=== PATIENT | female | born 1955 | race Caucasian/White ===

== ENCOUNTER 2019-09-16 01:27 | Emergency (ER) | payer BC, SELFPAY ==
--- NOTE | ~2019-09-16 | CT_ITS ---
EXAMINATION: CT soft tissue neck wo con DATE: 09/16/2019 02:49 INDICATION: Dysphagia. Throat swelling. TECHNIQUE: Computed tomography (CT) of the neck was performed without intravenous contrast. Automated exposure control and iterative reconstruction technique were employed. The dose-length product was 6 28.18 mGy-cm. COMPARISON: None FINDINGS: There are no pathologically enlarged lymph nodes. The pharyngeal mucosal space and larynx a re normal. The paranasal sinuses are clear. There is severe cervical spondylosis. There are fixation rods in thoracic spine. IMPRESSION: 1. No etiology for the patient's symptoms. Reviewed, dictated and finalized at location A. RNAL AUDIT SENIOR MANAGER
[2019-09-16 01:36] VITALS: BP 151/85; PULSE 84; RESP 20; TEMP 36.8; O2SAT 100
[2019-09-16 01:40] VITALS: BP 151/85; PULSE 86; RESP 18; O2SAT 100
--- NOTE | 2019-09-16 01:57 | ED.ALLEREA ---
HPI - Allergic Reaction General Chief complaint: Allergic Reaction Stated complaint: THROAT SWELLING Time Seen by Provider: 09/16/19 01:55 Source: patient and RN notes reviewed Mode of arrival: ambulatory Limitations: no limitations History of Present Illness HPI narrative: Pt is a 64 y/o female who presents to the ED with c/o possible allergic reaction starting this evening. She notes that she recently started taking Olmesartan 2 months ago. Pt states that she began having difficulty swallowing around 22:00 yesterday. She notes that her tongue feels swollen, and states that her symptoms aggravated while laying down around 00:00 this morning. Pt notes that she hasn't tried any other new medications. She currently denies any slurred speech, rash, diarrhea, cough, or difficulty breathing. Pt notes that she has no known allergies. MD complaint: allergic reaction (possible) Onset (ago): hour(s) (4) Exposure: medication Symptoms: difficulty swallowing and tongue swelling Treatment prior to arrival: none Related Data Allergies Allergy/AdvReac Type Severity Reaction Status Date / Time Iodinated Contrast Media Allergy Unknown Unverified 06/22/19 11:41 Contrast Media Allergy Mild Uncoded 07/05/18 12:56 Review of Systems Review of Systems: Narrative: CONSTITUTIONAL: Denies fever, chills, or sweats. ENT: Denies rhinorrhea, congestion, sore throat, or otalgia. Reports tongue swelling and difficulty swallowing. RESPIRATORY: Denies cough or dyspnea. GASTROINTESTINAL: Denies abdominal pain, nausea, vomiting, or diarrhea. SKIN: Denies rash or itching. NEUROLOGIC: Denies headache, numbness, slurred speech, or weakness. All systems reviewed & are unremarkable except as noted in HPI and below PMFSH Past Medical History Medical History (Updated 09/16/19 @ 03:22 by Nan Abreu MD) Arthritis Bipolar disorder Depression GERD (gastroesophageal reflux disease) HTN (hypertension) Surgical History Surgical History Hx of cholecystectomy Hx of gastric bypass Hx of shoulder replacement bilateral shoulders Hx of tonsillectomy Social History Social History Smoking status: Never smoker Exam Narrative: Exam Narrative: GENERAL: Well-appearing, well-nourished, and in no acute distress. HEAD: Normocephalic, atraumatic. EYES: PERRLA and EOMI. ENT: Nares clear, no rhinorrhea or epistaxis. Mucous membranes moist. Uvula midline. No pharyngeal edema or erythema. Epiglottis visible on evaluation of oropharynx. No trismus. NECK: Supple. CHEST: Clear to auscultation. No respiratory distress. HEART: Regular rate and rhythm. No murmur heard. Normal peripheral pulses. ABDOMEN: Soft, nontender, nondistended, normal active bowel sounds. EXTREMITIES: Normal range of motion. No edema. SKIN: Warm, dry, no rash. NEURO: No focal deficits. Alert and oriented. Tardive dyskinesia noted. Repetitive tongue and mouth movements. Course Course Emergency Course: Patient presented for evaluation of difficulty swallowing and concern for swelling of the tongue. On exam, the patient is tolerating her secretions, no tongue edema, uvula is midline without edema or erythema. No trismus. Patient is able to swallow in the room, I was able to give her numerous sips of water and she had no difficulty swallowing, no vomiting. No sign of angioedema. No lip edema, no tongue edema. Patient has no reports of pain. She does have tardive dyskinesia on exam which is chronic for her due to not being able to access the medication due to some insurance barriers. Patient will be treated for mild possible allergic reaction, no other secondary symptoms or 2 system involvement to suggest anaphylaxis. Patient was monitored in the emergency department, had no worsening of symptoms, no airway compromise, was continued to be able to tolerate oral intake. CT scan without acute findings. No sign of epiglo
[2019-09-16 02:30] VITALS: BP 120/71; PULSE 78; RESP 21; O2SAT 98
[2019-09-16 03:30] VITALS: BP 132/71; PULSE 77; RESP 16; O2SAT 100
== END 2019-09-16 03:40 | disposition home or self-care (01) ==
PROVIDERS: Emergency Provider Emergency Medicine; PCP Internal Medicine
DX: M19.90 Unspecified osteoarthritis, unspecified site (principal); K21.9 Gastro-esophageal reflux disease without esophagitis; I10 Essential (primary) hypertension
CPT/HCPCS: 70490; 99284; A9270; J1100

== ENCOUNTER 2019-10-02 17:48 | Emergency (ER) | payer BC, SELFPAY ==
[2019-10-02 17:55] VITALS: BP 138/76; PULSE 104; RESP 20; TEMP 37.4; O2SAT 98
--- NOTE | 2019-10-02 18:17 | ED.GENADULT ---
HPI - General Adult General Chief complaint: Skin/Abscess/Foreign Body Stated complaint: Bite on neck Time Seen by Provider: 10/02/19 18:17 Source: patient and RN notes reviewed Mode of arrival: ambulatory Limitations: no limitations History of Present Illness HPI narrative: 64-year-old female presents with complaints of possible bites to lower neck area with redness, warmth, tenderness, and swelling for the past 3 days. No treatment. Denies radiation of tenderness, redness, or swelling. No exacerbating factors. Denies open areas or drainage. Denies fever or chills. Denies nausea, vomiting, and abdominal pain. Some parts of this dictation were generated by voice recognition software and may contain typographical and/or grammatical inaccuracies. Related Data Home Medications Medication Instructions Recorded Confirmed atorvastatin 10 mg PO DAILY 10/02/19 10/02/19 deutetrabenazine [Austedo] 9 mg PO BID 10/02/19 10/02/19 dextroamphetamine-amphetamine 30 mg PO DAILY 10/02/19 10/02/19 gabapentin 300 mg PO DAILY 10/02/19 10/02/19 meloxicam 15 mg PO DAILY 10/02/19 10/02/19 olmesartan-hydrochlorothiazide 1 tablet PO DAILY 10/02/19 10/02/19 omeprazole 20 mg PO BID 10/02/19 10/02/19 potassium chloride 10 meq PO DAILY 10/02/19 10/02/19 Allergies Allergy/AdvReac Type Severity Reaction Status Date / Time Iodinated Contrast Media Allergy Unknown Unverified 06/22/19 11:41 Contrast Media Allergy Mild Uncoded 07/05/18 12:56 Review of Systems Review of Systems: Narrative: CONSTITUTIONAL: Denies fever, chills, sweats. EYES: Denies visual changes, redness, discharge. ENT: Denies rhinorrhea, congestion, sore throat, otalgia. CARDIOVASCULAR: Denies chest pain, palpitations, edema. RESPIRATORY: Denies dyspnea, wheezing, cough. GASTROINTESTINAL: Denies abdominal pain, nausea, vomiting, diarrhea. GENITOURINARY: Denies dysuria, hematuria, abnormal discharge. SKIN: Complains of redness, swelling, warmth, and tenderness to bumps on lower neck. Denies drainage. MUSCULOSKELETAL: Denies acute back pain, joint pain, or myalgia. NEUROLOGIC: Denies numbness or focal weakness. PSYCHIATRIC: Denies anxiety or depression. All systems reviewed & are unremarkable except as noted in HPI and below. [facility] Past Medical History Medical History (Updated 10/10/19 @ 06:00 by YEVGENIY Mahajan) Arthritis Bipolar disorder Depression Diabetes GERD (gastroesophageal reflux disease) HTN (hypertension) Hypothyroidism Tardive syndrome Surgical History Surgical History (Updated 10/10/19 @ 05:59 by YEVGENIY Mahajan) History of spinal surgery Hx of cholecystectomy Hx of gastric bypass Hx of shoulder replacement bilateral shoulders Hx of tonsillectomy Social History Social History Smoking status: Never smoker Gender identity (if verbalized by the patient): Female Comments At time of signature, agree with nurse past medical, surgical, social, and family history. There is no relevant family history pertinent to the presenting complaint. Exam Narrative: Exam Narrative: GENERAL: This is a well-nourished, well-developed patient, in no apparent distress. HEAD: normocephalic, atraumatic. EYES: PERRL. Sclera clear/white. Vision is grossly intact. CARDIOVASCULAR: Regular rate and rhythm without murmurs, gallops, or rubs. RESPIRATORY: Clear to auscultation. Breath sounds equal bilaterally. No wheezes, rales, or rhonchi. GASTROINTESTINAL: Abdomen soft, non-tender, nondistended. Bowel sounds are active. No hepato-splenomegaly, or palpable masses. No guarding. SKIN: warm, 3 small raised lesions to mid upper back at base of neck covering a 2.5cm by 2cm area with mild erythema no significant warmth or tenderness or palpation, no fluctuation, I&D not necessary at this time. 2.5cm by 2cm surrounding Cellulitis. Skin intact. No drainage or ecchymosis. Good texture and turgor. Healing s
== END 2019-10-02 18:44 | disposition home or self-care (01) ==
PROVIDERS: Emergency Provider Nurse Practitioner Family
DX: L03.312 Cellulitis of back [any part except buttock and flank] (principal); M19.90 Unspecified osteoarthritis, unspecified site; K21.9 Gastro-esophageal reflux disease without esophagitis; I10 Essential (primary) hypertension; Z98.84 Bariatric surgery status; Z96.612 Presence of left artificial shoulder joint; Z96.611 Presence of right artificial shoulder joint
CPT/HCPCS: 99213; G0463

== ENCOUNTER 2020-01-07 18:20 | IRF | payer BC, SELFPAY ==
[2020-01-07 18:20] VITALS: BP 96/81; PULSE 96; RESP 20; TEMP 36.8; O2SAT 97; BMI 36.7
--- NOTE | 2020-01-07 18:29 | ADMGEN ---
This patient, Ale Harley, was admitted to [facility] Room 230-02. Patient/family oriented to hospital policies and general routines including ID bracelet, bed and alarms, visiting hours, pain management, procedures, bathroom and other care routines, personal items, smoking policy, room service/diet, and visiting hours. Valuables list has been completed. Information on how to activate the Rapid Response Team has been discussed. Patient/Family are encouraged to report perceived risks to care and to ask questions if they do not understand what they are told or what they should do.
[2020-01-07] MEDS: AZITHROMYCIN 250 MG TABLET 500 MG PO (21:15)
[2020-01-07] MEDS: GABAPENTIN 300 MG CAPSULE PO (21:16)
[2020-01-07] MEDS: PANTOPRAZOLE 40 MG TABLET PO (21:17)
[2020-01-07] MEDS: ACETAMINOPHEN 325 MG TABLET 650 MG PO (21:17)
[2020-01-07 21:47] VITALS: BP 140/59; PULSE 92; RESP 18; TEMP 36.3; O2SAT 96
[2020-01-08 05:19] LABS: Hematocrit 25.8 % (37.0-47.0); Mean Corpuscular Hemoglobin 26.5 pg (26-34); Mean Corpuscular Volume 85.4 fl (80-100); Mean Platelet Volume 8.2 fl (7.4-10.4); Platelet Count Result 527 k/mm3 (150-375); Red Blood Count 3.02 M/mm3 (4.2-5.4); Red Cell Distribution Width 15.7 % (11.5-14.5); White Blood Count 8.3 K/mm3 (4.5-10.0)
[2020-01-08 05:32] LABS: Blood Urea Nitrogen 12 mg/dL (7-17); Calcium 8.7 mg/dL (8.4-10.2); Carbon Dioxide 31 mmol/L (22-30); Chloride 101 mmol/L (98-107); Estimated CRCL calculation 60 ml/min; Estimated Glomerular Filt Rate > 60; Glucose 101 mg/dL (65-105); Potassium 3.9 mmol/L (3.4-5.0); Sodium 137 mmol/L (137-145)
[2020-01-08] MEDS: ACETAMINOPHEN 325 MG TABLET 650 MG PO ×3 (05:38→21:58)
[2020-01-08 05:43] LABS: Hemoglobin A1C 6.3 % (<5.7)
[2020-01-08 05:58] LABS: Band Neutrophils Percent 5 % (0-6); Lymphocytes Absolute Manual 1.82 K/mm3 (1.1-4.5); Metamyelocytes Percent 2 %; Monocytes Absolute Manual 0.74 K/mm3 (0.1-0.90); Monocytes Percent Manual 9 % (3-9); Neutrophils Absolute Manual 5.56 K/mm3 (1.7-7.2); Neutrophils Percent Manual 62 % (46-73); Platelet Estimate Adequate (Adequate); Total Cells Counted 100
[2020-01-08 06:00] VITALS: BP 111/65; PULSE 87; RESP 18; TEMP 37; O2SAT 98
[2020-01-08] MEDS: ATORVASTATIN 10 MG TABLET PO (09:17)
[2020-01-08] MEDS: AZITHROMYCIN 250 MG TABLET PO (09:17)
[2020-01-08] MEDS: DOCUSATE SODIUM 100 MG CAPSULE PO (09:18)
[2020-01-08] MEDS: CHOLECALCIFEROL 1,000 UNIT TABLET 2000 UNITS PO (09:18)
[2020-01-08] MEDS: hydroCHLOROthiazide 25 MG TABLET PO (09:18)
[2020-01-08] MEDS: GABAPENTIN 300 MG CAPSULE PO ×2 (09:18→21:57)
[2020-01-08] MEDS: OLMESARTAN MEDOXOMIL 20 MG TABLET 40 MG PO (09:19)
[2020-01-08] MEDS: PANTOPRAZOLE 40 MG TABLET PO ×2 (09:19→21:57)
[2020-01-08] MEDS: POTASSIUM CHLORIDE 10 MEQ TABLET.ER PO (09:19)
[2020-01-08] MEDS: MELOXICAM 7.5 MG TABLET 15 MG PO (09:19)
[2020-01-08] MEDS: lamoTRIgine 100 MG TABLET 200 MG PO ×2 (09:19→17:30)
[2020-01-08] MEDS: VITAMIN B COMPLEX/VIT C CAPSULE 1 EACH PO (09:20)
--- NOTE | 2020-01-08 12:00 | WPDREHABHP ---
H&P: HPI History of Present Illness Chief complaint: Lumbar Spondylolisthesis Narrative: Ale Harley is a 64 year old female HISTORY OF PRESENT ILLNESS: The patient's primary rehab impairment category is 0 6-neurological condition The etiologic diagnosis is lumbar degenerative spondylolisthesis and lumbar spinal stenosis with neurological claudication I saw this patient [id number] on January 08, 2020 at 12 noon The patient is a 64-year-old right-handed white woman with a past medical history of hypertension, diabetes mellitus, tardive dyskinesias, and multiple back surgeries presented to [facility] in December 21, 2019 due to inadequate pain control in her back. She was last seen in the orthopedic clinic on December 16, 2019, and further surgery was discussed regarding the broken rods at L4 /L5. She has selected for non operative management at that time and was issued a back brace. Patient continued to have increased pain and significant functional decline in ADLs. Orthopedic Spine was consulted and recommended surgical intervention. On January 01, 2020 the patient underwent an L5-S1 TLIF, L1-pelvic hardware revision by Dr Tolentino. Postop complications included acute pain and acute blood-loss anemia. The patient has no restriction for weight-bearing status and no back brace is needed for orthopedic surgeon as per orthopedic surgeon. Pain controlled with Relafen and Tylenol recommended to avoid narcotics. The patient is supposed to have been discharged on Lovenox b.i.d. for anticoagulation however will see how much she is able to walk issues walking quite a distance then we may not have to The patient has not traveled outside the [place] had contact with someone who is ill and has traveled outside use in the past 21 days. The patient has not traveled to an area of the [place] that is experiencing no transmission of the Coronavirus and has not had close personal contact with anyone that has. Patient does not have a fever. The patient is not experiencing lower respiratory illness symptoms. The patient had COVID-19 test on December 22, 2027 was negative Therapy was initiated at the acute care facility and the patient transferred to us from [facility] on January 07, 2020 on FALLS OR SURGERIES: The patient has had major surgeries in the 100 days prior to admission. They had no falls in the past year. They had no falls with injury in the past year. PAST MEDICAL HISTORY: chronic low back pain, anxiety, C diff in 2012, diabetes mellitus, hypertension, osteoarthritis, tardive dyskinesias. PAST SURGICAL HISTORY: Spinal surgery with rods inserted in March of 2019, cholecystectomy, colonoscopy with polypectomy in November of 2011 and May 2018, craniotomy lump removal, right total hip replacement, LASIK surgery, [id number] posterior instrumented spinal fusion decompression at L5-L5 rather L1-L5 in March 2019, revision posterior spinal fusion with extension of instrumented posterior spinal fusion to thoracic area and April 2019, partial hysterectomy x2, bilateral shoulder replacement 2004, 2002 and tonsillectomy SOCIAL HISTORY: the patient lives alone in a duplex with 2 steps to enter. She is completely independent just improved functionally to know device from a cane. She has a hospital housekeeper that helps her with cooking cleaning and laundry. 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 Patient denies tobacco use or illicit use of drugs. She drinks alcohol on occasions. FAMILY HISTORY: Father had diabetes, heart disease and hypertension. Mother had diabetes, heart disease, hypertension and stroke. Family history of cancer PRIOR LEVEL OF FUNCTION: Eating was INDEPENDENT Oral Care was INDEPENDENT Toileting Hygiene was INDEPENDENT Shower/Bathing was INDEPENDENT Upper Body Dressing was INDEPENDENT Lower Body Dressing was INDEPENDENT Donning/Watchtower Footwear was INDEPENDENT Rolling Left and Right was INDEP
[2020-01-08 13:45] VITALS: BMI 36.7
[2020-01-08 14:00] VITALS: BP 96/53; PULSE 86; RESP 18; TEMP 36.4; O2SAT 100
--- NOTE | 2020-01-08 14:56 | PCCCNOTE ---
On 01/08/20, the student, [Nash Galeas ], provided care and completed [facility] documentation on this patient. I have reviewed the student's documentation and agree with the findings.
[2020-01-08 22:00] VITALS: BP 116/58; PULSE 87; RESP 17; TEMP 36.9; O2SAT 97
--- NOTE | 2020-01-08 23:14 | PHAR ---
PT'S HOME MED AUSTEDO 9 MG TAB VERIFIED BY PHARMACY
[2020-01-09] MEDS: ACETAMINOPHEN 325 MG TABLET 650 MG PO ×3 (05:53→20:37)
[2020-01-09 06:00] VITALS: BP 106/61; PULSE 78; RESP 18; TEMP 36.6; O2SAT 98
[2020-01-09 08:06] LABS: Glucose Point of Care 197 (65-105)
[2020-01-09] MEDS: CHOLECALCIFEROL 1,000 UNIT TABLET 2000 UNITS PO (09:57)
[2020-01-09] MEDS: DOCUSATE SODIUM 100 MG CAPSULE PO (09:57)
[2020-01-09] MEDS: GABAPENTIN 300 MG CAPSULE PO ×2 (09:57→20:37)
[2020-01-09] MEDS: ATORVASTATIN 10 MG TABLET PO (09:57)
[2020-01-09] MEDS: AZITHROMYCIN 250 MG TABLET PO (09:57)
[2020-01-09] MEDS: hydroCHLOROthiazide 25 MG TABLET PO (09:58)
[2020-01-09] MEDS: lamoTRIgine 100 MG TABLET 200 MG PO ×2 (09:58→18:33)
[2020-01-09] MEDS: OLMESARTAN MEDOXOMIL 20 MG TABLET 40 MG PO (09:59)
[2020-01-09] MEDS: POTASSIUM CHLORIDE 10 MEQ TABLET.ER PO (09:59)
[2020-01-09] MEDS: PANTOPRAZOLE 40 MG TABLET PO ×2 (09:59→20:37)
[2020-01-09] MEDS: MELOXICAM 7.5 MG TABLET 15 MG PO (09:59)
[2020-01-09] MEDS: VITAMIN B COMPLEX/VIT C CAPSULE 1 EACH PO (10:00)
--- NOTE | 2020-01-09 13:34 | RPD ---
INDIVIDUALIZED PLAN OF CARE FOR Ale Harley Brief Synthesis of Pre-Admission Screen, Post-Admission Evaluation and Therapy Evaluations: The patient presents to rehab with lumbar degenerative spondylolisthesis and lumbar spinal stenosis with neurogenic claudication. Comorbidities include s/p L5-S1 TLIF, L1-pelvis hardware revision 01/01/2020, chronic low back pain, anxiety, diabetes mellitus, hypertension, osteoarthritis, tardive dyskinesia, and acute blood loss anemia. The complexity of the patient's medical management, nursing, and therapy needs require an inpatient rehab hospital stay with a physician-led interdisciplinary team approach. The patient?s needs will be best met in an intensive program vs. at a lower level of care. The patient requires physician services for medical oversight, management of postop complications in setting of present comorbidities, and pain management. The patient requires nursing services for DVT prophylactics, infection protection, medication management and education, pressure relief, and wound care. Deficits include:ADLs, Balance, Endurance, Family Training/Education, Mobility, Pain Management, ROM, Safety, Strength,and Transfers Petroleum Inspector/Case Management for: Discharge Planning and Patient/Family Counseling Physical Therapy: 5 days per week for 90 minutes. Treatments may include: Therapeutic Exercise, Gait Training, Neuromuscular Re-education, Transfer Training, Community Reintegration, Bed Mobility, Patient/Family Education, Wheelchair Mobility Group Therapy/Concurrent Therapy Rationales: -Improve attention span during functional activities in a distracted environment. -Enhance problem solving and/or adequate judgment skills during functional activities in a distracted environment. -Promote increased safety awareness in a distracted environment to reduce fall risk with functional tasks, transfers, and ambulation to allow a more safe, self-sufficient return to the home environment. -Improve dynamic balance skills to promote safety and independence with functional activities in a distracted environment for maximum gain. Occupational Therapy: 5 days per week for 90 minutes. Treatments may include: Therapeutic Exercise, Therapeutic Activity, Cognitive Training, Self-Care Transfer Training, Community Reintegration, Home Management, Patient/Family Education, Wheelchair Mobility Training, Energy Conservation Training Group Therapy/Concurrent Therapy Rationales: -Allow therapist to observe and teach generalization and carry-over of skills learned in individual therapy. -Enhance problem solving and sequencing skills during therapeutic activities in a distracted environment. -Promote increased safety awareness in a realistic setting to reduce fall risk with functional tasks due to visual and verbal distractions. -Increase functional level with ADLs, ADL transfers and use of adaptive equipment through therapeutic activities with others while promoting safety to allow a more safe, self-sufficient return home. Medical Prognosis: Good Anticipated Length of Stay: 12 days Rehab Goals: Eating Goal: 06-Independent Oral Hygiene Goal: 06-Independent Toileting Hygiene Goal: 06-Independent Shower/Bathe Self Goal: 04-Supervision or Touching Assistance Upper Body Dressing Goal: 06-Independent Lower Body Dressing Goal: 06-Independent Putting On/Taking Off Footwear Goal: 06-Independent Rolling Left and Right Goal: 06-Independent Sit to Lying Goal: 06-Independent Lying to Sitting on Side of Bed Goal: 06-Independent Sit to Stand Goal: 06-Independent Chair/[id number] Transfer Goal: 06-Independent Toilet Transfer Goal: 06-Independent Car Transfer Goal: 06-Independent Walk 10' Goal: 06-Independent Walk 50' with Two Turns Goal: 06-Independent Walk 150' Goal: 06-Independent Walk 10' on Uneven Surface Goal: 1 Step (Curb) Goal: 06-Independent 4 Steps Goal: 06-Independent 12 Steps Goal Score: 03-Partial/moderate assistance Picking Up Ob
[2020-01-09 14:00] VITALS: BP 104/55; PULSE 93; RESP 20; TEMP 37; O2SAT 96
[2020-01-09] MEDS: CYCLOBENZAPRINE HCL 10 MG TABLET PO (18:40)
[2020-01-09 22:00] VITALS: BP 98/43; PULSE 89; RESP 17; TEMP 36.8; O2SAT 99
[2020-01-10 06:00] VITALS: BP 97/49; PULSE 82; RESP 18; TEMP 37.2; O2SAT 99
[2020-01-10 06:23] LABS: Glucose Point of Care 95 (65-105)
[2020-01-10] MEDS: ATORVASTATIN 10 MG TABLET PO (09:30)
[2020-01-10] MEDS: lamoTRIgine 100 MG TABLET 200 MG PO ×2 (09:30→18:09)
[2020-01-10] MEDS: hydroCHLOROthiazide 25 MG TABLET PO (09:30)
[2020-01-10] MEDS: AZITHROMYCIN 250 MG TABLET PO (09:31)
[2020-01-10] MEDS: OLMESARTAN MEDOXOMIL 20 MG TABLET 40 MG PO (09:31)
[2020-01-10] MEDS: GABAPENTIN 300 MG CAPSULE PO ×2 (09:32→21:21)
[2020-01-10] MEDS: DOCUSATE SODIUM 100 MG CAPSULE PO (09:32)
[2020-01-10] MEDS: MELOXICAM 7.5 MG TABLET 15 MG PO (09:32)
[2020-01-10] MEDS: POTASSIUM CHLORIDE 10 MEQ TABLET.ER PO (09:33)
[2020-01-10] MEDS: PANTOPRAZOLE 40 MG TABLET PO ×2 (09:33→21:21)
[2020-01-10] MEDS: VITAMIN B COMPLEX/VIT C CAPSULE 1 EACH PO (09:33)
[2020-01-10] MEDS: CHOLECALCIFEROL 1,000 UNIT TABLET 2000 UNITS PO (10:25)
[2020-01-10] MEDS: ACETAMINOPHEN 325 MG TABLET 650 MG PO ×2 (13:11→21:21)
[2020-01-10 14:00] VITALS: BP 96/53; PULSE 96; RESP 18; TEMP 36.6; O2SAT 97
--- NOTE | 2020-01-10 14:49 | WPDNEURORHBP ---
Subjective Date/time seen: Lumbar spondylolisthesis with stenosis, hypertension,DM,tardive dyskinesia and H/o multiple back [id number]/21/20 14:49 Review of Systems Review of Systems: All systems reviewed & are unremarkable except as noted in HPI and below Functional Status Ambulation Ability Ability to Ambulate 10 Feet: Contact Guard Ability to Ambulate 50 Feet With 2 Turns: Standby Assistance Ambulation Assistive Devices: Cane, Small Base Quad Transfers Ability Ability to Transfer In/Out of Chair: Standby Assistance Exam Const: General: cooperative and no acute distress Nutritional Appearance: overweight HENMT: Head: normal to inspection Eyes: General: appearance normal, both eyes and all related structures Alignment and Position: alignment normal and position normal Periorbital: periorbital findings normal Eyelids: eyelids normal Conjunctivae: conjunctivae normal Sclera: sclerae normal Cornea: corneas normal Pupils: Equal, round and reactive pupils present EOM: EOMs intact bilaterally Direct Ophthalmoscopy: normal light reflex Neck: Neck: full ROM and no lymphadenopathy Thyroid: thyroid normal Carotids: normal carotid upstroke Resp: Auscultation: clear to auscultation bilaterally Cardio: Rate: regular rate Rhythm: regular rhythm GI: Auscultation: normal bowel sounds Skin: General skin exam: no rashes or lesions noted Wounds: no wounds (healthy) Neuro: General: patient oriented x3 and moves all extremities (duskinesia of face) Cranial nerves: Yes CN's II-XII intact bilaterally, Yes Equal, round and reactive pupils present, Yes Bilaterally intact EOM present, Yes Nystagmus not present, Yes facial symmetry (dyskinesia) and Yes Midline tongue present Motor exam (neuro): Abnormal motor strength present Extrem: General: normal to inspection Psych: Appearance: grossly normal Objective Data Vital Signs Vital Signs: Vital Signs - 24 hr 01/09/20 22:00 01/10/20 06:00 Temperature 36.8 C 37.2 C Pulse Rate 89 82 Respiratory Rate 17 18 Blood Pressure 98/43 L 97/49 L Pulse Oximetry 99 99 Intake/Output Intake/Output: Intake & Output 01/07/20 01/08/20 01/09/20 01/10/20 23:59 23:59 23:59 23:59 Intake Total 240 720 580 400 Balance 240 720 580 400 Meds/Results Medications: Active Medications Generic Name Dose Route Start Last Admin Trade Name Freq PRN Reason Stop Dose Admin Acetaminophen 650 mg 01/07/20 22:00 01/10/20 13:11 Tylenol Tablet PO 650 mg Q8HR DAMON Administration Acetaminophen/Codeine Phosphate 1 tab 01/07/20 19:13 01/09/20 18:40 Tylenol #3 PO 1 tab Q4H PRN Administration Pain 6-10 Hydrocodone Bitart/Acetaminophen 1 tab 01/07/20 19:13 Eldridge 5-325 Mg PO Q4H PRN Pain 1-5 Atorvastatin Calcium 10 mg 01/08/20 09:00 01/10/20 09:30 Lipitor PO 10 mg DAILY DAMON Administration Azithromycin 250 mg 01/08/20 09:00 01/10/20 09:31 Zithromax Tablet PO 01/11/20 09:01 250 mg DAILY DAMON Administration Cyclobenzaprine HCl 10 mg 01/07/20 19:13 01/09/20 18:40 Flexeril PO 10 mg TID PRN Administration Spasms Docusate Sodium 100 mg 01/08/20 09:00 01/10/20 09:32 Colace Capsule PO 100 mg DAILY DAMON Administration Gabapentin 300 mg 01/07/20 21:00 01/10/20 09:32 Neurontin PO 300 mg Q12HR DAMON Administration Guaifenesin 600 mg 01/09/20 21:00 01/10/20 09:30 Mucinex 12 Hr Tab PO 600 mg Q12HR DAMON Administration Hydrochlorothiazide 25 mg 01/08/20 09:00 01/10/20 09:30 Hydrochlorothiazide PO 02/07/20 09:01 25 mg DAILY DAMON Administration Lamotrigine 200 mg 01/08/20 09:00 01/10/20 09:30 Lamictal PO 200 mg BID DAMON Administration Meloxicam 15 mg 01/08/20 09:00 01/10/20 09:32 Mobic PO 02/07/20 09:01 15 mg DAILY DAMON Administration Non-Formulary Medication 30 mg 01/08/20 09:00 Dextroamphetamine-Amphetamine PO 02/07/20 09:01 BID [facility] Olmesartan 40 m
[2020-01-10] MEDS: CYCLOBENZAPRINE HCL 10 MG TABLET PO (18:08)
[2020-01-10 22:00] VITALS: BP 99/62; PULSE 86; RESP 18; TEMP 36.9; O2SAT 97
[2020-01-11] MEDS: ACETAMINOPHEN 325 MG TABLET 650 MG PO ×3 (05:54→20:24)
[2020-01-11 06:00] VITALS: BP 117/60; PULSE 83; RESP 18; TEMP 36.6; O2SAT 98
[2020-01-11 06:44] LABS: Glucose Point of Care 92 (65-105)
[2020-01-11 09:00] VITALS: PULSE 96; RESP 18; O2SAT 99
[2020-01-11] MEDS: AZITHROMYCIN 250 MG TABLET PO (09:58)
[2020-01-11] MEDS: PANTOPRAZOLE 40 MG TABLET PO ×2 (09:58→20:24)
[2020-01-11] MEDS: ATORVASTATIN 10 MG TABLET PO (09:58)
[2020-01-11] MEDS: MELOXICAM 7.5 MG TABLET 15 MG PO (09:58)
[2020-01-11] MEDS: hydroCHLOROthiazide 25 MG TABLET PO (09:59)
[2020-01-11] MEDS: lamoTRIgine 100 MG TABLET 200 MG PO ×2 (09:59→17:29)
[2020-01-11] MEDS: CHOLECALCIFEROL 1,000 UNIT TABLET 2000 UNITS PO (10:00)
[2020-01-11] MEDS: VITAMIN B COMPLEX/VIT C CAPSULE 1 EACH PO (10:00)
[2020-01-11] MEDS: POTASSIUM CHLORIDE 10 MEQ TABLET.ER PO (10:00)
[2020-01-11] MEDS: OLMESARTAN MEDOXOMIL 20 MG TABLET 40 MG PO (10:00)
[2020-01-11] MEDS: GABAPENTIN 300 MG CAPSULE PO ×2 (10:01→20:23)
[2020-01-11] MEDS: DOCUSATE SODIUM 100 MG CAPSULE PO (10:02)
[2020-01-11 14:00] VITALS: BP 113/57; PULSE 96; RESP 18; TEMP 36.7; O2SAT 100
[2020-01-11 22:00] VITALS: BP 102/54; PULSE 93; RESP 18; TEMP 36.8; O2SAT 96
[2020-01-12 06:00] VITALS: BP 131/67; PULSE 81; RESP 18; TEMP 36.2; O2SAT 94
[2020-01-12] MEDS: ACETAMINOPHEN 325 MG TABLET 650 MG PO ×3 (06:22→21:54)
[2020-01-12 06:57] LABS: Glucose Point of Care 92 (65-105)
[2020-01-12 08:00] VITALS: PULSE 81; RESP 18; O2SAT 94
[2020-01-12] MEDS: OLMESARTAN MEDOXOMIL 20 MG TABLET 40 MG PO (08:51)
[2020-01-12] MEDS: ATORVASTATIN 10 MG TABLET PO (08:51)
[2020-01-12] MEDS: lamoTRIgine 100 MG TABLET 200 MG PO ×2 (08:51→17:59)
[2020-01-12] MEDS: DOCUSATE SODIUM 100 MG CAPSULE PO (08:52)
[2020-01-12] MEDS: hydroCHLOROthiazide 25 MG TABLET PO (08:52)
[2020-01-12] MEDS: PANTOPRAZOLE 40 MG TABLET PO ×2 (08:52→21:54)
[2020-01-12] MEDS: POTASSIUM CHLORIDE 10 MEQ TABLET.ER PO (08:52)
[2020-01-12] MEDS: GABAPENTIN 300 MG CAPSULE PO ×2 (08:52→21:54)
[2020-01-12] MEDS: CHOLECALCIFEROL 1,000 UNIT TABLET 2000 UNITS PO (08:53)
[2020-01-12] MEDS: VITAMIN B COMPLEX/VIT C CAPSULE 1 EACH PO (08:54)
[2020-01-12] MEDS: MELOXICAM 7.5 MG TABLET 15 MG PO (08:54)
[2020-01-12 14:00] VITALS: BP 105/61; PULSE 97; RESP 20; TEMP 36.6; O2SAT 100
--- NOTE | 2020-01-12 14:54 | WPDNEURORHBP ---
Subjective Date/time seen: 01/12/20 14:54 Interval history: this 64-year-old woman is here post surgery for lumbar spondylolisthesis lumbar canal stenosis and intermittent claudication she is slowly improving and get good report card from the nursing occupational therapist and PT she is walking roughly about 150 feet consistently Patient denies any headache nausea vomiting chest pain shortness of breath fever chills sore throat Review of Systems Review of Systems: All systems reviewed & are unremarkable except as noted in HPI and below Functional Status Ambulation Ability Ability to Ambulate 10 Feet: Independent Ability to Ambulate 50 Feet With 2 Turns: Standby Assistance Ability to Ambulate 150 Feet: Standby Assistance Ambulation Assistive Devices: Walker, Wheeled Transfers Ability Ability to Transfer In/Out of Chair: Standby Assistance Exam Const: General: comfortable and no acute distress HENMT: General nose exam: Normal nares present Mouth: Yes moist mucous membranes Eyes: General: appearance normal, both eyes and all related structures Neck: Neck: supple and no JVD Resp: Effort & Inspection: normal respiratory effort Auscultation: clear to auscultation bilaterally Cardio: Rate: regular rate Rhythm: regular rhythm GI: GI Palp: Yes Soft to palpation Auscultation: normal bowel sounds Skin: General skin exam: normal color and no rashes or lesions noted Neuro: Other: patient is awake and alert well oriented not in distress improving lower extremity weakness Extrem: General: normal to inspection Psych: Mental Status: mental status grossly normal Objective Data Vital Signs Vital Signs: Vital Signs - 24 hr 01/11/20 22:00 01/12/20 06:00 01/12/20 08:00 Temperature 36.8 C 36.2 C L Pulse Rate 93 81 81 Respiratory Rate 18 18 18 Blood Pressure 102/54 L 131/67 Pulse Oximetry 96 94 94 Intake/Output Intake/Output: Intake & Output 01/09/20 01/10/20 01/11/20 01/12/20 23:59 23:59 23:59 23:59 Intake Total 580 520 720 240 Balance 580 520 720 240 Meds/Results Medications: Active Medications Generic Name Dose Route Start Last Admin Trade Name Freq PRN Reason Stop Dose Admin Acetaminophen 650 mg 01/07/20 22:00 01/12/20 14:28 Tylenol Tablet PO 650 mg Q8HR DAMON Administration Acetaminophen/Codeine Phosphate 1 tab 01/07/20 19:13 01/09/20 18:40 Tylenol #3 PO 1 tab Q4H PRN Administration Pain 6-10 Hydrocodone Bitart/Acetaminophen 1 tab 01/07/20 19:13 01/11/20 02:36 [place] 5-325 Mg PO 1 tab Q4H PRN Administration Pain 1-5 Atorvastatin Calcium 10 mg 01/08/20 09:00 01/12/20 08:51 Lipitor PO 10 mg DAILY DAMON Administration Cyclobenzaprine HCl 10 mg 01/07/20 19:13 01/10/20 18:08 Flexeril PO 10 mg TID PRN Administration Spasms Docusate Sodium 100 mg 01/08/20 09:00 01/12/20 08:52 Colace Capsule PO 100 mg DAILY DAMON Administration Gabapentin 300 mg 01/07/20 21:00 01/12/20 08:52 Neurontin PO 300 mg Q12HR DAMON Administration Guaifenesin 600 mg 01/09/20 21:00 01/12/20 08:52 Mucinex 12 Hr Tab PO 600 mg Q12HR DAMON Administration Hydrochlorothiazide 25 mg 01/08/20 09:00 01/12/20 08:52 Hydrochlorothiazide PO 02/07/20 09:01 25 mg DAILY DAMON Administration Lamotrigine 200 mg 01/08/20 09:00 01/12/20 08:51 Lamictal PO 200 mg BID DAMON Administration Meloxicam 15 mg 01/08/20 09:00 01/12/20 08:54 Mobic PO 02/07/20 09:01 15 mg DAILY DAMON Administration Non-Formulary Medication 30 mg 01/08/20 09:00 Dextroamphetamine-Amphetamine PO 02/07/20 09:01 BID DAMON Olmesartan 40 mg 01/08/20 09:00 01/12/20 08:51 Benicar PO 02/07/20 09:01 40 mg DAILY DAMON Administration Ondansetron HCl 4 mg 01/11/20 13:08 Zofran Odt PO Q6H PRN Nausea And Vomiting Pantoprazole Sodium 40 mg 01/07/20 21:00 01/12/20 08:52 Protonix PO 40 mg Q12HR DAMON Administration
[2020-01-12 22:00] VITALS: BP 106/65; PULSE 92; RESP 20; TEMP 37.6; O2SAT 98
[2020-01-13] MEDS: ACETAMINOPHEN 325 MG TABLET 650 MG PO ×3 (05:58→21:05)
[2020-01-13 06:00] VITALS: BP 118/71; PULSE 91; RESP 18; TEMP 36.7; O2SAT 100
[2020-01-13 07:19] LABS: Glucose Point of Care 101 (65-105)
[2020-01-13 08:00] VITALS: PULSE 91; RESP 18; O2SAT 100
[2020-01-13] MEDS: lamoTRIgine 100 MG TABLET 200 MG PO ×2 (09:37→18:51)
[2020-01-13] MEDS: ATORVASTATIN 10 MG TABLET PO (09:38)
[2020-01-13] MEDS: DOCUSATE SODIUM 100 MG CAPSULE PO (09:39)
[2020-01-13] MEDS: CHOLECALCIFEROL 1,000 UNIT TABLET 2000 UNITS PO (09:39)
[2020-01-13] MEDS: PANTOPRAZOLE 40 MG TABLET PO ×2 (09:39→21:05)
[2020-01-13] MEDS: POTASSIUM CHLORIDE 10 MEQ TABLET.ER PO (09:40)
[2020-01-13] MEDS: hydroCHLOROthiazide 25 MG TABLET PO (09:41)
[2020-01-13] MEDS: MELOXICAM 7.5 MG TABLET 15 MG PO (09:41)
[2020-01-13] MEDS: GABAPENTIN 300 MG CAPSULE PO ×2 (09:41→21:05)
[2020-01-13] MEDS: OLMESARTAN MEDOXOMIL 20 MG TABLET 40 MG PO (09:41)
[2020-01-13] MEDS: VITAMIN B COMPLEX/VIT C CAPSULE 1 EACH PO (09:42)
--- NOTE | 2020-01-13 13:25 | WPDNEURORHBP ---
Subjective Date/time seen: 01/13/20 13:25 Interval history: this 64-year-old woman with underlying bipolar disorder which is stable and tardive dyskinesia which is also stable is here after having had lumbar surgery for lumbar canal stenosis/ lumbar spondylolisthesis She is improving her pain is better controlled and neurological condition is stable. The patient is denies any headache nausea vomiting chest pain shortness of breath fever chills sore throat Review of Systems Review of Systems: All systems reviewed & are unremarkable except as noted in HPI and below Functional Status Ambulation Ability Ability to Ambulate 10 Feet: Standby Assistance Ability to Ambulate 50 Feet With 2 Turns: Standby Assistance Ability to Ambulate 150 Feet: Independent Ambulation Assistive Devices: Cane, Small Base Quad and Walker, Wheeled Transfers Ability Ability to Transfer In/Out of Chair: Standby Assistance Exam Const: General: comfortable and no acute distress HENMT: General nose exam: Normal nares present Mouth: Yes moist mucous membranes Eyes: General: appearance normal, both eyes and all related structures Neck: Neck: supple and no JVD Resp: Effort & Inspection: normal respiratory effort Auscultation: clear to auscultation bilaterally Cardio: Rate: regular rate Rhythm: regular rhythm GI: GI Palp: Yes Soft to palpation Auscultation: normal bowel sounds Skin: General skin exam: normal color and no rashes or lesions noted Neuro: Other: patient is awake and alert well oriented time place and person she is not psychotic and good is pressed moving forward with the rehab the weakness of the lower extremities getting better and she is able to do more than what she was doing before Extrem: General: normal to inspection Psych: Mental Status: mental status grossly normal Objective Data Vital Signs Vital Signs: Vital Signs - 24 hr 01/12/20 14:00 01/12/20 22:00 01/13/20 06:00 Temperature 36.6 C 37.6 C 36.7 C Pulse Rate 97 92 91 Respiratory Rate 20 20 18 Blood Pressure 105/61 106/65 118/71 Pulse Oximetry 100 98 100 01/13/20 08:00 Temperature Pulse Rate 91 Respiratory Rate 18 Blood Pressure Pulse Oximetry 100 Intake/Output Intake/Output: Intake & Output 01/10/20 01/11/20 01/12/20 01/13/20 23:59 23:59 23:59 23:59 Intake Total 520 720 960 600 Balance 520 720 960 600 Meds/Results Medications: Active Medications Generic Name Dose Route Start Last Admin Trade Name Freq PRN Reason Stop Dose Admin Acetaminophen 650 mg 01/07/20 22:00 01/13/20 05:58 Tylenol Tablet PO 650 mg Q8HR DAMON Administration Acetaminophen/Codeine Phosphate 1 tab 01/07/20 19:13 01/09/20 18:40 Tylenol #3 PO 1 tab Q4H PRN Administration Pain 6-10 Hydrocodone Bitart/Acetaminophen 1 tab 01/07/20 19:13 01/11/20 02:36 [place] 5-325 Mg PO 1 tab Q4H PRN Administration Pain 1-5 Atorvastatin Calcium 10 mg 01/08/20 09:00 01/13/20 09:38 Lipitor PO 10 mg DAILY DAMON Administration Cyclobenzaprine HCl 10 mg 01/07/20 19:13 01/10/20 18:08 Flexeril PO 10 mg TID PRN Administration Spasms Docusate Sodium 100 mg 01/08/20 09:00 01/13/20 09:39 Colace Capsule PO 100 mg DAILY DAMON Administration Gabapentin 300 mg 01/07/20 21:00 01/13/20 09:41 Neurontin PO 300 mg Q12HR DAMON Administration Guaifenesin 600 mg 01/09/20 21:00 01/13/20 09:39 Mucinex 12 Hr Tab PO 600 mg Q12HR DAMON Administration Hydrochlorothiazide 25 mg 01/08/20 09:00 01/13/20 09:41 Hydrochlorothiazide PO 02/07/20 09:01 25 mg DAILY DAMON Administration Lamotrigine 200 mg 01/08/20 09:00 01/13/20 09:37 Lamictal PO 200 mg BID DAMON Administration Meloxicam 15 mg 01/08/20 09:00 01/13/20 09:41 Mobic PO 02/07/20 09:01 15 mg DAILY DAMON Administration Non-Formulary Medication 30 mg 01/08/20 09:00 Dextroamphetamine-Amphetamine PO 02/07/20 09:01 BID DAMON [place]
[2020-01-13 14:00] VITALS: BP 109/68; PULSE 98; RESP 20; TEMP 36.8; O2SAT 100
[2020-01-13 22:00] VITALS: BP 103/57; PULSE 85; RESP 18; TEMP 36.6; O2SAT 96
[2020-01-14 06:00] VITALS: BP 110/62; PULSE 83; RESP 18; TEMP 36.6; O2SAT 98
[2020-01-14] MEDS: ACETAMINOPHEN 325 MG TABLET 650 MG PO ×3 (06:13→21:00)
[2020-01-14 06:43] LABS: Glucose Point of Care 96 (65-105)
[2020-01-14] MEDS: lamoTRIgine 100 MG TABLET 200 MG PO ×2 (09:17→17:26)
[2020-01-14] MEDS: CHOLECALCIFEROL 1,000 UNIT TABLET 2000 UNITS PO (09:17)
[2020-01-14] MEDS: GABAPENTIN 300 MG CAPSULE PO ×2 (09:17→21:01)
[2020-01-14] MEDS: hydroCHLOROthiazide 25 MG TABLET PO (09:17)
[2020-01-14] MEDS: POTASSIUM CHLORIDE 10 MEQ TABLET.ER PO (09:17)
[2020-01-14] MEDS: MELOXICAM 7.5 MG TABLET 15 MG PO (09:17)
[2020-01-14] MEDS: OLMESARTAN MEDOXOMIL 20 MG TABLET 40 MG PO (09:17)
[2020-01-14] MEDS: ATORVASTATIN 10 MG TABLET PO (09:17)
[2020-01-14] MEDS: PANTOPRAZOLE 40 MG TABLET PO ×2 (09:17→21:01)
[2020-01-14] MEDS: DOCUSATE SODIUM 100 MG CAPSULE PO (09:17)
[2020-01-14] MEDS: VITAMIN B COMPLEX/VIT C CAPSULE 1 EACH PO (09:18)
--- NOTE | 2020-01-14 13:30 | PCCCNOTE ---
On 01/14/20, the student, [Nash Galeas ], provided care and completed [facility] documentation on this patient. I have reviewed the student's documentation and agree with the findings.
[2020-01-14 14:00] VITALS: BP 112/63; PULSE 98; RESP 18; TEMP 36.3; O2SAT 100
[2020-01-14 22:00] VITALS: BP 112/57; PULSE 89; RESP 18; TEMP 36.7; O2SAT 100
[2020-01-15 04:53] LABS: Basophils Absolute Auto 0.1 K/mm3 (0.0-0.1); Hematocrit 25.8 % (37.0-47.0); Hemoglobin 7.7 g/dL (12.0-15.0); Immature Granulocyte Absolute 0.12 K/mm3 (0.00-0.031); Immature Granulocyte Percent A 1.5 % (0-0.5); Lymphocytes Absolute Auto 2.18 K/mm3 (0.9-3.2); Lymphocytes Percent Auto 27.3 % (18.3-44.2); Mean Corpuscular HGB Conc 29.8 g/dl (32-36); Mean Corpuscular Hemoglobin 25.7 pg (26-34); Mean Platelet Volume 7.9 fl (7.4-10.4); Monocytes Absolute Auto 0.6 K/mm3 (0.1-0.6); Monocytes Percent Auto 7.5 % (2.6-8.5); Neutrophils Percent Auto 62.7 % (45.5-73.1); Platelet Count Result 627 k/mm3 (150-375); Red Cell Distribution Width 15.9 % (11.5-14.5)
[2020-01-15 05:15] LABS: Blood Urea Nitrogen 17 mg/dL (7-17); Calcium 8.7 mg/dL (8.4-10.2); Carbon Dioxide 26 mmol/L (22-30); Chloride 104 mmol/L (98-107); Estimated CRCL calculation 60 ml/min; Estimated Glomerular Filt Rate > 60; Glucose 102 mg/dL (65-105); Sodium 138 mmol/L (137-145)
[2020-01-15 05:33] LABS: Atypical Lymphocytes Present; Large Platelets Present
[2020-01-15 05:34] LABS: Stomatocytes 1+ (NORMAL)
[2020-01-15 06:00] VITALS: BP 101/67; PULSE 88; RESP 18; TEMP 37; O2SAT 98
[2020-01-15] MEDS: ACETAMINOPHEN 325 MG TABLET 650 MG PO ×3 (06:31→21:32)
[2020-01-15] MEDS: CHOLECALCIFEROL 1,000 UNIT TABLET 2000 UNITS PO (10:13)
[2020-01-15] MEDS: DOCUSATE SODIUM 100 MG CAPSULE PO (10:13)
[2020-01-15] MEDS: GABAPENTIN 300 MG CAPSULE PO ×2 (10:13→21:31)
[2020-01-15] MEDS: PANTOPRAZOLE 40 MG TABLET PO ×2 (10:14→21:32)
[2020-01-15] MEDS: POTASSIUM CHLORIDE 10 MEQ TABLET.ER PO (10:14)
[2020-01-15] MEDS: OLMESARTAN MEDOXOMIL 20 MG TABLET 40 MG PO (10:15)
[2020-01-15] MEDS: lamoTRIgine 100 MG TABLET 200 MG PO ×2 (10:15→16:17)
[2020-01-15] MEDS: hydroCHLOROthiazide 25 MG TABLET PO (10:15)
[2020-01-15] MEDS: VITAMIN B COMPLEX/VIT C CAPSULE 1 EACH PO (10:16)
[2020-01-15] MEDS: MELOXICAM 7.5 MG TABLET 15 MG PO (10:16)
--- NOTE | 2020-01-15 13:30 | PCDIET ---
Nutrition Follow-Up Complete: Nutrition Diagnosis: Excessive energy intake related to obesity as evidenced by BMI: 36.7 Nutrition Goal: Intake of at least 75% of meals Goal met. Average intake since 01/09/20 has been 87% of meals on regular diet. Last recorded weight is 94.1 kg. Recommend obtaining new weight. Bowel Motility: Last documented BM on 01/13/20. Labs Reviewed: BMP WNL today. Meds Noted: Colace, Hydrochlorothiazide, Protonix, KCl, Vitamin D, Vitamin B Complex Additional Notes: Incisions to back and abdomen. No documented pressure sores. Will continue to monitor with same goal. Nutrition Monitoring and Evaluation: Follow up every 7 days.
[2020-01-15 14:00] VITALS: BP 133/68; PULSE 105; RESP 19; TEMP 36; O2SAT 100
--- NOTE | 2020-01-15 14:02 | WPDNEURORHBP ---
Subjective Date/time seen: 01/15/20 14:02 Interval history: this 64-year-old woman is here after having had surgery performed with diagnosis of lumbar spondylolisthesis / lumbar canal stenosis with lower extremity weakness she has done remarkably well here and walking 210 feet and will be ready to be discharged tomorrow with home health to follow She denies any headache nausea vomiting chest pain shortness of breath she also tells me that she has all her medication and we get through her primary care physician she only needs the pain medications and muscle relaxers Review of Systems Review of Systems: All systems reviewed & are unremarkable except as noted in HPI and below Functional Status Ambulation Ability Ability to Ambulate 10 Feet: Independent Ability to Ambulate 50 Feet With 2 Turns: Independent Ability to Ambulate 150 Feet: Independent Ambulation Assistive Devices: Walker, Wheeled Transfers Ability Ability to Transfer In/Out of Chair: Independent Exam Const: General: comfortable and no acute distress HENMT: General nose exam: Normal nares present Mouth: Yes moist mucous membranes Eyes: General: appearance normal, both eyes and all related structures Neck: Neck: supple and no JVD Resp: Effort & Inspection: normal respiratory effort Auscultation: clear to auscultation bilaterally Cardio: Rate: regular rate Rhythm: regular rhythm GI: GI Palp: Yes Soft to palpation Auscultation: normal bowel sounds Skin: General skin exam: normal color and no rashes or lesions noted Neuro: Other: patient's mental status is normal her dyskinesias relatively better and she is coping it quite well lower extremity weakness also better and she is walking about 200+ feet of course using the walker Extrem: General: normal to inspection Objective Data Vital Signs Vital Signs: Vital Signs - 24 hr 01/14/20 22:00 01/15/20 06:00 Temperature 36.7 C 37.0 C Pulse Rate 89 88 Respiratory Rate 18 18 Blood Pressure 112/57 L 101/67 Pulse Oximetry 100 98 Intake/Output Intake/Output: Intake & Output 01/12/20 01/13/20 01/14/20 01/15/20 23:59 23:59 23:59 23:59 Intake Total 960 840 720 600 Balance 960 840 720 600 Meds/Results Medications: Active Medications Generic Name Dose Route Start Last Admin Trade Name Freq PRN Reason Stop Dose Admin Acetaminophen 650 mg 01/07/20 22:00 01/15/20 06:31 Tylenol Tablet PO 650 mg Q8HR DAMON Administration Acetaminophen/Codeine Phosphate 1 tab 01/07/20 19:13 01/09/20 18:40 Tylenol #3 PO 1 tab Q4H PRN Administration Pain 6-10 Hydrocodone Bitart/Acetaminophen 1 tab 01/07/20 19:13 01/11/20 02:36 [place] 5-325 Mg PO 1 tab Q4H PRN Administration Pain 1-5 Atorvastatin Calcium 10 mg 01/08/20 09:00 01/14/20 09:17 Lipitor PO 10 mg DAILY DAMON Administration Cyclobenzaprine HCl 10 mg 01/07/20 19:13 01/10/20 18:08 Flexeril PO 10 mg TID PRN Administration Spasms Docusate Sodium 100 mg 01/08/20 09:00 01/15/20 10:13 Colace Capsule PO 100 mg DAILY DAMON Administration Gabapentin 300 mg 01/07/20 21:00 01/15/20 10:13 Neurontin PO 300 mg Q12HR DAMON Administration Guaifenesin 600 mg 01/09/20 21:00 01/15/20 10:13 Mucinex 12 Hr Tab PO 600 mg Q12HR DAMON Administration Hydrochlorothiazide 25 mg 01/08/20 09:00 01/15/20 10:15 Hydrochlorothiazide PO 02/07/20 09:01 25 mg DAILY DAMON Administration Lamotrigine 200 mg 01/08/20 09:00 01/15/20 10:15 Lamictal PO 200 mg BID DAMON Administration Meloxicam 15 mg 01/08/20 09:00 01/15/20 10:16 Mobic PO 02/07/20 09:01 15 mg DAILY DAMON Administration Non-Formulary Medication 30 mg 01/08/20 09:00 Dextroamphetamine-Amphetamine PO 02/07/20 09:01 BID DAMON Olmesartan 40 mg 01/08/20 09:00 01/15/20 10:15 Benicar PO 02/07/20 09:01 40 mg DAILY DAMON Administration Ondansetron HCl 4 mg 01/11/20 13:08 Zofran Odt PO Q6H P
[2020-01-15] MEDS: ATORVASTATIN 10 MG TABLET PO (16:15)
--- NOTE | 2020-01-15 16:35 | PCCCNOTE ---
On 01/15/20, the student, [Nash Galeas ], provided care and completed [facility] documentation on this patient. I have reviewed the student's documentation and agree with the findings.
[2020-01-15 22:00] VITALS: BP 101/54; PULSE 87; RESP 18; TEMP 36.8; O2SAT 100
[2020-01-16 06:00] VITALS: BP 108/57; PULSE 81; RESP 16; TEMP 36.8; O2SAT 99
[2020-01-16] MEDS: ACETAMINOPHEN 325 MG TABLET 650 MG PO (06:29)
[2020-01-16 07:05] LABS: Glucose Point of Care 103 (65-105)
[2020-01-16 08:00] VITALS: PULSE 82; RESP 16; O2SAT 99
[2020-01-16] MEDS: CYCLOBENZAPRINE HCL 10 MG TABLET PO (09:11)
[2020-01-16] MEDS: GABAPENTIN 300 MG CAPSULE PO (09:11)
[2020-01-16] MEDS: hydroCHLOROthiazide 25 MG TABLET PO (09:11)
[2020-01-16] MEDS: ATORVASTATIN 10 MG TABLET PO (09:12)
[2020-01-16] MEDS: CHOLECALCIFEROL 1,000 UNIT TABLET 2000 UNITS PO (09:12)
[2020-01-16] MEDS: DOCUSATE SODIUM 100 MG CAPSULE PO (09:12)
[2020-01-16] MEDS: MELOXICAM 7.5 MG TABLET 15 MG PO (09:13)
[2020-01-16] MEDS: OLMESARTAN MEDOXOMIL 20 MG TABLET 40 MG PO (09:13)
[2020-01-16] MEDS: POTASSIUM CHLORIDE 10 MEQ TABLET.ER PO (09:13)
[2020-01-16] MEDS: PANTOPRAZOLE 40 MG TABLET PO (09:13)
[2020-01-16] MEDS: lamoTRIgine 100 MG TABLET 200 MG PO (09:13)
[2020-01-16] MEDS: VITAMIN B COMPLEX/VIT C CAPSULE 1 EACH PO (09:14)
--- NOTE | 2020-01-22 11:34 | PM.DS ---
DS: Admitting Diagnosis Admitting Diagnosis Admitting Diagnosis: Spondylolisthesis, lumbar region DS: Discharge Diagnosis Discharge Diagnosis (1) Hypertension: Code(s): I10 - Essential (primary) hypertension Status: Acute (2) Chronic low back pain: Code(s): M54.5 - Low back pain; G89.29 - Other chronic pain Status: Acute (3) Diabetes mellitus: Code(s): E11.9 - Type 2 diabetes mellitus without complications Status: Acute (4) Tardive dyskinesia: Code(s): G24.01 - Drug induced subacute dyskinesia Status: Acute (5) Bipolar disorder: Code(s): F31.9 - Bipolar disorder, unspecified Status: Acute (6) Status post lumbar surgery: Code(s): Z98.890 - Other specified postprocedural states Status: Acute (7) Lumbar canal stenosis: Code(s): M48.061 - Spinal stenosis, lumbar region without neurogenic claudication Status: Acute (8) Spondylolisthesis, lumbar region: Code(s): M43.16 - Spondylolisthesis, lumbar region Status: Acute DS: Summary Hospital Course Reason for hospitalization: this 64-year-old woman was admitted because of the above-mentioned problem and was status post revision of for L5-S1 previous surgery on her back the details are available in my history and physical examination she received the physical therapy of compression therapy and gait training as significantly improved her tardive dyskinesias were also stable and improved Hospital Course: during the course of hospitalization the patient was able to achieved the following independent measures Eating independent oral hygiene independent toileting independent bathing was supervision upper body dressing was independent lower body dressing was independent footwear independent rolling in bed independent sitting to lying independent lying to sitting independent [id number] independent chair transfers independent 12 transfers independent car transfers independent walking 10 feet independent walking 50 feet with 2 turns independent walking 150 feet independent walking 10 feet uneven surface independent Wright steps independent 4 steps set up 12 status patient was unable to be gave object independent wheelchair 50 feet not applicable wheelchair 150 feet not applicable the patient was sent home with home health to follow and the follow-up with the physicians she has been seen in the past Time Spent with Patient Time attestation: Total time spent providing and/or coordinating discharge services: Exam Const: General: comfortable and no acute distress HENMT: General nose exam: Normal nares present Mouth: Yes dry mucous membranes Eyes: General: appearance normal, both eyes and all related structures Neck: Neck: supple and no JVD Resp: Effort & Inspection: normal respiratory effort Auscultation: clear to auscultation bilaterally Cardio: Rate: regular rate Rhythm: regular rhythm GI: GI Palp: Yes Soft to palpation Auscultation: normal bowel sounds Skin: General skin exam: normal color and no rashes or lesions noted Neuro: Other: patient's neurological status improved significantly entire tardive dyskinesias were stable and are improved and she did not have any evidence of psychosis knowing the fact that the patient has underlying bipolar disorder Extrem: General: normal to inspection Psych: Mental Status: mental status grossly normal Discharge Plan Discharge Attending physician on discharge: Jam Lisa Discharging Clinician: Jam Lisa Anticipated Discharge Date/Time: 01/16/20 14:05 Patient Disposition: Home Health Service Activity: may shower and no driving Diet: diabetic Wound Care Instructions: follow printed instructions Discharge Instructions: Per care coordination: Home Health services have been arranged through [facility]. [facility] can be contacted at [phone]. Patient Instructions: Antibiotic Form, Pain Managem
== END 2020-01-16 12:00 | disposition home health service (06) | DRG 561 ==
PROVIDERS: Admitting Provider Psychiatry & Neurology Neurology; PCP Internal Medicine; Visit Provider Psychiatry & Neurology Neurology
DX: Z47.89 Encounter for other orthopedic aftercare (principal); M43.16 Spondylolisthesis, lumbar region; M48.062 Spinal stenosis, lumbar region with neurogenic claudication; E11.9 Type 2 diabetes mellitus without complications; E03.9 Hypothyroidism, unspecified; F31.9 Bipolar disorder, unspecified; G89.29 Other chronic pain; G24.01 Drug induced subacute dyskinesia; I10 Essential (primary) hypertension; K21.9 Gastro-esophageal reflux disease without esophagitis; Z96.612 Presence of left artificial shoulder joint; Z96.611 Presence of right artificial shoulder joint
CPT/HCPCS: 36415; 80048; 83036; 85025; 97110; 97116; 97162; 97166; 97530; 97535; A9270

== ENCOUNTER 2020-03-23 21:08 | Emergency (ER) | payer BC, SELFPAY ==
--- NOTE | ~2020-03-23 | XR_ITS ---
XR ankle LT min 3V DATE: 03/23/2020 23:05 INDICATION: Rolled ankle. Left lateral ankle pain, foot pain TECHNIQUE: 4 views COMPARISON: None FINDINGS: No recent fracture or dislocation of the ankle or disruption of the ankle mortise is detect ed. Prominent plantar calcaneal enthesopathy. There is minimal distal Achilles tendon calcification. IMPRESSION: No fracture or dislocation Plantar calcaneal enthesopathy Reviewed, dictated and finalized at location A.
[2020-03-23 22:11] VITALS: BP 108/74; PULSE 94; RESP 99; TEMP 36.7; O2SAT 100
--- NOTE | 2020-03-23 23:12 | ED.LOWEXIN ---
HPI - Extremity Injury (Lower) General Chief Complaint: Extremity Injury, Lower Stated Complaint: left ankle injury Time Seen by Provider: 03/23/20 22:21 Source: patient Mode of arrival: ambulatory Limitations: no limitations History of Present Illness HPI Narrative: This patient is a 64 year old female who presents for evaluation of left ankle pain. She reports she rolled her left ankle 11 hours ago. She has been able to walk but she states she is developing more pain and it feels like when she previously broke it. She denies knee pain. She reports tingling to top of left foot. Related Data Home Medications Medication Instructions Recorded Confirmed [place] 18 mg PO BID 10/02/19 01/08/20 atorvastatin 10 mg PO DAILY 10/02/19 01/07/20 dextroamphetamine-amphetamine 30 mg PO BID 10/02/19 01/07/20 gabapentin 300 mg PO BID 10/02/19 01/07/20 meloxicam 15 mg PO DAILY 10/02/19 01/07/20 olmesartan-hydrochlorothiazide 1 tablet PO DAILY 10/02/19 01/07/20 omeprazole 20 mg PO BID 10/02/19 01/07/20 potassium chloride 10 meq PO DAILY 10/02/19 01/07/20 B-complex with vitamin C [Super B 1 tablet PO DAILY 01/07/20 01/07/20 Complex-Vitamin C] acetaminophen 650 mg PO Q8H 01/07/20 01/07/20 cholecalciferol (vitamin D3) 50 mcg PO DAILY 01/07/20 01/07/20 cyclobenzaprine 10 mg PO TID PRN 01/07/20 01/07/20 docusate sodium 100 mg PO DAILY 01/07/20 01/07/20 lamotrigine 200 mg PO BID 01/07/20 01/07/20 sennosides 8.6 mg PO HS PRN 01/07/20 01/07/20 Allergies Allergy/AdvReac Type Severity Reaction Status Date / Time Iodinated Contrast Media Allergy Unknown Unverified 01/18/20 08:53 Contrast Media Allergy Mild Itching Uncoded 01/08/20 14:23 Review of Systems Review of Systems: All systems reviewed & are unremarkable except as noted in HPI and below PMFSH Past Medical History Medical History Arthritis Bipolar disorder Bipolar disorder Chronic low back pain Depression Diabetes Diabetes mellitus GERD (gastroesophageal reflux disease) HTN (hypertension) Hypertension Hypothyroidism Lumbar canal stenosis Spondylolisthesis, lumbar region Tardive dyskinesia Tardive syndrome Surgical History Surgical History History of spinal surgery Hx of cholecystectomy Hx of gastric bypass Hx of shoulder replacement bilateral shoulders Hx of tonsillectomy Status post lumbar surgery Social History Social History Smoking status: Never smoker Second hand tobacco smoke exposure: No Alcohol intake: current Drinks per week: 1 Substance use: never Gender identity (if verbalized by the patient): Female Spiritual care concerns: No Exam Const: General: no acute distress and alert Orientation/consciousness: patient oriented x3 Eyes: EOM: EOMs intact bilaterally Resp: Effort & Inspection: normal respiratory effort Skin: General skin exam: normal color Rashes: no rashes Neuro: General: patient oriented x3 and moves all extremities Extrem: Other: mild tenderness lateral ankle. No swelling, no bruising, no deformity Psych: Mental Status: mental status grossly normal Affect: normal affect Course Reevaluation(s) Reevaluation #1: I discussed with patient that her xray was negative for fracture. Nursing will wrap in Matty bandage prior to discharge. Date: 03/24/20 Time: 00:09 Vital Signs Vital signs: Vital Signs Temperature 98.0 F 03/23/20 22:11 Pulse Rate 94 03/23/20 22:11 Respiratory Rate 99 H 03/23/20 22:11 Blood Pressure 108/74 03/23/20 22:11 Pulse Oximetry 100 03/23/20 22:11 Temperature 98.2 F 03/24/20 00:14 Pulse Rate 84 03/24/20 00:14 Respiratory Rate 16 03/24/20 00:14 Blood Pressure 145/86 H 03/24/20 00:14 Pulse Oximetry 97 03/24/20 00:14 MDM - Extremity Injury (Lower) Imaging Data Radiologist's impression: I
[2020-03-24 00:14] VITALS: BP 145/86; PULSE 84; RESP 16; TEMP 36.8; O2SAT 97
== END 2020-03-24 00:15 | disposition home or self-care (01) ==
PROVIDERS: Emergency Provider General Practice
DX: S93.402A Sprain of unspecified ligament of left ankle, initial encounter (principal); M19.90 Unspecified osteoarthritis, unspecified site; E11.9 Type 2 diabetes mellitus without complications; K21.9 Gastro-esophageal reflux disease without esophagitis; I10 Essential (primary) hypertension; E03.9 Hypothyroidism, unspecified; G24.01 Drug induced subacute dyskinesia; Z98.84 Bariatric surgery status; M77.32 Calcaneal spur, left foot; F31.9 Bipolar disorder, unspecified; X50.9XXA Other and unspecified overexertion or strenuous movements or postures, initial encounter
CPT/HCPCS: 73610; 99283

== ENCOUNTER 2020-07-26 14:09 | Emergency (ER) | payer BC, MEDICARE, SELFPAY ==
--- NOTE | 2020-07-26 14:25 | ED.URI ---
HPI - URI/Sore Throat General Chief Complaint: Upper Respiratory Infection Stated Complaint: upper respiatory infection Time Seen by Provider: 07/26/20 14:25 Source: patient and RN notes reviewed History of Present Illness HPI Narrative: Patient is a 65-year-old female who presents the urgent care with complaints of sore throat, headaches and body aches. Patient states that it started 2 to 3 days ago and has worsened over the last 24 hours. Patient states that her main concern is returning to physical therapy. Patient states she cannot return to therapy until she has a negative Covid test or other diagnosis. Patient states she has been remaining at home without any known Covid contact. Patient has not taken anything [id number] for her symptoms. States that she does have chronic shortness of breath ever since her spinal surgery this summer however denies of any new shortness of breath. Denies of any chest pain. No other acute complaints. No acute distress noted. Patient aware of the plan of care. Some parts of this dictation were generated by voice recognition software and may contain typographical and/or grammatical inaccuracies. Related Data Home Medications Medication Instructions Recorded Confirmed Austedo 18 mg PO BID 10/02/19 01/08/20 atorvastatin 10 mg PO DAILY 10/02/19 07/26/20 dextroamphetamine-amphetamine 30 mg PO BID 10/02/19 01/07/20 gabapentin 300 mg PO BID 10/02/19 01/07/20 meloxicam 15 mg PO DAILY 10/02/19 01/07/20 olmesartan-hydrochlorothiazide 1 tablet PO DAILY 10/02/19 01/07/20 omeprazole 20 mg PO BID 10/02/19 01/07/20 potassium chloride 10 meq PO DAILY 10/02/19 01/07/20 B-complex with vitamin C [Super B 1 tablet PO DAILY 01/07/20 01/07/20 Complex-Vitamin C] acetaminophen 650 mg PO Q8H 01/07/20 01/07/20 cholecalciferol (vitamin D3) 50 mcg PO DAILY 01/07/20 01/07/20 cyclobenzaprine 10 mg PO TID PRN 01/07/20 01/07/20 docusate sodium 100 mg PO DAILY 01/07/20 01/07/20 lamotrigine 200 mg PO BID 01/07/20 01/07/20 sennosides 8.6 mg PO HS PRN 01/07/20 01/07/20 Allergies Allergy/AdvReac Type Severity Reaction Status Date / Time Iodinated Contrast Media Allergy Unknown Hives Verified 07/26/20 14:11 Contrast Media Allergy Mild Itching Uncoded 01/08/20 14:23 Review of Systems Review of Systems: Narrative: CONSTITUTIONAL: Denies fever, chills, or sweats. EYES: Denies visual changes, redness, or discharge. ENT: Reports of sore throat CARDIOVASCULAR: Denies chest pain, palpitations, or edema. RESPIRATORY: Denies cough or dyspnea. GASTROINTESTINAL: Denies abdominal pain, nausea, vomiting, or diarrhea. GENITOURINARY: Denies dysuria or hematuria. SKIN: Denies rash or itching. MUSCULOSKELETAL: Denies back pain, joint pain. Reports of body aches NEUROLOGIC: Reports of intermittent headaches All other systems reviewed are negative, except as documented in HPI. [facility] Past Medical History Medical History (Updated 07/26/20 @ 14:49 by YEVGENIY Frost) Arthritis Bipolar disorder Bipolar disorder Chronic low back pain Depression Diabetes Diabetes mellitus GERD (gastroesophageal reflux disease) HTN (hypertension) Hypertension Hypothyroidism Lumbar canal stenosis Spondylolisthesis, lumbar region Tardive dyskinesia Tardive syndrome Surgical History Surgical History History of spinal surgery Hx of cholecystectomy Hx of gastric bypass Hx of shoulder replacement bilateral shoulders Hx of tonsillectomy Status post lumbar surgery Family History Family History Mother Acute myocardial infarction Diabetes mellitus Hypertension Father Acute myocardial infarction Diabetes mellitus Hypertension Social History Social History Smoking status: Never smoker Second hand tobacco smoke exposure: No Alcohol intake: current Drinks per week: 1
[2020-07-26 14:50] VITALS: BP 148/68; PULSE 68; RESP 20; TEMP 36.8; O2SAT 98
== END 2020-07-26 15:15 | disposition home or self-care (01) ==
PROVIDERS: Emergency Provider Nurse Practitioner Family; PCP Internal Medicine
DX: U07.1 COVID-19 (principal); J02.0 Streptococcal pharyngitis; M19.90 Unspecified osteoarthritis, unspecified site; E11.9 Type 2 diabetes mellitus without complications; K21.9 Gastro-esophageal reflux disease without esophagitis; I10 Essential (primary) hypertension; M48.061 Spinal stenosis, lumbar region without neurogenic claudication; M43.16 Spondylolisthesis, lumbar region
CPT/HCPCS: 87426; 87880; 99213; C9803; G0463

== ENCOUNTER 2021-06-21 13:47 | Emergency (ER) | payer MEDICARE, BC, SELFPAY ==
--- NOTE | 2021-06-21 14:29 | ED.URI ---
HPI - URI/Sore Throat General Chief Complaint: Upper Respiratory Infection Stated Complaint: nasal drainage,cough Time Seen by Provider: 06/21/21 14:08 Source: patient and RN notes reviewed History of Present Illness HPI Narrative: Patient is 66-year-old female presents the urgent care with complaints of nasal drainage and mild cough. Patient states that it started 4 days ago and she has been using Mucinex DM and Tylenol for her symptoms. Denies of sore throat, fever, nausea or vomiting. Patient also reports of mild right otalgia. States that she has been Covid vaccinated and denies of any recent exposures. No other acute complaints. No acute distress noted. Patient aware of the plan of care. Some parts of this dictation were generated by voice recognition software and may contain typographical and/or grammatical inaccuracies. Related Data Home Medications Medication Instructions Recorded Confirmed Austedo 18 mg PO BID 10/02/19 01/08/20 atorvastatin 10 mg PO DAILY 10/02/19 07/26/20 dextroamphetamine-amphetamine 30 mg PO BID 10/02/19 01/07/20 gabapentin 300 mg PO BID 10/02/19 01/07/20 meloxicam 15 mg PO DAILY 10/02/19 01/07/20 olmesartan-hydrochlorothiazide 1 tablet PO DAILY 10/02/19 01/07/20 omeprazole 20 mg PO BID 10/02/19 01/07/20 potassium chloride 10 meq PO DAILY 10/02/19 01/07/20 lamotrigine 200 mg PO BID 01/07/20 01/07/20 aripiprazole 2 mg PO DAILY 06/21/21 06/21/21 topiramate 100 mg PO BID 06/21/21 06/21/21 Allergies Allergy/AdvReac Type Severity Reaction Status Date / Time Iodinated Contrast Media Allergy Unknown Hives Verified 06/21/21 14:42 Contrast Media Allergy Mild Itching Uncoded 06/21/21 14:42 Review of Systems Review of Systems: CONSTITUTIONAL: Denies fever, chills, or sweats. EYES: Denies visual changes, redness, or discharge. ENT: Reports of postnasal drainage, rhinorrhea and right otalgia CARDIOVASCULAR: Denies chest pain, palpitations, or edema. RESPIRATORY: Reports a mild cough without dyspnea GASTROINTESTINAL: Denies abdominal pain, nausea, vomiting, or diarrhea. GENITOURINARY: Denies dysuria or hematuria. SKIN: Denies rash or itching. MUSCULOSKELETAL: Denies back pain, joint pain, or myalgia. NEUROLOGIC: Denies headache, numbness, or weakness. All other systems reviewed are negative, except as documented in HPI. [facility] Past Medical History Medical History (Updated 06/21/21 @ 14:53 by YEVGENIY Frost) Arthritis Bipolar disorder Bipolar disorder Chronic low back pain Depression Diabetes Diabetes mellitus GERD (gastroesophageal reflux disease) HTN (hypertension) Hypertension Hypothyroidism Lumbar canal stenosis Spondylolisthesis, lumbar region Tardive dyskinesia Tardive syndrome Surgical History Surgical History History of spinal surgery Hx of cholecystectomy Hx of gastric bypass Hx of shoulder replacement bilateral shoulders Hx of tonsillectomy Status post lumbar surgery Family History Family History Mother Acute myocardial infarction Diabetes mellitus Hypertension Father Acute myocardial infarction Diabetes mellitus Hypertension Social History Social History Smoking status: Never smoker Second hand tobacco smoke exposure: No Alcohol intake: current Drinks per week: 1 Substance use: never Gender identity (if verbalized by the patient): Female Spiritual care concerns: No Comments At the time of my signature, I reviewed and agree with the nursing past medical, surgical, social, and family history. There is no relevant family history pertinent to the patient complaint. Exam Narrative: GENERAL: This is a well-nourished, well-developed patient, in no apparent distress. HEAD: normocephalic, atraumatic. EYES: PERRL. Sclera clear/white. Vision is grossly intact. EARS: External ears nor
[2021-06-21 14:32] VITALS: BP 109/64; PULSE 92; RESP 18; TEMP 36.8; O2SAT 97
== END 2021-06-21 15:00 | disposition home or self-care (01) ==
PROVIDERS: Emergency Provider Nurse Practitioner Family
DX: J06.9 Acute upper respiratory infection, unspecified (principal); I10 Essential (primary) hypertension; E03.9 Hypothyroidism, unspecified; E11.9 Type 2 diabetes mellitus without complications
CPT/HCPCS: 99211; G0463

== ENCOUNTER 2021-09-29 07:30 | Outpatient (CLI) | payer MEDICARE, BC, SELFPAY ==
--- NOTE | 2021-10-08 16:47 | WPDSLEEPSTUD ---
Sleep Study Date of Study: 09/29/21 Ordering Provider: Jessica Jackson MD Interpreting Physician: Jessica Jackson MD Sleep Study Type: Polysomnogram Height: 1.6 m Weight: 104.78 kg Body Mass Index: 40.9 Neck Circumference (inches): 15.75 [place]: 16 Reason for Sleep Study History of obstructive sleep apnea on CPAP years ago; poor quality sleep, excessive daytime sleepiness Sleep History Ale Harley is a 66 year old woman with a history of obstructive sleep apnea years ago. Her other medical issues include hyperetnsion, diabetes, depression and GERD. She used CPAP for about a year and then stopped. She has difficulty falling asleep, she wakes up during the night and she has excessive daytime sleepiness. She uses stimulant in the daytime to maintain alertness, Adderall from her psychiatrist. She does not awaken from sleep feeling short of breath. She rarely awakens at night with heartburn, belching or coughing. She does not know if she snores and it is unknown if others would complain. She occasionally has trouble sleeping with a cold. She does not wake up gasping for breath at night. She does not have breathing problems at night observed by others. She does not sweat excessively at night. She does not notice her heart pounding or beating irregularly at night. She frequently falls asleep during the day, occasionally falls asleep involuntarily, but never falls asleep while driving. She does not have loss of muscle tone with strong emotion. She does not have daytime difficulties due to excessive sleepiness. She does not feel paralyzed on waking or falling asleep. She rarely has vivid dreamlike scenes upon awakening or falling asleep. She does not feel afraid to go to sleep. She rarely has nightmares. She occasionally remembers her dreams. She occasionally has racing thoughts. She frequently feels sad, depressed or anxious. She frequently has muscular tension and frequently notices parts of her body jerking. She rarely kicks at night. She rarely has crawling and aching feelings in her legs. She rarely has any kind of leg pain at night. She rarely has morning jaw pain. She does not grind her teeth during sleep. She is not bothered by pain during the day. She is not awakened by pain at night. She frequently wakes up feeling stiff in the morning with sore achy muscles and pain in the neck and spine. She has fatigue, memory problems and concentration difficulties. Normal bedtime is 12:00 midnight, taking 15 minutes to fall asleep, waking twice to go to the bathroom. She is able to return to sleep within 5 minutes. She wakes the morning by 5:30 a.m.. On the weekends she also goes to bed at midnight, wakes around 7:00 a.m.. She does not eat alarm clock. . She lives with her disabled daughter age 20 and 2 small dogs. she sometimes takes naps in the afternoon or evening. A short nap 10 or 15 minutes may be refreshing. Most of the time she feels adequate on waking. She feels better in the afternoon compared to other times of day. Habits: Never smoked tobacco. Caffeine 4 servings a day. Alcohol 3 per week. No recreational drugs. [facility] Past Medical History Medical History (Updated 10/10/21 @ 16:27 by Jessica Jackson MD) Arthritis Bipolar disorder Bipolar disorder Chronic low back pain Depression Diabetes Diabetes mellitus GERD (gastroesophageal reflux disease) HTN (hypertension) Hypertension Hypothyroidism Lumbar canal stenosis Spondylolisthesis, lumbar region Tardive dyskinesia Tardive syndrome Surgical History Surgical History (Updated 10/08/21 @ 17:05 by Jessica Jackson MD) History of spinal surgery Hx of cholecystectomy Hx of gastric bypass Hx of shoulder replacement bilateral shoulders Hx of tonsillectomy Status post craniectomy Status post lumbar surgery Family History Family History Mother Acute myocardial infarction Diabetes mellitu
[2021-10-10 16:42] VITALS: BMI 40.9
== END 2021-09-30 05:36 | disposition home or self-care (01) ==
LOC: ANHCSM 07:31
DX: G47.33 Obstructive sleep apnea (adult) (pediatric) (principal); R06.83 Snoring; E66.9 Obesity, unspecified; Z68.41 Body mass index [BMI] 40.0-44.9, adult
CPT/HCPCS: 95810

== ENCOUNTER 2022-07-20 14:43 | Emergency (ER) | payer MEDICARE, BC, SELFPAY ==
--- NOTE | 2022-07-20 14:52 | ED.URI ---
HPI - URI/Sore Throat General Chief Complaint: Upper Respiratory Infection Stated Complaint: Sore Throat,Runny Nose Time Seen by Provider: 07/20/22 15:00 Source: patient, RN notes reviewed and old records reviewed Mode of arrival: ambulatory Limitations: no limitations History of Present Illness HPI Narrative: 67-year-old female presents to the [facility] with daughter with complaints of a sore throat since Saturday, 2 days ago. Has taken Mucinex. Reports a fever as high as 101 denies any other symptoms Onset (ago): day(s) (2) Related Data Home Medications Medication Instructions Recorded Confirmed atorvastatin 10 mg tablet 10 mg PO DAILY 10/02/19 07/20/22 deutetrabenazine 9 mg tablet 18 mg PO BID 10/02/19 07/20/22 (Austedo) dextroamphetamine-amphetamine 30 30 mg PO BID 10/02/19 07/20/22 mg tablet gabapentin 300 mg capsule 300 mg PO BID 10/02/19 07/20/22 meloxicam 15 mg tablet 15 mg PO DAILY 10/02/19 07/20/22 olmesartan 40 1 tablet PO DAILY 10/02/19 07/20/22 mg-hydrochlorothiazide 25 mg tablet omeprazole 20 mg capsule,delayed 20 mg PO BID 10/02/19 07/20/22 release potassium chloride 10 mEq 10 meq PO DAILY 10/02/19 07/20/22 tablet,extended release(part/cryst) lamotrigine 200 mg tablet 200 mg PO BID 01/07/20 07/20/22 aripiprazole 2 mg tablet 2 mg PO DAILY 06/21/21 07/20/22 topiramate 100 mg tablet 100 mg PO BID 06/21/21 07/20/22 Allergies Allergy/AdvReac Type Severity Reaction Status Date / Time Iodinated Contrast Media Allergy Unknown Hives Verified 07/20/22 15:04 Contrast Media Allergy Mild Itching Uncoded 07/20/22 15:04 Review of Systems Review of Systems: All systems reviewed & are unremarkable except as noted in HPI and below Constitutional: Constitutional: Reports no additional constitutional complaints Eyes: Eyes: Reports no additional eye complaints ENT: Reports as per HPI and Reports sore throat Cardiovascular: Cardiovascular: Reports no additional cardiovascular complaints, Denies chest pain and Denies dyspnea Respiratory: Respiratory: Reports no additional respiratory complaints, Denies chest congestion, Denies cough and Denies dyspnea Gastrointestinal: Gastrointestinal: Reports no additional gastrointestinal complaints, Denies abdominal pain, Denies nausea and Denies vomiting Musculoskeletal: Musculoskeletal: Reports no additional musculoskeletal complaints Integumentary/Breasts: Skin/Breast: Reports system reviewed and no additional complaints, except as docu Neurologic: Reports system reviewed and no additional complaints, except as documented Psychiatric: Psychiatric: Reports no additional psychiatric complaints Allergic/Immunologic: Allergic/Immunologic: Reports no additional allergic/immunologic complaints [facility] Past Medical History Medical History (Updated 07/20/22 @ 19:52 by Adriana Martini APRN) Arthritis Bipolar disorder Bipolar disorder Chronic low back pain Depression Diabetes Diabetes mellitus GERD (gastroesophageal reflux disease) HTN (hypertension) Hypertension Hypothyroidism Lumbar canal stenosis Spondylolisthesis, lumbar region Tardive dyskinesia Tardive syndrome Surgical History Surgical History History of spinal surgery Hx of cholecystectomy Hx of gastric bypass Hx of shoulder replacement bilateral shoulders Hx of tonsillectomy Status post craniectomy Status post lumbar surgery Family History Family History Mother Acute myocardial infarction Diabetes mellitus Hypertension Father Acute myocardial infarction Diabetes mellitus Hypertension Social History Social History Smoking status: Never smoker Second hand tobacco smoke exposure: No Alcohol intake: current Drinks per week: 1 Substance use: never Gender identity (if verbalized by the patient): Female S
[2022-07-20 14:59] VITALS: BP 128/68; PULSE 97; RESP 16; TEMP 36.3; O2SAT 98
== END 2022-07-20 15:40 | disposition home or self-care (01) ==
PROVIDERS: Emergency Provider Nurse Practitioner; PCP Internal Medicine
DX: J06.9 Acute upper respiratory infection, unspecified (principal); J02.9 Acute pharyngitis, unspecified; E11.9 Type 2 diabetes mellitus without complications; K21.9 Gastro-esophageal reflux disease without esophagitis; I10 Essential (primary) hypertension; E03.9 Hypothyroidism, unspecified; M48.061 Spinal stenosis, lumbar region without neurogenic claudication; G24.01 Drug induced subacute dyskinesia; Z98.84 Bariatric surgery status; F31.9 Bipolar disorder, unspecified; M19.90 Unspecified osteoarthritis, unspecified site
CPT/HCPCS: 87081; 87880; 99213; G0463

== ENCOUNTER 2024-01-30 14:47 | Emergency (ER) | payer MEDICARE, BC, SELFPAY ==
[2024-01-30 15:07] VITALS: BP 157/79; PULSE 90; RESP 18; TEMP 36.9; O2SAT 96
--- NOTE | 2024-01-30 15:24 | ED.WOUNDLAC ---
HPI - Wound/Laceration General Chief Complaint: Wound/Laceration Stated Complaint: wound check Time Seen by Provider: 01/30/24 15:24 Source: patient, RN notes reviewed and old records reviewed Mode of arrival: ambulatory Limitations: no limitations History of Present Illness HPI narrative: 68 year old female accompanied by daughter presents to [facility] with complaints of draining wound to the right frontal scalp area where patient had radiation treatment a total of 21 for a basal cell carcinoma with last treatment on the 20 of January. Patient reports that on the 23 of January she started having yellowish drainage from area where radiation was done and was told by her manager marketing communications who did the radiation that they don't do wound culture and she wound have to go elsewhere to get culture and antibiotic treatment, patient was told to only apply Aquafor ointment to wound. Patient reports no known fevers Onset (ago): day(s) (6 days) Location: scalp (Right frontal) Treatments prior to arrival: other (Aquaphor) Related Data Home Medications Medication Instructions Recorded Confirmed atorvastatin 10 mg tablet 10 mg PO DAILY 10/02/19 07/20/22 dextroamphetamine-amphetamine 30 30 mg PO BID 10/02/19 07/20/22 mg tablet gabapentin 300 mg capsule 300 mg PO BID 10/02/19 07/20/22 olmesartan 40 1 tablet PO DAILY 10/02/19 07/20/22 mg-hydrochlorothiazide 25 mg tablet omeprazole 20 mg capsule,delayed 20 mg PO BID 10/02/19 07/20/22 release potassium chloride 10 mEq 10 meq PO DAILY 10/02/19 07/20/22 tablet,extended release(part/cryst) lamotrigine 200 mg tablet 200 mg PO BID 01/07/20 07/20/22 topiramate 100 mg tablet 100 mg PO BID 06/21/21 07/20/22 multivitamin with minerals-folic tablet PO 01/30/24 01/30/24 acid 0.4 mg tablet Allergies Allergy/AdvReac Type Severity Reaction Status Date / Time Iodinated Contrast Media Allergy Unknown Hives Verified 01/30/24 15:10 Contrast Media Allergy Mild Itching Uncoded 01/30/24 15:10 Review of Systems Review of Systems: CONSTITUTIONAL: Denies fever, chills, or sweats. CARDIOVASCULAR: Denies chest pain, palpitations, or edema. RESPIRATORY: Denies cough or dyspnea. GASTROINTESTINAL: Denies abdominal pain, nausea, vomiting SKIN: Reports redness and swelling. reports yellowish purulent drainage from site of previous skin cancer on head and recent radiation treatments MUSCULOSKELETAL: Denies myalgia. NEUROLOGIC: Denies headache, numbness All systems reviewed & are unremarkable except as noted in HPI and below PMFSH Past Medical History Medical History Arthritis Bipolar disorder Bipolar disorder Chronic low back pain Depression Diabetes Diabetes mellitus GERD (gastroesophageal reflux disease) HTN (hypertension) Hypertension Hypothyroidism Lumbar canal stenosis Spondylolisthesis, lumbar region Tardive dyskinesia Tardive syndrome Surgical History Surgical History History of spinal surgery Hx of cholecystectomy Hx of gastric bypass Hx of shoulder replacement bilateral shoulders Hx of tonsillectomy Status post craniectomy Status post lumbar surgery Family History Family History Mother Acute myocardial infarction Diabetes mellitus Hypertension Father Acute myocardial infarction Diabetes mellitus Hypertension Social History Social History Smoking status: Never smoker Second hand tobacco smoke exposure: No Alcohol intake: current Drinks per week: 1 Substance use: never Gender identity (if verbalized by the patient): Female Spiritual care concerns: No Comments At time of signature, agree with nursing past medical, surgical, social and family history. There is no relevant family history pertinent to the presenting complaint Exam Narrat
== END 2024-01-30 15:52 | disposition home or self-care (01) ==
PROVIDERS: Emergency Provider Registered Nurse
DX: T81.40XA Infection following a procedure, unspecified, initial encounter (principal); C44.41 Basal cell carcinoma of skin of scalp and neck; E11.9 Type 2 diabetes mellitus without complications; K21.9 Gastro-esophageal reflux disease without esophagitis; I10 Essential (primary) hypertension; E03.9 Hypothyroidism, unspecified; G24.01 Drug induced subacute dyskinesia; M19.90 Unspecified osteoarthritis, unspecified site; F31.9 Bipolar disorder, unspecified; Z98.84 Bariatric surgery status; Z96.612 Presence of left artificial shoulder joint; Z96.611 Presence of right artificial shoulder joint
CPT/HCPCS: 87070; 87075; 87076; 87186; 87205; 99213; G0463

== ENCOUNTER 2024-09-29 14:50 | Emergency (ER) | payer MEDICARE, BC, SELFPAY ==
--- NOTE | ~2024-09-29 | CT_ITS ---
EXAMINATION: CT facial & cervical spine wo DATE: 09/29/2024 16:56 INDICATION: head injury TECHNIQUE: Computed tomography (CT) of the maxillofacial region and cervical spine was performed with out intravenous contrast. Automated exposure control and iterative reconstruction technique were empl oyed. The dose-length product was 505.32 mGy-cm. COMPARISON: None FINDINGS: CERVICAL: Exam mildly limited by metal artifact from bilateral shoulder arthroplasties and the superior portion of incompletely visualized spinal stabilization rods. Vertebral Body Alignment: Intact. Craniocervical and atlantoaxial alignment: Mild degenerative change. Alignment intact. Osseous structures/fracture: No evidence of a lytic or blastic process in the visualized spine. No e vidence of acute fracture. Cervical soft tissues: The paraspinal soft tissues planes are maintained. Degenerative changes: Multilevel severe cervical degenerative disc disease. Multilevel mild facet art hropathy. No severe central canal or neural foraminal narrowing, noting that evaluation of the canal is limited by artifact. FACE: Soft Tissues: Small right frontal laceration and soft tissue swelling. Facial bones: No acute fracture. No lytic or blastic process. Eyes: The globes are intact. The soft tissue planes of the orbits are maintained. Paranasal Sinuses: Small retention cyst/polyp in the left frontal sinus, mild ethmoid mucosal thicke donna, the remaining aerated spaces are clear. Foreign Bodies: No radiopaque foreign bodies. Other Findings: None. IMPRESSION: No acute fracture or traumatic malalignment in the cervical spine. No acute facial bone fracture. Reviewed, dictated and finalized at location K. IMPRESSION: No acute fracture or traumatic malalignment in the cervical spine. No acute fac ial bone fracture.
--- NOTE | ~2024-09-29 | CT_ITS ---
CT brain wo con Ordering provider: Jessica Lopez PA-C History: 69 years Female with . head injury . Comparison: None. Technique: CT of the head without contrast. Radiation reduction technique utilized.The dose-length pr oduct was 605.33 mGy-cm. FINDINGS: BRAIN PARENCHYMA AND CSF SPACES: No midline shift, mass effect or hemorrhage. The brain parenchyma a nd CSF spaces are otherwise normal. Empty sella turcica. Prominent Ossification seen in the posterior dura. VISUALIZED PARANASAL SINUSES: Well aerated. MASTOIDS: Well aerated. BONES: Postoperative changes in the left frontal bone. W),The bones appear intact. SOFT TISSUES: Visualized nasopharynx is normal. Superficial soft tissues are normal. IMPRESSION: No acute intracranial findings. Postoperative changes in the left frontal bone. Reviewed, dictated and finalized at location A. IMPRESSION: No acute intracranial findings. Postoperative changes in the left frontal bone .
[2024-09-29 15:09] VITALS: BP 130/69; PULSE 98; RESP 18; TEMP 37.4; O2SAT 98
--- NOTE | 2024-09-29 16:16 | ED.HEATRA ---
HPI - Head Injury General Chief complaint: Skin/Abscess/Foreign Body <Jessica Lopez PA-C - Last Filed: 10/02/24 12:26> Stated complaint: head injury <CHATA York Last Filed: 10/02/24 12:26> Time Seen by Provider: 09/29/24 16:16 <CHATA York Last Filed: 10/02/24 12:26> Focused HPI: This is a 69 year old female that presents to the ER after a trip and fall. Reports she fell flat on her face. Reports laceration to the forehead. Reports nasal pain. Denies vision changes, vomiting, numbness, weakness. GENERAL: Well-appearing, well-nourished, and in no acute distress. HEAD: Normocephalic. Laceration over the right side of the forehead CHEST: Clear to auscultation. ?No respiratory distress. HEART: Regular rate and rhythm.? NEURO: ?Alert and oriented x3. Patient screened in triage and initial orders placed.? ?Additional care and disposition to be based upon?diagnostic testing and treatment. <CHATA York Last Filed: 10/02/24 12:26> Source: patient <CHATA Samano Last Filed: 09/30/24 02:17> Mode of arrival: ambulatory <CHATA Samano Last Filed: 09/30/24 02:17> Limitations: no limitations <CHATA Samano Last Filed: 09/30/24 02:17> History of Present Illness HPI Narrative: Agree with MSE note above. Patient states that the fall happened today around noon. Triage note mentions fall at 0430, however patient states this is not true. States that she did stumble while trying to carry something up stairs. Endorses some pain to the right eye but no vision change. Denies numbness, weakness, vision change, vomiting, preceding chest pain or shortness of breath. Denies any further site of injury. <CHATA Samano Last Filed: 09/30/24 02:17> Related Data Home medications: Home Medications ?Medication ?Instructions ?Recorded ?Confirmed ?Last Taken ?Type atorvastatin 10 mg tablet 10 mg PO DAILY 10/02/19 07/20/22 01/07/20 09:00 History dextroamphetamine-amphetamine 30 30 mg PO BID 10/02/19 07/20/22 Unknown History mg tablet gabapentin 300 mg capsule 300 mg PO BID 10/02/19 07/20/22 Unknown History olmesartan 40 1 tablet PO DAILY 10/02/19 07/20/22 01/07/20 09:00 History mg-hydrochlorothiazide 25 mg tablet omeprazole 20 mg capsule,delayed 20 mg PO BID 10/02/19 07/20/22 Unknown History release potassium chloride 10 mEq 10 meq PO DAILY 10/02/19 07/20/22 01/07/20 09:00 History tablet,extended release(part/cryst) lamotrigine 200 mg tablet 200 mg PO BID 01/07/20 07/20/22 Unknown History topiramate 100 mg tablet 100 mg PO BID 06/21/21 07/20/22 Unknown History multivitamin with minerals-folic tablet PO 01/30/24 01/30/24 Unknown History acid 0.4 mg tablet <Jessica Lopez PA-C - Last Filed: 10/02/24 12:26> Allergies/Adverse reactions: Allergies Allergy/AdvReac Type Severity Reaction Status Date / Time Iodinated Contrast Media Allergy Unknown Hives Verified 09/29/24 15:12 Contrast Media Allergy Mild Itching Uncoded 09/29/24 15:12 <Jessica Lopez PA-C - Last Filed: 10/02/24 12:26> Review of Systems Review of Systems: All systems as dictated in HPI <Darryl Hurley PA-C - Last Filed: 09/30/24 02:17> [facility] Past Medical History Medical History: Medical History Arthritis Bipolar disorder Bipolar disorder Chronic low back pain Depression Diabetes Diabetes mellitus GERD (gastroesophageal reflux disease) HTN (hypertension) Hypertension Hypothyroidism Lumbar canal stenosis Spondylolisthesis, lumbar region Tardive dyskinesia Tardive syndrome <Jessica Lopez PA-C - Last Filed: 10/02/24 12:26> Surgical History Surgical History: Surgical History History of spinal surgery Hx of cholecystectomy Hx of gastric bypass Hx of shoulder replacement bilateral shoulders Hx of tonsillectomy Status post craniectomy Status post lumbar surgery <Jessica Lopez PA-C - Last Filed: 10/02/24 12:26> Family History Family History: Family History Mother Acute myocardial infarction Diabetes mellitus Hypertension Father Acute myocardial infarction Diabetes mellitus Hypertension <CHATA York Last Filed: 10/02/24 12:26> Social History Social History: Social History Smoking status: Never smoker Second hand tobacco smoke exposure: No Alcohol intake: current Drinks per week: 1 Substance use: never Gender identity (if verbalized by the patient): Female Spiritual care concerns: No <CHATA York Last Filed: 10/02/24 12:26> Exam Narrative: GENERAL: Well-appearing, well-nourished, and in no acute distress. HEAD: Normocephalic, atraumatic. EYES: PERRLA and EOMI. Mild periorbital ecchymosis limited to the medial canthus area. ENT: Nares clear, no rhinorrhea or epistaxis. Mucous membranes moist. Oropharynx without tonsillar hypertrophy exudate or other lesions. NECK: Supple. No adenopathy or masses. CHEST: No respiratory distress. Clear to auscultation. No wheezes rales or rhonchi HEART: Regular rate and rhythm. No murmur heard. Normal peripheral pulses. ABDOMEN: Soft, nontender, nondistended, normal active bowel sounds. MSK: Normal range of motion. No edema. SKIN: 2 cm diagonally oriented laceration to the right forehead. Bleeding controlled on arrival. Warm, dry, no rash. NEURO: Alert and oriented x4. No focal deficits. PSYCH: Normal mood and affect. <CHATA Samano Last Filed: 09/30/24 02:17> Course Vital Signs Vital signs: Vital Signs Temperature 99.3 F 09/29/24 15:09 Pulse Rate 98 09/29/24 15:09 Respiratory Rate 18 03/11/25 15:09 Blood Pressure 130/69 09/29/24 15:09 Pulse Oximetry 98 09/29/24 15:09 Oxygen Delivery Room Air 09/29/24 15:09 Temperature 97.8 F 09/29/24 18:45 Pulse Rate 90 09/29/24 20:01 Respiratory Rate 17 09/29/24 20:01 Blood Pressure 116/82 09/29/24 20:01 Pulse Oximetry 98 09/29/24 20:01 Oxygen Delivery Room Air 09/29/24 15:09 <Jessica Lopez PA-C - Last Filed: 10/02/24 12:26> Vital Signs Temperature 99.3 F 09/29/24 15:09 Pulse Rate 98 09/29/24 15:09 Respiratory Rate 18 09/29/24 15:09 Blood Pressure 130/69 09/29/24 15:09 Pulse Oximetry 98 09/29/24 15:09 Oxygen Delivery Room Air 09/29/24 15:09 Temperature 97.8 F 09/29/24 18:45 Pulse Rate 90 09/29/24 20:01 Respiratory Rate 17 09/29/24 20:01 Blood Pressure 116/82 09/29/24 20:01 Pulse Oximetry 98 09/29/24 20:01 Oxygen Delivery Room Air 09/29/24 15:09 <Darryl Hurley PA-C - Last Filed: 09/30/24 02:17> Procedures Laceration Laceration 1: Date: 09/29/24 <Darryl Hurley PA-C - Last Filed: 09/30/24 02:17> Time: 19:46 <CHATA Samano Last Filed: 09/30/24 02:17> Site: face <CHATA Samano Last Filed: 09/30/24 02:17> Side (If applicable): right <CHATA Samano Last Filed: 09/30/24 02:17> Size (cm): 2 <CHATA Samano Last Filed: 09/30/24 02:17> Description: linear <CHATA Samano Last Filed: 09/30/24 02:17> Depth: simple, single layer <Darryl Hurley PA-C - Last Filed: 09/30/24 02:17> Local Anesthetic: lidocaine 1% and with epi <CHATA Samano Last Filed: 09/30/24 02:17> Amount of anesthesia used (mL): 2 <Darryl Hurley PA-C - Last Filed: 09/30/24 02:17> Pre-repair: wound explored, irrigated extensively and deep structures intact <Darryl Hurley PA-C - Last Filed: 09/30/24 02:17> ====== Skin Level ======: Skin layer closed with: nylon <Darryl Hurley PA-C - Last Filed: 09/30/24 02:17> Size (cm): 5-0 <Darryl Hurley PA-C - Last Filed: 09/30/24 02:17> Number of sutures: 5 <CHATA Samano Last Filed: 09/30/24 02:17> Technique: simple, interrupted <Darryl Hurley PA-C - Last Filed: 09/30/24 02:17> ====== Subcutaneous Layer ======: ====== Muscle Layer ======: ====== Tendon Layer ======: MDM - Head Injury MDM Narrative Medical decision making narrative: This is a 69-year-old female who presents to the ED for chief complaint of laceration due to head injury today. Vitals are normal. Exam remarkable for the above with a 2 cm laceration to the right forehead. CT imaging of the facial bones, cervical spine and head are negative for acute findings. The wound was well cleansed and irrigated here in the ED. primarily closed with sutures. Laceration instructions given. Prophylactic antibiotics given due to history of diabetes. Patient will be discharged in stable condition. Supportive measures discussed and return precautions given. Patient is understanding and agreeable with plan for discharge with PCP follow-up. <CHATA Samano Last Filed: 09/30/24 02:17> Imaging Data Radiologist's impression: ITS Impressions Head CT 09/29/24 16:58 IMPRESSION: No acute intracranial findings. Postoperative changes in the left frontal bone. Head/Cervical Spine/Facial Bones CT 09/29/24 17:13 IMPRESSION: No acute fracture or traumatic malalignment in the cervical spine. No acute facial bone fracture. <Jessica Lopez PA-C - Last Filed: 10/02/24 12:26> Critical Care Time Critical Care Time Critical Care Time: No <Jessica Lopez PA-C - Last Filed: 10/02/24 12:26> Discharge Plan Discharge Clinical Impression: Laceration Fall Qualifiers: Encounter type: initial encounter Qualified Code(s): W19.XXXA - Unspecified fall, initial encounter <CHATA York Last Filed: 10/02/24 12:26> Patient Disposition: Home, Self-Care <CHATA York Last Filed: 10/02/24 12:26> Condition: Stable <CHATA York Last Filed: 10/02/24 12:26> Instructions: Antibiotic Form <CHATA York Last Filed: 10/02/24 12:26> Additional Instructions: Keep wound clean and dry. Do not soak, take baths, or swim until wound is completely healed. If any signs of infection such as redness, swelling, increasing pain, drainage of purulent discharge, streaks up your extremity develop, seek medical attention immediately. Followup with your primary care provider in [7] days for suture removal. <CHATA York Last Filed: 10/02/24 12:26> Patient Language: Slovenian <CHATA York Last Filed: 10/02/24 12:26> Prescriptions: New cephalexin 500 mg capsule 500 mg PO Q8H 3 Days Qty: 9 0RF No Action multivit with min-folic acid [Adult One Daily Multivitamin] 0.4 mg Tablet PO clindamycin HCl 300 mg capsule 300 mg PO BID Qty: 30 0RF Rx Instructions: take all doses as ordered wound culture sent levofloxacin 500 mg tablet 500 mg PO DAILY 7 Days Qty: 7 0RF atorvastatin 10 mg tablet 10 mg PO DAILY dextroamphetamine-amphetamine 30 mg tablet 30 mg PO BID gabapentin 300 mg capsule 300 mg PO BID omeprazole 20 mg capsule,delayed release(DR/EC) 20 mg PO BID olmesartan-hydrochlorothiazide 40-25 mg tablet 1 tablet PO DAILY potassium chloride 10 mEq tablet,ER particles/crystals 10 meq PO DAILY topiramate 100 mg tablet 100 mg PO BID lamotrigine 200 mg Tablet 200 mg PO BID <Jessica Lopez PA-C - Last Filed: 10/02/24 12:26> Follow-up/Referrals: UNKNOWN,DOCTOR [Primary Care Provider] - <Jessica Lopez PA-C - Last Filed: 10/02/24 12:26> Time of Disposition: 19:48 <Jessica Lopez PA-C - Last Filed: 10/02/24 12:26> 19:48 <Darryl Hurley PA-C - Last Filed: 09/30/24 02:17>
--- OUTSIDE RECORDS SUMMARY | 2024-09-29 16:51 | XMS_ITS ---
Author Organization [facility] Address [address] [place] [address] [address] [address] Care Team Providers Care Sack Maker Name Role Phone José Miguel Morgan MD Primary Care Provider Yvette Ayers Unavailable [phone] Allergies Allergen (clinical drug ingredient) Drug/Non Drug Allergy documented on EMR Reaction Allergy Type Onset Date Status Iodinated contrast media (substance) Iodinated Diagnostic Agents Unknown Drug Allergy Active Social History Tobacco Use: Social History Observation Description Date Details (start date - stop date) Never Smoker NA - NA Tobacco Use/Smoking Question Answer Notes Are you a nonsmoker Section Notes: lives with disabled daughter age 20 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 [employer] Never smoked Occasional EtOH No MJ or illicits 11/10 taking pure vitamin supplement Encounters Encounter Location Date Provider Diagnosis [address] [place], [place] [id number] 07/29/2024 Yvette Altamirano Plan Of Treatment Next Appt Details Provider Name:Yvette Orr i, 12/23/2024 02:45:00 PM, [address] [place] [address], [address], [place], [place], [id number], Progress Notes * Ale HYATTDOB: [birth year] (69 yo F)Acc No.[id number]:07/29/2024 Progress Notes Patient: Rich Ale KUMAR Provider: Rich Altamirano MD :1955 A ge:69 Y S ex:Female Date:07/29/2024 Address:[address] [place], [place] [id number] Pcp:José Miguel Morgan MD Subjective: * Chief Complaints: * * Medical History: D M2, HTN, Bipolar disorder. * Surgical History: T onsillectomy , Shoulder replacement 2004, Lasik surgery , Craniotomy , Cholecystectomy , Colonoscopy 11/2011, Hip Arthroplasty 2018, Lumbar spine fusion 2019. * Family History: Mother:DM,Heart disease,HTN, Stroke Father:DM, Heart disease, HTN. * Social History: T obacco Use: T obacco Use/Smoking A re you a n onsmoker. 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 * Allergies: I odinated Diagnostic Agents. Objective: * Vitals: Assessment: Plan: * Treatment: * Images: * Electronic signature of Gulshan Altamirano MD on 09/29/2024 at 04:51 PM CDT Sign off status: Pending * Provider: Rich Altamirano MD Date: 0 07/29/2024 Generated for Milka price/Iliana/Imani on: 0 09/29/2024 04:51 PM CDT
--- OUTSIDE RECORDS SUMMARY | 2024-09-29 16:51 | XMS_ITS | Clinical Summary ---
Author Organization [facility] Address [address] [place] [address] Care Team Providers Care Hat Renovator Name Role Phone None, Provider MD Primary Care Provider Unavaila ble Social History Tobacco Use Types Packs/Day Years Used Date Smoking Tobacco: Never Assessed Comments Unknown Sex and Gender Information Value Date Recorded Sex Assigned at Not on file Legal Sex Female 3:54 PM CDT Gender Identity Not on file Sexual Orientation Not on file Plan of Treatment Health Maintenance Due Date Last Done Comments Colorectal Cancer Screening Colonoscopy (10 Years) 1955 Hepatitis C 1973 Mammogram Screening 1995 Zoster Vaccines (1 of 2) 2005 Annual Medicare Wellness Visit 2020 Dexa Scan (General) 2020 COVID-19 Vaccine ( - season) 2024 10/25/2020 Influenza Adult (#1) 2024 05/03/2021, 03/30/2020, 06/03/2019, Additional history exists DTaP, Tdap and Td Vaccines (2 - Td or Tdap) 03/09/2025 03/09/2015 RSV Immunization or 60+ Years (1 - 1-dose 75+ series) 2030 Pneumococcal Vaccine: 65+ Years Completed 10/01/2022, 07/03/2017 Meningococcal B Vaccine Aged Out No l onger eligible based on patient's age to complete this topic Meningococcal Vaccine Aged Out No yoon hans eligible based on patient's age to complete this topic RSV Immunizations Under 20 Months Aged Out No longer eligible based on patient's age to complete this topic Insurance MEDICARE [facility] Care Teams Hat Renovator Relationship Specialty Start Date End Date None, Provider, PCP - General UNKNOWN PHYSICIAN SPECIALTY 11/23/23
--- OUTSIDE RECORDS SUMMARY | 2024-09-29 16:51 | XMS_ITS | Clinical Summary ---
Author Organization [facility] Address [address] [place] [address] Care Team Providers Care Auto Service Instructor Name Role Phone Unavailable Primary Care Provider Unavailabl e Active Problems Problem Noted Date Diagnosed Date Spinal stenosis of lumbar re gion with neurogenic claudication 05/07/2019 Essential hypertension 05/07/2019 Type 2 diabetes mellitus 05/07/2019 Gastroesophageal reflux disease 05/07/2019 Bipolar disorder 05/07/2019 Hyperlipidemia 05/07/2019 Family History Medical History Relation Name Comments Diabetes Father Heart disease Father Hypertension Father Diabetes Mother Heart disease Mother Hypertension Mother Stroke Mother Relation Name Status Comments Father Mother Social History Tobacco Use Types Packs/Day Years Used Date Smoking Tobacco: Never Alcohol Use Standard Drinks/Week Comments Yes 0 (1 standard drink = 0.6 oz pur e alcohol) occasional Comments Unknown Sex and Gender Information Value Date Recorded Sex Assigned at Not on file Legal Sex Female 2:20 PM EDT Gender Identity Not on file Sexual Orientation Not on file Plan of Treatment Not on file
--- OUTSIDE RECORDS SUMMARY | 2024-09-29 16:51 | XMS_ITS ---
Author Organization [facility] Address [address] [place], [place] [address] Care Team Providers Care Indirect Sales Exec Name Role Phone JOEMARIAN ARREDONDO Unavailable [phone] AUSTEN FONG Unavailable Unavailable Allergies Allergen (clinical drug ingredient) Drug/Non Drug Allergy documented on EMR Reaction Allergy Type Onset Date Status Iodine Unknown Drug Allergy 03/24/2021 active REASON FOR VISIT *General care Vital Signs Weight 200 lbs 06/25/2024 Weight-kg 90.72 kg 06/25/2024 Height 63.00 in 06/25/2024 Height-cm 160.02 cm 06/25/2024 BMI 35.42 kg/m2 06/25/2024 Encounters Encounter Location Date Provider Diagnosis [facility] [place] [address] [place], [place] [id number] 06/25/2024 MARIAN MCCOY Onychomycosis B35.1 ; Pain in right toe(s) M79.674 ; Pain in left toe(s) M79.675 ; Atherosclerosis of [place] arteries of extremities with intermittent claudication, bilateral legs I70.213 and Acquired keratoderma L85.1 Assessments Encounter Date Diagnosis (ICD Code) Assessment Notes Treatment Notes Treatment Clinical Notes Section Notes 06/25/2024 Onychomycosis (ICD-10 - B35.1) 06/25/2024 Pain in right toe(s) (ICD-10 - M79.674) 06/25/2024 Pain in left toe(s) (ICD-10 - M79.675) 06/25/2024 Atherosclerosis of [place] arteries of extremities with intermittent claudication, bilateral legs (ICD-10 - I70.213) 06/25/2024 Acquired keratoderma (ICD-10 - L85.1) 06/25/2024 Other Nails 1-5 Bilateral were debrided extensively with nail nippers and emery board, reducing length and girth to pink healthy tissue with any subungual debris and necrotic tissue removed Plan Of Treatment Treatment Notes Assessment Notes Other Nails 1-5 Bilateral were debrided extensively with nail nippers and emery board, reducing length and girth to pink healthy tissue with any subungual debris and necrotic tissue removed Next Appt Details Provider Name:MARIAN MORALES, 10/01/2024 02:50:00 PM, [address], [address], [id number], Progress Notes * PUMA HYATTDOB: [birth year] (69 yo F)Acc No.[id number]:06/25/2024 Patient: Rich KUMARPUMA Provider: Seamus Mccoy DPM :1955 A ge:69 Y S ex:Female Date:06/25/2024 Address:[address] [place], [place] [id number] Subjective: * Chief Complaints: * * General care * HPI: H PI: General care P atient presents to the office for diabetic foot care. Patient states that their nails are thickened, elongated and painful. Patient states that it is aggravated by shoe gear. Onset is gradual. Patient denies taking blood thinners. Date last seen by Dr. Fong was 05/2024. Initials sea. * ROS: G eneral / Constitutional: Patient denies c hange in appetite, fatigue, chills, fever.? C ardiovascular: Chest pain d enies. N eurologic: Loss of use of extremity d enies. * Medical History: * Surgical History: * Hospitalization/Major Diagno stic Procedure: * Family History: F ather: PRN - Father: :: Hypertension,,known absent , :: Diabetes,,known absent , :: Heart Disease < 55 yrs,,known absent . M other: PRN - Mother: :: Pneumonia,,known absent , :: Stroke,,known absent , :: Heart Disease < 55 yrs,,known absent , :: Arthritis,,known absent , :: Diabetes,,known absent , :: Hypertension,,known absent . * Social History: M igrated Social History: M igrated Social History: History of tobacco use : , Smoking Status : Never used tobacco. * Medications: * Allergies: I odine: Allergy - Onset Date 03/24/2021 Objective: * Vitals: W t:200lbs, Wt-k.72 kg, Ht: 63.00 in, Ht-cm: 160.02 cm, BMI:35.42Index, Body Surface Area: 2.01. * Examination: P hysical Examination: Gen: T he patient is awake, alert, well developed, well groomed and well nourished. They are in no apparent distress. . Musc: F oot structure is normal bilateral. Muscle strength is 5/5 to all joints bilaterally. There is no pain on palpation. . Derm: T here is absent hair growth on bilateral feet. There are pigmentary changes of bilateral foot. The skin color is red. The skin texture is thin and shiny. Distal cooling noted in bilateral feet. Nails are thick, discolored, and dystrophic with subungual debris. They are painful to palpation. . Neuro: G rossly intact to light touch bilateral . Vasc: P osterior tibialis pulse 0/4 bilaterally. Dorsalis pedis pulse 0/4 bilaterally. No edema noted. Capillary fill time > 3 seconds to all digits. . Assessment: * Assessment: 1. O nychomycosis - B35.1 (Primary) 2 . P ain in right toe(s) - M79.674? 3. P ain in left toe(s) - M79.675 4 . A therosclerosis of [place] arteries of extremities with intermittent claudication, bilateral legs - I70.213 5 . A cquired keratoderma - L85.1 Plan: * Treatment: * Procedure Codes: 1 1721 DEBRIDE NAIL, 6 OR MORE, Modifiers: Q8 * Billing Information: * Visit Code: * Procedure Codes: 51060 DEBRIDE NAIL, 6 OR MORE. Modifiers: Q8 * OCOMPOSING KEYBOARD OPERATOR Sign off status: Completed true * Provider: Seamus Mccoy DPM Date: 08/26/2023 Generated for Milka price/Iliana/Imani on: 0 09/29/2024 04:51 PM CDT History and Physical Notes * HPI (History of Present Illness) Category Sub-Category Detail Notes Category Not es HPI General care Patient presents to the office for diabetic foot care. Patient states that their nails are thickened, elongated and painful. Patient states that it is aggravated by shoe gear. Onset is gradual. Patient denies taking blood thinners. Date last seen by Dr. Fong was 05/2024. Initials sea Examination Category Sub-Category Detail Notes Category Not es Physical Examination Gen: The patient is awake, alert, well developed, well groomed and well nourished. They are in no apparent distress. Vasc: Posterior tibialis p ulse 0/4 bilaterally. Dorsalis pedis pulse 0/4 bilaterally. No edema noted. Capillary fill time > 3 seconds to all digits. Neuro: Grossly intact to li ght touch bilateral Musc: Foot structure is no rmal bilateral. Muscle strength is 5/5 to all joints bilaterally. There is no pain on palpation. Derm: There is absent hair growth on bilateral feet. There are pigmentary changes of bilateral foot. The skin color is red. The skin texture is thin and shiny. Distal cooling noted in bilateral feet. Nails are thick, discolored, and dystrophic with subungual debris. They are painful to palpation.
--- OUTSIDE RECORDS SUMMARY | 2024-09-29 16:51 | XMS_ITS ---
Author Organization [facility] Address [address] [place] [address] [address] [address] Care Team Providers Care Chairman & Ceo Name Role Phone José Miguel Morgan MD Primary Care Provider Yvette Ayers Unavailable [phone] Encounters Encounter Location Date Provider Diagnosis [address] [place], [place] [phone] 09/23/2024 Yvette Altamirano Plan Of Treatment Next Appt Details Provider Name:Yvette Orr i, 12/23/2024 02:45:00 PM, [address] [place] [address], [address], [place], [place], [id number], Progress Notes * Ale HYATTDOB: [birth year] (69 yo F)Acc No.[id number]:09/23/2024 Progress Notes Patient: Rich KUMARAle Provider: Rich Altamirano MD :1955 A ge:69 Y S ex:Female Date:09/23/2024 Address:[address] [place] [address] Pcp:José Miguel Morgan MD Subjective: * Chief Complaints: * * Medical History: Objective: * Vitals: Assessment: Plan: * Treatment: * Images: * Electronic signature of Gulshan Altamirano MD on 09/29/2024 at 04:51 PM CDT Sign off status: Pending * Provider: Rich Altamirano MD Date: 0 09/23/2024 Generated for Milka price/Iliana/Imani on: 0 09/29/2024 04:51 PM CDT
--- OUTSIDE RECORDS SUMMARY | 2024-09-29 16:52 | XMS_ITS ---
Author Organization [facility] Care Team Providers Care Dry Pan Operator Name Role Phone Frank Arevalo Unavailable Unavailable Allergies and adverse reactions Code CodeSystem Substance Reaction Severity StartDate Concern Status CONTRAST-IODINAT ED AGENTS FOR CT/OTHER Skin reaction - finding (code- 166329442, SNOMED CT) Moderate 05/27/2019 active Care Team Name Role Address Phone Organization Dates Frank Arevalo PCP [address] [place], [address], [place] (Office): : [facility] 05/27/2019 - 06/17/2019 Immunizations Immunization Status Vaccine Details Vaccine Code CodeSystem Demar e Notes Influenza completed Influenza, high- dose, split virus, quadrivalent, injectable, preservative free Given 0.5 ml Right Deltoid intramuscularly 197 CVX created date: 06/03/2019 consent date: 06/03/2019 administered date: 06/03/2019 Prevnar 23 normal created date: 06/09/2019 consent date: 06/09/2019 Mental Status Section Date Assessment Total Score Description 06/16/2019 BIMS 15 cognitively int act CAM 0 No delirium ind icated PHQ-9 00 06/03/2019 BIMS 14 cognitively int act CAM 0 No delirium ind icated PHQ-9 02 minimal depress ion Problems Problem # Description Date of onset Resolved Date Code CodeSystem Concern Status 1 CONSTIPATION, UNSPECIFIED [address] active 2 ESOPHAGITIS, UNSPECIFIED [address] active 3 HYPERLIPIDEMIA, UNSPECIFIED [address] active 4 RESTLESSNESS AND AGITATION [address] active 5 SPINAL STENOSIS, LUMBAR REGION WITH NEUROGENIC CLAUDICATION [address] active 6 BIPOLAR DISORDER, UNSPECIFIED [address] active 7 DELIRIUM DUE TO KNOWN PHYSIOLOGICAL CONDITION [address] active 8 DEMENTIA IN OTHER DISEASES CLASSIFIED ELSEWHERE WITH BEHAVIORAL DISTURBANCE [address] active 9 DIARRHEA, UNSPECIFIED [address] active 10 DRUG INDUCED SUBACUTE DYSKINESIA [address] active 11 DYSPHAGIA, ORAL PHASE [address] active 12 ESSENTIAL (HEMORRHAGIC) THROMBOCYTHEMIA [address] active 13 ESSENTIAL (PRIMARY) HYPERTENSION [address] active 14 FUSION OF SPINE, CERVICOTHORACIC REGION [address] active 15 FUSION OF SPINE, LUMBAR REGION [address] active 16 GASTRO-ESOPHAGEAL REFLUX DISEASE WITHOUT ESOPHAGITIS [address] active 17 INSOMNIA, UNSPECIFIED [address] active 18 LOW BACK PAIN [address] active 19 MAJOR DEPRESSIVE DISORDER, SINGLE EPISODE, UNSPECIFIED [address] active 20 PURE HYPERCHOLESTEROLEMI A, UNSPECIFIED [address] active 21 SHORTNESS OF BREATH [address] active 22 TYPE 2 DIABETES MELLITUS WITHOUT COMPLICATIONS [address] active 23 UNSPECIFIED OSTEOARTHRITIS, UNSPECIFIED SITE [address] active Reason for Referral No Reasons for Referral Entered Social History Social History Observation Description Start Date End Date Code Code System Current Smoking Status Tobacco smoking consumption unknown 454456551 SNOMED CT Sex Assigned At Female 1955 11042-0 [facility] Vital Signs Code Code System Vitals Name Values and Units Timing Information 69525-6 [facility] Pain Level Value=5.0 06/16/2019 9279-1 [facility] Respiratory Rate Value=20.0 Units=/m in 06/16/2019 8462-4 [facility] Blood Pressure-Diastolic Value=72 Un its=mmHg 06/16/2019 8480-6 [facility] Blood Pressure-Systolic Eitms=373 Un its=mmHg 06/16/2019 8867-4 [facility] Heart rate Value=80.0 Units=/min 8310-5 [facility] Body Temperature Value=98.6 Units= F 06/16/2019 95521-3 [facility] O2 % dC Oximetry Value=98.0 Units= % 06/10/2019 87184-4 [facility] Weight Wgrty=311.3 Units=Lbs 8302-2 [facility] Height Value=63.0 Units=Inches 05/28/2019
--- OUTSIDE RECORDS SUMMARY | 2024-09-29 16:52 | XMS_ITS ---
Author Organization [facility] Address [address] [place], [place] [address] Care Team Providers Care Sem Manager Name Role Phone MARIAN MCCOY Unavailable [phone] AUSTEN HUTTON Unavailable Unavailable Allergies Allergen (clinical drug ingredient) Drug/Non Drug Allergy documented on EMR Reaction Allergy Type Onset Date Status Iodine Unknown Drug Allergy 03/24/2021 active REASON FOR VISIT *General care Encounters Encounter Location Date Provider Diagnosis [facility] [place] [address] [place], [place] [id number] 02/06/2024 MARIAN MCCOY Onychomycosis B35.1 ; Pain in right toe(s) M79.674 ; Pain in left toe(s) M79.675 ; Atherosclerosis of [place] arteries of extremities with intermittent claudication, bilateral legs I70.213 and Acquired keratoderma L85.1 Assessments Encounter Date Diagnosis (ICD Code) Assessment Notes Treatment Notes Treatment Clinical Notes Section Notes 02/06/2024 Onychomycosis (ICD-10 - B35.1) 02/06/2024 Pain in right toe(s) (ICD-10 - M79.674) 02/06/2024 Pain in left toe(s) (ICD-10 - M79.675) 02/06/2024 Atherosclerosis of [place] arteries of extremities with intermittent claudication, bilateral legs (ICD-10 - I70.213) 02/06/2024 Acquired keratoderma (ICD-10 - L85.1) 02/06/2024 Other Nails 1-5 Bilateral were debrided extensively [...] tissue removed Next Appt Details Provider Name:MARIAN Gonzalez CELINADAMION MORALES, 10/01/2024 02:50:00 PM, [address], [address], [id number], Progress Notes * OLENA PUMA ForrestDOB: [birth year] (68 yo F)Acc No.[id number]:02/06/2024 Patient: PUMA BEEBE Provider: Seamus Mccoy DPM :1955 A ge:68 Y S ex:Female Date:02/06/2024 Address:[address] [place], [place] [phone] Subjective: * Chief Complaints: * 1 . *General care. * HPI: H PI: General care P atient presents to the office for at risk foot care. Patient states that their nails are thickened, elongated and painful. Patient states that it is aggravated by shoe gear. Onset is gradual. Patient denies being diabetic., Patient denies taking blood thinners., Date last seen by Dr. Anni jaquez as 11/2023., Initials [facility]. * ROS: G eneral / Constitutional: Patient denies c hange in appetite, fatigue, chills, fever.? C ardiovascular: Chest pain d enies. N eurologic: Loss of use of extremity d enies. * Medical History: * Allergies: I odine: Allergy - Onset Date 03/24/2021. Objective: * Examination: P hysical Examination: Gen: T [...] . P ain in right toe(s) - M79.674 3 . P ain in left toe(s) - M79.675 4 . A therosclerosis of [place] arteries of extremities with intermittent claudication, bilateral legs - I70.213 5 . A cquired keratoderma - L85.1 Plan: * Treatment: * Procedure Codes: 1 1056 TRIM SKIN LESIONS, 2 TO 4, Modifiers: Q8 , 02677 DEBRIDE NAIL, 6 OR MORE, Modifiers: 59 , Q8 * Billing Information: * Visit Code: * Procedure Codes: 40008 TRIM SKIN LESIONS, 2 TO 4. Modifiers: Q8 88782 DEBRIDE NAIL, 6 OR MORE. Modifiers: 59, Q8 * Sign off status: Completed true * Provider: Seamus Mccoy DPM Date: 0 02/06/2024 Generated for Milka price/Iliana/Imani on: 0 09/29/2024 04:51 PM CDT History and Physical Notes * HPI (History of Present Illness) Category Sub-Category Detail Notes Category Not es HPI General care Patient presents to the office for at risk foot care. Patient states that their nails are thickened, elongated and painful. Patient states that it is aggravated by shoe gear. Onset is gradual. Patient denies being diabetic., Patient denies taking blood thinners., Date last seen by Dr. Hutton was 11/2023., Initials [facility] Examination Category Sub-Category Detail Notes Category Not [...]
--- OUTSIDE RECORDS SUMMARY | 2024-09-29 16:52 | XMS_ITS ---
Author Organization [facility] Address [address] [place], [place] [address] Care Team Providers Care Hand I Blocker Name Role Phone JOEDAMIONCARMEN MARIAN Unavailable [phone] AUSTEN TILLMAN Unavailable Unavailable Allergies Allergen (clinical drug ingredient) Drug/Non Drug Allergy documented on EMR Reaction Allergy Type Onset Date Status Iodine Unknown Drug Allergy 03/24/2021 active REASON FOR VISIT *General care Vital Signs Weight 200 lbs 04/09/2024 Weight-kg 90.72 kg 04/09/2024 Height 63.00 in 04/09/2024 Height-cm 160.02 cm 04/09/2024 BMI 35.42 kg/m2 04/09/2024 Encounters Encounter Location Date Provider Diagnosis [facility] [place] [address] [place], [place] [id number] 04/09/2024 MARIAN MCCOY Onychomycosis B35.1 ; Pain in right toe(s) M79.674 ; Pain in left toe(s) M79.675 ; Atherosclerosis of [place] arteries of extremities with intermittent claudication, bilateral legs I70.213 and Acquired keratoderma L85.1 Assessments Encounter Date Diagnosis (ICD Code) Assessment Notes Treatment Notes Treatment Clinical Notes Section Notes 04/09/2024 Onychomycosis (ICD-10 - B35.1) 04/09/2024 Pain in right toe(s) (ICD-10 - M79.674) 04/09/2024 Pain in left toe(s) (ICD-10 - M79.675) 04/09/2024 Atherosclerosis of [place] arteries of extremities with intermittent claudication, bilateral legs (ICD-10 - I70.213) 04/09/2024 Acquired keratoderma (ICD-10 - L85.1) 04/09/2024 Other Nails 1-5 Bilateral were debrided extensively [...] MORALES, 10/01/2024 02:50:00 PM, [address], [address], [id number], Progress Notes * PUMA HYATTDOB: [birth year] (68 yo F)Acc No.[id number]:04/09/2024 Patient: Rich KUMARPUMA Provider: Seamus Mccoy DPM :1955 A ge:68 Y S ex:Female Date:04/09/2024 Address:[address] [place], [place] [phone] Subjective: * Chief Complaints: * * General care * HPI: H PI: General care P atient presents to the office for diabetic foot care. Patient states that their nails are thickened, elongated and painful. Patient states that it is aggravated by shoe gear. Onset is gradual. Patient denies taking blood thinners. Date last seen by Dr. Tillman was 09/2023. Initials [facility]. * ROS: G eneral / Constitutional: Patient [...] - M79.675 4 . A therosclerosis of [place] arteries of extremities with intermittent claudication, bilateral legs - I70.213 5 . A cquired keratoderma - L85.1 Plan: * Treatment: * Procedure Codes: 1 1721 DEBRIDE NAIL, 6 OR MORE, Modifiers: Q8 * Billing Information: * Visit Code: * Procedure Codes: 67820 DEBRIDE NAIL, 6 OR MORE. Modifiers: Q8 * Sign off status: Completed true * Provider: Seamus Mccoy DPM Date: 0 04/09/2024 Generated for Milka Lock/Imani on: 0 09/29/2024 04:51 PM CDT History [...] blood thinners. Date last seen by Dr. Tillman was 09/2023. Initials [facility] Examination Category Sub-Category Detail Notes Category Not [...]
--- OUTSIDE RECORDS SUMMARY | 2024-09-29 16:52 | XMS_ITS | Patient Health Record ---
Author Organization [facility] Address [address] [address] Care Team Providers Care Operating Systems Specialist Name Role Phone Eddie PALMER, José Miguel Primary Care Provider Yvette Ayers Unavailable [phone] Allergies Allergen (clinical drug ingredient) Drug/Non Drug Allergy documented on EMR Reaction Allergy Type Onset Date Status Iodinated contrast media (substance) Iodinated Diagnostic Agents Unknown Drug Allergy Active Reason For Referral No Information Medications Medication SIG (Take, Route, Frequency, Duration) Notes Start Date End Date Status Multivitamin - 1 tablet Orally Once a day for 30 day(s) Active Vitamin E 100 UNIT as directed Orally Active Olmesartan Medoxomil-HCTZ 40-25 MG 1 tablet Orally Once a day for 30 day(s) Active Fish Oil 500 MG 1 capsule Orally Twi ce a day Active Omeprazole 20 MG 1 capsule 30 minutes before morning meal Orally Twice a day Active Cranberry - as directed Active Potassium Chloride ER 10 MEQ 1 tablet with food Orally Once a day Active Ocuvite Active Atorvastatin Calcium 10 MG 1 tablet Orally Once a day for 30 day(s) Active Austedo 12 MG 2 Tablets Orally Twi ce a day Active Topiramate 100 MG 1 tablet Orally Twic e a day Active ARIPiprazole 2 MG 1 tablet Orally Once a day for 30 day(s) Not-Taking lamoTRIgine 200 MG 1 tablet Orally Twic e a day Active Vitamin D 50 MCG (1999 UT) 1 tablet Orally Once a day for 30 day(s) Active Super B Complex/Vitamin C - as directed Orally Active Adderall 30 MG 1 tablet Orally Twic e a day Active Gabapentin 300 MG 1 capsule Orally Twi ce a day Active Social History Tobacco Use: Social History Observation Description Date Details (start date - stop date) Never Smoker NA - NA Tobacco Use/Smoking Question Answer Notes Are you a nonsmoker Section Notes: lives with disabled daughter age 20 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 [employer] Never smoked Occasional EtOH No MJ or illicits 11/10 taking pure vitamin supplement lives with disabled daughter age 20 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 [employer] Never smoked Occasional EtOH No MJ or illicits 11/10 taking pure vitamin supplement lives with disabled daughter age 20 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 smoked Occasional EtOH No MJ or illicits 11/10 taking pure vitamin supplement lives with disabled daughter age 20 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 smoked Occasional EtOH No MJ or illicits Problems Problem Type SNOMED Code ICD Code Onset Dates Problem Status W/U Status Risk Notes Problem Acute renal failure syndrome (42785114) Acute kidney failure, unspecified (N17.9) Active confirmed Problem Anemia in chronic kidney disease (315254719) Anemia in chronic kidney disease (D63.1) Active confirmed Problem Chronic kidney disease due to hypertension (540180685916600 ) Hypertensive chronic kidney disease with stage 1 through stage 4 chronic kidney disease, or unspecified chronic kidney disease (I12.9) Active confirmed Problem Chronic kidney disease stage 3A (disorder) (606379759) Chronic kidney disease, stage 3a (N18.31) Active confirmed Encounters Encounter Location Date Provider Diagnosis [address], [place] [phone] 06/03/2024 Yvette Altamirano Plan Of Treatment Pending Test Test Name Order Date PROTEIN, TOTAL W/CREAT, RANDOM URINE Basic Metabolic Panel (8) 10/25/2021 Future Test Test Name Order Date CBC, Platelet; No Differential 4 Urinalysis, Complete 07/20/2024 Microalb/Creat Ratio, Randm Ur 4 Renal Panel (10) 07/20/2024 Next Appt Details Provider Name:Yvette Orr i, 12/23/2024 02:45:00 PM, [address] [facility], [address] [facility], [place], [place], [phone], Insurance Providers Payer Name Payer Address Payer Phone Subscriber Number Group Number Insured Name Patient Relationship to Insured Coverage Start Date Coverage End Date MEDICARE PART B [address] [address] [place], [place] [id number] Ale Harley Self - patient is the insured [facility] [address] [place] [address] [id number] Cherri Ale Self - patient is the insured Medical (General) History Medical History History ICD Code DM2 HTN Bipolar disorder Surgical History Surgery Date(Month/Year) Tonsillectomy Shoulder replacement 2005 Lasik surgery Craniotomy Cholecystectomy Colonoscopy 11/2011 Hip Arthroplasty 2019 Lumbar spine fusion 2019
--- OUTSIDE RECORDS SUMMARY | 2024-09-29 16:52 | XMS_ITS | Encounter Summary ---
Author Organization [facility] Address [address] [place] [address] Care Team Providers Care Employee Development Manager Name Role Phone José Miguel Morgan MD Primary Care Provider Juan Carlos Ayala MD Unavailable [phone] Andrei Gonzalez MD Unavailable [phone] Sandeep Razo MD Unavailable [phone] Monique Jain MD Unavailable [phone] Tiff Bellamy Unavailable Unavailable José Miguel Morgan MD Unavailable Adela Rayo RN Unavailable [phone] Pcp, [facility] Primary Care Provider Unavailable Winsome Schneider Unavailable [phone] Ra Huttno MD Primary Care Provider [phone] Ra Hutton MD Unavailable Alpesh Gayle Unavailable José Miguel Morgan MD Unavailable Encounter Details Date Type Department Care Team (Late st Contact Info) Description 06/04/2011 [facility] Outpatient Visit [facility] Medical [facility] - Internal Medicine [address] [phone] Social History Tobacco Use Types Packs/Day Years Used Date Smoking Tobacco: Never Alcohol Use Standard Drinks/Week Comments Yes 0 (1 standard drink = 0.6 oz pur e alcohol) occasionally Sex and Gender Information Value Date Recorded Sex Assigned at Not on file Gender Identity Not on file Sexual Orientation Not on file documented as of this encounter Plan of Treatment Upcoming Encounters Date Type Department Care Team (Late st Contact Info) Description 12/29/2024 1:20 PM CDT Office Visit [facility] Medical [facility] - Internal Medicine [address] [facility] [address] [place] [phone] Ra Hutton MD [address] [place] [address] [place] [phone] documented as of this encounter Visit Diagnoses Not on filedocumented in this encounter Care Teams Employee Development Manager Relationship Specialty Start Date End Date José Miguel Morgan MD [address] [place] [address] PCP - General 06/24/09 08/28/23 José Miguel Morgan MD [address] [place] [address] PCP - Attributed-MSSP 07/22/21 01/19/24 Pcp, [facility] PCP - General 08/29/23 12/08/23 Ra Hutton MD [address] [place] [address] [place] [phone] PCP - General Internal Medicine 12/09/23 Ra Hutton MD [address] [place] [address] [place] [phone] PCP - Attributed-MSSP 01/20/24 03/21/24 José Miguel Morgan MD [address] [facility] [address] [place] [address] PCP - Attributed-MSSP 03/22/24 [place] [address] [facility] [address] [place] [address] Psychiatry 12/08/13 [place] [address] [facility] [address] [place] [address] Gastroenterology 12/08/13 Sandeep Razo MD [address] [place] [address] Dermatology 12/08/13 Monique Jain MD [address] [phone] Podiatry 12/08/13 Tiff Bellamy Update Information Ophthalmology 08/14/18 Adela Rayo, CHELLE Tiler'S AssistantMovie Projectionist 10/02/22 03/01/23 Winsome Schneider Care Coordination Specialist Care Management 10/16/23 10/16/23 Alpesh Gayle Care Coordination Specialist Care Management 04/29/24 04/29/24 documented as of this encounter
--- OUTSIDE RECORDS SUMMARY | 2024-09-29 16:52 | XMS_ITS | Referral Summary ---
Author Organization [facility] [employer] Address [address] [place] [address] Care Team Providers Care Manager Inventory Control Name Role Phone Juan Carlos Ayala MD Unavailable [phone] Andrei Gonzalez MD Unavailable [phone] Sandeep Razo MD Unavailable [phone] Monique Jain MD Unavailable [phone] Tiff Bellamy Unavailable Unavailable Ra Hutton MD Primary Care Provider José Miguel Morgan MD Unavailable Source Comments [facility],non-owned Affiliates and Associated Physician Practices is amultiple site organization consisting of ambulatory clinics and hospital sitesin [place], [place], [place] and [place]. This disclosure is being madepursuant to the Care Everywhere program and may not contain all information available regarding this patient. Last updated 18.[facility] Encounters Date Type Department Care Team Description 08/31/2024 Refill [facility] Medical [facility] - Internal Medicine [address] [place] [address] [phone] Ra Hutton MD Refill Request from Last 3 Months Allergies Active Allergy Reactions Criticality Noted Date Comments Contrast-Iodinated Agents For Ct/Other Rash High 06/24/2009 IVP dye Medications * Be aware that medications may not be up to date on this document. Alwaysverify current medications with the patient. Medication Sig Dispensed Refills Start Date End Date Status vitamin D, cholecalciferol, 2000 UNITS tablet Take 1 Tab by mouth once daily. 0 07/06/2013 Active lamoTRIgine (LAMICTAL) 200 MG tablet Take 1 (one) tablet by mouth 2 times daily 0 12/20/2017 Active amphetamine-dext roamphetamine (ADDERALL) 30 MG tablet Take 1 (one) tablet by mouth 2 times daily 60 tablet 06/22/2019 Active SUPER B COMPLEX/C PO Take 1 tablet by mouth once daily Active AUSTEDO 12 MG tablet Take 2 (two) tablets by mouth 2 times daily 2 tab BID 03/08/2020 Active topiramate (TOPAMAX) 100 MG tablet Take 1 (one) tablet by mouth 2 times daily 03/21/2021 Active Multiple Vitamins-Mineral s (OCUVITE PO) Take 1 tablet by mouth once daily Active Multiple Vitamin (MULTI-VITAMIN PO) Take 1 tablet by mouth once daily Active ONETOUCH DELICA PLUS 30G FINE LANCETSIndicatio ns: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) Use 1 Units 2 times daily 100 Each 1 10/03/2022 Active Blood Glucose Monitoring Suppl (HashParade Verio Flex System) w/Device KIT as directed 10/03/2022 Active GoomzeeTouch Verio test strip TEST BLOOD SUGAR TWICE DAILY 11/23/2022 Active atorvastatin (Lipitor) 10 MG tablet TAKE 1 TABLET BY MOUTH EVERY DAY 100 tablet 1 08/07/2023 Active Cranberry POWD as directed Active Gilbert-3 Fatty Acids (fish oil) 500 MG capsule 500 (five hundred) mg Active vitamin E (Tocopheryl) 100 UNIT capsule as directed Orally Active olmesartan-hydro CHLOROthiazide (Benicar HCT) 40-12.5 MG tabletIndication s:Essential hypertension, benign Take 1 (one) tablet by mouth once daily 90 tablet 1 06/16/2024 Active omeprazole (PriLOSEC) 20 MG capsule Take 1 (one) capsule by mouth 2 times daily 200 capsule 1 09/02/2024 Active gabapentin (Neurontin) 300 MG capsule Take 1 (one) capsule by mouth 2 times daily 200 capsule 1 09/02/2024 Active potassium chloride ER 10 MEQ tabletIndication s:Low blood potassium Take 1 (one) tablet by mouth once daily 100 tablet 1 09/02/2024 Active omeprazole (PriLOSEC) 20 MG capsule Take 1 (one) capsule by mouth 2 times daily 200 capsule 1 03/05/2024 5 Discontinued potassium chloride ER 10 MEQ tabletIndication s:Low blood potassium TAKE 1 TABLET BY MOUTH DAILY 100 tablet 06/03/2024 5 Discontinued gabapentin (Neurontin) 300 MG capsule TAKE 1 CAPSULE BY MOUTH TWICE DAILY 200 capsule 06/03/2024 5 Discontinued Active Problems Problem Noted Date Diagnosed Date Diabetes due to undrl condition w oth diabetic n euro comp 05/21/2022 BMI 37.0-37.9, adult 01/20/2021 Overview (06/13/2021): BMI: 37.02 Atherosclerosis of aorta 01/20/2021 Overview (08/21/2021): 08/09/2021 Video Visit, Dr. Morgan 05/03/2021 OV, Dr. Morgan xr lumbar spine 04/09/2019 Neurogenic claudication 12/16/2019 Overview (08/21/2021): 08/09/2021 Video Visit, Dr. Morgan Status post lumbar spinal fusion 04/24/2019 Closed wedge compression fracture of T10 vertebr a 04/24/2019 Enthesopathy of hip region 01/16/2019 Mixed hyperlipidemia 12/11/2018 H/O total hip arthroplasty, right 09/16/2018 Type 2 diabetes mellitus wit hout complication, without long-term current use of insulin 08/27/2016 Overview (08/21/2021): 08/09/2021 Video Visit, Dr. Morgan Other screening mammogram 06/24/2009 Overview (06/24/2009): 2007 Essential hypertension, benign Gastroesophageal reflux dise ase with esophagitis without hemorrhage Osteoarthrosis, forearm Overview (01/16/2019): Bipolar disorder without psychotic features Overview (08/21/2021): 08/09/2021 Video Visit, Dr. Morgan Glaucoma Obesity, morbid Resolved Problems Problem Noted Date Diagnosed Date Resolved Date COVID-19 07/23/2020 08/30/2022 Overview (07/27/2020): Onset of symptoms 07/23/2020 and Covid + 07/26/2020. Severe anemia 05/27/2019 05/27/2019 Acute kidney injury 05/27/2019 05/27/20 Acute cystitis without hematuria 05/27/2019 05/27/2019 Spondylolisthesis of lumbar region 03/09/2019 05/27/2019 Preoperative examination 02/13/201903/2019 Sprain of wrist 01/16/2019 08/30/2022 Pain in joint, forearm 01/16/201906/29 GORDON (dyspnea on exertion) 09/05/2015 Hypotension due to drugs 12/2018 Encephalopathy acute 019 Immunizations Name Administration Dates Next Due INFLUENZA VACCINE, TRIV. (AF LURIA, FLUZONE TRIVALENT; 6MO+) (IIV3) 05/02/2012 COVID RIO PRIMARY 18+YR 10/25/2020 INFLUENZA VACCINE 03/30/2020, 9,05/11/2017,2015,04/21/2015,04/21/2014,04/21/2013,1 ,04/21/2010,04/21/2007 INFLUENZA VACCINE, ADJUVANTE D, QUADR. (FLUAD QUADRIVALENT; 65Y+) (AIIV4) 05/09/2023,05/21/2022 INFLUENZA VACCINE, ADJUVANTE D, TRIV. (FLUAD TRIVALENT; 65Y+) (AIIV3) 06/16/2024 INFLUENZA VACCINE, CELL CULT URE, QUADR. (FLUCELVAX QUADRIVALENT; 6MO+) (CCIIV4) 05/03/2021 INFLUENZA VACCINE, QUADR. (F LUZONE; FLULAVAL; FLUARIX; AFLURIA QUADRIVALENT; 6MO+), 0.5 ML (IIV4) 05/24/2018 PNEUMOCOCCAL PCV20 CONJ VAC IM 10/01/2022 PNEUMOCOCCAL PPSV23 07/03/2017 TDAP (7yrs+) 03/09/2015 Social History Tobacco Use Types Packs/Day Years Used Date Smoking Tobacco: Never Smokeless Tobacco: Never Tobacco Cessation:Counseling Given: Not Answered Alcohol Use Standard Drinks/Week Comments Yes 1 (1 standard drink = 0.6 oz pur e alcohol) Occasional AUDIT-C Answer Date Recorded Q1: How often do you have a drink containing alc ohol? 2-3 times a week 10/03/2022 Q2: How many drinks containi ng alcohol do you have on a typical day when you are drinking? 1 or 2 10/03/2022 Q3: How often do you have si x or more drinks on one occasion? Never 10/03/2022 Overall Financial Resource Strain (CARDIA) Answe r Date Recorded How hard is it for you to pa y for the very basics like food, housing, medical care, and heating? Not hard at all 10/03/2022 PHQ-2 Answer Date Recorded Patient Health Questionnaire-2 Score 0 06/16/2024 [facility] - Occupational Stress Questionnaire Answer Date Recorded Do you feel stress - tense, restless, nervous, or anxious, or unable to sleep at night because your mind is troubled all the time - these days? Only a little 10/03/2022 Hunger Vital Sign Answer Date Recorded Within the past 12 months, y ou worried that your food would run out before you got the money to buy more. Never true 10/04/19 23 Within the past 12 months, t he food you bought just didn't last and you didn't have money to get more. Never true 10/03/2022 PRAPARE - Transportation Answer Date Re corded In the past 12 months, has l ack of transportation kept you from medical appointments or from getting medications? No 09/19 In the past 12 months, has l ack of transportation kept you from meetings, work, or from getting things needed for daily living? No 10/03/2022 Housing Stability Vital Sign Answer Demar e Recorded In the last 12 months, was t here a time when you were not able to pay the mortgage or rent on time? No 10/03/2022 In the last 12 months, how many places have you lived? 1 10/03/2022 In the last 12 months, was t here a time when you did not have a steady place to sleep or slept in a senior living (including now)? 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 LIFT TRUCK DRIVER Pulse 86 12/09/2023 3:41 PM CDT Temperature 36.4 C (97.6 F) 12/09/2023 3:41 PM CDT Respiratory Rate 20 06/16/2024 12:5 1 PM REACH LIFT TRUCK DRIVER Oxygen Saturation 98% 06/16/2024 12: 51 PM REACH LIFT TRUCK DRIVER Inhaled Oxygen Concentration 35% 03/2019 11:00 AM CDT Weight 90.2 kg (198 lb 12.8 oz) 024 12:51 PM REACH LIFT TRUCK DRIVER Height 152.4 cm (5') 06/16/2024 12:51 PM REACH LIFT TRUCK DRIVER Body Mass Index 38.83 06/16/2024 12:51 PM REACH LIFT TRUCK DRIVER Functional Status Functional Status Response Date of Assess ment Is person deaf or have serious hearing difficult y? No 12/25/2019 Is person blind or have serious difficulty seein g? No 12/25/2019 Does person have serious dif ficulty walking/climbing stairs? No 12/25/2019 Does person have difficulty dressing/bathing? No 12/25/2019 Does person have difficulty doing errands alone? No 12/25/2019 Cognitive Status Response Date of Assessm ent Does person have difficulty concentrating/remembering/making decisions? No 12/25/2019 Plan of Treatment Upcoming Encounters Date Type Department Care Team (Late st Contact Info) Description 12/29/2024 1:20 PM CDT Office Visit [facility] - Internal Medicine [address] [place] [phone] Ra Hutton MD [address] [place] [address] [place] [phone] Goals Goal Patient Goal Type Associated Problems Recent Progress Patient-Stated? Author Blood Pressure < 140/90 Blood Pressure 120/60(2023 12:51 PM REACH LIFT TRUCK DRIVER) No Vinita Martinez HEMOGLOBIN A1C < 7.0 Result Component 6.0( 3:18 PM CDT) No Juan, [place] [employer] Devices Implanted Type Area Set Off Blocker Device Identifier Shelf Expiration Date Model / Serial / Lot Trilogy Acet Shell 54mm Od Multi Implanted:Qty: 1 on 09/16/2018 by Grupo Smalls MD at [facility] Right: Hip Tim Inc 11/18/2025 / / [id number] Description:SHELL WITH HOLES Bone Screw 6.5x40 Self-Tap Implanted:Qty: 1 on 09/16/2018 by Grupo Smalls MD at [facility] Right: Hip Tim Inc 04/20/2028 / / [id number] Description:BONE SCREW SELF- TAPPING Modular Cup Neutral Liner Longevity 50/52/54x36 Implanted:Qty: 1 on 09/16/2018 by Grupo Smalls MD at [facility] Right: Hip Tim Inc 03/21/2023 / / [id number] Description:TRILOGPortia ACETABUL AR SYSTEM LINER STANDARD Fitmore Hip Stem B Size 3 Implanted:Qty: 1 on 09/16/2018 by Grupo Smalls MD at [facility] Right: Hip Tim Inc 07/21/2025 [id number] / / [id number] Description:FITMORE HIP STEM , UNCEMENTED Biolox Delta Fem Head 36mm +3.5mm Implanted:Qty: 1 on 09/16/2018 by Grupo Smalls MD at [facility] Right: Hip Tim Inc 12/20/2027 [id number] / / [id number] Description:CERAMIC FEMORAL HEAD Blas H1 Total Hip Implanted:Qty: 1 on 09/16/2018 by Grupo Smalls MD at [facility] Right: Hip Tim Biomet TOTAL HIP H 1 / / Screw [place] Polyaxial 06.5x40mm Implanted:Qty: 1 on 04/16/2019 by Gerald Tolentino MD at [facility] N/A: Spine Alma Spine [id number] / / Screw 6.5mm 45mm Pa Spne Vrst Nonster Implanted:Qty: 8 on 04/16/2019 by Gerald Tolentino MD at [facility] N/A: Spine Alma Spine [id number] / / Screw 6.5mm 50mm Pa Spne Vrst Nonster Implanted:Qty: 7 on 04/16/2019 by Gerald Tolentino MD at [facility] N/A: Spine Alma Spine [id number] / / Jamarcus Spnl 500mm Ti Karlo Hex End Implanted:Qty: 1 on 04/16/2019 by Gerald Tolentino MD at [facility] N/A: Spine Trou[employer]c [id number] / / Everst Cannulated Screw Implanted:Qty: 1 on 04/16/2019 by Gerald Tolentino MD at [facility] N/A: Spine [place] Medical [id number] / / 9.5 X 100 [place] Cannulated Screw Implanted:Qty: 1 on 04/16/2019 by Gerald Tolentino MD at [facility] N/A: Spine [place] Medical [id number] / / Graft Bone Vivigen Warren Cnc Dmnr 10cc - [id number] Implanted:Qty: 1 on 04/16/2019 by Gerald Tolentino MD at [facility] N/A: Spine Lifenet 12/03/2019 [id number] / [id number] / Graft Bone Canc 60ml Frzdr Chp 4-9.5mm - [id number] Implanted:Qty: 1 on 04/16/2019 by Gerald Tolentino MD at [facility] N/A: Spine Allosource 09/26/2023 [id number] / [id number] / Cable Spnl Ev Ti 2 Loop 2 Crmp Strl Implanted:Qty: 2 on 04/28/2019 by Gerald Tolentino MD at [facility] N/A: Spine Depuy Spine [id number] / / Graft Bone Canc 4-9.5mm 30cc Algrf Frzdr - [id number] Implanted:Qty: 1 on 04/28/2019 by Gerald Tolentino MD at [facility] N/A: Spine Allosource 09/07/2023 [id number] / [id number] / Graft Bone Canc 60ml Frzdr Chp 4-9.5mm - [id number] Implanted:Qty: 1 on 04/28/2019 by Gerald Tolentino MD at [facility] N/A: Spine Allosource 01/24/2023 [id number] / / [id number] Screw Set Spne Vrst Nonster Lf Implanted:Qty: 28 on 04/28/2019 by Gerald Tolentino MD at [facility] N/A: Spine Gabi Spine [id number] / / Screw 5.5mm 35mm Pa Spne Vrst Nonster Implanted:Qty: 8 on 04/28/2019 by Gerald Tolentino MD at [facility] N/A: Spine Gabi Spine [id number] / / Jamarcus Spnl 500mm Ti Karlo Hex End Implanted:Qty: 2 on 04/28/2019 by Gerald Tolentino MD at [facility] N/A: Spine Tr[employer] Medical [employer]c [id number] / / Large Tp Hook Implanted:Qty: 2 on 04/28/2019 by Gerald Tolentino MD at [facility] N/A: Spine [place] Medical [id number] / / Screw Set Spne Vrst Nonster Lf Implanted:Qty: 18 on 04/16/2019 by Gerald Tolentino MD at [facility] Explanted:Qty: 13 on 04/28/2019 by Gerald Tolentino MD at [facility] N/A: Spine Gabi Spine [id number] / / Graft Bone Infs Rhbmp-2 Bvn Clgn Lg 8ml Implanted:Qty: 1 on 01/01/2020 by Gerald Tolentino MD at [facility] N/A: Spine Lumbar Medtronic Sofamor Danek Inc 11/19/2020 [id number] / / [id number] Graft Bone Canc 60ml Frzdr Chp 4-9.5mm Implanted:Qty: 1 on 01/01/2020 by Gerald Tolentino MD at [facility] N/A: Spine Lumbar Allosource 08/14/2022 [id number] / / [id number] Graft Bone Canc 4-9.5mm 30cc Algrf Frzdr Implanted:Qty: 1 on 01/01/2020 by Gerald Tolentino MD at [facility] N/A: Spine Lumbar Allosource 10/13/2024 [id number] / / [id number] [place] Interbody System Implanted:Qty: 1 on 01/01/2020 by Gerald Tolentino MD at [facility] N/A: Spine Lumbar Medical [facility] 09/22/2023 [id number] / / [id number] Screw Set Spne Vrst Nonster Lf Implanted:Qty: 26 on 01/01/2020 by Gerald Tolentino MD at [facility] N/A: Spine Lumbar Gabi Spine [id number] / / Screw 7.5mm 40mm Pa Spne Vrst Nonster Implanted:Qty: 1 on 01/01/2020 by Gerald Tolentino MD at [facility] N/A: Spine Lumbar Alma Spine [id number] / / Screw 7.5mm 45mm Pa Spne Vrst Nonster Implanted:Qty: 1 on 01/01/2020 by Gerald Tolentino MD at [facility] N/A: Spine Lumbar Alma Spine [id number] / / Cnct Jamarcus 6mm 5.5mm Vrst Xw Spne Cls Implanted:Qty: 5 on 01/01/2020 by Gerald Tolentino MD at [facility] N/A: Spine Lumbar Alma Spine [id number] / / Open/Side Angled Connector Implanted:Qty: 4 on 01/01/2020 by Gerald Tolentino MD at [facility] N/A: Spine Lumbar [employer]c [id number] / / Jamarcus Cocr 500mm Implanted:Qty: 2 on 01/01/2020 by Gerald Tolentino MD at [facility] N/A: Spine Lumbar [employer]c [id number] / / Explanted Type Area Set Off Blocker Device Identifier Shelf Expiration Date Model / Serial / Lot Screw 7.5mm 50mm Pa Spne Vrst Nonster Explanted:Qty: 1 on 01/01/2020 at [facility] N/A: Spine Lumbar Alma Spine [id number] / / Procedures Procedure Name Priority Date/Time Associated Diagnosis Comments HEMOGLOBIN A1C - POINT OF CARE (AMB) Routine 06/16/2024 1:25 PM REACH LIFT TRUCK DRIVER Type 2 diabetes mellitus without complication, without long-term current use of insulin (HCC) MICROALB/CREAT RATIO URINE RANDOM PANEL Routine 02/12/2023 3:18 PM CDT Type 2 diabetes mellitus without complication, without long-term current use of insulin (HCC) COMPREHENSIVE METABOLIC PANEL Routine 02/12/2023 3:18 PM CDT Essential hypertension, benign EYE EXAM 05/19/2022 DEXA BONE DENSITY AXIAL SKELETON Routine 02/11/2019 8:44 AM CDT Lumbar radiculopathy Spinal stenosis of lumbar region with neurogenic claudication ENDOSCOPY, COLON, SCREENING Routine 06/09/2018 11:03 AM REACH LIFT TRUCK DRIVER MAMMO BILAT SCREENING Routine 2018 12:55 PM REACH LIFT TRUCK DRIVER Visit for screening mammogram HEPATITIS C ANTIBODY Routine 01/09/2017 4:18 PM CDT Need for hepatitis C screening test from Last 3 Months or Most Recently Relevant to Health Maintenance Results * HEMOGLOBIN A1C - POINT OF CARE (HgbA1C) (06/16/2024 1:25 PM REACH LIFT TRUCK DRIVER) Hemoglobin A1c POCT 5.5 % [facility] Expiration Date 02/19/[address] [facility] Lot # [id number] [facility] QC Verified Yes Yes [facility] Blood BLOOD SPECIMEN / Unknown 06/16/2024 1:25 PM REACH LIFT TRUCK DRIVER Ra Hutton MD LAB - POINT OF CARE ORDERABLES [facility] [address] [place], [place] [address] [phone] * MICROALB/CREAT RATIO URINE RANDOM PANEL (02/12/2023 3:18 PM CDT) Creatinine Urine 93.1 Not Estab. mg/dL [facility] INSURANCE BILL Microalbumin Urine 10.2 Not Estab. ug/mL [facility] INSURANCE BILL Microalbumin/Crea tinine Ratio 11 0 - 29 mg/g creat [facility] INSURANCE BILL Comment: Normal: 0 - 29 Moderately increased: 30 - 300 Severely increased: >300 Urine URINE SPECIMEN OBTAINED BY CLEAN CATCH PROCEDURE / Unknown 02/12/2023 3:18 PM CDT 02/12/2023 Narrative Resulting Agency Comment Lab Testing performed at: [facility] [address] [facility] [phone] José Miguel Morgan MD LAB - URINE CHEMISTR Y ORDERABLES [facility] INSURANCE BILL [address] [place] [address] * (ABNORMAL) COMPREHENSIVE METABOLIC PANEL (02/12/2023 3:18 PM CDT) Glucose 125(H) 70 - 99 mg/dL [facility] INSURANCE BILL BUN 23 8 - 27 mg/dL [facility] INSURANCE BILL Creatinine 1.30(H) 0.57 - 1.00 mg/dL [facility] INSURANCE BILL eGFR by CKD-EPI 45(L) >59 mL/min/1.7 3 [facility] INSURANCE BILL BUN/Creatinine Ratio 18 12 - 28 [facility] INSURANCE BILL Sodium 140 134 - 144 mmol/L [facility] INSURANCE BILL Potassium 4.0 3.5 - 5.2 mmol/L [facility] INSURANCE BILL Chloride 103 96 - 106 mmol/L [facility] INSURANCE BILL CO2 22 20 - 29 mmol/L [facility] INSURANCE BILL Calcium 10.1 8.7 - 10.3 mg/dL [facility] INSURANCE BILL Protein Total 6.4 6.0 - 8.5 g/dL [facility] INSURANCE BILL Albumin 4.7 3.9 - 4.9 g/dL [facility] INSURANCE BILL Globulin Total 1.7 1.5 - 4.5 g/dL [facility] INSURANCE BILL Albumin/Globulin Ratio 2.8(H) 1.2 - 2.2 [facility] INSURANCE BILL Bilirubin Total 0.2 0.0 - 1.2 mg/dL [facility] INSURANCE BILL Alkaline Phosphatase 97 44 - 121 IU/L [facility] INSURANCE BILL AST 22 0 - 40 IU/L [facility] INSURANCE BILL ALT 21 0 - 32 IU/L [facility] INSURANCE BILL Blood BLOOD SPECIMEN / Unknown 02/12/2023 3:18 PM CDT 02/12/2023 Narrative Resulting Agency Comment Lab Testing performed at: [facility] [address] [facility] [phone] José Miguel Morgan MD LAB - CHEMISTRY TABATHA BAUTISTA [facility] Organization Address City/State/ZIP Co de Phone Number [facility] INSURANCE BILL [address] [place] [address] * EYE EXAM (05/19/2022) Anatomical Region Laterality Modality Other 05/19/2022 Narrative 05/19/2022 Ordered by an unspecified provider. Scanned Document SCANNING ONLY * BONE DENSITY AXIAL SKELETON(1OR MORE SITES)[id number] (02/11/2019 8:44 AM CDT) Anatomical Region Laterality Modality Nuclear Medicine 02/11/2019 9:25 AM CDT Impressions 02/11/2019 9:27 AM CDT Normal bone mineral density of the lumbar spine and left hip. WORLD HEALTH ORGANIZATION DEFINITIONS NORMAL= T-Score at or above -1.0 SD OSTEOPENIA = T-Score between -1 and -2.5 SD OSTEOPOROSIS = T-Score at or below -2.5 SD Reading Radiologist: Joselin Briscoe MD on 02/11/2019 at 9:27 AM Narrative 02/11/2019 9:27 AM CDT BONE MINERAL DENSITY STUDY: INDICATION: 63-year-old for osteoporosis screening with right hip replacement. FINDINGS: The mean bone mineral content of the lumbar spine is 1.661 g/cm2. The T-score is 4.0 consistent with normal bone mineral density. The mean bone mineral content of the left femoral neck is 1.121 g/cm2. The T-score is 0.6 consistent with normal bone mineral density. The mean bone mineral content of the left total hip is 1.056 g/cm2. The T-score is 0.4 consistent with normal bone mineral density. FRAX 10 year fracture risk Major osteoporotic fracture: 5.5% Hip fracture: 0.1% Procedure Note Joselin Briscoe, DO - 02/11/2019 BONE MINERAL DENSITY STUDY: INDICATION: 63-year-old for osteoporosis screening with right hip replacement. FINDINGS: The mean bone mineral content of the lumbar spine is 1.661 g/cm2. The T-score is 4.0 consistent with normal bone mineral density. The mean bone mineral content of the left femoral neck is 1.121 g/cm2. The T-score is 0.6 consistent with normal bone mineral density. The mean bone mineral content of the left total hip is 1.056 g/cm2. The T-score is 0.4 consistent with normal bone mineral density. FRAX 10 year fracture risk Major osteoporotic fracture: 5.5% Hip fracture: 0.1% IMPRESSION Normal bone mineral density of the lumbar spine and left hip. WORLD HEALTH ORGANIZATION DEFINITIONS NORMAL= T-Score at or above -1.0 SD OSTEOPENIA = T-Score between -1 and -2.5 SD OSTEOPOROSIS = T-Score at or below -2.5 SD Reading Radiologist: Joselin Briscoe MD on 02/11/2019 at 9:27 AM Gerald Tolentino MD DEXA ORDERABLES * ENDOSCOPY, COLON, SCREENING (06/09/2018 11:03 AM REACH LIFT TRUCK DRIVER) Report Endoscopy POC _ Patient Name: Ale Hyatt Procedure Date: 06/09/2018 11:03 AM Date of : 1955 Admit Type: Outpatient Age: 63 Room: ROOM 1 Gender: Female Note Status: Finalized Attending MD: Andrei Gonzalez MD _ Procedure: Colonoscopy Indications: High risk colon cancer surveillance: Personal history of colonic polyps, Last colonoscopy: 2011 Providers: Andrei Gonzalez MD, Pallavi Logan, CHELLE, Katherine Rowe RN, Malka Warren CRNA (Anesthesia Staff) Medicines: Propofol per Anesthesia Complications: No immediate complications. _ Procedure: After I obtained informed consent, the scope was passed under direct vision. Throughout the procedure, the patient's blood pressure, pulse, and oxygen saturations were monitored continuously. The [id number] was introduced through the anus and advanced to the terminal ileum. The quality of the bowel preparation was adequate. Findings: Two sessile polyps were found in the cecum. The polyps were 2 to 3 mm in size. These polyps were removed with a hot biopsy forceps. Resection and retrieval were complete. Three sessile polyps were found in the transverse colon. The polyps were 3 to 4 mm in size. These polyps were removed with a hot biopsy forceps and a snare. Resection and retrieval were complete. Hemorrhoids were found. The exam was otherwise without abnormality. _ Impression: - Two 2 to 3 mm polyps in the cecum, removed with a hot biopsy forceps. Resected and retrieved. - Three 3 to 4 mm polyps in the transverse colon, removed with a hot biopsy forceps and a snare. Resected and retrieved. - Hemorrhoids. - The examination was otherwise normal. Recommendation: - Await pathology results. - Repeat colonoscopy in 5 years for surveillance. Procedure Code(s): --- Professional --- 83249, Colonoscopy, flexible; with removal of tumor(s), polyp(s), or other lesion(s) by snare technique 08188, 59, Colonoscopy, flexible; with removal of tumor(s), polyp(s), or other lesion(s) by hot biopsy forceps --- Technical --- 11352, Colonoscopy, flexible; with removal of tumor(s), polyp(s), or other lesion(s) by snare technique 53284, 59, Colonoscopy, flexible; with removal of tumor(s), polyp(s), or other lesion(s) by hot biopsy forceps Diagnosis Code(s): --- Professional --- Z86.010, Personal history of colonic polyps D12.0, Benign neoplasm of cecum D12.3, Benign neoplasm of transverse colon (hepatic flexure or splenic flexure) K64.9, Unspecified hemorrhoids --- Technical --- Z86.010, Personal history of colonic polyps D12.0, Benign neoplasm of cecum D12.3, Benign neoplasm of transverse colon (hepatic flexure or splenic flexure) K64.9, Unspecified hemorrhoids CPT copyright 2015 [employer]. All rights reserved. The codes documented in this report are preliminary and upon access tech review may be revised to meet current compliance requirements. Andrei Gonzalez MD 06/09/2018 11:38:18 AM This report has been signed electronically. Number of Addenda: 0 Note Initiated On: 06/09/2018 11:03 AM Estimated Blood Loss: Estimated blood loss: none. [facility] 06/09/2018 11:0 3 AM REACH LIFT TRUCK DRIVER Andrei Gonzalez MD GI PROCEDURE ORDERAB LES [facility] * MAMMO BILAT SCREENING (2018 12:55 PM REACH LIFT TRUCK DRIVER) Anatomical Region Laterality Modality Breast Bilateral Mammography 2018 3:41 PM REACH LIFT TRUCK DRIVER Impressions 2018 3:44 PM REACH LIFT TRUCK DRIVER No mammographic evidence of malignancy in either breast. ASSESSMENT: BIRADS Category 1: Negative mammogram. RECOMMENDATION: Bilateral screening mammogram in one year. Thank you for allowing us to participate in the care of your patient. Reading Radiologist: Katherine Soliman MD on 2018 at 3:44 PM Narrative 2018 3:44 PM REACH LIFT TRUCK DRIVER EXAMINATION: Digital screening mammogram on 2018. Low-dose full-field digital breast tomosynthesis examination was performed with synthetic 2D images and 3D acquisitions. Computer assisted detection was utilized. PRIOR: 2015 BREAST PARENCHYMAL DENSITY: The breasts are almost entirely fatty. RISK ASSESSMENT CALCULATION: Not performed. FINDINGS: No suspicious masses, areas of architectural distortion or microcalcifications are evident on synthetic 2D mammogram or tomosynthesis images. There has been no significant interval change since the prior examination. José Miguel Morgan MD MAMMO ORDERABLES * HEPATITIS C ANTIBODY (01/09/2017 4:18 PM CDT) Hepatitis C Antibody Non Reactive Non Reactive [facility] ACCOUNT BILL Comment: Non Reactive - Antibodies to Hepatitis C virus (HCV) were no t detected, result does not exclude early acute HCV infection. FASTING Blood BLOOD SPECIMEN / Unknown 01/09/2017 4:18 PM CDT 01/09/2017 Narrative Resulting Agency Comment [facility] [address] [facility] [id number] José Miguel Morgan MD LAB - CHEMISTRY TABATHA BAUTISTA [facility] ACCOUNT BILL [address] [place] [address] from Last 3 Months or Most Recently Relevant to Health Maintenance Administered Medications Advance Directives Documents on File Type Date Recorded Patient Child Caregiver Expl anation Adv Directive/Living Will/POA 05/28/2019 2:15 PM * Full Code (Latest Code Status on File) Date Activated Date Inactivated Comments 12/22/2019 12:46 AM 01/07/2020 6:36 PM * Full Code Date Activated Date Inactivated Comments 04/16/2019 9:17 PM 05/27/2019 5:39 PM * Full Code Date Activated Date Inactivated Comments 04/16/2019 8:19 PM 04/16/2019 9:17 PM * Full Code Date Activated Date Inactivated Comments 04/15/2019 8:56 PM 04/16/2019 8:19 PM * Full Code Date Activated Date Inactivated Comments 09/16/2018 3:34 PM 09/19/2018 1:20 PM Care Teams Manager Inventory Control Relationship Specialty Start Date End Date Ra Hutton MD [address] [facility] [address] [place] [phone] PCP - General Internal Medicine 12/09/23 José Miguel Morgan MD [address] [facility] [address] [place] [address] PCP - Attributed-MSSP 03/22/24 [place] [address] [facility] [address] [place] [address] Psychiatry 12/08/13 [place] [address] [facility] [address] [place] [address] Gastroenterology 12/08/13 Sandeep Razo MD [address] [facility] [place] [address] Dermatology 12/08/13 Monique Jain MD [address] [facility] [address] [place] [phone] Podiatry 12/08/13 Tiff Bellamy Update Information Ophthalmology 08/14/18
--- OUTSIDE RECORDS SUMMARY | 2024-09-29 16:52 | XMS_ITS | Clinical Summary ---
Author Organization [facility] Address [address] [place] [address] Care Team Providers Care Overhead Foreman Name Role Phone Juan Carlos Ayala MD Unavailable [phone] Andrei Gonzalez MD Unavailable [phone] Sandeep Razo MD Unavailable Monique Jain MD Unavailable [phone] Tiff Bellamy Unavailable Unavailable Ra Hutton MD Primary Care Provider [phone] José Miguel Morgan MD Unavailable Source Comments [facility],non-owned Affiliates and Associated Physician Practices is amultiple site organization consisting of ambulatory clinics and hospital sitesin [place], [place], [place] and [place]. This disclosure is being madepursuant to the Care Everywhere program and may not contain all information available regarding this patient. Last updated 18.[facility] Allergies Active Allergy Reactions Criticality Noted Date [...] 1 10/03/2022 Active Blood Glucose Monitoring Suppl (PeoplePer[employer] Verio Flex System) w/Device KIT as directed 10/03/2022 Active [employer] VerSparkbuy test strip TEST BLOOD SUGAR TWICE DAILY 11/23/2022 Active atorvastatin (Lipitor) 10 MG tablet TAKE 1 TABLET BY MOUTH EVERY DAY 100 tablet 1 08/07/2023 Active Cranberry POWD as directed Active [place]-3 Fatty Acids (fish oil) 500 MG capsule [...] 2 times daily 200 capsule 1 03/05/2024 02/12/202 5 Discontinued potassium chloride ER 10 MEQ [...] due to drugs 12/2018 Encephalopathy acute 019 Encounters Date Type Department Care Team Description 08/31/2024 Refill [facility] - Internal Medicine [address] [place] [phone] Ra Hutton MD Refill Request from Last 3 Months Immunizations Name Administration Dates Next Due INFLUENZA [...] 10/01/2022 PNEUMOCOCCAL PPSV23 07/03/2017 TDAP (7yrs+) 03/09/2015 Family History Medical History Relation Name Comments Diabetes Father Heart Disease Father Hypertension Father Diabetes Mother Heart Disease Mother Hypertension Mother Stroke Mother Cancer Other fathers sister had rectal ca Cancer - Breast Neg Hx Cancer - Ovarian Neg Hx Relation Name Status Comments Father Mother Other Social History Tobacco Use Types Packs/Day Years [...] Recorded Patient Health Questionnaire-2 Score 0 06/16/2024 [facility] [place] [facility] Occupat ional Health - Occupational Stress [...] place to sleep or slept in a detention (including now)? No 10/03/2022 Sex and Gender Information Value Date Recorded Sex Assigned at Not on file Gender Identity Not on file Sexual Orientation Not on file Last Filed Vital Signs Vital Sign Reading Time Taken Comments Blood Pressure 120/60 06/16/2024 12:51 PM WOODEN FENCE ERECTOR Pulse 86 12/09/2023 3:41 PM CDT Temperature 36.4 C (97.6 F) 12/09/2023 3:41 PM CDT Respiratory Rate 20 06/16/2024 12:5 1 PM WOODEN FENCE ERECTOR Oxygen Saturation 98% 06/16/2024 12: 51 PM WOODEN FENCE ERECTOR Inhaled Oxygen Concentration 35% 03/2019 11:00 AM CDT Weight 90.2 kg (198 lb 12.8 oz) 024 12:51 PM WOODEN FENCE ERECTOR Height 152.4 cm (5') 06/16/2024 12:51 PM WOODEN FENCE ERECTOR Body Mass Index 38.83 06/16/2024 12:51 PM WOODEN FENCE ERECTOR Plan of Treatment Upcoming Encounters Date Type Department Care Team (Late st Contact Info) Description 12/29/2024 1:20 PM CDT Office Visit [facility] - Internal Medicine [address] [facility] [address] [place] [phone] Ra Hutton MD [address] [place] [phone] Health Maintenance Due Date Last Done Comments COLOGUARD (AGES 45-75) - COLON CA SCREENING 1955 CT COLONOGRAPHY - COLON CA SCREENING 1955 FIT - COLON CA SCREENING 1955 FLEX SIG - COLON CA SCREENING 1955 ZOSTER VACCINE (1 of 2) 2005 Respiratory Syncytial Virus (RSV) Vaccine Pt: or over 60 yrs (1 - Risk 60-74 years 1-dose series) 2015 MAMMOGRAM 2019 2018, 04/27/2016 BONE DENSITY TESTING 02/11/2021 02/11/2019 COLON MONITORING 06/09/2023 06/09/2018, , 06/09/2018, Additional history exists Colorectal Cancer Screening 06/09/2023 DIABETES-SERUM CREATININE 02/13/20242022, 07/26/2021, 05/03/2021, Additional history exists COVID-19 VACCINE ( - season) 2024 10/25/2020 DIABETES RETINOPATHY SCREENING 05/19/2024 05/19/2022, 02/10/2020, 01/25/2018 DIABETES - URINE PROTEIN SCREENING 07/22/2024 02/12/2023, 05/03/2021, 06/22/2020, Additional history exists DIABETES-HGB A1C 12/14/2024 06/16/2024, , 02/12/2023, Additional history exists DTAP/TDAP/TD VACCINES (2 - Td or Tdap) 03/09/2025 03/09/2015 DIABETES-FOOT EXAM WITH MONOFILAMENT 06/16/2025 06/16/2024, 05/21/2023, 05/09/2023 MEDICARE AWV 12 MONTHS 06/16/2025 06/16/2024, 05/09/2023, 05/21/2022, Additional history exists COLONOSCOPY - COLON CA SCREENING 06/09/2028 06/09/2018, 06/09/2018, 06/09/2018, Additional history exists HEPATITIS C SCREENING Completed 01/09/2017 PNEUMOCOCCAL VACCINE 50+ Completed 10/01/2022, 06/21 INFLUENZA VACCINE Completed 06/16/2024, , 05/21/2022, Additional history exists HEPATITIS B VACCINE Aged Out No longe r eligible based on patient's age to complete this topic HIB VACCINE Aged Out No longer eligi ble based on patient's age to complete this topic HPV VACCINE Aged Out No longer eligi ble based on patient's age to complete this topic MENINGOCOCCAL (Group B) VACCINE Aged Out No longer eligible based on patient's age to complete this topic MENINGOCOCCAL VACCINE Aged Out No yoon hans eligible based on patient's age to complete this topic Goals Goal Patient Goal Type Associated Problems Recent Progress Patient-Stated? Author Blood Pressure < 140/90 Blood Pressure 120/60(2023 12:51 PM WOODEN FENCE ERECTOR) No Vinita Martinez HEMOGLOBIN A1C < 7.0 Result Component 6.0( 3:18 PM CDT) No Juan, [place] Medical Devices Implanted Type Area Environmental Conservation Officer Device Identifier Shelf Expiration Date Model / Serial / Lot Trilogy Acet Shell 54mm Od Multi Implanted:Qty: 1 on 09/16/2018 by Grupo Smalls MD at [facility] Right: Hip Tim Inc 11/18/2025 / / [id number] Description:SHELL WITH HOLES Bone Screw 6.5x40 Self-Tap Implanted:Qty: 1 on 09/16/2018 by Grupo Smalls MD at [facility] Right: Hip Tim Inc 04/20/2028 / / [id number] Description:BONE SCREW SELF- TAPPING Modular Cup Neutral Liner Longevity 50/52/54x36 Implanted:Qty: 1 on 09/16/2018 by Grupo Smalls MD at [facility] Right: Hip Tim Inc 03/21/2023 / / [id number] Description:HUBERT ACETABUL AR SYSTEM LINER STANDARD Fitmore Hip Stem B Size 3 Implanted:Qty: 1 on 09/16/2018 by Grupo Smalls MD at [facility] Right: Hip Tim Inc 07/21/2025 [id number] / / [id number] Description:FITMORE HIP STEM , UNCEMENTED Biolox Delta Fem Head 36mm +3.5mm Implanted:Qty: 1 on 09/16/2018 by Grupo Smalls MD at [facility] Right: Hip Tim Inc 12/20/2027 [id number] / / [id number] Description:CERAMIC FEMORAL HEAD Blas H1 Total Hip Implanted:Qty: 1 on 09/16/2018 by Grupo Smalls MD at [facility] Right: Hip Tim Biomet TOTAL HIP H 1 / / Screw Jefferson Polyaxial 06.5x40mm Implanted:Qty: 1 on 04/16/2019 by Gerald Tolentino MD at [facility] N/A: Spine [place] Spine [id number] / / Screw 6.5mm 45mm Pa Spne Vrst Nonster Implanted:Qty: 8 on 04/16/2019 by Gerald Tolentino MD at [facility] N/A: Spine Gabi Spine [id number] / / Screw 6.5mm 50mm Pa Spne Vrst Nonster Implanted:Qty: 7 on 04/16/2019 by Gerald Tolentino MD at [facility] N/A: Spine [place] Spine [id number] / / Jamarcus Spnl 500mm Ti Karlo Hex End Implanted:Qty: 1 on 04/16/2019 by Gerald Tolentino MD at [facility] N/A: Spine Medical [facility] [id number] / / Everst Cannulated Screw Implanted:Qty: 1 on 04/16/2019 by Gerald Tolentino MD at [facility] N/A: Spine Jefferson Medical [id number] / / 9.5 X 100 Jefferson Cannulated Screw Implanted:Qty: 1 on 04/16/2019 by Gerald Tolentino MD at [facility] N/A: Spine Jefferson Medical [id number] / / Graft Bone Vivigen Warren Cnc Dmnr 10cc - [id number] Implanted:Qty: 1 on 04/16/2019 by Gerald Tolentino MD at [facility] N/A: Spine Lifenet 12/03/2019 [id number] / [id number] / Graft Bone Canc 60ml Frzdr Chp 4-9.5mm - [id number] Implanted:Qty: 1 on 04/16/2019 by Gerald Tolentino MD at [facility] N/A: Spine Allosource 09/26/2023 [id number] / [id number] / Cable Spnl Ev Ti 2 Loop 2 Crmp Strl Implanted:Qty: 2 on 04/28/2019 by Gerald Tolentino MD at [facility] N/A: Spine Depuy Spine [id number] / / Graft Bone Canc 4-9.5mm 30cc Algrf Frzdr - [id number] Implanted:Qty: 1 on 04/28/2019 by Gerald Tolentino MD at [facility] N/A: Spine Allosource 09/07/2023 [id number] / [id number] / Graft Bone Canc 60ml Frzdr Chp 4-9.5mm - [id number] Implanted:Qty: 1 on 04/28/2019 by Gerald Tolentino MD at [facility] N/A: Spine Allosource 01/24/2023 [id number] / / [id number] Screw Set Spne Vrst Nonster Lf Implanted:Qty: 28 on 04/28/2019 by Gerald Tolentino MD at [facility] N/A: Spine [place] Spine 290- / / Screw 5.5mm 35mm Pa Spne Vrst Nonster Implanted:Qty: 8 on 04/28/2019 by Gerald Tolentino MD at [facility] N/A: Spine [place] Spine [id number] / / Jamarcus Spnl 500mm Ti Karlo Hex End Implanted:Qty: 2 on 04/28/2019 by Gerald Tolentino MD at [facility] N/A: Spine Medical Llc [id number] / / Large Tp Hook Implanted:Qty: 2 on 04/28/2019 by Gerald Tolentino MD at [facility] N/A: Spine Jefferson Medical [id number] / / Screw Set Spne Vrst Nonster Lf Implanted:Qty: 18 on 04/16/2019 by Gerald Tolentino MD at [facility] Explanted:Qty: 13 on 04/28/2019 by Gerald Tolentino MD at [facility] N/A: Spine Gabi Spine [id number] / / Graft Bone Infs Rhbmp-2 Bvn Clgn Lg 8ml Implanted:Qty: 1 on 01/01/2020 by Gerald Tolentino MD at [facility] N/A: Spine Lumbar Medtronic Sofamor Danek Inc 11/19/2020 [id number] / / [id number] Graft Bone Canc 60ml Frzdr Chp 4-9.5mm Implanted:Qty: 1 on 01/01/2020 by Gerald Tolentino MD at [facility] N/A: Spine Lumbar Allosource 08/14/2022 [id number] / / [id number] Graft Bone Canc 4-9.5mm 30cc Algrf Frzdr Implanted:Qty: 1 on 01/01/2020 by Gerald Tolentino MD at [facility] N/A: Spine Lumbar Allosource 10/13/2024 [id number] / / [id number] [place] Interbody System Implanted:Qty: 1 on 01/01/2020 by Gerald Tolentino MD at [facility] N/A: Spine Lumbar CloudSafe Medical Llc 09/22/2023 [id number] / / [id number] Screw Set Spne Vrst Nonster Lf Implanted:Qty: 26 on 01/01/2020 by Gerald Tolentino MD at [facility] N/A: Spine Lumbar Gabi Spine [id number] / / Screw 7.5mm 40mm Pa Spne Vrst Nonster Implanted:Qty: 1 on 01/01/2020 by Gerald Tolentino MD at [facility] N/A: Spine Lumbar Gabi Spine [id number] / / Screw 7.5mm 45mm Pa Spne Vrst Nonster Implanted:Qty: 1 on 01/01/2020 by Gerald Tolentino MD at [facility] N/A: Spine Lumbar Gabi Spine [id number] / / Cnct Jamarcus 6mm 5.5mm Vrst Xw Spne Cls Implanted:Qty: 5 on 01/01/2020 by Gerald Tolentino MD at [facility] N/A: Spine Lumbar [place] Spine [id number] / / Open/Side Angled Connector Implanted:Qty: 4 on 01/01/2020 by Gerald Tolentino MD at [facility] N/A: Spine Lumbar [employer] Medical Llc [id number] / / Jamarcus Cocr 500mm Implanted:Qty: 2 on 01/01/2020 by Gerald Tolentino MD at [facility] N/A: Spine Lumbar [employer] Medical Llc [id number] / / Explanted Type Area Environmental Conservation Officer Device Identifier Shelf Expiration Date Model / Serial / Lot Screw 7.5mm 50mm Pa Spne Vrst Nonster Explanted:Qty: 1 on 01/01/2020 at [facility] N/A: Spine Lumbar Gabi Spine [id number] / / Procedures Procedure Name Priority Date/Time Associated Diagnosis Comments HEMOGLOBIN A1C - POINT OF CARE (AMB) Routine 06/16/2024 1:25 PM WOODEN FENCE ERECTOR Type 2 diabetes mellitus without complication, without [...] ENDOSCOPY, COLON, SCREENING Routine 06/09/2018 11:03 AM WOODEN FENCE ERECTOR MAMMO BILAT SCREENING Routine 2018 12:55 PM WOODEN FENCE ERECTOR Visit for screening mammogram HEPATITIS C ANTIBODY Routine 01/09/2017 4:18 PM CDT Need for hepatitis C screening test from Last 3 Months or Most Recently Relevant to Health Maintenance Results * HEMOGLOBIN A1C - POINT OF CARE (HgbA1C) (06/16/2024 1:25 PM WOODEN FENCE ERECTOR) Hemoglobin A1c POCT 5.5 % [facility] Expiration Date 02/19/[address] [facility] Lot # [id number] [facility] QC Verified Yes Yes [facility] Blood BLOOD SPECIMEN / Unknown 06/16/2024 1:25 PM WOODEN FENCE ERECTOR Ra Hutton MD LAB - POINT OF CARE ORDERABLES [facility] [address] [phone] * MICROALB/CREAT RATIO URINE RANDOM PANEL (02/12/2023 [...] Resulting Agency Comment Lab Testing performed at: [facility] [place] [address] [facility] [id number] José Miguel Morgan MD LAB - URINE CHEMISTR Y ORDERABLES [facility] INSURANCE BILL [address] [place] [address] * (ABNORMAL) COMPREHENSIVE METABOLIC PANEL (02/12/2023 3:18 [...] Resulting Agency Comment [facility]: [facility] [address] [facility] [phone] José Miguel Morgan MD LAB - CHEMISTRY TABATHA BAUTISTA [facility] INSURANCE BILL [address] [place] [address] * EYE EXAM (05/19/2022) Anatomical Region Laterality Modality Other 05/19/2022 Narrative 05/19/2022 Ordered by an unspecified provider. Scanned Document SCANNING ONLY * BONE DENSITY AXIAL SKELETON(1OR MORE SITES)[id number] (02/11/2019 8:44 AM CDT) Anatomical Region Laterality [...] Hip fracture: 0.1% Procedure Note Joselin Briscoe, - 02/11/2019 BONE MINERAL DENSITY STUDY: INDICATION: [...] * ENDOSCOPY, COLON, SCREENING (06/09/2018 11:03 AM WOODEN FENCE ERECTOR) Report Endoscopy POC _ Patient Name: Ale [...] and oxygen saturations were monitored continuously. The [id number] SN [id number] was introduced through the anus and advanced [...] for surveillance. Procedure Code(s): --- Professional --- 76114, Colonoscopy, flexible; with removal of tumor(s), polyp(s), or other lesion(s) by snare technique 76456, 59, Colonoscopy, flexible; with removal of tumor(s), polyp(s), or other lesion(s) by hot biopsy forceps --- Technical --- 58452, Colonoscopy, flexible; with removal of tumor(s), polyp(s), or other lesion(s) by snare technique 16332, 59, Colonoscopy, flexible; with removal of tumor(s), [...] flexure) K64.9, Unspecified hemorrhoids CPT copyright 2015 [employer]. All rights reserved. The codes documented in this report are preliminary and upon gas distribution and emergency clerk review may be revised to meet current compliance requirements. Andrei Gonzalez MD 06/09/2018 11:38:18 AM This report has been signed electronically. Number of Addenda: 0 Note Initiated On: 06/09/2018 11:03 AM Estimated Blood Loss: Estimated blood loss: none. [facility] 06/09/2018 11:0 3 AM WOODEN FENCE ERECTOR Andrei Gonzalez MD GI PROCEDURE ORDERAB LES [facility] * MAMMO BILAT SCREENING (2018 12:55 PM WOODEN FENCE ERECTOR) Anatomical Region Laterality Modality Breast Bilateral Mammography 2018 3:41 PM WOODEN FENCE ERECTOR Impressions 2018 3:44 PM WOODEN FENCE ERECTOR No mammographic evidence of malignancy in either breast. ASSESSMENT: BIRADS Category 1: Negative mammogram. RECOMMENDATION: Bilateral screening mammogram in one year. Thank you for allowing us to participate in the care of your patient. Reading Radiologist: Katherine Soliman MD on 2018 at 3:44 PM Narrative 2018 3:44 PM WOODEN FENCE ERECTOR EXAMINATION: Digital screening mammogram on 2018. Low-dose [...] PM CDT 01/09/2017 Narrative Resulting Agency Comment [facility] [address] [facility] [phone] José Miguel Morgan MD LAB - CHEMISTRY TABATHA BAUTISTA [facility] ACCOUNT BILL [address] [place] [address] from Last 3 Months or Most Recently Relevant to Health Maintenance Advance Directives Documents on File Type Date Recorded Patient Pilot Instructor Expl anation Adv Directive/Living Will/POA 05/28/2019 2:15 [...] 3:34 PM 09/19/2018 1:20 PM Care Teams Overhead Foreman Relationship Specialty Start Date End Date Ra Hutton MD [address] [facility] [address] [place] [phone] PCP - General Internal Medicine 12/09/23 José Miguel Morgan MD [address] [facility] [address] [place] [address] PCP - Attributed-MSSP 03/22/24 [place] [address] [facility] [address] [place] [address] Psychiatry 12/08/13 [place] [address] [facility] [address] [place] [address] Gastroenterology 12/08/13 Sandeep Razo MD [address] [facility] [place] [address] Dermatology 12/08/13 Monique Jain MD [address] [phone] Podiatry 12/08/13 Tiff Bellamy Update Information Ophthalmology 08/14/18
--- OUTSIDE RECORDS SUMMARY | 2024-09-29 16:52 | XMS_ITS ---
Author Organization [facility] Address [address] [place] [address] [place] [phone] Care Team Providers Care Rapid Transit Operator Name Role Phone José Miguel Morgan MD Primary Care Provider Yvette Ayers Unavailable [phone] REASON FOR VISIT Nsight not covered Encounters Encounter Location Date Provider Diagnosis [address] [place] [phone] 06/03/2024 Yvette Altamirano Plan Of Treatment Next Appt Details Provider Name:Yvette Orr i, 12/23/2024 02:45:00 PM, [address] [facility], Suite [facility], [place], [place], [id number], Progress Notes * Ale HYATTDOB: [birth year] (69 yo F)Acc No.[id number]:06/03/2024 Patient: Rich KUMARAle :1955 A ge:69 Y S ex:Female Address:[address] [place] [address], [address] * true * Date: Generated for Milka price/Iliana/eTchilosmitting on: 0 09/29/2024 04:51 PM CDT
--- OUTSIDE RECORDS SUMMARY | 2024-09-29 16:52 | XMS_ITS | Patient Health Record ---
Author Organization [facility] Address [address] [facility] [address] [place], [place] [id number] Care Team Providers Care Health Facilities Surveyor Name Role Phone MARIAN HODGE Unavailable [phone] AUSTEN FONG Unavailable Unavailable Allergies Allergen (clinical drug ingredient) Drug/Non Drug Allergy documented on EMR Reaction Allergy Type Onset Date Status Iodine Unknown Drug Allergy 03/24/2021 active Reason For Referral No Information Vital Signs Height-cm 160.02 cm 06/25/2024 Weight-kg 90.72 kg 06/25/2024 Height 63.00 in 06/25/2024 Weight 200 lbs 06/25/2024 BMI 35.42 kg/m2 06/25/2024 Encounters Encounter Location Date Provider Diagnosis [facility] [address] [place] [address] [id number] 11/29/2023 MARIAN HODGE Onychomycosis B35.1 ; Pain in right toe(s) M79.674 ; Pain in left toe(s) M79.675 ; Atherosclerosis of wainwright arteries of extremities with intermittent claudication, bilateral legs I70.213 and Acquired keratoderma L85.1 [facility] [address] [place] [address] [id number] 02/06/2024 MARIAN HODGE Onychomycosis B35.1 ; Pain in right toe(s) M79.674 ; Pain in left toe(s) M79.675 ; Atherosclerosis of wainwright arteries of extremities with intermittent claudication, bilateral legs I70.213 and Acquired keratoderma L85.1 [facility] [address] [place] [address] [id number] 04/09/2024 MARIAN PATRICKCARMEN Onychomycosis B35.1 ; Pain in right toe(s) M79.674 ; Pain in left toe(s) M79.675 ; Atherosclerosis of wainwright arteries of extremities with intermittent claudication, bilateral legs I70.213 and Acquired keratoderma L85.1 [facility] [place] [address] [place] [address] [id number] 06/25/2024 MARIAN PATRICKCARMEN Onychomycosis B35.1 ; Pain in right toe(s) M79.674 ; Pain in left toe(s) M79.675 ; Atherosclerosis of wainwright arteries of extremities with intermittent claudication, bilateral legs I70.213 and Acquired keratoderma L85.1 Assessments Encounter Date Diagnosis (ICD Code) Assessment Notes Treatment Notes Treatment Clinical Notes Section Notes 11/29/2023 Onychomycosis (ICD-10 - B35.1) 02/06/2024 Onychomycosis (ICD-10 - B35.1) 04/09/2024 Onychomycosis (ICD-10 - B35.1) 06/25/2024 Onychomycosis (ICD-10 - B35.1) 06/25/2024 Pain in right toe(s) (ICD-10 - M79.674) 04/09/2024 Pain in right toe(s) (ICD-10 - M79.674) 02/06/2024 Pain in right toe(s) (ICD-10 - M79.674) 11/29/2023 Pain in right toe(s) (ICD-10 - M79.674) 11/29/2023 Pain in left toe(s) (ICD-10 - M79.675) 02/06/2024 Pain in left toe(s) (ICD-10 - M79.675) 04/09/2024 Pain in left toe(s) (ICD-10 - M79.675) 06/25/2024 Pain in left toe(s) (ICD-10 - M79.675) 02/06/2024 Atherosclerosis of wainwright arteries of extremities with intermittent claudication, bilateral legs (ICD-10 - I70.213) 04/09/2024 Atherosclerosis of wainwright arteries of extremities with intermittent claudication, bilateral legs (ICD-10 - I70.213) 06/25/2024 Atherosclerosis of wainwright arteries of extremities with intermittent claudication, bilateral legs (ICD-10 - I70.213) 11/29/2023 Atherosclerosis of wainwright arteries of extremities with intermittent claudication, bilateral legs (ICD-10 - I70.213) 02/06/2024 Acquired keratoderma (ICD-10 - L85.1) 11/29/2023 Acquired keratoderma (ICD-10 - L85.1) 06/25/2024 Acquired keratoderma (ICD-10 - L85.1) 04/09/2024 Acquired keratoderma (ICD-10 - L85.1) 11/29/2023 Other Nails 1-5 Bilateral were debrided extensively with nail nippers and emery board, reducing length and girth to pink healthy tissue with any subungual debris and necrotic tissue removed 02/06/2024 Other Nails 1-5 Bilateral were debrided extensively with nail nippers and emery board, reducing length and girth to pink healthy tissue with any subungual debris and necrotic tissue removed 04/09/2024 Other Nails 1-5 Bilateral were debrided extensively with nail nippers and emery board, reducing length and girth to pink healthy tissue with any subungual debris and necrotic tissue removed 06/25/2024 Other Nails 1-5 Bilateral were debrided extensively with nail nippers and emery board, reducing length and girth to pink healthy tissue with any subungual debris and necrotic tissue removed Plan Of Treatment Next Appt Details Provider Name:MARIAN MORALES, 10/01/2024 02:50:00 PM, [address], [facility], [place], [place], [id number], Insurance Providers Payer Name Payer Address Payer Phone Subscriber Number Group Number Insured Name Patient Relationship to Insured Coverage Start Date Coverage End Date Medicare Part B [place] [address] [facility] [place] [address] [id number] PUMA HYATT Self - patient is the insured [facility] ([facility]) ATTN CLAIMS [address] [place] [address] [id number] PUMA HYATT Self - patient is the insured [facility] B [address] [address] [place], [place] [id number] PUMA HYATT Self - patient is the insured
--- OUTSIDE RECORDS SUMMARY | 2024-09-29 16:53 | XMS_ITS | Patient Health Summary ---
Author Organization [facility] Address [address] [place] [address] Care Team Providers Care Sales Marketing Manager Name Role Phone Juan Carlos Ayala MD Unavailable [phone] Andrei Alegre MD Unavailable [phone] Sandeep Razo MD Unavailable [phone] Monique Jain MD Unavailable [phone] Tiff Bellamy Unavailable Unavailable Ra Hutton MD Primary Care Provider [phone] José Miguel Morgan MD Unavailable Note from [facility] - [place]non-owned Affiliates and Associated Physician Practices is amultiple site organization consisting of ambulatory clinics and hospital sitesin [place], [place], [place] and [place]. This disclosure is being madepursuant to the Care Everywhere program and may not contain all information available regarding this patient. Last updated 18.[facility] Allergies * Contrast-Iodinated Agents For Ct/Other(Rash) -High Criticality Medications * Be aware that medications may not be up to date on this document. Alwaysverify current medications with the patient. * vitamin D, cholecalciferol, 2000 UNITS tablet(Started 07/06/2013) Take 1 Tab by mouth once daily. * lamoTRIgine (LAMICTAL) 200 MG tablet(Started 12/20/2017) Take 1 (one) tablet by mouth 2 times daily * amphetamine-dextroamphetamine (ADDERALL) 30 MG tablet(Started 06/22/2019) Take 1 (one) tablet by mouth 2 times daily * SUPER B COMPLEX/C PO Take 1 tablet by mouth once daily * [place] 12 MG tablet(Started 03/08/2020) Take 2 (two) tablets by mouth 2 times daily 2 tab BID * topiramate (TOPAMAX) 100 MG tablet(Started 03/21/2021) Take 1 (one) tablet by mouth 2 times daily * Multiple Vitamins-Minerals (OCUVITE PO) Take 1 tablet by mouth once daily * Multiple Vitamin (MULTI-VITAMIN PO) Take 1 tablet by mouth once daily * Observe MedicalTOUCH DELICA PLUS 30G FINE LANCETS(Started 10/03/2022) Use 1 Units 2 times daily 1 refill by 10/03/2023 * Blood Glucose Monitoring Suppl (Jambo Verio Flex System) w/Device KIT (Started 10/03/2022) as directed * Walldressuch Verio test strip(Started 11/23/2022) TEST BLOOD SUGAR TWICE DAILY * atorvastatin (Lipitor) 10 MG tablet(Started 08/07/2023) TAKE 1 TABLET BY MOUTH EVERY DAY 1 refill by 08/06/2024 * Cranberry POWD as directed * [place]-3 Fatty Acids (fish oil) 500 MG capsule 500 (five hundred) mg * vitamin E (Tocopheryl) 100 UNIT capsule as directed Orally * olmesartan-hydroCHLOROthiazide (Benicar HCT) 40-12.5 MG tablet(Started 06/16/2024) Take 1 (one) tablet by mouth once daily 1 refill by 06/16/2025 * omeprazole (PriLOSEC) 20 MG capsule(Started 09/02/2024) Take 1 (one) capsule by mouth 2 times daily 1 refill by 09/02/2025 * gabapentin (Neurontin) 300 MG capsule(Started 09/02/2024) Take 1 (one) capsule by mouth 2 times daily 1 refill by 09/02/2025 * potassium chloride ER 10 MEQ tablet(Started 09/02/2024) Take 1 (one) tablet by mouth once daily 1 refill by 09/02/2025 Ended Medications* omeprazole (PriLOSEC) 20 MG capsule(Started 03/05/2024) (Discontinued) Take 1 (one) capsule by mouth 2 times daily 1 refill by 03/05/2025 * potassium chloride ER 10 MEQ tablet(Started 06/03/2024)(Discontinued) TAKE 1 TABLET BY MOUTH DAILY * gabapentin (Neurontin) 300 MG capsule(Started 06/03/2024)(Discontinued) TAKE 1 CAPSULE BY MOUTH TWICE DAILY Active Problems Problem Noted Date Diagnosed Date Diabetes due to undrl condition w oth diabetic n euro comp 05/21/2022 BMI 37.0-37.9, adult 01/20/2021 Atherosclerosis of aorta 01/20/2021 Neurogenic claudication 12/16/2019 Status post lumbar spinal fusion 04/24/2019 Closed wedge compression fracture of T10 vertebr a 04/24/2019 Enthesopathy of hip region 01/16/2019 Mixed hyperlipidemia 12/11/2018 H/O total hip arthroplasty, right 09/16/2018 Type 2 diabetes mellitus wit hout complication, without long-term current use of insulin 08/27/2016 Other screening mammogram 06/24/2009 Essential hypertension, benign Gastroesophageal reflux dise ase with esophagitis without hemorrhage Osteoarthrosis, forearm Bipolar disorder without psychotic features Glaucoma Obesity, morbid Resolved Problems Problem Noted Date Diagnosed Date Resolved Date COVID-19 07/23/2020 08/30/2022 Severe anemia 05/27/2019 05/27/2019 Acute kidney injury 05/27/2019 05/27/20 19 Acute cystitis without hematuria 05/27/2019 05/27/2019 Spondylolisthesis of lumbar region 03/09/2019 05/27/2019 Preoperative examination 02/13/201903/2019 Sprain of wrist 01/16/2019 08/30/2022 Pain in joint, forearm 01/16/201906/29 GORDON (dyspnea on exertion) 09/05/2015 Hypotension due to drugs 12/2018 Encephalopathy acute 019 Immunizations * INFLUENZA VACCINE, TRIV. (AFLURIA, FLUZONE TRIVALENT; 6MO+) (IIV3)(Given 05/02/2012) * COVID RIO PRIMARY 18+YR(Given 10/25/2020) * INFLUENZA VACCINE(Given 03/30/2020, 06/03/2019, 05/11/2017, 04/21/2016, 04/21/2015, 04/21/2014, 04/21/2013, 05/02/2012, 04/21/2010, 04/21/2007) * INFLUENZA VACCINE, ADJUVANTED, QUADR. (FLUAD QUADRIVALENT; 65Y+) (AIIV4)(Given 05/09/2023, 05/21/2022) * INFLUENZA VACCINE, ADJUVANTED, TRIV. (FLUAD TRIVALENT; 65Y+) (AIIV3)(Given 06/16/2024) * INFLUENZA VACCINE, CELL CULTURE, QUADR. (FLUCELVAX QUADRIVALENT; 6MO+) (CCIIV4)(Given 05/03/2021) * INFLUENZA VACCINE, QUADR. (FLUZONE; FLULAVAL; FLUARIX; AFLURIA QUADRIVALENT; 6MO+), 0.5 ML (IIV4)(Given 05/24/2018) * PNEUMOCOCCAL PCV20 CONJ VAC IM(Given 10/01/2022) * PNEUMOCOCCAL PPSV23(Given 07/03/2017) * TDAP (7yrs+)(Given 03/09/2015) Social History Tobacco Use Types Packs/Day Years [...] Recorded Patient Health Questionnaire-2 Score 0 06/16/2024 [facility] - Occupational Stress [...] place to sleep or slept in a long term (including now)? No 10/03/2022 Sex and Gender Information Value Date Recorded Sex Assigned at Not on file Gender Identity Not on file Sexual Orientation Not on file Last Filed Vital Signs Vital Sign Reading Time Taken Comments Blood Pressure 120/60 06/16/2024 12:51 PM EXTENSION PROFESSOR Pulse 86 12/09/2023 3:41 PM CDT Temperature 36.4 C (97.6 F) 12/09/2023 3:41 PM CDT Respiratory Rate 20 06/16/2024 12:5 1 PM EXTENSION PROFESSOR Oxygen Saturation 98% 06/16/2024 12: 51 PM EXTENSION PROFESSOR Inhaled Oxygen Concentration 35% 03/2019 11:00 AM CDT Weight 90.2 kg (198 lb 12.8 oz) 024 12:51 PM EXTENSION PROFESSOR Height 152.4 cm (5') 06/16/2024 12:51 PM EXTENSION PROFESSOR Body Mass Index 38.83 06/16/2024 12:51 PM EXTENSION PROFESSOR Medical Devices Implanted Type Area Dustless Operator Device Identifier Shelf Expiration Date Model / Serial / Lot Trilogy Acet Shell 54mm Od Multi Implanted:Qty: 1 on 09/16/2018 [facility] [place] Right: Hip Tmi Inc 11/18/2025 / / [id number] Description:SHELL WITH HOLES Bone Screw 6.5x40 Self-Tap Implanted:Qty: 1 on 09/16/2018 by Grupo Smalls MD at [facility] Right: Hip Tim Inc 04/20/2028 / / [id number] Description:BONE SCREW SELF- TAPPING Modular Cup Neutral Liner Longevity 50/52/54x36 Implanted:Qty: 1 on 09/16/2018 by Grupo Smalls MD at [facility] Right: Hip Tim Inc 03/21/2023 / / [id number] Description:TRILOGY ACETABUL AR SYSTEM LINER STANDARD Fitmore Hip Stem B Size 3 Implanted:Qty: 1 on 09/16/2018 by Grupo Smalls MD at [facility] Right: Hip Tim Inc 07/21/2025 [id number] / / [id number] Description:FITMORE HIP STEM , UNCEMENTED Biolox Delta Fem Head 36mm +3.5mm Implanted:Qty: 1 on 09/16/2018 by Grupo Smalls MD at [facility] Right: Hip Tim Inc 12/20/2027 [id number] / / [id number] Description:CERAMIC FEMORAL HEAD Blas H1 Total Hip Implanted:Qty: 1 on 09/16/2018 by Grupo Smalls MD at [facility] Right: Hip Tim Biomet TOTAL HIP H 1 / / Screw [place] Polyaxial 06.5x40mm Implanted:Qty: 1 on 04/16/2019 by Hung Harvey MD at [facility] N/A: Spine Gabi Spine [id number] / / Screw 6.5mm 45mm Pa Spne Vrst Nonster Implanted:Qty: 8 on 04/16/2019 by Hung Harvey MD at [facility] N/A: Spine Peculiar Spine [id number] / / Screw 6.5mm 50mm Pa Spne Vrst Nonster Implanted:Qty: 7 on 04/16/2019 by Hung Harvey MD at [facility] N/A: Spine Gabi Spine [id number] / / Jamarcus Spnl 500mm Ti Karlo Hex End Implanted:Qty: 1 on 04/16/2019 by Hung Harvey MD at [facility] N/A: Spine Medical Llc [id number] / / Everst Cannulated Screw Implanted:Qty: 1 on 04/16/2019 by Hung Harvey MD at [facility] N/A: Spine [place] Medical [id number] / / 9.5 X 100 [place] Cannulated Screw Implanted:Qty: 1 on 04/16/2019 by Hung Harvey MD at [facility] N/A: Spine [place] Medical [id number] / / Graft Bone Vivigen Warren Cnc Dmnr 10cc - [id number] Implanted:Qty: 1 on 04/16/2019 by Hung Harvey MD at [facility] N/A: Spine Lifenet 12/03/2019 [id number] / [id number] / Graft Bone Canc 60ml Frzdr Chp 4-9.5mm - [id number] Implanted:Qty: 1 on 04/16/2019 by Hung Harvey MD at [facility] N/A: Spine Allosource 09/26/2023 [id number] / [id number] / Cable Spnl Ev Ti 2 Loop 2 Crmp Strl Implanted:Qty: 2 on 04/28/2019 by Hung Harvey MD at [facility] N/A: Spine Depuy Spine [id number] / / Graft Bone Canc 4-9.5mm 30cc Algrf Frzdr - [id number] Implanted:Qty: 1 on 04/28/2019 by Hung Harvey MD at [facility] N/A: Spine Allosource 09/07/2023 [id number] / [id number] / Graft Bone Canc 60ml Frzdr Chp 4-9.5mm - [id number] Implanted:Qty: 1 on 04/28/2019 by Hung Harvey MD at [facility] N/A: Spine Allosource 01/24/2023 [id number] / / [id number] Screw Set Spne Vrst Nonster Lf Implanted:Qty: 28 on 04/28/2019 by Hung Harvey MD at [facility] N/A: Spine Peculiar Spine [id number] / / Screw 5.5mm 35mm Pa Spne Vrst Nonster Implanted:Qty: 8 on 04/28/2019 by Hung Harvey MD at [facility] N/A: Spine Gabi Spine [id number] / / Jamarcus Spnl 500mm Ti Karlo Hex End Implanted:Qty: 2 on 04/28/2019 by Hung Harvey MD at [facility] N/A: Spine [employer]eg[employer] Medical [facility] [id number] / / Large Tp Hook Implanted:Qty: 2 on 04/28/2019 by Hung Harvey MD at [facility] N/A: Spine [place] Medical [id number] / / Screw Set Spne Vrst Nonster Lf Implanted:Qty: 18 on 04/16/2019 by Hung Harvey MD at [facility] Explanted:Qty: 13 on 04/28/2019 by Hung Harvey MD at [facility] N/A: Spine Peculiar Spine 2901- / / Graft Bone Infs Rhbmp-2 Bvn Clgn Lg 8ml Implanted:Qty: 1 on 01/01/2020 by Hung Harvey MD at [facility] N/A: Spine Lumbar Medtronic Sofamor Danek Inc 11/19/2020 [id number] / / [id number] Graft Bone Canc 60ml Frzdr Chp 4-9.5mm Implanted:Qty: 1 on 01/01/2020 by Hung Harvey MD at [facility] N/A: Spine Lumbar Allosource 08/14/2022 [id number] / / [id number] Graft Bone Canc 4-9.5mm 30cc Algrf Frzdr Implanted:Qty: 1 on 01/01/2020 by Hung Harvey MD at [facility] N/A: Spine Lumbar Allosource 10/13/2024 [id number] / / [id number] [place] Interbody System Implanted:Qty: 1 on 01/01/2020 by Hung Harvey MD at [facility] N/A: Spine Lumbar [employer] Medical Llc 09/22/2023 [id number] / / [id number] Screw Set Spne Vrst Nonster Lf Implanted:Qty: 26 on 01/01/2020 by Hung Harvey MD at [facility] N/A: Spine Lumbar Peculiar Spine [id number] / / Screw 7.5mm 40mm Pa Spne Vrst Nonster Implanted:Qty: 1 on 01/01/2020 by Hung Harvey MD at [facility] N/A: Spine Lumbar Peculiar Spine [id number] / / Screw 7.5mm 45mm Pa Spne Vrst Nonster Implanted:Qty: 1 on 01/01/2020 by Hung Harvey MD at [facility] N/A: Spine Lumbar Gabi Spine [id number] / / Cnct Jamarcus 6mm 5.5mm Vrst Xw Spne Cls Implanted:Qty: 5 on 01/01/2020 by Hung Harvey MD at [facility] N/A: Spine Lumbar Peculiar Spine [id number] / / Open/Side Angled Connector Implanted:Qty: 4 on 01/01/2020 by Hung Harvey MD at [facility] N/A: Spine Lumbar [employer] Medical Llc [id number] / / Jamarcus Cocr 500mm Implanted:Qty: 2 on 01/01/2020 by Hung Harvey MD at [facility] N/A: Spine Lumbar [employer] Medical Llc [id number] / / Explanted Type Area Dustless Operator Device Identifier Shelf Expiration Date Model / Serial / Lot Screw 7.5mm 50mm Pa Spne Vrst Nonster Explanted:Qty: 1 on 01/01/2020 at [facility] N/A: Spine Lumbar Gabi Spine [id number] / / Procedures * HEMOGLOBIN A1C - POINT OF CARE (AMB)(Performed 06/16/2024) Performed for Type 2 diabetes mellitus without complication, without long-term current use of insulin ([facility]) * HEMOGLOBIN A1C - POINT OF CARE (AMB)(Performed 12/09/2023) Performed for Type 2 diabetes mellitus without complication, without long-term current use of insulin ([facility]) * TSH HI LOW REFLEX FREE T4(Performed 02/12/2023) Performed for Mixed hyperlipidemia * COMPREHENSIVE METABOLIC PANEL(Performed 02/12/2023) Performed for Essential hypertension, benign * CBC W AUTO DIFFERENTIAL(Performed 02/12/2023) Performed for Essential hypertension, benign * LIPID PROFILE(Performed 02/12/2023) Performed for Mixed hyperlipidemia * HEMOGLOBIN A1C(Performed 02/12/2023) Performed for Type 2 diabetes mellitus without complication, without long-term current use of insulin ([facility]) * MICROALB/CREAT RATIO URINE RANDOM PANEL(Performed 02/12/2023) Performed for Type 2 diabetes mellitus without complication, without long-term current use of insulin ([facility]) * EYE EXAM(Performed 05/19/2022) * HEMOGLOBIN A1C - POINT OF CARE (AMB)(Performed 12/25/2021) Performed for Type 2 diabetes mellitus without complication, without long-term current use of insulin ([facility]) * XR SPINE ENTIRE 2 OR 3VW(Performed 11/24/2021) Performed for S/P spinal fusion * TSH HI LOW REFLEX FREE T4(Performed 05/03/2021) Performed for Essential hypertension, benign * COMPREHENSIVE METABOLIC PANEL(Performed 05/03/2021) Performed for Essential hypertension, benign * CBC W AUTO DIFFERENTIAL(Performed 05/03/2021) Performed for Essential hypertension, benign * LIPID PROFILE(Performed 05/03/2021) Performed for Type 2 diabetes mellitus without complication, without long-term current use of insulin ([facility]) * HEMOGLOBIN A1C(Performed 05/03/2021) Performed for Type 2 diabetes mellitus without complication, without long-term current use of insulin ([facility]) * MICROALB/CREAT RATIO URINE RANDOM PANEL(Performed 05/03/2021) Performed for Type 2 diabetes mellitus without complication, without long-term current use of insulin ([facility]) * XR SPINE ENTIRE 2 OR 3VW(Performed 11/07/2020) Performed for Back pain, unspecified back location, unspecified back pain laterality, unspecified chronicity * XR LUMBAR SPINE 2 OR 3VW(Performed 07/14/2020) Performed for Acute midline low back pain without sciatica * SLIDE SCAN HEMATOLOGY(Performed 06/22/2020) * TSH HI LOW REFLEX FREE T4(Performed 06/22/2020) Performed for Mixed hyperlipidemia * CBC W AUTO DIFFERENTIAL(Performed 06/22/2020) Performed for Essential hypertension, benign * VITAMIN D 25-HYDROXY(Performed 06/22/2020) Performed for Vitamin D deficiency * COMPREHENSIVE METABOLIC PANEL(Performed 06/22/2020) Performed for Essential hypertension, benign * LIPID PROFILE(Performed 06/22/2020) Performed for Type 2 diabetes mellitus without complication, without long-term current use of insulin ([facility]) * HEMOGLOBIN A1C(Performed 06/22/2020) Performed for Type 2 diabetes mellitus without complication, without long-term current use of insulin ([facility]) * MICROALB/CREAT RATIO URINE RANDOM PANEL(Performed 06/22/2020) Performed for Type 2 diabetes mellitus without complication, without long-term current use of insulin ([facility]) * CT ABDOMEN PELVIS WO CONTRAST(Performed 04/12/2020) Performed for Ventral hernia without obstruction or gangrene * XR SKULL TO ANKLE LYLY(Performed 03/30/2020) Performed for Back pain, unspecified back location, unspecified back pain laterality, unspecified chronicity * US ABDOMEN LIMITED(Performed 03/24/2020) Performed for Periumbilical mass * CARDIAC EKG ORDER(Performed 03/19/2020) * EYE EXAM(Performed 02/10/2020) * CARDIAC EKG ORDER(Performed 02/09/2020) * CARDIAC EKG ORDER(Performed 02/08/2020) * XR SPINE ENTIRE 2 OR 3VW(Performed 01/27/2020) Performed for Back pain, unspecified back location, unspecified back pain laterality, unspecified chronicity * APHERESIS/TRANSFUSION ORDER(Performed 01/09/2020) * BASIC METABOLIC PANEL (CALCIUM TOTAL)(Performed 01/07/2020) * CBC W/O DIFFERENTIAL(Performed 01/07/2020) * BASIC METABOLIC PANEL (CALCIUM TOTAL)(Performed 01/06/2020) * CBC W/O DIFFERENTIAL(Performed 01/06/2020) * BASIC METABOLIC PANEL (CALCIUM TOTAL)(Performed 01/05/2020) * CBC W/O DIFFERENTIAL(Performed 01/05/2020) * XR SPINE ENTIRE 2 OR 3VW(Performed 01/04/2020) Performed for Chronic midline back pain, unspecified back location * BASIC METABOLIC PANEL (CALCIUM TOTAL)(Performed 01/04/2020) * CBC W/O DIFFERENTIAL(Performed 01/04/2020) * BASIC METABOLIC PANEL (CALCIUM TOTAL)(Performed 01/03/2020) * CBC W/O DIFFERENTIAL(Performed 01/03/2020) * BASIC METABOLIC PANEL (CALCIUM TOTAL)(Performed 01/02/2020) * CBC W/O DIFFERENTIAL(Performed 01/02/2020) * BASIC METABOLIC PANEL (CALCIUM TOTAL)(Performed 01/01/2020) * XR CHEST 1VW PORTABLE(Performed 01/01/2020) Performed for Chronic midline back pain, unspecified back location * FL HARIS SURGERY(Performed 01/01/2020) Performed for Chronic midline back pain, unspecified back location, Dorsalgia, unspecified, Other chronic pain * TRANSFUSE RED BLOOD CELL LEUKOREDUCED UNIT(S)(Performed 01/01/2020) * BLOOD GASES ART COMPLETE SLH OR(Performed 01/01/2020) Performed for Chronic midline back pain, unspecified back location * CULTURE FLUID+GRAM STAIN(Performed 01/01/2020) * CULTURE ANAEROBE(Performed 01/01/2020) * CENTRAL LINE NOTE(Performed 01/01/2020) * BLOOD GASES ART COMPLETE SLH OR(Performed 01/01/2020) Performed for Chronic midline back pain, unspecified back location * ARTERIAL LINE NOTE(Performed 01/01/2020) * ENDOTRACHEAL TUBE NOTE(Performed 01/01/2020) * BLOOD GASES ART COMPLETE SL[facility] OR(Performed 01/01/2020) Performed for Chronic midline back pain, unspecified back location * FUSION ANTERIOR LUMBAR INTERBODY (ALIF)(Performed 01/01/2020) Performed for 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) * FUSION ANTERIOR LUMBAR INTERBODY (ALIF)(Performed 01/01/2020) Performed for 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) * ABO TYPE: RETYPE-PATIENT RESULT ONLY(Performed 01/01/2020) * TYPE + SCREEN PANEL(Performed 01/01/2020) Performed for Chronic midline back pain, unspecified back location * CBC W/O DIFFERENTIAL(Performed 01/01/2020) * PREPARE RBC LEUKOREDUCED UNIT(Performed 12/31/2019) * PREPARE RBC LEUKOREDUCED UNIT(Performed 12/31/2019) * PREPARE RBC LEUKOREDUCED UNIT(Performed 12/31/2019) Performed for Chronic midline back pain, unspecified back location * PREPARE RBC LEUKOREDUCED UNIT(Performed 12/31/2019) * CBC W/O DIFFERENTIAL(Performed 12/30/2019) * CBC W/O DIFFERENTIAL(Performed 12/29/2019) * CBC W/O DIFFERENTIAL(Performed 12/28/2019) * CBC W/O DIFFERENTIAL(Performed 12/27/2019) * PT EVAL AND TREAT ORTHO/TRAUMA(Performed 12/26/2019) * OT EVAL AND TREAT ORTHO/TRAUMA(Performed 12/26/2019) * CBC W/O DIFFERENTIAL(Performed 12/26/2019) * CBC W/O DIFFERENTIAL(Performed 12/25/2019) * CBC W/O DIFFERENTIAL(Performed 12/24/2019) * CBC W/O DIFFERENTIAL(Performed 12/23/2019) * CT LUMBAR SPINE WO CONTRAST(Performed 12/22/2019) Performed for Chronic midline back pain, unspecified back location * SARS-COV-2 (COVID-19) IN HOUSE(Performed 12/22/2019) Performed for Chronic midline back pain, unspecified back location * URINALYSIS REFLEX TO MICROSCOPIC NO CULTURE(Performed 12/22/2019) * BASIC METABOLIC PANEL (CALCIUM TOTAL)(Performed 12/22/2019) * CBC W/O DIFFERENTIAL(Performed 12/22/2019) * XR THORACIC SPINE 3VW(Performed 12/21/2019) Performed for Chronic midline back pain, unspecified back location * XR CERVICAL SPINE 2 OR 3VW(Performed 12/21/2019) Performed for Chronic midline back pain, unspecified back location * XR LUMBAR SPINE 2 OR 3VW(Performed 12/21/2019) Performed for Chronic midline back pain, unspecified back location * BASIC METABOLIC PANEL (CALCIUM TOTAL)(Performed 12/21/2019) * CBC W AUTO DIFFERENTIAL(Performed 12/21/2019) * XR SPINE ENTIRE 2 OR 3VW(Performed 12/16/2019) Performed for Surgery follow-up examination * IMAGING/RADIOLOGY/XRAY RESULTS ORDER(Performed 09/16/2019) * DC URINE FLOW MEASUREMENT(Performed 09/09/2019) Performed for Lower urinary tract symptoms (LUTS), Difficulty voiding * DC INSERT TEMP INDWELL BLADD CATH(Performed 09/09/2019) Performed for Lower urinary tract symptoms (LUTS), Difficulty voiding * DC INTRAABDOMINAL PRESSURE TEST(Performed 09/09/2019) Performed for Lower urinary tract symptoms (LUTS), Difficulty voiding * DC ANAL/URINARY MUSCLE STUDY(Performed 09/09/2019) Performed for Lower urinary tract symptoms (LUTS), Difficulty voiding * DC COMPLEX CYSTOMETROGRAM(Performed 09/09/2019) Performed for Lower urinary tract symptoms (LUTS), Difficulty voiding * XR SPINE ENTIRE 2 OR 3VW(Performed 08/19/2019) Performed for Back pain, unspecified back location, unspecified back pain laterality, unspecified chronicity * CULTURE URINE(Performed 08/19/2019) Performed for Lower urinary tract symptoms (LUTS) * CARDIAC EKG ORDER(Performed 07/29/2019) * XR SPINE ENTIRE 2 OR 3VW(Performed 07/20/2019) Performed for Follow-up examination after orthopedic surgery * C-REACTIVE PROTEIN(Performed 07/12/2019) * ERYTHROCYTE SEDIMENTATION RATE(Performed 07/12/2019) * CBC W AUTO DIFFERENTIAL(Performed 07/12/2019) * COMPREHENSIVE METABOLIC PANEL(Performed 07/12/2019) * HEMOGLOBIN A1C(Performed 06/30/2019) Performed for Type 2 diabetes mellitus without complication, without long-term current use of insulin (HCC) * BASIC METABOLIC PANEL (CALCIUM TOTAL)(Performed 06/30/2019) Performed for Type 2 diabetes mellitus without complication, without long-term current use of insulin (HCC) * XR SPINE ENTIRE 2 OR 3VW(Performed 06/24/2019) Performed for S/P spinal fusion * CARDIAC EKG ORDER(Performed 06/17/2019) * CARDIAC EKG ORDER(Performed 06/15/2019) * CARDIAC EKG ORDER(Performed 06/08/2019) * CARDIAC EKG ORDER(Performed 05/29/2019) * CARDIAC PROCEDURE ORDER(Performed 05/29/2019) * GLUCOSE - POINT OF CARE(Performed 05/27/2019) * GLUCOSE - POINT OF CARE(Performed 05/27/2019) * BASIC METABOLIC PANEL (CALCIUM TOTAL)(Performed 05/27/2019) * TSH(Performed 05/27/2019) * GLUCOSE - POINT OF CARE(Performed 05/26/2019) * GLUCOSE - POINT OF CARE(Performed 05/26/2019) * GLUCOSE - POINT OF CARE(Performed 05/26/2019) * GLUCOSE - POINT OF CARE(Performed 05/26/2019) * COMPREHENSIVE METABOLIC PANEL(Performed 05/26/2019) * CBC W/O DIFFERENTIAL(Performed 05/26/2019) * GLUCOSE - POINT OF CARE(Performed 05/25/2019) * GLUCOSE - POINT OF CARE(Performed 05/25/2019) * GLUCOSE - POINT OF CARE(Performed 05/25/2019) * COMPREHENSIVE METABOLIC PANEL(Performed 05/25/2019) * CBC W/O DIFFERENTIAL(Performed 05/25/2019) * GLUCOSE - POINT OF CARE(Performed 05/25/2019) * GLUCOSE - POINT OF CARE(Performed 05/24/2019) * GLUCOSE - POINT OF CARE(Performed 05/24/2019) * PHOSPHORUS BLOOD(Performed 05/24/2019) * MAGNESIUM BLOOD(Performed 05/24/2019) * COMPREHENSIVE METABOLIC PANEL(Performed 05/24/2019) * CBC W AUTO DIFFERENTIAL(Performed 05/24/2019) * CREATININE URINE RANDOM(Performed 05/23/2019) * SODIUM URINE RANDOM(Performed 05/23/2019) * CULTURE URINE(Performed 05/23/2019) * GLUCOSE - POINT OF CARE(Performed 05/23/2019) * CT HEAD WO CONTRAST(Performed 05/23/2019) Performed for Spondylolisthesis of lumbar region * EKG 12-LEAD(Performed 05/23/2019) Performed for Spondylolisthesis of lumbar region * BASIC METABOLIC PANEL (CALCIUM TOTAL)(Performed 05/23/2019) * CBC W AUTO DIFFERENTIAL(Performed 05/23/2019) * BLOOD GASES ARTERIAL(Performed 05/23/2019) * GLUCOSE - POINT OF CARE(Performed 05/23/2019) * BASIC METABOLIC PANEL (CALCIUM TOTAL)(Performed 05/23/2019) * CBC W/O DIFFERENTIAL(Performed 05/23/2019) * BASIC METABOLIC PANEL (CALCIUM TOTAL)(Performed 05/22/2019) * CBC W/O DIFFERENTIAL(Performed 05/22/2019) * URINALYSIS W/MICROSCOPIC NO CULTURE(Performed 05/21/2019) * CBC W/O DIFFERENTIAL(Performed 05/21/2019) * EEG(Performed 05/20/2019) * CBC W/O DIFFERENTIAL(Performed 05/20/2019) * MRI BRAIN WWO CONTRAST(Performed 05/20/2019) Performed for Spondylolisthesis of lumbar region * CBC W/O DIFFERENTIAL(Performed 05/19/2019) * CBC W/O DIFFERENTIAL(Performed 05/18/2019) * URINALYSIS REFLEX TO MICROSCOPIC NO CULTURE(Performed 05/17/2019) * XR CHEST 1VW(Performed 05/17/2019) Performed for Spondylolisthesis of lumbar region * BASIC METABOLIC PANEL (CALCIUM TOTAL)(Performed 05/17/2019) * VITAMIN B1(Performed 05/17/2019) * FOLATE(Performed 05/17/2019) * VITAMIN B12(Performed 05/17/2019) * CBC W/O DIFFERENTIAL(Performed 05/17/2019) * CBC W/O DIFFERENTIAL(Performed 05/16/2019) * CBC W/O DIFFERENTIAL(Performed 05/15/2019) * CBC W/O DIFFERENTIAL(Performed 05/14/2019) * XR ELBOW RIGHT 3VW OR MORE(Performed 05/13/2019) Performed for Spondylolisthesis of lumbar region * XR LUMBAR SPINE 2 OR 3VW(Performed 05/13/2019) Performed for Spondylolisthesis of lumbar region * XR THORACIC SPINE 2VW(Performed 05/13/2019) Performed for Spondylolisthesis of lumbar region * CBC W/O DIFFERENTIAL(Performed 05/13/2019) * GGT(Performed 05/12/2019) * COMPREHENSIVE METABOLIC PANEL(Performed 05/12/2019) * CBC W/O DIFFERENTIAL(Performed 05/12/2019) * CBC W/O DIFFERENTIAL(Performed 05/11/2019) * CBC W/O DIFFERENTIAL(Performed 05/10/2019) * OT EVAL AND TREAT(Performed 05/09/2019) * CBC W AUTO DIFFERENTIAL(Performed 05/09/2019) * CBC W AUTO DIFFERENTIAL(Performed 05/08/2019) * COMPREHENSIVE METABOLIC PANEL(Performed 05/08/2019) * GLUCOSE - POINT OF CARE(Performed 05/08/2019) * GLUCOSE - POINT OF CARE(Performed 05/08/2019) * GLUCOSE - POINT OF CARE(Performed 05/08/2019) * GLUCOSE - POINT OF CARE(Performed 05/07/2019) * GLUCOSE - POINT OF CARE(Performed 05/07/2019) * XR LUMBAR SPINE 2 OR 3VW(Performed 05/07/2019) Performed for Spondylolisthesis of lumbar region * XR THORACIC SPINE 2VW(Performed 05/07/2019) Performed for Spondylolisthesis of lumbar region * GLUCOSE - POINT OF CARE(Performed 05/07/2019) * GLUCOSE - POINT OF CARE(Performed 05/07/2019) * CBC W/O DIFFERENTIAL(Performed 05/07/2019) Performed for Spondylolisthesis of lumbar region * BASIC METABOLIC PANEL (CALCIUM TOTAL)(Performed 05/07/2019) Performed for Spondylolisthesis of lumbar region * GLUCOSE - POINT OF CARE(Performed 05/07/2019) * CULTURE URINE(Performed 05/06/2019) * URINALYSIS REFLEX TO MICROSCOPIC NO CULTURE(Performed 05/06/2019) * XR SPINE ENTIRE 2 OR 3VW(Performed 05/06/2019) Performed for Status post lumbar spinal fusion * GLUCOSE - POINT OF CARE(Performed 05/06/2019) * CBC W/O DIFFERENTIAL(Performed 05/06/2019) Performed for Spondylolisthesis of lumbar region * BASIC METABOLIC PANEL (CALCIUM TOTAL)(Performed 05/06/2019) Performed for Spondylolisthesis of lumbar region * GLUCOSE - POINT OF CARE(Performed 05/06/2019) * CBC W/O DIFFERENTIAL(Performed 05/05/2019) Performed for Spondylolisthesis of lumbar region * BASIC METABOLIC PANEL (CALCIUM TOTAL)(Performed 05/05/2019) Performed for Spondylolisthesis of lumbar region * GLUCOSE - POINT OF CARE(Performed 05/04/2019) * GLUCOSE - POINT OF CARE(Performed 05/04/2019) * BASIC METABOLIC PANEL (CALCIUM TOTAL)(Performed 05/04/2019) * GLUCOSE - POINT OF CARE(Performed 05/04/2019) * C DIFFICILE GDH AG + TOXIN A+B(Performed 05/04/2019) * GLUCOSE - POINT OF CARE(Performed 05/04/2019) * BASIC METABOLIC PANEL (CALCIUM TOTAL)(Performed 05/04/2019) * CBC W/O DIFFERENTIAL(Performed 05/04/2019) * GLUCOSE - POINT OF CARE(Performed 05/04/2019) * GLUCOSE - POINT OF CARE(Performed 05/03/2019) * GLUCOSE - POINT OF CARE(Performed 05/03/2019) * EKG 12-LEAD(Performed 05/03/2019) Performed for Bipolar affective disorder, current episode manic, current episode severity unspecified (HCC) * GLUCOSE - POINT OF CARE(Performed 05/03/2019) * PHOSPHORUS BLOOD(Performed 05/02/2019) Performed for Spondylolisthesis of lumbar region * MAGNESIUM BLOOD(Performed 05/02/2019) Performed for Spondylolisthesis of lumbar region * CBC W/O DIFFERENTIAL(Performed 05/02/2019) Performed for Spondylolisthesis of lumbar region * BASIC METABOLIC PANEL (CALCIUM TOTAL)(Performed 05/02/2019) Performed for Spondylolisthesis of lumbar region * GLUCOSE - POINT OF CARE(Performed 05/02/2019) * GLUCOSE - POINT OF CARE(Performed 05/02/2019) * PHOSPHORUS BLOOD(Performed 05/02/2019) Performed for Spondylolisthesis of lumbar region * MAGNESIUM BLOOD(Performed 05/02/2019) Performed for Spondylolisthesis of lumbar region * CBC W/O DIFFERENTIAL(Performed 05/02/2019) Performed for Spondylolisthesis of lumbar region * BASIC METABOLIC PANEL (CALCIUM TOTAL)(Performed 05/02/2019) Performed for Spondylolisthesis of lumbar region * GLUCOSE - POINT OF CARE(Performed 05/01/2019) * EKG 12-LEAD(Performed 05/01/2019) Performed for Spondylolisthesis of lumbar region * GLUCOSE - POINT OF CARE(Performed 05/01/2019) * EKG 12-LEAD(Performed 05/01/2019) Performed for Spondylolisthesis of lumbar region * GLUCOSE - POINT OF CARE(Performed 05/01/2019) * GLUCOSE - POINT OF CARE(Performed 05/01/2019) * PHOSPHORUS BLOOD(Performed 04/30/2019) Performed for Spondylolisthesis of lumbar region * MAGNESIUM BLOOD(Performed 04/30/2019) Performed for Spondylolisthesis of lumbar region * CBC W/O DIFFERENTIAL(Performed 04/30/2019) Performed for Spondylolisthesis of lumbar region * BASIC METABOLIC PANEL (CALCIUM TOTAL)(Performed 04/30/2019) Performed for Spondylolisthesis of lumbar region * GLUCOSE - POINT OF CARE(Performed 04/30/2019) * GLUCOSE - POINT OF CARE(Performed 04/30/2019) * GLUCOSE - POINT OF CARE(Performed 04/30/2019) * PHOSPHORUS BLOOD(Performed 04/30/2019) Performed for Spondylolisthesis of lumbar region * MAGNESIUM BLOOD(Performed 04/30/2019) Performed for Spondylolisthesis of lumbar region * CBC W/O DIFFERENTIAL(Performed 04/30/2019) Performed for Spondylolisthesis of lumbar region * BASIC METABOLIC PANEL (CALCIUM TOTAL)(Performed 04/30/2019) Performed for Spondylolisthesis of lumbar region * GLUCOSE - POINT OF CARE(Performed 04/29/2019) * PHOSPHORUS BLOOD(Performed 04/29/2019) Performed for Spondylolisthesis of lumbar region * MAGNESIUM BLOOD(Performed 04/29/2019) Performed for Spondylolisthesis of lumbar region * BASIC METABOLIC PANEL (CALCIUM TOTAL)(Performed 04/29/2019) Performed for Spondylolisthesis of lumbar region * CBC W/O DIFFERENTIAL(Performed 04/29/2019) Performed for Spondylolisthesis of lumbar region * GLUCOSE - POINT OF CARE(Performed 04/29/2019) * GLUCOSE - POINT OF CARE(Performed 04/29/2019) * IMAGING/RADIOLOGY/XRAY RESULTS ORDER(Performed 04/29/2019) * GLUCOSE - POINT OF CARE(Performed 04/29/2019) * PHOSPHORUS BLOOD(Performed 04/29/2019) Performed for Spondylolisthesis of lumbar region * MAGNESIUM BLOOD(Performed 04/29/2019) Performed for Spondylolisthesis of lumbar region * BASIC METABOLIC PANEL (CALCIUM TOTAL)(Performed 04/29/2019) Performed for Spondylolisthesis of lumbar region * CBC W/O DIFFERENTIAL(Performed 04/29/2019) Performed for Spondylolisthesis of lumbar region * BLOOD GASES ART COMPLETE [facility] OR(Performed 04/28/2019) Performed for Status post lumbar spinal fusion * TRANSFUSE RED BLOOD CELL LEUKOREDUCED UNIT(S)(Performed 04/28/2019) * FL HARIS SURGERY(Performed 04/28/2019) Performed for Spondylolisthesis of lumbar region * BLOOD GASES ART COMPLETE [facility] OR(Performed 04/28/2019) Performed for Spondylolisthesis of lumbar region * BLOOD GASES ART COMPLETE [facility] OR(Performed 04/28/2019) Performed for Spondylolisthesis of lumbar region * FUSION POSTERIOR/POSTEROLATERAL LUMBAR (PLF)(Performed 04/28/2019) Performed for Diagnosis unknown * ENDOTRACHEAL TUBE NOTE(Performed 04/28/2019) * GLUCOSE - POINT OF CARE(Performed 04/28/2019) * BASIC METABOLIC PANEL (CALCIUM TOTAL)(Performed 04/28/2019) * CBC W/O DIFFERENTIAL(Performed 04/28/2019) * PREPARE RBC LEUKOREDUCED UNIT(Performed 04/28/2019) * TYPE + SCREEN PANEL(Performed 04/27/2019) Performed for Status post lumbar spinal fusion * GLUCOSE - POINT OF CARE(Performed 04/27/2019) * GLUCOSE - POINT OF CARE(Performed 04/27/2019) * GLUCOSE - POINT OF CARE(Performed 04/27/2019) * XR THORACIC SPINE 2VW(Performed 04/27/2019) Performed for Spondylolisthesis of lumbar region * XR LUMBAR SPINE 2 OR 3VW(Performed 04/27/2019) Performed for Spondylolisthesis of lumbar region * GLUCOSE - POINT OF CARE(Performed 04/27/2019) * BASIC METABOLIC PANEL (CALCIUM TOTAL)(Performed 04/27/2019) * CBC W/O DIFFERENTIAL(Performed 04/27/2019) * GLUCOSE - POINT OF CARE(Performed 04/27/2019) * GLUCOSE - POINT OF CARE(Performed 04/26/2019) * GLUCOSE - POINT OF CARE(Performed 04/26/2019) * GLUCOSE - POINT OF CARE(Performed 04/26/2019) * GLUCOSE - POINT OF CARE(Performed 04/26/2019) * BASIC METABOLIC PANEL (CALCIUM TOTAL)(Performed 04/26/2019) * CBC W/O DIFFERENTIAL(Performed 04/26/2019) * GLUCOSE - POINT OF CARE(Performed 04/26/2019) * GLUCOSE - POINT OF CARE(Performed 04/25/2019) * GLUCOSE - POINT OF CARE(Performed 04/25/2019) * CT LUMBAR SPINE WO CONTRAST(Performed 04/25/2019) Performed for Spondylolisthesis of lumbar region * CT THORACIC SPINE WO CONTRAST(Performed 04/25/2019) Performed for Spondylolisthesis of lumbar region * URINALYSIS W/MICROSCOPIC NO CULTURE(Performed 04/25/2019) * GLUCOSE - POINT OF CARE(Performed 04/25/2019) * GLUCOSE - POINT OF CARE(Performed 04/25/2019) * BASIC METABOLIC PANEL (CALCIUM TOTAL)(Performed 04/25/2019) * CBC W/O DIFFERENTIAL(Performed 04/25/2019) * GLUCOSE - POINT OF CARE(Performed 04/25/2019) * GLUCOSE - POINT OF CARE(Performed 04/24/2019) * GLUCOSE - POINT OF CARE(Performed 04/24/2019) * GLUCOSE - POINT OF CARE(Performed 04/24/2019) * GLUCOSE - POINT OF CARE(Performed 04/24/2019) * BASIC METABOLIC PANEL (CALCIUM TOTAL)(Performed 04/24/2019) * CBC W/O DIFFERENTIAL(Performed 04/24/2019) * GLUCOSE - POINT OF CARE(Performed 04/24/2019) * GLUCOSE - POINT OF CARE(Performed 04/23/2019) * XR LUMBAR SPINE 2 OR 3VW(Performed 04/23/2019) Performed for Spondylolisthesis of lumbar region * XR THORACIC SPINE 2VW(Performed 04/23/2019) Performed for Spondylolisthesis of lumbar region * XR SPINE ENTIRE 2 OR 3VW(Performed 04/23/2019) Performed for Essential hypertension, benign * GLUCOSE - POINT OF CARE(Performed 04/23/2019) * GLUCOSE - POINT OF CARE(Performed 04/23/2019) * GLUCOSE - POINT OF CARE(Performed 04/22/2019) * GLUCOSE - POINT OF CARE(Performed 04/22/2019) * GLUCOSE - POINT OF CARE(Performed 04/22/2019) * PHOSPHORUS BLOOD(Performed 04/22/2019) Performed for Spondylolisthesis of lumbar region * MAGNESIUM BLOOD(Performed 04/22/2019) Performed for Spondylolisthesis of lumbar region * CBC W/O DIFFERENTIAL(Performed 04/22/2019) Performed for Spondylolisthesis of lumbar region * BASIC METABOLIC PANEL (CALCIUM TOTAL)(Performed 04/22/2019) Performed for Spondylolisthesis of lumbar region * GLUCOSE - POINT OF CARE(Performed 04/22/2019) * EKG 12-LEAD(Performed 04/22/2019) Performed for Essential hypertension, benign * PHOSPHORUS BLOOD(Performed 04/21/2019) Performed for Spondylolisthesis of lumbar region * MAGNESIUM BLOOD(Performed 04/21/2019) Performed for Spondylolisthesis of lumbar region * CBC W/O DIFFERENTIAL(Performed 04/21/2019) Performed for Spondylolisthesis of lumbar region * BASIC METABOLIC PANEL (CALCIUM TOTAL)(Performed 04/21/2019) Performed for Spondylolisthesis of lumbar region * GLUCOSE - POINT OF CARE(Performed 04/21/2019) * GLUCOSE - POINT OF CARE(Performed 04/21/2019) * GLUCOSE - POINT OF CARE(Performed 04/21/2019) * PHOSPHORUS BLOOD(Performed 04/21/2019) Performed for Spondylolisthesis of lumbar region * MAGNESIUM BLOOD(Performed 04/21/2019) Performed for Spondylolisthesis of lumbar region * CBC W/O DIFFERENTIAL(Performed 04/21/2019) Performed for Spondylolisthesis of lumbar region * BASIC METABOLIC PANEL (CALCIUM TOTAL)(Performed 04/21/2019) Performed for Spondylolisthesis of lumbar region * GLUCOSE - POINT OF CARE(Performed 04/21/2019) * GLUCOSE - POINT OF CARE(Performed 04/21/2019) * PT EVAL AND TREAT ORTHO/TRAUMA(Performed 04/21/2019) * OT EVAL AND TREAT ORTHO/TRAUMA(Performed 04/21/2019) * GLUCOSE - POINT OF CARE(Performed 04/21/2019) * PHOSPHORUS BLOOD(Performed 04/20/2019) Performed for Spondylolisthesis of lumbar region * MAGNESIUM BLOOD(Performed 04/20/2019) Performed for Spondylolisthesis of lumbar region * CBC W/O DIFFERENTIAL(Performed 04/20/2019) Performed for Spondylolisthesis of lumbar region * BASIC METABOLIC PANEL (CALCIUM TOTAL)(Performed 04/20/2019) Performed for Spondylolisthesis of lumbar region * GLUCOSE - POINT OF CARE(Performed 04/20/2019) * GLUCOSE - POINT OF CARE(Performed 04/20/2019) * GLUCOSE - POINT OF CARE(Performed 04/20/2019) * PHOSPHORUS BLOOD(Performed 04/20/2019) Performed for Spondylolisthesis of lumbar region * MAGNESIUM BLOOD(Performed 04/20/2019) Performed for Spondylolisthesis of lumbar region * CBC W/O DIFFERENTIAL(Performed 04/20/2019) Performed for Spondylolisthesis of lumbar region * BASIC METABOLIC PANEL (CALCIUM TOTAL)(Performed 04/20/2019) Performed for Spondylolisthesis of lumbar region * GLUCOSE - POINT OF CARE(Performed 04/20/2019) * EKG 12-LEAD(Performed 04/20/2019) Performed for Essential hypertension, benign * GLUCOSE - POINT OF CARE(Performed 04/20/2019) * GLUCOSE - POINT OF CARE(Performed 04/20/2019) * PHOSPHORUS BLOOD(Performed 04/19/2019) Performed for Spondylolisthesis of lumbar region * MAGNESIUM BLOOD(Performed 04/19/2019) Performed for Spondylolisthesis of lumbar region * CBC W/O DIFFERENTIAL(Performed 04/19/2019) Performed for Spondylolisthesis of lumbar region * BASIC METABOLIC PANEL (CALCIUM TOTAL)(Performed 04/19/2019) Performed for Spondylolisthesis of lumbar region * GLUCOSE - POINT OF CARE(Performed 04/19/2019) * GLUCOSE - POINT OF CARE(Performed 04/19/2019) * GLUCOSE - POINT OF CARE(Performed 04/19/2019) * URINALYSIS REFLEX TO MICROSCOPIC NO CULTURE(Performed 04/19/2019) Performed for Spondylolisthesis of lumbar region * CULTURE URINE(Performed 04/19/2019) Performed for Spondylolisthesis of lumbar region * GLUCOSE - POINT OF CARE(Performed 04/19/2019) * PHOSPHORUS BLOOD(Performed 04/19/2019) Performed for Spondylolisthesis of lumbar region * MAGNESIUM BLOOD(Performed 04/19/2019) Performed for Spondylolisthesis of lumbar region * CBC W/O DIFFERENTIAL(Performed 04/19/2019) Performed for Spondylolisthesis of lumbar region * BASIC METABOLIC PANEL (CALCIUM TOTAL)(Performed 04/19/2019) Performed for Spondylolisthesis of lumbar region * CULTURE BLOOD(Performed 04/19/2019) Performed for Spondylolisthesis of lumbar region * GLUCOSE - POINT OF CARE(Performed 04/19/2019) * GLUCOSE - POINT OF CARE(Performed 04/19/2019) * PHOSPHORUS BLOOD(Performed 04/18/2019) Performed for Spondylolisthesis of lumbar region * MAGNESIUM BLOOD(Performed 04/18/2019) Performed for Spondylolisthesis of lumbar region * CBC W/O DIFFERENTIAL(Performed 04/18/2019) Performed for Spondylolisthesis of lumbar region * BASIC METABOLIC PANEL (CALCIUM TOTAL)(Performed 04/18/2019) Performed for Spondylolisthesis of lumbar region * GLUCOSE - POINT OF CARE(Performed 04/18/2019) * GLUCOSE - POINT OF CARE(Performed 04/18/2019) * EKG 12-LEAD(Performed 04/18/2019) Performed for Bipolar affective disorder, current episode manic, current episode severity unspecified (HCC) * PTT [facility](Performed 04/18/2019) * PT-INR [facility](Performed 04/18/2019) * PHOSPHORUS BLOOD(Performed 04/18/2019) Performed for Spondylolisthesis of lumbar region * MAGNESIUM BLOOD(Performed 04/18/2019) Performed for Spondylolisthesis of lumbar region * CBC W/O DIFFERENTIAL(Performed 04/18/2019) Performed for Spondylolisthesis of lumbar region * BASIC METABOLIC PANEL (CALCIUM TOTAL)(Performed 04/18/2019) Performed for Spondylolisthesis of lumbar region * GLUCOSE - POINT OF CARE(Performed 04/18/2019) * GLUCOSE - POINT OF CARE(Performed 04/18/2019) * GLUCOSE - POINT OF CARE(Performed 04/18/2019) * PHOSPHORUS BLOOD(Performed 04/18/2019) Performed for Spondylolisthesis of lumbar region * MAGNESIUM BLOOD(Performed 04/18/2019) Performed for Spondylolisthesis of lumbar region * CBC W/O DIFFERENTIAL(Performed 04/18/2019) Performed for Spondylolisthesis of lumbar region * BASIC METABOLIC PANEL (CALCIUM TOTAL)(Performed 04/18/2019) Performed for Spondylolisthesis of lumbar region * LACTIC ACID BLOOD(Performed 04/18/2019) * GLUCOSE - POINT OF CARE(Performed 04/17/2019) * TRANSFUSE RED BLOOD CELL LEUKOREDUCED UNIT(S)(Performed 04/17/2019) * TRANSFUSE RED BLOOD CELL LEUKOREDUCED UNIT(S)(Performed 04/17/2019) * TRANSFUSE RED BLOOD CELL LEUKOREDUCED UNIT(S)(Performed 04/17/2019) * BLOOD GASES ART COMPLETE [facility] OR(Performed 04/17/2019) Performed for Pre-op evaluation * GLUCOSE - POINT OF CARE(Performed 04/17/2019) * EKG 12-LEAD(Performed 04/17/2019) Performed for Essential hypertension, benign * PHOSPHORUS BLOOD(Performed 04/17/2019) Performed for Spondylolisthesis of lumbar region * MAGNESIUM BLOOD(Performed 04/17/2019) Performed for Spondylolisthesis of lumbar region * CBC W/O DIFFERENTIAL(Performed 04/17/2019) Performed for Spondylolisthesis of lumbar region * BASIC METABOLIC PANEL (CALCIUM TOTAL)(Performed 04/17/2019) Performed for Spondylolisthesis of lumbar region * GLUCOSE - POINT OF CARE(Performed 04/17/2019) * EXTUBATION(Performed 04/17/2019) * BLOOD GASES ART COMPLETE [facility] OR(Performed 04/17/2019) Performed for Pre-op evaluation * XR CHEST 1VW PORTABLE(Performed 04/17/2019) Performed for Reflux esophagitis * GLUCOSE - POINT OF CARE(Performed 04/17/2019) * GLUCOSE - POINT OF CARE(Performed 04/17/2019) * GLUCOSE - POINT OF CARE(Performed 04/17/2019) * CALCIUM IONIZED WHOLE BLOOD(Performed 04/17/2019) * BLOOD GASES ARTERIAL(Performed 04/17/2019) Performed for Pre-op evaluation * PT-INR [facility](Performed 04/17/2019) Performed for Spondylolisthesis of lumbar region * PHOSPHORUS BLOOD(Performed 04/17/2019) Performed for Spondylolisthesis of lumbar region * MAGNESIUM BLOOD(Performed 04/17/2019) Performed for Spondylolisthesis of lumbar region * CBC W/O DIFFERENTIAL(Performed 04/17/2019) Performed for Spondylolisthesis of lumbar region * BASIC METABOLIC PANEL (CALCIUM TOTAL)(Performed 04/17/2019) Performed for Spondylolisthesis of lumbar region * XR ABDOMEN KUB PORTABLE(Performed 04/16/2019) Performed for Spondylolisthesis of lumbar region * PULSE OXIMETRY, CONTINUOUS(Performed 04/16/2019) * FL HARIS SURGERY(Performed 04/16/2019) Performed for Spondylolisthesis of lumbar region * BLOOD GASES ART COMPLETE [facility] OR(Performed 04/16/2019) Performed for Spondylolisthesis of lumbar region * TRANSFUSE RED BLOOD CELL LEUKOREDUCED UNIT(S)(Performed 04/16/2019) * BLOOD GASES ART COMPLETE [facility] OR(Performed 04/16/2019) Performed for Spondylolisthesis of lumbar region * BLOOD GASES ART COMPLETE [facility] OR(Performed 04/16/2019) Performed for Spondylolisthesis of lumbar region * CBC W/O DIFFERENTIAL(Performed 04/16/2019) Performed for Spondylolisthesis of lumbar region * COMPREHENSIVE METABOLIC PANEL(Performed 04/16/2019) Performed for Spondylolisthesis of lumbar region * BLOOD GASES ART COMPLETE [facility] OR(Performed 04/16/2019) Performed for Spondylolisthesis of lumbar region * TRANSFUSE RED BLOOD CELL LEUKOREDUCED UNIT(S)(Performed 04/16/2019) * BLOOD GASES ART COMPLETE [facility] OR(Performed 04/16/2019) Performed for Spondylolisthesis of lumbar region * BLOOD GASES ART COMPLETE [facility] OR(Performed 04/16/2019) Performed for Spondylolisthesis of lumbar region * FUSION POSTERIOR/POSTEROLATERAL LUMBAR (PLF)(Performed 04/16/2019) Performed for Spondylolisthesis of lumbar region, Neurogenic claudication * ARTERIAL LINE NOTE(Performed 04/16/2019) * CENTRAL LINE NOTE(Performed 04/16/2019) * ENDOTRACHEAL TUBE NOTE(Performed 04/16/2019) * PREPARE RBC LEUKOREDUCED UNIT(Performed 04/16/2019) * PREPARE RBC LEUKOREDUCED UNIT(Performed 04/16/2019) Performed for Spondylolisthesis of lumbar region * PREPARE RBC LEUKOREDUCED UNIT(Performed 04/16/2019) Performed for Spondylolisthesis of lumbar region * GLUCOSE - POINT OF CARE(Performed 04/16/2019) * TYPE + SCREEN PANEL(Performed 04/16/2019) Performed for Pre-op evaluation * BASIC METABOLIC PANEL (CALCIUM TOTAL)(Performed 04/16/2019) Performed for Spondylolisthesis of lumbar region * CBC W/O DIFFERENTIAL(Performed 04/16/2019) Performed for Spondylolisthesis of lumbar region * XR SPINE ENTIRE 2 OR 3VW(Performed 04/13/2019) Performed for Lumbar stenosis with neurogenic claudication * XR SPINE ENTIRE 2 OR 3VW(Performed 04/13/2019) Performed for Spondylolisthesis of lumbar region * URINALYSIS W/MICROSCOPIC NO CULTURE(Performed 04/09/2019) Performed for Spondylolisthesis of lumbar region, Spinal stenosis of lumbar region with neurogenic claudication * CULTURE URINE(Performed 04/09/2019) Performed for Spondylolisthesis of lumbar region, Spinal stenosis of lumbar region with neurogenic claudication * DIFFERENTIAL MANUAL(Performed 04/09/2019) Performed for Spondylolisthesis of lumbar region, Spinal stenosis of lumbar region with neurogenic claudication * COMPREHENSIVE METABOLIC PANEL(Performed 04/09/2019) Performed for Spondylolisthesis of lumbar region, Spinal stenosis of lumbar region with neurogenic claudication * CBC W AUTO DIFFERENTIAL(Performed 04/09/2019) Performed for Spondylolisthesis of lumbar region, Spinal stenosis of lumbar region with neurogenic claudication * PT-INR [facility](Performed 04/09/2019) Performed for Spondylolisthesis of lumbar region, Spinal stenosis of lumbar region with neurogenic claudication * PTT [facility](Performed 04/09/2019) Performed for Spondylolisthesis of lumbar region, Spinal stenosis of lumbar region with neurogenic claudication * HEMOGLOBIN A1C(Performed 04/09/2019) Performed for Lumbar radiculopathy, Spinal stenosis of lumbar region with neurogenic claudication * TYPE + SCREEN PANEL(Performed 04/09/2019) Performed for Spondylolisthesis of lumbar region, Spinal stenosis of lumbar region with neurogenic claudication * XR LUMBAR SPINE 2 OR 3VW(Performed 04/09/2019) Performed for Low back pain, unspecified back pain laterality, unspecified chronicity, with sciatica presence unspecified * XR CHEST 1VW(Performed 04/09/2019) Performed for Spondylolisthesis of lumbar region, Spinal stenosis of lumbar region with neurogenic claudication * LAB RESULTS ORDER(Performed 03/30/2019) * IMAGING/RADIOLOGY/XRAY RESULTS ORDER(Performed 03/30/2019) * CT LUMBAR SPINE WO CONTRAST(Performed 03/18/2019) Performed for Spondylolisthesis of lumbar region, Spinal stenosis of lumbar region with neurogenic claudication * NM MYOCARD PERF REST STRESS(Performed 02/13/2019) Performed for Lumbar radiculopathy, Spinal stenosis of lumbar region with neurogenic claudication * STRESS TEST LEXISCAN (NUCLEAR)(Performed 02/13/2019) Performed for Preoperative examination * DEXA BONE DENSITY AXIAL SKELETON(Performed 02/11/2019) Performed for Lumbar radiculopathy, Spinal stenosis of lumbar region with neurogenic claudication * ALT(Performed 01/31/2019) Performed for Pure hypercholesterolemia * LIPID PROFILE(Performed 01/31/2019) Performed for Pure hypercholesterolemia * XR PELVIS W RIGHT HIP 2VW(Performed 11/17/2018) Performed for Pain of right hip joint * XR SPINE ENTIRE 2 OR 3VW(Performed 11/14/2018) Performed for Low back pain, unspecified back pain laterality, unspecified chronicity, with sciatica presence unspecified * XR PELVIS W RIGHT HIP 2VW(Performed 10/13/2018) Performed for Post-operative state * CARDIAC RHYTHM STRIP ORDER(Performed 09/22/2018) * APHERESIS/TRANSFUSION ORDER(Performed 09/22/2018) * GLUCOSE - POINT OF CARE(Performed 09/19/2018) * GLUCOSE - POINT OF CARE(Performed 09/19/2018) * GLUCOSE - POINT OF CARE(Performed 09/18/2018) * GLUCOSE - POINT OF CARE(Performed 09/18/2018) * GLUCOSE - POINT OF CARE(Performed 09/18/2018) * GLUCOSE - POINT OF CARE(Performed 09/18/2018) * BASIC METABOLIC PANEL (CALCIUM TOTAL)(Performed 09/18/2018) * HGB HCT PANEL(Performed 09/18/2018) * GLUCOSE - POINT OF CARE(Performed 09/17/2018) * GLUCOSE - POINT OF CARE(Performed 09/17/2018) * GLUCOSE - POINT OF CARE(Performed 09/17/2018) * GLUCOSE - POINT OF CARE(Performed 09/17/2018) * HGB HCT PANEL(Performed 09/17/2018) * GLUCOSE - POINT OF CARE(Performed 09/16/2018) * GLUCOSE - POINT OF CARE(Performed 09/16/2018) * GLUCOSE - POINT OF CARE(Performed 09/16/2018) * FL HARIS SURGERY(Performed 09/16/2018) Performed for Right hip pain * ENDOTRACHEAL TUBE NOTE(Performed 09/16/2018) * ARTHROPLASTY TOTAL HIP (ANTERIOR)(Performed 09/16/2018) Performed for Diagnosis unknown * GLUCOSE - POINT OF CARE(Performed 09/16/2018) * BLOOD TYPE VERIFICATION(Performed 09/16/2018) * URINE MICROSCOPIC ONLY REFLEX TO CULTURE(Performed 09/15/2018) Performed for Positive urine culture * URINALYSIS REFLEX MICROSCOPIC REFLEX CULTURE(Performed 09/15/2018) Performed for Positive urine culture * TYPE + SCREEN PANEL(Performed 09/08/2018) Performed for Pre-op testing * URINE MICROSCOPIC ONLY REFLEX TO CULTURE(Performed 09/08/2018) Performed for Pre-op testing * HEMOGLOBIN A1C(Performed 09/08/2018) Performed for Pre-op testing * URINALYSIS REFLEX MICROSCOPIC REFLEX CULTURE(Performed 09/08/2018) Performed for Pre-op testing * URINE DRUG SCREEN IMMUNOASSAY(Performed 09/08/2018) Performed for Pre-op testing * TRANSFERRIN(Performed 09/08/2018) Performed for Pre-op testing * COMPREHENSIVE METABOLIC PANEL(Performed 09/08/2018) Performed for Pre-op testing * CBC W AUTO DIFFERENTIAL(Performed 09/08/2018) Performed for Pre-op testing * CULTURE URINE(Performed 09/08/2018) Performed for Pre-op testing * CULTURE MSSA/MRSA(Performed 09/08/2018) Performed for Pre-op testing * XR PELVIS W BILAT HIP 2VW(Performed 08/18/2018) Performed for Pain of right hip joint * XR SPINE ENTIRE 2 OR 3VW(Performed 08/15/2018) Performed for Chronic midline low back pain, with sciatica presence unspecified * CARDIAC RHYTHM STRIP ORDER(Performed 06/10/2018) * PATHOLOGY TISSUE EXAM (STL)(Performed 06/09/2018) Performed for Screen for colon cancer * ENDOSCOPY, COLON, SCREENING(Performed 06/09/2018) * COLONOSCOPY WITH REMOVAL TUMOR, POLYP BY HOT FORCEPS OR CAUTERY(Performed 06/09/2018) Performed for Z86.01 * COLONOSCOPY SCREEN(Performed 06/09/2018) Performed for Z86.01 * GLUCOSE - POINT OF CARE(Performed 06/09/2018) * MAMMO BILAT SCREENING(Performed 2018) Performed for Visit for screening mammogram * HEMOGLOBIN A1C(Performed 2018) Performed for Type 2 diabetes mellitus without complication, without long-term current use of insulin (HCC) * LIPID PROFILE(Performed 2018) Performed for Type 2 diabetes mellitus without complication, without long-term current use of insulin (HCC) * PATHOLOGY TISSUE EXAM (STL)(Performed 05/28/2018) Performed for Accident, initial encounter * HM DIABETES EYE EXAM(Performed 01/25/2018) * MICROALB/CREAT RATIO URINE RANDOM PANEL(Performed 01/01/2018) Performed for Type 2 diabetes mellitus without complication, without long-term current use of insulin (HCC) * REF LAB-PLEASE NOTE(Performed 01/01/2018) * T4 FREE(Performed 01/01/2018) * COMPREHENSIVE METABOLIC PANEL(Performed 01/01/2018) Performed for Routine general medical examination at a health care facility * HEMOGLOBIN A1C(Performed 01/01/2018) Performed for Type 2 diabetes mellitus without complication, without long-term current use of insulin (HCC) * TSH(Performed 01/01/2018) Performed for Routine general medical examination at a health care facility * LIPID PROFILE(Performed 01/01/2018) Performed for Routine general medical examination at a health care facility * CBC W/O DIFFERENTIAL(Performed 01/01/2018) Performed for Routine general medical examination at a health care facility * XR LUMBAR SPINE 2 OR 3VW(Performed 07/03/2017) Performed for Right hip pain * XR HIP RIGHT 2VW OR MORE(Performed 07/03/2017) Performed for Right hip pain * MICROALB/CREAT RATIO URINE RANDOM PANEL(Performed 01/09/2017) Performed for Type 2 diabetes mellitus without complication, without long-term current use of insulin (HCC) * COMPREHENSIVE METABOLIC PANEL(Performed 01/09/2017) Performed for Type 2 diabetes mellitus without complication, without long-term current use of insulin (HCC) * HEMOGLOBIN A1C(Performed 01/09/2017) Performed for Type 2 diabetes mellitus without complication, without long-term current use of insulin (HCC) * LIPID PROFILE(Performed 01/09/2017) Performed for Type 2 diabetes mellitus without complication, without long-term current use of insulin (HCC) * CBC W/O DIFFERENTIAL(Performed 01/09/2017) Performed for Type 2 diabetes mellitus without complication, without long-term current use of insulin (HCC) * HEPATITIS C ANTIBODY(Performed 01/09/2017) Performed for Need for hepatitis C screening test * HEMOGLOBIN A1C(Performed 08/27/2016) Performed for Type 2 diabetes mellitus without complication, without long-term current use of insulin ([facility]) * MICROALB/CREAT RATIO URINE RANDOM PANEL(Performed 08/27/2016) Performed for Type 2 diabetes mellitus without complication, without long-term current use of insulin ([facility]) * PFT CARDIOPULMONARY EXERCISE TEST-CPET(Performed 07/18/2016) * MAMMO BILAT SCREENING(Performed 04/27/2016) Performed for Visit for screening mammogram * REF LAB-PLEASE NOTE(Performed 04/17/2016) * HEMOGLOBIN A1C(Performed 04/17/2016) * VITAMIN D 25-HYDROXY(Performed 04/17/2016) Performed for Essential hypertension, benign * TSH(Performed 04/17/2016) Performed for Essential hypertension, benign * LIPID PROFILE(Performed 04/17/2016) Performed for Essential hypertension, benign * CBC W/O DIFFERENTIAL(Performed 04/17/2016) Performed for Essential hypertension, benign * COMPREHENSIVE METABOLIC PANEL(Performed 04/17/2016) Performed for Essential hypertension, benign * IMAGING/RADIOLOGY/XRAY RESULTS ORDER(Performed 11/21/2015) * ECHOCARDIOGRAM 2D WITH DOPPLER(Performed 09/06/2015) Performed for GORDON (dyspnea on exertion) * COMPLETE PFT W/WO BRONCHODILATOR(Performed 08/04/2015) Performed for SOB (shortness of breath) * NM MYOCARD PERF REST STRESS(Performed 07/20/2015) Performed for SOB (shortness of breath) * LIPID PROFILE(Performed 07/12/2015) Performed for Lipid screening * VITAMIN D 25-HYDROXY(Performed 07/12/2015) Performed for Vitamin D deficiency disease * COMPREHENSIVE METABOLIC PANEL(Performed 07/12/2015) Performed for Essential hypertension, benign * CBC W AUTO DIFFERENTIAL(Performed 07/12/2015) Performed for Essential hypertension, benign * T4 FREE(Performed 07/12/2015) Performed for Thyroid disorder screening * TSH(Performed 07/12/2015) Performed for Thyroid disorder screening * EKG 12-LEAD(Performed 07/12/2015) Performed for SOB (shortness of breath) * XR HIP LEFT 2VW OR MORE(Performed 07/06/2014) Performed for Hip pain, acute, left * XR LUMBAR SPINE 2 OR 3VW(Performed 05/23/2014) * T4 FREE(Performed 01/04/2014) Performed for Nonspecific abnormal results of thyroid function study * TSH(Performed 01/04/2014) Performed for Nonspecific abnormal results of thyroid function study * LAB RESULTS ORDER(Performed 11/30/2013) * VITAMIN D 25-HYDROXY(Performed 07/01/2013) Performed for Essential Hypertension, Benign * TSH(Performed 07/01/2013) Performed for Depressive Disorder, Not Elsewhere Classified * LIPID PROFILE(Performed 07/01/2013) Performed for Essential Hypertension, Benign * CBC W/O DIFFERENTIAL(Performed 07/01/2013) Performed for Essential Hypertension, Benign * COMPREHENSIVE METABOLIC PANEL(Performed 07/01/2013) Performed for Essential Hypertension, Benign * T4 FREE(Performed 05/26/2012) * VITAMIN B12(Performed 05/26/2012) Performed for Fatigue * VITAMIN D 25-HYDROXY(Performed 05/26/2012) Performed for Osteoarth NOS-Unspec * TSH(Performed 05/26/2012) Performed for Fatigue * LIPID PROFILE(Performed 05/26/2012) Performed for Essential hypertension, benign * CBC W/O DIFFERENTIAL(Performed 05/26/2012) Performed for Essential hypertension, benign * COMPREHENSIVE METABOLIC PANEL(Performed 05/26/2012) Performed for Essential hypertension, benign * ENDOSCOPY, COLON, SCREENING(Performed 12/10/2011) * GROSS + MICRO EXAM(Performed 12/10/2011) * GROSS + MICRO EXAM(Performed 12/10/2011) * C DIFFICILE TOXIN A+B(Performed 12/10/2011) * O+P PANEL(Performed 12/10/2011) * CULTURE STOOL PANEL(Performed 12/10/2011) * O+P PANEL(Performed 11/28/2011) * O+P PANEL(Performed 11/28/2011) Performed for Diarrhea * WBC SMEAR(Performed 11/28/2011) Performed for Diarrhea * CULTURE STOOL PANEL(Performed 11/28/2011) Performed for Diarrhea * C DIFFICILE TOXIN A+B(Performed 11/28/2011) Performed for Diarrhea * ECHOCARDIOGRAM 2D WITH DOPPLER(Performed 09/10/2011) Performed for Acute myocardial infarction, unspecified site, episode of care unspecified (HCC) * STRESS TEST LEXISCAN (NUCLEAR)(Performed 05/16/2011) * STRESS TEST LEXISCAN (NUCLEAR)(Performed 05/16/2011) * XR CHEST 1VW PORTABLE(Performed 05/14/2011) * CT ABDOMEN PELVIS WO CONTRAST(Performed 05/14/2011) * VITAMIN D 25-HYDROXY(Performed 04/23/2011) Performed for Essential hypertension, benign * TSH(Performed 04/23/2011) Performed for Essential hypertension, benign * LIPID PROFILE(Performed 04/23/2011) Performed for Essential hypertension, benign * CBC W/O DIFFERENTIAL(Performed 04/23/2011) Performed for Essential hypertension, benign * COMPREHENSIVE METABOLIC PANEL(Performed 04/23/2011) Performed for Essential hypertension, benign * VITAMIN D 25-HYDROXY(Performed 06/13/2010) Performed for Essential hypertension, benign * TSH(Performed 06/13/2010) Performed for Essential hypertension, benign * LIPID PROFILE(Performed 06/13/2010) Performed for Essential hypertension, benign * CBC W/O DIFFERENTIAL(Performed 06/13/2010) Performed for Essential hypertension, benign * COMPREHENSIVE METABOLIC PANEL(Performed 06/13/2010) Performed for Essential hypertension, benign Results * HEMOGLOBIN A1C - POINT OF CARE (HgbA1C) (06/16/2024 1:25 PM EXTENSION PROFESSOR) Only the most recent of3 resultswithin the time period is included. Hemoglobin A1c POCT 5.5 % [facility] Expiration Date 02/19/[address] [facility] Lot # [id number] [facility] QC Verified Yes Yes [facility] Blood BLOOD SPECIMEN / Unknown 06/16/2024 1:25 PM EXTENSION PROFESSOR Ra Hutton MD LAB - POINT OF CARE ORDERABLES [facility] [address] [phone] * TSH HI LOW REFLEX FREE T4 (02/12/2023 3:18 PM CDT) Only the most recent of3 resultswithin the time period is included. TSH 2.470 0.450 - 4.500 uIU/mL [facility] INSURANCE BILL Blood BLOOD SPECIMEN / Unknown 02/12/2023 3:18 PM CDT 02/12/2023 Narrative Resulting Agency Comment Lab Testing performed at: [facility] [phone] José Miguel Morgan MD LAB - CHEMISTRY TABATHA BAUTISTA Performing Organization Address City/[facility]/ZIP Co de Phone Number [facility] INSURANCE BILL [address] [place] [address] * MICROALB/CREAT RATIO URINE RANDOM PANEL (02/12/2023 3:18 PM CDT) Only the most recent of6 resultswithin the time period is included. Creatinine Urine 93.1 Not Estab. mg/dL [facility] [...] Resulting Agency Comment Lab Testing performed at: [facility] [address] [phone] José Miguel Morgan MD LAB - URINE CHEMISTR Y ORDERABLES Performing Organization Address [facility] Co de Phone Number [facility] INSURANCE BILL [address] [place] [address] * (ABNORMAL) HEMOGLOBIN A1C (02/12/2023 3:18 PM CDT) Only the most recent of11 resultswithin the time period is included. Hemoglobin A1c 6.0(H) 4.8 - 5.6 % [facility] INSURANCE BILL Comment: . Prediabetes: 5.7 - 6.4 Diabetes: >6.4 Glycemic control for adults with diabetes: <7.0 Blood BLOOD SPECIMEN / Unknown 02/12/2023 3:18 PM CDT 02/12/2023 Narrative Resulting Agency Comment Lab Testing performed at: [facility] [address] [phone] José Miguel Morgan MD LAB - CHEMISTRY TABATHA BAUTISTA Performing Organization Address City/[facility]/ZIP Co de Phone Number [facility] INSURANCE BILL [address] [place] [address] * (ABNORMAL) CBC WITH DIFFERENTIAL (02/12/2023 3:18 PM CDT) Only the most recent of12 resultswithin the time period is included. WBC 9.6 3.4 - 10.8 x10E3/uL [facility] INSURANCE BILL RBC 4.48 3.77 - 5.28 x10E6/uL [facility] INSURANCE BILL Hemoglobin 12.9 11.1 - 15.9 g/dL [facility] INSURANCE BILL Hematocrit 38.6 34.0 - 46.6 % [facility] INSURANCE BILL MCV 86 79 - 97 fL [facility] INSURANCE BILL MCH 28.8 26.6 - 33.0 pg [facility] INSURANCE BILL MCHC 33.4 31.5 - 35.7 g/dL [facility] INSURANCE BILL RDW 12.8 11.7 - 15.4 % [facility] INSURANCE BILL Platelet Count 402 150 - 450 x10E3/uL [facility] INSURANCE BILL Granulocytes % 75 Not Estab. % [facility] INSURANCE BILL Lymphocytes % 18 Not Estab. % [facility] INSURANCE BILL Monocytes % 6 Not Estab. % [facility] INSURANCE BILL Eosinophils % 0 Not Estab. % [facility] INSURANCE BILL Basophils % 1 Not Estab. % [facility] INSURANCE BILL Immature Cells NOT AVAILABLE [facility] INSURANCE BILL Comment:Result cannot be obt ained for this observation. Granulocytes Absolute 7.2(H) 1.4 - 7.0 x10E3/uL [facility] INSURANCE BILL Lymphocytes Absolute 1.7 0.7 - 3.1 x10E3/uL [facility] INSURANCE BILL Monocytes Absolute 0.6 0.1 - 0.9 x10E3/uL [facility] INSURANCE BILL Eosinophils Absolute 0.0 0.0 - 0.4 x10E3/uL [facility] INSURANCE BILL Basophils Absolute 0.1 0.0 - 0.2 x10E3/uL [facility] INSURANCE BILL Immature Granulocytes 0 Not Estab. % [facility] INSURANCE BILL Immature Granulocytes Absolute 0.0 0.0 - 0.1 x10E3/uL [facility] INSURANCE BILL nRBC NOT AVAILABLE [facility] INSURANCE BILL Comment:Result cannot be obt ained for this observation. Comment Hematology NOT AVAILABLE [facility] INSURANCE BILL Comment:Result cannot be obt ained for this observation. Blood BLOOD SPECIMEN / Unknown 02/12/2023 3:18 PM CDT 02/12/2023 Narrative Resulting Agency Comment [facility]: [facility] [address] [phone] José Miguel Morgan MD LAB - HEMATOLOGY ORD ERABLES [facility] INSURANCE BILL [address] [place] [address] * (ABNORMAL) COMPREHENSIVE METABOLIC PANEL (02/12/2023 3:18 PM CDT) Only the most recent of20 resultswithin the time period is included. Glucose 125(H) 70 - 99 mg/dL [facility] [...] Resulting Agency Comment Lab Testing performed at: [facility] [address] [phone] José Miguel Morgan MD LAB - CHEMISTRY TABATHA BAUTISTA Performing Organization Address City/[facility]/ZIP Co de Phone Number [facility] INSURANCE BILL [address] [place] [address] * (ABNORMAL) LIPID PROFILE (02/12/2023 3:18 PM CDT) Only the most recent of13 resultswithin the time period is included. Cholesterol 160 100 - 199 mg/dL [facility] INSURANCE BILL Triglycerides 191(H) 0 - 149 mg/dL [facility] INSURANCE BILL HDL Cholesterol 55 >39 mg/dL [facility] INSURANCE BILL VLDL Calculated 32 5 - 40 mg/dL [facility] INSURANCE BILL LDL Calculated 73 0 - 99 mg/dL [facility] INSURANCE BILL Comment NOT AVAILABLE [facility] INSURANCE BILL Comment:Result cannot be obt ained for this observation. Blood BLOOD SPECIMEN / Unknown 02/12/2023 3:18 PM CDT 02/12/2023 Narrative Resulting Agency Comment Lab Testing performed at: [facility] [address] [phone] José Miguel Morgan MD LAB - CHEMISTRY TABATHA BAUTISTA Performing Organization Address City/[facility] Co de Phone Number [facility] INSURANCE BILL [address] [place] [address] * EYE EXAM (05/19/2022) Anatomical Region Laterality Modality Other 05/19/2022 Narrative 05/19/2022 Ordered by an unspecified provider. Scanned Document SCANNING ONLY * XR SPINE ENTIRE 2 OR 3VW (11/24/2021 8:42 AM CDT) Only the most recent of14 resultswithin the time period is included. Anatomical Region Laterality Modality Spine Radiographic Dominga ging 11/24/2021 8:58 AM CDT Impressions 11/24/2021 9:31 AM CDT IMPRESSION: 1. Instrumented spinal fusion from T3 to the iliac bones, unchanged. Report dictated by Yunier Amado DO (radiology tech) I, Dr. ROGELIO ESTRADA MD have personally reviewed and interpreted this examination/study. This report was electronically signed by ROGELIO ESTRADA MD on 11/24/2021 9:31 AM . Narrative 11/24/2021 9:31 AM CDT Exam: XR SPINE ENTIRE 2 OR 3VW History: Z98.1: S/P spinal fusion Comparison: 11/07/2020, 08/19/2019, 07/20/2019, 06/24/2019 entire spine radiographs. Findings: Image quality is degraded due to body habitus. Posterior instrumented spinal fusion is again demonstrated extending from T3 to the sacrum and iliac bones. Supplementary rods are present in the lumbar region due to fractures of the original rods at the level of L5. An interbody device is present at L5-S1. There is grade 1 anterolisthesis at L4-5 and 2 anterolisthesis at L5-S1. There is sagittal plane imbalance with C7 positioned anteriorly relative to S1. Bilateral shoulder and right hip arthroplasty. Procedure Note Rogelio Estrada MD - 11/24/2021 Exam: XR SPINE ENTIRE 2 OR 3VW History: Z98.1: S/P spinal fusion Comparison: 11/07/2020, 08/19/2019, 07/20/2019, 06/24/2019 entire spine radiographs. Findings: Image quality is degraded due to body habitus. Posterior instrumented spinal fusion is again demonstrated extending from T3 to the sacrum and iliac bones. Supplementary rods are present in the lumbar region due to fractures of the original rods at the level of L5. An interbody deviceis present at L5-S1. There is grade 1 anterolisthesis at L4-5 and 2 anterolisthesis at L5-S1. There is sagittal plane imbalance with C7 positioned anteriorly relative to S1. Bilateral shoulder and right hip arthroplasty. IMPRESSION: 1. Instrumented spinal fusion from T3 to the iliac bones, unchanged. Report dictated by Yunier Amado DO (radiology tech) IDr. ROGELIO MD have personally reviewed and interpreted this examination/study. This report was electronically signed by ROGELIO ESTRADA MD on11/24/2021 9:31 AM . Toney Brennan MD DIAGNOSTIC IMAGING O RDERABLES * XR LUMBAR SPINE 2 OR 3VW (07/14/2020 2:54 PM EXTENSION PROFESSOR) Only the most recent of9 resultswithin the time period is included. Anatomical Region Laterality Modality Spine Radiographic Dominga ging 07/14/2020 3:08 PM EXTENSION PROFESSOR Impressions 07/14/2020 8:46 PM EXTENSION PROFESSOR FINDINGS/IMPRESSION: The posterior lumbosacral fusion posterior listhesis is intact without complications. The thoracolumbar and right hip prostheses are partially imaged. There is grade 1 anterolisthesis of L4 over L5 and L5 over S1. There is no significant interval change in the position of intervertebral disc device at L5-S1 and compared to prior spine radiograph dated 01/27/2020. There is no acute fracture. There is multilevel mild to moderate intervertebral disc disease, most prominent at L1-L2. There is mild sclerotic changes at bilateral sacroiliac joints. Dictated by Donald Louie MD (radiology tech). I, Dr. JESSICA JARRETT have personally reviewed and interpreted this examination/study. This report was electronically signed by JESSICA JARRETT on 07/14/2020 8:46 PM . Narrative 07/14/2020 8:46 PM EXTENSION PROFESSOR EXAMINATION: XR LUMBAR SPINE 2 OR 3VW HISTORY: M54.5: Acute midline low back pain without sciatica COMPARISON: Lumbar spine radiograph dated 12/21/2019 and entire spine radiograph dated 01/27/2020 Procedure Note Jessica Jarrett MD - 07/14/2020 EXAMINATION: XR LUMBAR SPINE 2 OR 3VW HISTORY: M54.5: Acute midline low back pain without sciatica COMPARISON: Lumbar spine radiograph dated 12/21/2019 and entire spine radiograph dated 01/27/2020 FINDINGS/IMPRESSION: The posterior lumbosacral fusion posterior listhesis is intact without complications. The thoracolumbar and right hip prostheses are partially imaged. There is grade 1 anterolisthesis of L4 over L5 and L5 over S1. There is no significant interval change in the position ofintervertebral disc device at L5-S1 and compared to prior spine radiograph dated 01/27/2020. There is no acute fracture. There is multilevel mild to moderate intervertebral disc disease, most prominent at L1-L2. There is mild sclerotic changes at bilateral sacroiliac joints. Dictated by Donald Louie MD (radiology tech). I, Dr. JESSICA JARRETT have personally reviewed and interpreted this examination/study. This report was electronically signed by JESSICA JARRETT on 07/14/2020 8:46 PM . Rosalie Kramer MD DIAGNOSTIC IMAGING O RDERABLES * SLIDE SCAN HEMATOLOGY (06/22/2020 12:29 PM EXTENSION PROFESSOR) Slide Review [facility] ACCOUNT BILL Comment: PLT EST BLOOD (SSM) Normal REFERENCE RANGE: Normal, Adequate platelets CLUMPED PLATELETS (SSM) 1+ None A SLIDE SCAN PERFORMED 06/22/2020 12:2 9 PM EXTENSION PROFESSOR 06/22/2020 Narrative Resulting Agency Comment Lab Testing performed at: [address] [phone] José Miguel Morgan MD LAB - HEMATOLOGY ORD ERABLES Performing Organization Address City/[facility]/ZIP Co de Phone Number [facility] ACCOUNT BILL [address] [place] [address] * VITAMIN D 25-HYDROXY (06/22/2020 12:27 PM EXTENSION PROFESSOR) Only the most recent of7 resultswithin the time period is included. Vitamin D, 25 Hydroxy 43.0 30 - 100 ng/mL [facility] ACCOUNT BILL Comment: Vitamin D Status: Deficiency <20 ng/mL Insufficiency 20-30 ng/mL Sufficiency 30-100 ng/mL Toxicity >100 ng/mL Blood BLOOD SPECIMEN / Unknown 06/22/2020 12:27 PM EXTENSION PROFESSOR 06/22/2020 Narrative Resulting Agency Comment Lab Testing performed at: [address] [phone] José Miguel Morgan MD LAB - CHEMISTRY ORDE RABJUSTIN Performing Organization Address City/[facility]/ZIP Co de Phone Number [facility] ACCOUNT BILL [address] [place] [address] * CT ABDOMEN AND PELVIS NON IV CONTRAST (04/12/2020 12:09 PM CDT) Only the most recent of2 resultswithin the time period is included. Anatomical Region Laterality Modality Abdomen, Pelvis Computed Tomogra phy 04/12/2020 12:2 9 PM CDT Impressions 04/12/2020 1:04 PM CDT Negative for mass or fluid collection. Groundglass opacification in lung bases. No distinct abdominal wall hernia identified. Edited by Faby Bearden on 04/12/2020 12:44 PM *Reading Radiologist: Syed Mchugh on 04/12/2020 at 1:04 PM Narrative 04/12/2020 1:[address] ABDOMEN AND PELVIS WITHOUT CONTRAST. HISTORY: Bulge left abdomen, assess for hernia, abdominal pain. Images are provided from above the diaphragm to the pubic symphysis after oral contrast. No intravenous contrast is utilized. The lung bases show some faint groundglass opacification in both lungs, as could be seen in viral pneumonia. There is no pleural or pericardial effusion. No focal abnormality is seen in the liver, spleen or pancreas. Gallbladder is not identified. Adrenals and kidneys are unremarkable. There is no retroperitoneal adenopathy or ascites or free intraperitoneal air. Urinary bladder is nearly empty. Uterus and adnexa are unremarkable. Artifact from spine stabilization obscures detail in the abdomen and pelvis. I do not see a distinct abdominal wall hernia. There is a midline abdominal scar present. Procedure Note Syed Mchugh MD - 04/12/2020 CT ABDOMEN AND PELVIS WITHOUT CONTRAST. HISTORY: Bulge left abdomen, assess for hernia, abdominal pain. Images are provided from above the diaphragm to the pubic symphysis after oral contrast. No intravenous contrast is utilized. The lung bases show some faint groundglass opacification in both lungs, as could be seen in viral pneumonia. There is no pleural or pericardial effusion. No focal abnormality is seen in the liver, spleen or pancreas. Gallbladder is not identified. Adrenals and kidneys are unremarkable. There is no retroperitoneal adenopathy or ascites or free intraperitoneal air. Urinary bladder is nearly empty. Uterus and adnexa are unremarkable. Artifact from spine stabilization obscures detail in the abdomen and pelvis. I do not see a distinct abdominal wall hernia. There is a midline abdominal scar present. IMPRESSION Negative for mass or fluid collection. Groundglass opacification in lung bases. No distinct abdominal wall hernia identified. Edited by Faby Bearden on 04/12/2020 12:44 PM *Reading Radiologist: Syed Mchugh on 04/12/2020 at 1:04 PM [address]y Hammer MD CT ORDERABLES * XR SKULL TO ANKLE LYLY (03/30/2020 1:34 PM CDT) Anatomical Region Laterality Modality Radiographic Dominga ging 03/31/2020 9:57 AM CDT Impressions 03/31/2020 9:59 AM CDT Impression: 1. No substantial change in revised posterior instrumented spinal fusion from T3 to the sacrum with unchanged moderate anterior sagittal imbalance. This report was electronically signed by JESSICA JARRETT on 03/31/2020 9:59 AM . Narrative 03/31/2020 9:59 AM CDT Examination: XR SKULL TO ANKLE LYLY History:Back pain Findings: AP and lateral views of entire spine are performed with comparison to 01/27/2020. There has been no substantial change in revised posterior spinal instrumented fusion extending from T3 to the sacrum with bilateral iliac wing screws. 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 There is moderate anterior sagittal imbalance and mild rightward coronal imbalance. There is right inferior pelvic tilt. There is no periprosthetic lucency or fracture. Procedure Note Jessica Jarrett MD - 03/31/2020 Examination: XR SKULL TO ANKLE LYLY History:Back pain Findings: AP and lateral views of entire spine are performed with comparison to 01/27/2020. There has been no substantial change in revised posterior spinal instrumented fusion extending from T3 to the sacrum with bilateral iliac wing screws. 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 There is moderate anterior sagittal imbalance and mild rightward coronal imbalance. There is right inferior pelvic tilt. There is no periprosthetic lucency or fracture. Impression: 1. No substantial change in revised posterior instrumented spinal fusion from T3 to the sacrum with unchanged moderate anterior sagittalimbalance. This report was electronically signed by JESSICA JARRETT on 03/31/2020 9:59AM . Hung Harvey MD DIAGNOSTIC IMAGING O RDERABLES * US ABDOMEN LIMITED (03/24/2020 10:04 AM CDT) Anatomical Region Laterality Modality Abdomen Ultrasound 03/24/2020 10:1 8 AM CDT Impressions 03/24/2020 10:22 AM CDT 1. No identifiable mass or fluid collection. 2. Fatty hernias are difficult to differentiate from normal subcutaneous fat on ultrasound. CT can provide more detail if clinically indicated. *Reading Radiologist: Rosita Lane on 03/24/2020 at 10:22 AM Narrative 03/24/2020 10:22 AM CDT Abdominal ultrasound, limited DATE: 03/24/2020. INDICATION: Enlarging mid abdominal mass, history of several abdominoplasties COMPARISONS: None. FINDINGS: Sonography was performed of the mid abdominal wall in the area of the patient's symptoms. There is no identifiable mass, cyst or fluid collection. Fatty tissues noted in the area of the patient's symptoms. Procedure Note Rosita Lane MD - 03/24/2020 Abdominal ultrasound, limited DATE: 03/24/2020. INDICATION: Enlarging mid abdominal mass, history of several abdominoplasties COMPARISONS: None. FINDINGS: Sonography was performed of the mid abdominal wall in the area of the patient's symptoms. There is no identifiable mass, cyst or fluid collection. Fatty tissues noted in the area of the patient's symptoms. IMPRESSION 1. No identifiable mass or fluid collection. 2. Fatty hernias are difficult to differentiate from normal subcutaneous fat on ultrasound. CT can provide more detail if clinically indicated. *Reading Radiologist: Rosita Lane on 03/24/2020 at 10:22 AM Cami Owen NETWORK DEVELOPER-STENOTYPE MACHINE OPERATOR US ORDERABLES * CARDIAC EKG ORDER (03/19/2020 3:31 PM CDT) Only the most recent of8 resultswithin the time period is included. Narrative 03/19/2020 3:31 PM CDT Ordered by an unspecified provider. Scanned Document CARDIAC SERVICES ORD ERABLES * EYE EXAM (02/10/2020) Anatomical Region Laterality Modality Other 02/10/2020 Narrative 02/10/2020 Ordered by an unspecified provider. Scanned Document SCANNING ONLY * APHERESIS/TRANSFUSION ORDER (01/09/2020 11:45 AM CDT) Only the most recent of2 resultswithin the time period is included. Narrative 01/09/2020 11:45 AM CDT Ordered by an unspecified provider. Scanned Document NURSING - VITAL SIGN S AND ASSESSMENT * (ABNORMAL) CBC W/O DIFFERENTIAL (01/07/2020 11:17 AM CDT) Only the most recent of68 resultswithin the time period is included. WBC 7.9 3.5 - 10.5 10 3/uL 01/07/2020 12:15 PM [facility] RBC 2.99(L) 3.90 - 5.00 10 6/uL 01/07/2020 12:15 PM [facility] Hemoglobin 7.9(L) 12.0 - 15.5 g/dL 01/07/2020 12:15 PM [facility] Hematocrit 25.6(L) 35.0 - 45.0 % 01/07/2020 12:15 PM [facility] MCV 85.6 81.0 - 97.0 fL 01/07/2020 12:15 PM [facility] MCH 26.4(L) 28.0 - 34.0 pg 01/07/2020 12:15 PM [facility] MCHC 30.9(L) 32.0 - 36.0 g/dL 01/07/2020 12:15 PM [facility] Platelet Count 579(H) 150 - 400 10 3/uL 01/07/2020 12:15 PM [facility] RDW-SD 48.9 36.0 - 50.0 fL 01/07/2020 12:15 PM [facility] RDW-CV 15.7(H) 11.2 - 14.8 % 01/07/2020 12:15 PM [facility] MPV 8.2(L) 9.3 - 12.8 fL 01/07/2020 12:15 PM [facility] nRBC Absolute 0.00 0 10 3/uL 01/07/2020 12:15 PM [facility] nRBC Auto 0.0 0 /100 WBC 01/07/2020 12:15 PM [facility] Comment:Confirmed by repeat analysis. Blood BLOOD SPECIMEN / Unknown Lab Venipuncture / Unknown 01/07/2020 11:17 AM CDT 01/07/2020 12:02 PM CDT Tristan Martínez MD LAB - HEMATOLOGY ORD ERABLES [address] [address], [facility] [phone] * BASIC METABOLIC PANEL (CALCIUM TOTAL) (01/07/2020 11:17 AM CDT) Only the most recent of45 resultswithin the time period is included. BUN 11 7 - 26 mg/dL 01/07/2020 12:25 PM [facility] Creatinine 0.8 0.6 - 1.2 mg/dL 01/07/2020 12:25 PM [facility] Sodium 137 136 - 145 mmol/L 01/07/2020 12:25 PM [facility] Potassium 3.9 3.5 - 4.5 mmol/L 01/07/2020 12:25 PM [facility] Chloride 101 98 - 107 mmol/L 01/07/2020 12:25 PM [facility] CO2 27 22 - 29 mmol/L 01/07/2020 12:25 PM [facility] Glucose 113 70 - 115 mg/dL 01/07/2020 12:25 PM [facility] Calcium 8.8 8.4 - 10.2 mg/dL 01/07/2020 12:25 PM [facility] Anion Gap 13 8 - 18 01/07/2020 12:25 PM [facility] BUN/Creatinine Ratio 14 7 - 23 01/07/2020 12:25 PM [facility] Osmolality Calculated 284 270 - 300 mOsm/kg 01/07/2020 12:25 PM [facility] eGFR >60 >60 mL/min/1.7 3 m2 01/07/2020 12:25 PM [facility] Blood BLOOD SPECIMEN / Unknown Lab Venipuncture / Unknown 01/07/2020 11:17 AM CDT 01/07/2020 12:02 PM CDT Tristan Martínez MD LAB - CHEMISTRY TABATHA Richards Organization Address City/State/ZIP Co de Phone Number [address] [address], [facility] [phone] * XR CHEST 1VW PORTABLE (01/01/2020 5:40 PM CDT) Only the most recent of3 resultswithin the time period is included. Anatomical Region Laterality Modality Chest Radiographic Dominga ging 01/02/2020 10:3 2 AM CDT Impressions 01/03/2020 10:57 AM CDT FINDINGS/IMPRESSION: Right IJ approach CVC terminates in the SVC. Bilateral shoulder prosthesis are partially imaged. Spinal fusion hardware is partially imaged. Surgical sutures overlie the left upper quadrant. Lungs are hypoinflated with resultant bronchovascular crowding. There is no focal consolidation, pleural effusion, or pneumothorax. The cardiomediastinal silhouette is stable. Dictated by Josefa Tubbs MD (resident). I, Dr. KRISTOFER LUCIANO have personally reviewed and interpreted this examination/study. This report was electronically signed by KRISTOFER LUCIANO on 01/03/2020 10:57 AM . Narrative 01/03/2020 10:57 AM CDT ORDER DATE: 01/01/2020 5:41 PM EXAMINATION: XR CHEST 1VW PORTABLE HISTORY: M54.9: Chronic midline back pain, unspecified back location G89.29: Chronic midline back pain, unspecified back location COMPARISON: 05/17/2019. Procedure Note Kristofer Luciano DO - 01/03/2020 ORDER DATE: 01/01/2020 5:41 PM EXAMINATION: XR CHEST 1VW PORTABLE HISTORY: M54.9: Chronic midline back pain, unspecified back location G89.29: Chronic midline back pain, unspecified back location COMPARISON: 05/17/2019. FINDINGS/IMPRESSION: Right IJ approach CVC terminates in the SVC. Bilateral shoulderprosthesis are partially imaged. Spinal fusion hardware is partially imaged.Surgical sutures overlie the left upper quadrant. Lungs are hypoinflated with resultant bronchovascular crowding. There is no focal consolidation, pleural effusion, or pneumothorax. The cardiomediastinal silhouette is stable. Dictated by Josefa Tubbs MD (resident). I, Dr. KRISTOFER LUCIANO have personally reviewed and interpreted this examination/study. This report was electronically signed by KRISTOFER LUCIANO on 01/03/2020 10:57 AM . Raymundo Baron MD DIAGNOSTIC IMAGING ORDERABLES * FL HARIS SURGERY (01/01/2020 4:48 PM CDT) Only the most recent of4 resultswithin the time period is included. Narrative [facility] - 01/01/2020 4:50 PM CDT Fluoroscopy was used for this exam in the OR. Please see the Operative report. Hung Harvey MD FLUOROSCOPY ORDERABL ES [facility] * TRANSFUSE RED BLOOD CELL LEUKOREDUCED UNIT(S) (01/01/2020 3:14 PM CDT) Hung Harvey MD NURSING - BLOOD PROD TRANSFUSION * (ABNORMAL) BLOOD GASES ART COMPLETE [facility] OR (01/01/2020 1:36 PM CDT) Only the most recent of14 resultswithin the time period is included. pH Arterial 7.36 7.35 - 7.45 01/01/2020 1:45 PM CDT [facility] pCO2 Arterial 33(L) 35 - 45 mmHg 01/01/2020 1:45 PM CDT [facility] pO2 Arterial 178(H) 71 - 95 mmHg 01/01/2020 1:45 PM CDT [facility] HCO3 Arterial 18.1(L) 22.0 - 26.0 mmol/L 01/01/2020 1:45 PM CDT [facility] TCO2 Arterial 19.1(L) 25.0 - 29.0 mmol/L 01/01/2020 1:45 PM CDT [facility] Base Excess Arterial -6.6(L) -2.0 - 2.0 mmol/L 01/01/2020 1:45 PM CDT [facility] Hemoglobin Arterial 8.9(L) 12.0 - 15.5 g/dL 01/01/2020 1:45 PM T [facility] Oxyhemoglobin Arterial 96.8 95.0 - 100.0 % 01/01/2020 1:45 PM [facility] Carboxyhemoglobin 0.3 0.0 - 3.0 % 01/01/2020 1:45 PM [facility] Methemoglobin 0.3 0.0 - 2.0 % 01/01/2020 1:45 PM [facility] FI O2 Arterial 46.0 % 01/01/2020 1:45 PM [facility] Ionized Calcium Whole Blood 1.15 mmol/L 01/01/2020 1:45 PM [facility] Adjusted Ionized Calcium 1.13(L) 1.19 - 1.34 mmol/L 01/01/2020 1:45 PM [facility] Sodium Whole Blood 130(L) 135 - 145 mmol/L 01/01/2020 1:45 PM [facility] Potassium Whole Blood 4.4 3.5 - 5.5 mmol/L 01/01/2020 1:45 PM [facility] Chloride Whole Blood 97(L) 101 - 111 mmol/L 01/01/2020 1:45 PM [facility] Glucose Whole Blood 164(H) 70 - 110 mg/dL 01/01/2020 1:45 PM [facility] Lactic Acid Whole Blood 1.4 0.5 - 3.4 mmol/L 01/01/2020 1:45 PM [facility] Blood ARTERIAL BLOOD SPECIMEN / Unknown Venipuncture / Unknown 01/01/2020 1:36 PM CDT 01/01/2020 1:40 PM CDT Ric Bansal MD LAB - BLOOD GASES OR DERABLES [address] [address] [place] [phone] * CULTURE FLUID+GRAM STAIN (01/01/2020 11:36 AM CDT) Culture No growth HAN 01/16/2020 9:47 AM CDT [facility] Gram Stain No organisms seen 020 9:47 AM CDT [facility] Gram Stain Rare Polymorphonuclear cells 01/16/2020 9:47 AM CDT [facility] Gram Stain Heavy Red blood cells 01/16/2020 9:47 AM CDT [facility] Fluid BODY FLUID SPECIMEN / Unknown Collection / Unknown 01/01/2020 11:36 AM CDT 01/01/2020 6:25 PM CDT Hung Harvey MD LAB - MICROBIOLOGY O ELIZABETH Performing Organization Address City/[facility] Co de Phone Number [facility] [address] [place] [address], [facility] [phone] * CULTURE ANAEROBE (01/01/2020 11:35 AM CDT) Culture No anaerobic organisms isolated HAN 01/07/2020 12:12 PM CDT [facility] Fluid BODY FLUID SPECIMEN / Unknown Collection / Unknown 01/01/2020 11:35 AM CDT 01/01/2020 6:25 PM CDT Hung Harvey MD LAB - MICROBIOLOGY O ELIZABETH Performing Organization Address [facility] Co de Phone Number [facility] [address] [place] [address], [facility] [phone] * CENTRAL LINE PERFORMABLE (01/01/2020 10:11 AM CDT) Narrative Ric Bansal MD - 01/01/2020 10:11 AM CDT Ric Bansal MD 01/01/2020 10:13 AM Central Line Placement Procedure Note/LDA Patient Location: OR. Procedure: central line > 5yr (19896). Procedure Section: Indications: IV access. Patient Sedated? No (GETA) Patient Position: Trendelenburg Site: internal jugular Skin Prep: Chloraprep. Local Anesthetic Used? No Site Identification: palpation (landmark with finder needle). Seldinger Technique Used? Yes Wire Verification: seeker needle. Intravenous Verification: all ports aspirated/flushed easily and verified by x-ray. Lumens: triple lumen Length (cm): 15. Secured at (cm): 15. Port Insertion: guidewire removed intact, all ports aspirated/flushed, sutured in place, biopatch applied and dressing applied. Number of Attempts: 1. Procedure Tolerance: tolerated well Maximal Sterile Barriers: Cap, mask, sterile gloves, a large sterile sheet, hand hygiene, and chlorhexidine for cutaneous antisepsis (6030F) Procedure Start Time: 01/01/2020 8:20 AM. Procedure End Time: 01/01/2020 8:25 AM. Procedure Total Time: 5 minutes. Staff Section Anesthesia Provider: Ric Bansal MD, Performed the procedure Ric Bansal MD GENERAL ANESTHESIA O ELIZABETH * ARTERIAL LINE PERFORMABLE (01/01/2020 9:08 AM CDT) Narrative Raymundo Baron MD - 01/01/2020 9:08 AM CDT Raymundo Baron MD 01/01/2020 3:00 PM Arterial Line Placement Procedure Note Patient Location: OR. Procedure: Arterial Line (93052). Procedure Section Indications: continuous blood pressure monitoring. Consent: informed consent was obtained for the procedure. Patient Sedated? Nursing documentation on [facility] Skin Prep: Chloraprep. Location: left radial. Site Identification: ultrasound guided with sterile sleeve and gel. Sterile Technique: mask. Local Anesthetic Used? No Gauge: 20. Seldinger Technique Used? Yes Number of Attempts: 2. Line Secured with: Tegaderm. Procedure Tolerance: performed while patient under general anesthesia. Events: none. Procedure Start Time: 01/01/2020 8:22 AM. Staff Section Anesthesia Provider: Ric Bansal MD Provider #1: Delfino Cummins Anes Asst, Performed the procedure. Ric Bansal MD GENERAL ANESTHESIA O ELIZABETH * ETT LINE PERFORMABLE (01/01/2020 9:07 AM CDT) Narrative Ric Bansal MD - 01/01/2020 9:07 AM CDT Ric Bansal MD 01/01/2020 6:02 PM Endotracheal Tube Placement: Patient Location: OR. Intubation Event Date/Time: 01/01/2020 8:10 AM Procedure: intubation (04784). Procedure Section: Sedation: IV sedation. Indications for Airway Management: airway protection Procedure pretreatments used? No Induction: standard IV Patient Position: sniffing Mask Ventilation: easy. Blade Type: Berna Blade Size: 3 Laryngoscopy View: grade 1 (full cords) Intubation Adjuncts: cricoid pressure and stylet Tube: endotracheal tube Placement: oral Tube type: cuff - inflated Tube Size (MM): 7 Depth of Insertion (CM): 22 Measured From: gums Cuff volume (mL): 10 Cuff Inflated With: air Number of Attempts: 1. Placement Verified By: direct visualization, bilateral breath sounds and CO2 monitor Tube secured with: adhesive tape. Difficult Airway? No. Procedure Start Time: 01/01/2020 8:10 AM. Staff Section Anesthesia Provider: Ric Bansal MD Provider #1: Raymundo Baron MD, Performed the procedure. Ric Bansal MD GENERAL ANESTHESIA O RDERABLES * RETYPE PATIENT (01/01/2020 8:40 AM CDT) ABO 01/01/2020 10:00 AM CDT [facility] Rh Type 01/01/2020 10:00 AM CDT [facility] Typem 01/01/2020 10:00 AM CDT [facility] Interpretation 01/01/2020 10:00 AM CDT [facility] Blood BLOOD SPECIMEN / Unknown Lab Venipuncture / Unknown 01/01/2020 8:40 AM CDT 01/01/2020 8:40 AM CDT Narrative [facility] - 01/01/2020 10:00 AM CDT Re-type confirmed per [facility] Blood Bank policies & procedures. Results documented in department. Hung Harvey MD LAB - BLOOD BANK ORD ERABLES [facility] [address] [place] [phone], [facility] * TYPE + SCREEN PANEL (01/01/2020 7:55 AM CDT) Only the most recent of5 resultswithin the time period is included. Antibody Screen NEG 0 8:39 AM CDT [facility] ABO Rh A POS 01/01/2020 8:39 AM CDT [facility] Comment:This is a corrected result. Previous result was A POS, y on 01/01/2020 at 0839 CDT Blood Bank BLOOD SPECIMEN / Unknown Venipuncture / Unknown 01/01/2020 7:55 AM CDT 01/01/2020 7:57 AM CDT Raymundo Baron MD LAB - BLOOD BANK OR DERABLES Performing Organization Address City/[facility]/ZIP Co de Phone Number [facility] [address] [place] [phone], [place] * PREPARE (CROSSMATCH) RBC UNIT(S), 2 Units (12/31/2019 7:57 AM CDT) Only the most recent of8 resultswithin the time period is included. Unit Description N/A [facility] Blood Bank BLOOD SPECIMEN / Unknown 12/31/2019 7:57 AM CDT 01/01/2020 7:57 AM CDT Hung Harvey MD LAB - BLOOD BANK ORD ERABLES Performing Organization Address [facility]/ZIP Co de Phone Number [facility] [address] [place] [phone], [place] * CT LUMBAR SPINE WO CONTRAST (12/22/2019 8:58 AM CDT) Only the most recent of3 resultswithin the time period is included. Anatomical Region Laterality Modality Spine Computed Tomogra phy 12/22/2019 9:16 AM CDT Impressions 12/22/2019 11:19 AM CDT IMPRESSION: 1. Partially imaged postoperative appearance of posterior spinal fusion from the visualized thoracic spine to the both sacroiliac joints as well as laminectomy at L4. 2. Fracture of the both vertical interconnecting rods at the level of L5-S1. New 1.2 cm anterolisthesis of L5 on S1 from 04/25/2019 CT Lumbar Spine. New displaced fracture through the L5 left pars interarticularis. New 2 mm lucency surrounding the bilateral S1 screws compatible with loosening. Report dictated by Mark Rdz MD (radiology tech). I, Dr. MARIELLE GÓMEZ have personally reviewed and interpreted this examination/study. This report was electronically signed by MARIELLE GÓMEZ on 12/22/2019 11:19 AM . Narrative 12/22/2019 11:19 AM CDT EXAMINATION: Computed tomography (CT) of the lumbar spine without contrast HISTORY: M54.9: Chronic midline back pain, unspecified back location G89.29: Chronic midline back pain, unspecified back location TECHNIQUE: CT of the lumbar spine was performed without contrast according to standard protocol. COMPARISON: CT lumbar spine 04/25/2019 FINDINGS: Postoperative appearance of posterior spinal fusion is seen from the visualized thoracic spine (T11) to the both sacroiliac joints with paired pedicle screws and bilateral vertical interconnecting rods. There is laminectomy at L4. Fracture of the both vertical rods at the level of L5-S1 is again seen. A 1.2 cm anterolisthesis of L5 on S1 is new from 04/25/2019. There is a new fracture through the L5 left pars interarticularis (series 5 image 115). There is 2 mm lucency surrounding the bilateral S1 screws compatible with loosening. A 3 mm anterolisthesis of L4 on L5 is unchanged from prior. There is degenerative changes in the facet joints and discs. There is no significant osseous spinal canal or foraminal stenosis. Procedure Note Marielle Gómez MD - 12/22/2019 EXAMINATION: Computed tomography (CT) of the lumbar spine withoutcontrast HISTORY: M54.9: Chronic midline back pain, unspecified back location G89.29: Chronic midline back pain, unspecified back location TECHNIQUE: CT of the lumbar spine was performed without contrastaccording to standard protocol. COMPARISON: CT lumbar spine 04/25/2019 FINDINGS: Postoperative appearance of posterior spinal fusion is seen from the visualized thoracic spine (T11) to the both sacroiliac joints withpaired pedicle screws and bilateral vertical interconnecting rods. There is laminectomy at L4. Fracture of the both vertical rods at the level of L5-S1 is again seen.A 1.2 cm anterolisthesis of L5 on S1 is new from 04/25/2019. There is a new fracture through the L5 left pars interarticularis (series 5 image 115). There is 2 mm lucency surrounding the bilateral S1 screws compatiblewith loosening. A 3 mm anterolisthesis of L4 on L5 is unchanged from prior. There is degenerative changes in the facet joints and discs. There is no significant osseous spinal canal or foraminal stenosis. IMPRESSION: 1. Partially imaged postoperative appearance of posterior spinal fusion from the visualized thoracic spine to the both sacroiliac joints as well as laminectomy at L4. 2. Fracture of the both vertical interconnecting rods at the level of L5-S1. New 1.2 cm anterolisthesis of L5 on S1 from 04/25/2019 CT Lumbar Spine. New displaced fracture through the L5 left pars interarticularis. New 2 mm lucency surrounding the bilateral S1 screws compatible with loosening. Report dictated by Mark Rdz MD (radiology tech). I, Dr. MARIELLE GÓMEZ have personally reviewed and interpreted this examination/study. This report was electronically signed by MARIELLE GÓMEZ on 12/22/2019 11:19AM . Lul Feliz MD CT ORDERABLES * SARS-COV-2 (COVID-19) IN HOUSE (12/22/2019 8:34 AM CDT) COVID-19 PCR Not detected Not detected, Invalid 12/22/2019 8:53 PM CDT [facility] Microbiology SPECIMEN FROM NASOPHARYNGEAL STRUCTURE / Unknown Collection / Unknown 12/22/2019 8:34 AM CDT 12/22/2019 8:37 AM CDT Narrative [facility] - 12/22/2019 8:53 PM CDT This Real Time RT-PCR assay was developed and its performance characteristics determined by [facility]. This test has been authorized by the Food and Drug administration (FDA)under an Emergency Use Authorization (EUA). This test has been validated in accordance with the FDA's guidance document Policy for Diagnostic Testing in Laboratories Certified to perform High Complexity Testing under CLIA prior to Emergency Use Authorization for Coronavirus Disease-2019 during the Public Health Emergency issued on September 19, 2019. FDA independent review of this validation is pending. This test is only authorized for the duration of time the declaration that circumstances exist justifying the authorization of emergency use of in vitro diagnostic tests for detection of SARS-CoV-2 virus and/or diagnosis of COVID-19 infection under section 564(b)(1) of the Act, 21 U.S.C 360bbb-3 (b)(1), unless the authorization is terminated or revoked sooner. Lul Feliz MD LAB - MICROBIOLO GY ORDERABLES [facility] [address] [place] [address], [place] [phone] * URINALYSIS REFLEX TO MICROSCOPIC NO CULTURE (12/22/2019 4:29 AM CDT) Only the most recent of4 resultswithin the time period is included. Color UA Yellow Straw, Yellow, Colorless 12/22/2019 4:43 AM [facility] Clarity UA Clear Clear, t Cloudy 12/22/2019 4:43 AM [facility] Specific [place] UA 1.013 1.005 - 1.030 12/22/2019 4:43 AM [facility] pH UA 5.0 5.0 - 8.0 pH 12/22/2019 4:43 AM [facility] Protein UA Negative Negative mg/dL 12/22/2019 4:43 AM [facility] Glucose UA Negative Negative mg/dL 12/22/2019 4:43 AM [facility] Ketone UA Negative Negative mg/dL 12/22/2019 4:43 AM [facility] Bilirubin UA Negative Negative mg/dL 12/22/2019 4:43 AM [facility] Blood UA Negative Negative 12/22/2019 4:43 AM [facility] Nitrite UA Negative Negative 12/22/2019 4:43 AM [facility] [facility] Leukocyte Esterase Negative Negative 12/22/2019 4:43 AM [facility] Urobilinogen UA Negative Negative mg/dL 12/22/2019 4:43 AM [facility] RBC UA 0-2 None Seen, 0-2, 3-5 /HPF 12/22/2019 4:43 AM [facility] WBC UA 0-5 None Seen, 0-5 /HPF 12/22/2019 4:43 AM [facility] Squamous Epithelial Cells UA None Seen None Seen, 0-2 /HPF 12/22/2019 4:43 AM [facility] Mucus UA 1+ None, 1+ /LPF 12/22/2019 4:43 AM CDT [facility] Hyaline Casts UA 0-2 None Seen, 0-2 /LPF 12/22/2019 4:43 AM CDT [facility] Urine URINE SPECIMEN OBTAINED BY CLEAN CATCH PROCEDURE / Unknown Collection / Unknown 12/22/2019 4:29 AM CDT 12/22/2019 4:31 AM CDT Narrative [facility] - 12/22/2019 4:43 AM CDT Ric Reid MD LAB - URINALYS IS ORDERABLES [address] [address], [facility] [phone] * XR THORACIC SPINE 3VW (12/21/2019 11:59 PM CDT) Anatomical Region Laterality Modality Spine Radiographic Dominga ging 12/22/2019 7:15 AM CDT Impressions 12/22/2019 10:08 AM CDT IMPRESSION: Posterior segment spinal fusion from T3 to the iliac bones. Vertical rods are fragmented at level of L5/S1, unchanged. No acute fracture identified. Dictated by Bárbara Medrano MD (radiology tech). IDr. Lion M.D. have personally reviewed and interpreted this examination/study. This report was electronically signed by Lion QIU M.D. on 12/22/2019 10:08 AM . Narrative 12/22/2019 10:08 AM CDT EXAMINATION: XR THORACIC SPINE 3VW, XR LUMBAR SPINE 2 OR 3VW HISTORY: M54.9: Chronic midline back pain, unspecified back location G89.29: Chronic midline back pain, unspecified back location COMPARISON: Entire spine radiograph dated 12/16/2019 FINDINGS: Partially visualized left shoulder arthroplasty with broken wires at the proximal humerus appears unchanged. Partially visualized right shoulder arthroplasty is seen on the thoracic swimmer's view. A screw is partially visualized extending cranially on the lumbar spine AP view, likely patient's right hip arthroplasty. Thoracic spine: Redemonstrated posterior spinal fusion hardware extending from T3 to the bilateral sacrum and iliac bones with bilateral vertical rods and paired transpedicular screws. The vertebral bodies are normally aligned. There is no fracture or compression deformity. Lumbar spine: Redemonstrated posterior spinal fusion hardware extending from T3 to the bilateral sacrum and iliac bones with bilateral vertical rods and paired transpedicular screws. Both vertical rods are fragmented at the level of L5-S1, which is unchanged since prior examination on 12/16/2019 but new since 08/19/2019. There is unchanged grade 1 anterolisthesis of L4 on L5 and L5 on S1. Otherwise, the alignment is maintained. There is no fracture or compression deformity. There is multilevel intervertebral disc space narrowing, most prominently at L2-L3. There is multilevel bilateral facet joint arthropathy. Bone density and texture are normal. Procedure Note Viviana Qiu MD - 12/22/2019 EXAMINATION: XR THORACIC SPINE 3VW, XR LUMBAR SPINE 2 OR 3VW HISTORY: M54.9: Chronic midline back pain, unspecified back location G89.29: Chronic midline back pain, unspecified back location COMPARISON: Entire spine radiograph dated 12/16/2019 FINDINGS: Partially visualized left shoulder arthroplasty with broken wires at the proximal humerus appears unchanged. Partially visualized right shoulder arthroplasty is seen on the thoracic swimmer's view. A screw ispartially visualized extending cranially on the lumbar spine AP view, likely patient's right hip arthroplasty. Thoracic spine: Redemonstrated posterior spinal fusion hardware extending from T3 to the bilateral sacrum and iliac bones with bilateral vertical rods and paired transpedicular screws. The vertebral bodies are normally aligned. Thereis no fracture or compression deformity. Lumbar spine: Redemonstrated posterior spinal fusion hardware extending from T3 to the bilateral sacrum and iliac bones with bilateral vertical rods and paired transpedicular screws. Both vertical rods are fragmented at the level of L5-S1, which is unchanged since prior examination on 12/16/2019 but new since 08/19/2019. There is unchanged grade 1 anterolisthesis of L4 on L5 and L5 on S1. Otherwise, the alignment is maintained. There is nofracture or compression deformity. There is multilevel intervertebral disc space narrowing, most prominently at L2-L3. There is multilevel bilateralfacet joint arthropathy. Bone density and texture are normal. IMPRESSION: Posterior segment spinal fusion from T3 to the iliac bones. Vertical rods are fragmented at level of L5/S1, unchanged. No acute fracture identified. Dictated by Bárbara Medrano MD (radiology tech). Dr. Lion Ayala M.D. have personally reviewed and interpretedthis examination/study. This report was electronically signed by Lion QIU M.D. on 12/22/2019 10:08 AM . Binh Valdes MD DIAGNOSTIC IMAGING O RDERABLES * XR CERVICAL SPINE 2 OR 3VW (12/21/2019 11:59 PM CDT) Anatomical Region Laterality Modality Spine Radiographic Dominga ging 12/22/2019 7:13 AM CDT Impressions 12/22/2019 9:57 AM CDT IMPRESSION: Limited examination with C1-C5 visualized. Moderate to severe degenerative disc disease of the lower cervical spine. Dictated by Maile Bustamante DO (radiology tech). Dr. Lion Ayala M.D. have personally reviewed and interpreted this examination/study. This report was electronically signed by Lion QIU M.D. on 12/22/2019 9:57 AM . Narrative 12/22/2019 9:57 AM CDT ORDER DATE: 12/21/2019 11:59 PM EXAMINATION: XR CERVICAL SPINE 2 OR 3VW HISTORY: M54.9: Chronic midline back pain, unspecified back location G89.29: Chronic midline back pain, unspecified back location COMPARISON: Comparison is made to total spine x-ray from 12/16/2019 FINDINGS: Only 5 cervical vertebrae are visible in the lateral view. Within these limitations: The vertebral bodies are normally aligned. No acute fracture or compression deformity is identified. There is disc space narrowing C4-5 and C5-C6. The dens is intact and the lateral masses are normally aligned. The predental interval and prevertebral soft tissues are normal. Bone density is reduced. Procedure Note Viviana Qiu MD - 12/22/2019 ORDER DATE: 12/21/2019 11:59 PM EXAMINATION: XR CERVICAL SPINE 2 OR 3VW HISTORY: M54.9: Chronic midline back pain, unspecified back location G89.29: Chronic midline back pain, unspecified back location COMPARISON: Comparison is made to total spine x-ray from 12/16/2019 FINDINGS: Only 5 cervical vertebrae are visible in the lateral view. Within these limitations: The vertebral bodies are normally aligned. No acute fracture or compression deformity is identified. There is disc space narrowing C4-5 and C5-C6. The dens is intact and the lateral masses are normallyaligned. The predental interval and prevertebral soft tissues are normal. Bone density is reduced. IMPRESSION: Limited examination with C1-C5 visualized. Moderate to severedegenerative disc disease of the lower cervical spine. Dictated by Maile Bustamante DO (radiology tech). I, Dr. Lion QIU M.D. have personally reviewed and interpretedthis examination/study. This report was electronically signed by Lion QIU M.D. on 12/22/2019 9:57 AM . Binh Valdes MD DIAGNOSTIC IMAGING O RDERABLES * IMAGING RADIOLOGY XRAY RESULTS ORDER (09/16/2019) Only the most recent of4 resultswithin the time period is included. Anatomical Region Laterality Modality Other Provider Unknown IMAGING * DC COMPLEX CYSTOMETROGRAM, DC ANAL/URINARY MUSCLE STUDY, DC INTRAABDOMINAL PRESSURE TEST, DC INSERTTEMP INDWELL BLADD CATH, DC URINE FLOW MEASUREMENT (09/09/2019 10:08 AM EXTENSION PROFESSOR) Narrative Tiffany Iglesias DO - 09/09/2019 10:08 AM EXTENSION PROFESSOR Tiffany Iglesias DO 09/09/2019 10:14 AM URODYNAMIC REPORT 09/09/2019 64yo female presents to the urodynamic suite for evaluation of difficulty voiding. She has had the problem for years and recently had postop urinary retention after spinal decompression. The retention resolved, however, she expressed concern for years of taking a long time to void and feeling of difficulty emptying. She is not taking any medications for her bladder. An 8Fr catheter was placed into the bladder. A rectal catheter was placed to measure abdominal pressure and EMG patches were placed to measure sphincter activity. The bladder was filled with sterile water at a rate of 1 ml/min. The patient's first sensation came at 159.4 ml. The patient's first desire came at 211 ml. The patient's strong desire came at 391 ml. The patient's urgency came at 603 ml. The patient did not leak with cough at 194, 459 ml. The patient did not leak with valsalva. Detrusor overactivity was not noted through testing. The compliance was normal. The sphincter activity was quiet during voiding. A pressure flow study was then obtained. Patient reported difficulty relaxing with the catheter in place. However, it revealed a peak flow of 3.3 ml/sec with a residual volume of 466 ml. The maximum detrusor pressure was 67 cm/H2O and a pressure @ maximum flow was 60 cm/H2O The catheter was removed and a non-invasive flow study was performed which showed: A peak flow of 13.9 ml/sec with a voiding volume of 365 ml and a residual urine volume of 100 ml. CONCLUSION: 1. There is normal flow 2. There is incomplete bladder emptying 3. There is normal sensation 4. The sphincter is synergic. 5. There is no stress incontinence 6. There is no urge incontinence 7. The pressure/flow pattern is normal. 8. Compliance is normal. Patient was given reassurance that she voids quite normally. She was offered observation, trial of flomax, or pelvic floor physical therapy. She opted for observation. She did not want a medication. She appreciated the reassurance and will return to clinic as needed. Tiffany Iglesias DO 09/09/2019 10:14 AM Tiffany Iglesias DO PROCEDURE/MINOR MENSAH RGICAL ORDERABLES * CULTURE URINE (08/19/2019 2:43 PM EXTENSION PROFESSOR) Only the most recent of6 resultswithin the time period is included. Culture Urine <10,000 CFU/mL normal urogenital latonya HAN 08/21/2019 9:00 AM EXTENSION PROFESSOR [facility] MICRO[facility]OLOGY Urine URINE SPECIMEN OBTAINED BY CLEAN CATCH PROCEDURE / Unknown Collection / Unknown 08/19/2019 2:43 PM EXTENSION PROFESSOR 08/19/2019 5:20 PM EXTENSION PROFESSOR Tiffany Iglesias DO LAB - MICROBIOLOGY ORDERABLES [facility] [address] [place] [address], [facility] [phone] * C-REACTIVE PROTEIN (07/12/2019 12:20 AM EXTENSION PROFESSOR) C-Reactive Protein <0.5 <=0.5 mg/dL 07/12/2019 12:56 AM [facility] Blood BLOOD SPECIMEN / Unknown Venipuncture / Unknown 07/12/2019 12:20 AM EXTENSION PROFESSOR 07/12/2019 12:27 AM EXTENSION PROFESSOR John Morocho MD LAB - [place] [address], [facility] [phone] * (ABNORMAL) ERYTHROCYTE SEDIMENTATION RATE (07/12/2019 12:20 AM EXTENSION PROFESSOR) Erythrocyte Sedimentation Rate Westergren 39(H) 0 - 30 MM/HR 07/12/2019 12:35 AM [facility] Blood BLOOD SPECIMEN / Unknown Venipuncture / Unknown 07/12/2019 12:20 AM EXTENSION PROFESSOR 07/12/2019 12:27 AM EXTENSION PROFESSOR John Morocho MD LAB - HEMATOLOGY ORDERABLES Performing Organization Address City/[facility]/[place] [address], [facility] [phone] * CARDIAC PROCEDURE ORDER (05/29/2019 8:56 AM EXTENSION PROFESSOR) Narrative 05/29/2019 8:56 AM EXTENSION PROFESSOR Ordered by an unspecified provider. Scanned Document CARDIAC SERVICES ORD ERABLES * GLUCOSE - POINT OF CARE (05/27/2019 11:20 AM EXTENSION PROFESSOR) Only the most recent of118 resultswithin the time period is included. Glucose WB/POC 104 70 - 115 mg/dL 05/27/2019 9:05 PM [facility] Specimen Type Arterial/C apillary 05/27/2019 9:05 PM [facility] Comment:BUFFING WHEEL OPERATOR: Wilber mobley Blood BLOOD SPECIMEN / Unknown 05/27/2019 11:20 AM EXTENSION PROFESSOR 05/27/2019 9:05 PM EXTENSION PROFESSOR Mohinder Gottlieb DO LAB - POINT OF CARE ORDERABLES Performing Organization Address [facility]/[place] [address], [facility] [phone] * TSH (05/27/2019 2:56 AM EXTENSION PROFESSOR) Only the most recent of9 resultswithin the time period is included. TSH 3.979 0.350 - 4.940 uIU/mL 05/27/2019 4:15 AM EXTENSION PROFESSOR [facility] Blood BLOOD SPECIMEN / Unknown Lab Venipuncture / Unknown 05/27/2019 2:56 AM EXTENSION PROFESSOR 05/27/2019 3:31 AM EXTENSION PROFESSOR Mohinder Gottlieb DO LAB - CHEMISTRY TABATHA BAUTISTA Performing Organization Address [facility] Co de Phone Number [address] [phone] * PHOSPHORUS BLOOD (05/24/2019 3:01 AM EXTENSION PROFESSOR) Only the most recent of19 resultswithin the time period is included. Phosphorus 2.6 2.3 - 4.7 mg/dL 05/24/2019 3:23 AM EXTENSION PROFESSOR [facility] Blood BLOOD SPECIMEN / Unknown Venipuncture / Unknown 05/24/2019 3:01 AM EXTENSION PROFESSOR 05/24/2019 3:05 AM EXTENSION PROFESSOR Vilma Mcclain MD LAB - CHEMISTRY ORDSeamus BAUTISTA Performing Organization Address [facility] [place] [address], [facility] [phone] * MAGNESIUM BLOOD (05/24/2019 3:01 AM EXTENSION PROFESSOR) Only the most recent of19 resultswithin the time period is included. Magnesium 1.7 1.6 - 2.6 mg/dL 05/24/2019 3:23 AM EXTENSION PROFESSOR [facility] Blood BLOOD SPECIMEN / Unknown Venipuncture / Unknown 05/24/2019 3:01 AM EXTENSION PROFESSOR 05/24/2019 3:05 AM EXTENSION PROFESSOR Vilma Mcclain MD LAB - CHEMISTRY ORDE LILY Performing Organization Address [facility]/ZIP Co de Phone Number [address] [phone] * SODIUM URINE RANDOM (05/23/2019 11:50 PM CDT) Sodium Urine 156 Not Established mmol/L 05/24/2019 12:15 AM CDT [facility] Urine URINE SPECIMEN OBTAINED BY CLEAN CATCH PROCEDURE / Unknown Collection / Unknown 05/23/2019 11:50 PM CDT 05/23/2019 11:53 PM CDT Vilma Mcclain MD LAB - URINE CHEMISTR Y ORDERABLES Performing Organization Address [facility]/ZIP Co de Phone Number [address] [phone] * CREATININE URINE RANDOM (05/23/2019 11:50 PM CDT) Creatinine Urine 38 Not Established mg/dL 05/24/2019 12:17 AM CDT [facility] Urine URINE SPECIMEN OBTAINED BY CLEAN CATCH PROCEDURE / Unknown Collection / Unknown 05/23/2019 11:50 PM CDT 05/23/2019 11:53 PM CDT Vilma Mcclain MD LAB - URINE CHEMISTR Y ORDERABLES Performing Organization Address [facility] Co de Phone Number [address] [phone] * CT HEAD WO CONTRAST (05/23/2019 3:44 PM CDT) Anatomical Region Laterality Modality Head Computed Tomogra phy 05/23/2019 3:50 PM CDT Impressions 05/24/2019 9:35 AM EXTENSION PROFESSOR IMPRESSION: No acute intracranial abnormality. Remote left frontoparietal cranioplasty. Atypical appearance of the cranioplasty implant as described above for which correlation with surgical history is recommended. 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 Dictated by Maury Cabrera MD (radiology tech) I, Dr. MARIELLE GÓMEZ have personally reviewed and interpreted this examination/study. This report was electronically signed by MARIELLE GÓMEZ on 05/24/2019 9:35 AM . Narrative 05/24/2019 9:35 AM EXTENSION PROFESSOR EXAMINATION: Computed tomography (CT) of the head without contrast HISTORY: AMS, hypotension TECHNIQUE: CT of the head was performed without contrast according to standard protocol. COMPARISON: MRI brain from 05/20/2019. FINDINGS: There is no CT evidence of acute infarct. There is no acute hemorrhage. There is no hydrocephalus, midline shift or extra-axial fluid collection. There is no significant parenchymal abnormality. The paranasal sinuses and tympanomastoid cavities are aerated. The orbits are unremarkable. There is no acute skull fracture. The patient is status post left frontoparietal cranioplasty. The cranioplasty implant is not typical in appearance and appears expanded contains foci of air/fat. Calcification is seen along the inner margin of the implant. There is expansion of the left anterior frontal bone (including the orbital roof) with heterogeneity but intact cortices, suggestive of fibrous dysplasia. The mandible appears intact. 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 Procedure Note Marielle Gómez MD - 05/24/2019 EXAMINATION: Computed tomography (CT) of the head without contrast HISTORY: AMS, hypotension TECHNIQUE: CT of the head was performed without contrast according to standard protocol. COMPARISON: MRI brain from 05/20/2019. FINDINGS: There is no CT evidence of acute infarct. There is no acute hemorrhage. There is no hydrocephalus, midline shift or extra-axial fluidcollection. There is no significant parenchymal abnormality. The paranasal sinuses and tympanomastoid cavities are aerated. Theorbits are unremarkable. There is no acute skull fracture. The patient isstatus post left frontoparietal cranioplasty. The cranioplasty implant is not typical in appearance and appears expanded contains foci of air/fat. Calcification is seen along the inner margin of the implant. There is expansion of the left anterior frontal bone (including the orbital roof) with heterogeneity but intact cortices, suggestive of fibrous dysplasia. The mandible appears intact. The patient is edentulous with resorptionof the alveolar ridge of the maxilla and mandible. IMPRESSION: No acute intracranial abnormality. Remote left frontoparietal cranioplasty. Atypical appearance of the cranioplasty implant as described above for which correlation with surgical history is recommended. 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 Dictated by Maury Cabrera MD (radiology tech) IDr. MARIELLE have personally reviewed and interpreted this examination/study. This report was electronically signed by MARIELLE GÓMEZ on 05/24/2019 9:35AM . Carlene Strauss DO CT ORDERABLES * EKG 12-LEAD (05/23/2019 2:55 PM CDT) Only the most recent of9 resultswithin the time period is included. Ventricular Rate 68 BPM [facility] Atrial Rate 68 BPM [facility] P-R Interval 200 ms [facility] QRS Duration ms 96 ms [facility] Q-T Interval ms 456 ms [facility] QTC Calculation (Bezet) 484 ms [facility] Calculated P [place] 58 degrees [facility] Calculated R [place] -13 degrees [facility] Calculated T [place] 5 degrees [facility] Interpretation EKG NORMAL SINUS RHYTHM LOW VOLTAGE QRS BORDERLINE ECG WHEN COMPARED WITH ECG OF 03-MAY-2019 09:23, NO SIGNIFICANT CHANGE WAS FOUND Confirmed by Henry Gannon ([id number]), newspaper editor eSrafin Dumont ([id number]) on 07/22/2019 12:59:21 PM [facility] 05/23/2019 2:55 PM CDT 07/22/2019 12:59 PM EXTENSION PROFESSOR Carlene Struass DO ECG ORDERABLES [facility] * (ABNORMAL) BLOOD GASES ARTERIAL (05/23/2019 12:43 PM CDT) Only the most recent of2 resultswithin the time period is included. pH Arterial 7.42 7.35 - 7.45 05/23/2019 12:50 PM [facility] pCO2 Arterial 35 35 - 45 mmHg 05/23/2019 12:50 PM [facility] pO2 Arterial 96(H) 71 - 95 mmHg 05/23/2019 12:50 PM [facility] HCO3 Arterial 22.1 22.0 - 26.0 mmol/L 05/23/2019 12:50 PM [facility] TCO2 Arterial 23.2(L) 25.0 - 29.0 mmol/L 05/23/2019 12:50 PM [facility] Base Excess Arterial -2.0 -2.0 - 2.0 mmol/L 05/23/2019 12:50 PM [facility] Hemoglobin Arterial 8.8(L) 12.0 - 15.5 g/dL 05/23/2019 12:50 PM [facility] Oxyhemoglobin Arterial 96.0 95.0 - 100.0 % 05/23/2019 12:50 PM [facility] Carboxyhemoglobin 0.2 0.0 - 3.0 % 05/23/2019 12:50 PM [facility] Methemoglobin 0.3 0.0 - 2.0 % 05/23/2019 12:50 PM [facility] FI O2 Arterial 21.0 % 05/23/2019 12:50 PM [facility] Blood, arterial ARTERIAL BLOOD SPECIMEN / Unknown Arterial Puncture / Unknown 05/23/2019 12:43 PM CDT 05/23/2019 12:48 PM CDT Nomi Lockwood MD LAB - BLOOD GASES OR DERABLES [address] [phone] * (ABNORMAL) URINALYSIS W/MICROSCOPIC NO CULTURE (05/21/2019 8:29 PM CDT) Only the most recent of3 resultswithin the time period is included. Color UA Yellow Straw, Yellow, Colorless 05/21/2019 8:54 PM T [facility] Clarity UA Cloudy(A) Clear, Slt Cloudy 05/21/2019 8:54 PM [facility] Specific [place] UA 1.011 1.005 - 1.030 05/21/2019 8:54 PM [facility] pH UA 6.0 5.0 - 8.0 pH 05/21/2019 8:54 PM [facility] Protein UA Negative Negative mg/dL 05/21/2019 8:54 PM [facility] Glucose UA Negative Negative mg/dL 05/21/2019 8:54 PM [facility] Ketone UA Negative Negative mg/dL 05/21/2019 8:54 PM [facility] Bilirubin UA Negative Negative mg/dL 05/21/2019 8:54 PM [facility] Blood UA Negative Negative 05/21/2019 8:54 PM [facility] Nitrite UA Negative Negative 05/21/2019 8:54 PM [facility] Leukocyte Esterase 3+(A) Negative 05/21/2019 8:54 PM [facility] Urobilinogen UA Negative Negative mg/dL 05/21/2019 8:54 PM [facility] RBC UA 3-5 None Seen, 0-2, 3-5 /HPF 05/21/2019 8:54 PM [facility] WBC UA >100(A) None Seen, 0-5 /HPF 05/21/2019 8:54 PM [facility] Bacteria UA 3+(A) None, Trace /HPF 05/21/2019 8:54 PM [facility] Squamous Epithelial Cells UA 0-2 None Seen, 0-2 /HPF 05/21/2019 8:54 PM [facility] Mucus UA 1+ None, 1+ /LPF 05/21/2019 8:54 PM [facility] Hyaline Casts UA 0-2 None Seen, 0-2 /LPF 05/21/2019 8:54 PM [facility] Urine URINE SPECIMEN OBTAINED BY CLEAN CATCH PROCEDURE / Unknown Collection / Unknown 05/21/2019 8:29 PM CDT 05/21/2019 8:31 PM CDT [facility] - 05/21/2019 8:54 PM CDT Hung Cuevas MD LAB - URINALYSIS ORD ERABLES [id number] [place] [address], [facility] [phone] * EEG (05/20/2019 1:53 PM CDT) Narrative Viky Corrales MD - 05/20/2019 1:53 PM CDT Viky Corrales MD 05/27/2019 12:45 PM EEG REPORT Patient Name: Ale Harley EEG#: [id number] Start Time: 10:46 AM on 05/20/2019 Stop Time: 11:16 AM on 05/20/2019 Clinical History: Ale Harley is a 63 year old female with history of delirium. This EEG is ordered for possible seizures. Current medications MEDICATIONS FOR CURRENT ENCOUNTER: SCHEDULED MEDICATIONS: 0.9% NaCl injection 3 mL, Intracatheter, q8h acetaminophen (TYLENOL) tablet 650 mg, Oral, q4h atorvastatin (LIPITOR) tablet 10 mg, Oral, QDAY deutetrabenazine (AUSTEDO) tablet 12 mg, Oral, BID docusate sodium (COLACE) capsule 100 mg, Oral, QDAY famotidine (PEPCID) tablet 20 mg, Oral, BID gabapentin (NEURONTIN) capsule 300 mg, Oral, TID gadobutrol (GADAVIST) injection, Intravenous, Contrast - Once hydroCHLOROthiazide (HYDRODIURIL) tablet 25 mg, Oral, QDAY lamoTRIgine (LaMICtal) tablet 200 mg, Oral, BID melatonin tablet 6 mg, Oral, AT BEDTIME OLANZapine (disintegrating) (ZyPREXA ZYDIS) tablet 5 mg, Oral, BID tamsulosin (FLOMAX) capsule 0.4 mg, Oral, QDAY traZODone (DESYREL) tablet 50 mg, Oral, AT BEDTIME valsartan (DIOVAN) tablet 80 mg, Oral, AT BEDTIME [COMPLETED] ALPRAZolam (XANAX) tablet 1 mg, Oral, Once [COMPLETED] fluconazole (DIFLUCAN) tablet 200 mg, Oral, Once [START ON 05/22/2019] fluconazole (DIFLUCAN) tablet 200 mg, Oral, Once CONTINUOUS MEDICATIONS: PRN MEDICATIONS: Or Or 0.9% NaCl injection 1-10 mL, Intracatheter, PRN albuterol-ipratropium (DUO-NEB) nebulizer solution 3 mL, Inhalation, q6h PRN dextrose IV 12.5-25 g, Intravenous, PRN HYDROmorphone (DILAUDID) injection 0.2 mg, Intravenous, q4h PRN OLANZapine (ZyPREXA) injection 5 mg, Intramuscular, q4h PRN OLANZapine (ZyPREXA) tablet 5 mg, Oral, q4h PRN oxyCODONE (immediate release) (ROXICODONE) tablet 10 mg, Enteral Tube, q4h PRN oxyCODONE (immediate release) (ROXICODONE) tablet 5 mg, Enteral Tube, q4h PRN tiZANidine (ZANAFLEX) tablet 2 mg, Oral, q8h PRN Description This is a routine 21-channel EEG tracing consisting of 20 channels of EEG obtained from electrodes placed on the scalp according to the international 10-20 system, T1 and T2 electrodes, and one channel of EKG monitoring. Background No well-developed posterior dominant rhythm was identified. The background consisted of generalized poorly-organized admixed 1-2 Hz delta frequency activity of 15-20 microvolt with generalized slowing up to 6-7 Hz, predominantly 5-7 microvolt in amplitude on the right side. On the left side the amplitudes were noted to be 10-15 microvolt and primarily 1-2 Hz delta activity. This was minimally reactive to external stimuli. Activation Procedures Photic stimulation was not performed due to technical difficulties. Sleep Stage 1 sleep was identified in the form of vertex waves. Stage 2 sleep was identified in the forms of K-complexes. Reacitivity was present with wakefulness. EKG was observed throughout the recording. IMPRESSION This is an abnormal EEG due to: 1. Focal slowing over the left hemisphere which can be consistent with a structural lesion. Epileptiform discharges or electrographic seizures were not observed. 2. Generalized slowing consistent with mild to moderate encephalopathy. Unknown Maximiliano Carpenter MD Neurology Resident I interpreted the study and formulated the report. Viky Corrales MD Toney Mccoy MD NEUROLOGY ORDERABLES * MRI BRAIN WWO CONTRAST (05/20/2019 9:08 AM CDT) Anatomical Region Laterality Modality Head Magnetic Resonan ce 05/20/2019 9:17 AM CDT Impressions 05/20/2019 2:02 PM CDT IMPRESSION: 1. No acute intracranial process, masses, meningitis, cerebral abscess or empyema is identified. 2. The patient is status post left frontoparietal craniectomy at the vertex. Alveolar ridge of mandible is also not visible which could be atrophic or surgically resected. Please correlate with history. 3. 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 4. A CT of the head and CT maxillofacial without intravenous contrast are recommended for further evaluation of bony structures. I, Dr. JACKSON JONES have personally reviewed and interpreted this examination/study. This report was electronically signed by JACKSON JONES on 05/20/2019 2:02 PM . Narrative 05/20/2019 2:02 PM CDT EXAMINATION: Magnetic resonance imaging (MRI) of the brain without and with contrast HISTORY: 63-year-old woman with delirium TECHNIQUE: MRI of the brain was performed prior to and following the uneventful administration of 8.5 mL Gadavist according to standard protocol. COMPARISON: No comparison images are available in the PACS system at the time of this dictation. FINDINGS: In the left frontal bone diploic space, there is an area of heterogeneous T2 hyperintense and heterogeneous T1 hypointense lesion with a surrounding T1 hyperintense rim, measuring about 5 cm in length (transverse dimension) by 1 cm in width (AP dimension). The diploic space of left frontal bone is expanded at the location of this lesion which is best seen on series 8, 12 and 14, image 13. Apparent extension of this lesion to the left frontal sinus on the postcontrast axial images (series 14, image 13) is possible. The surrounding T1 hyperintensity also extends to the right frontal diploic space. However, evaluation of fat content is limited by inhomogeneity of magnetic field and suboptimal fat saturation of the anterior head on the fat-suppressed axial T2 FLAIR sequence. The frontal sinuses are hypoplastic. There is mild mucosal thickening of the left frontal sinus and most of bilateral ethmoid air cells as well as bilateral sphenoid sinuses. After contrast administration, the central T1 hypointense portion of the lesion enhances. No evidence of marrow edema in the adjacent frontal bone is identified. There is an area of apparent prior left frontal craniectomy at the vertex (series 13 and 14, image 21; series 15, image 15) with a well-circumscribed mildly enhancing margin and a hypointense signal intensity of the center in all sequences. Minimal surgical scarring is seen the overlying scalp. No evidence of pachymeningeal or leptomeningeal enhancement is seen especially around the bony lesions. There is no evidence of cerebral abscess or empyema. The patient is edentulous. The sagittal images demonstrate nonvisualization of alveolar ridge of maxilla and inward displacement of the lower lip (series 16, image 13). No evidence of acute or chronic hemorrhage is identified. No evidence of acute cerebral infarction is seen. There is no evidence of restricted diffusion associated with the frontal bone lesions. There is minimal generalized cerebral atrophy. The ventricles are of normal size, shape, and morphology. No edema, mass effect or midline shift is seen. The corpus callosum appears normal. There is an empty sella. The posterior fossa, brainstem, and craniocervical junction appear normal. There is a left mastoid effusion. The right mastoid air cells are clear. The orbital contents are normal and symmetric. Normal flow voids are demonstrated in the carotid arteries and basilar artery. The calvarium and visualized cervical spine appear normal. Procedure Note Jackson Jones MD - 05/20/2019 EXAMINATION: Magnetic resonance imaging (MRI) of the brain without and with contrast HISTORY: 63-year-old woman with delirium TECHNIQUE: MRI of the brain was performed prior to and following the uneventful administration of 8.5 mL Gadavist according to standard protocol. COMPARISON: No comparison images are available in the PACS system at the time of this dictation. FINDINGS: In the left frontal bone diploic space, there is an area ofheterogeneous T2 hyperintense and heterogeneous T1 hypointense lesion with asurrounding T1 hyperintense rim, measuring about 5 cm in length (transversedimension) by 1 cm in width (AP dimension). The diploic space of left frontal boneis expanded at the location of this lesion which is best seen on series 8,12 and 14, image 13. Apparent extension of this lesion to the left frontal sinus on the postcontrast axial images (series 14, image 13) ispossible. The surrounding T1 hyperintensity also extends to the right frontal diploic space. However, evaluation of fat content is limited by inhomogeneity of magnetic field and suboptimal fat saturation of the anterior head on the fat-suppressed axial T2 FLAIR sequence. The frontal sinuses are hypoplastic. There is mild mucosal thickening of the left frontal sinus and most of bilateral ethmoid air cells as wellas bilateral sphenoid sinuses. After contrast administration, the centralT1 hypointense portion of the lesion enhances. No evidence of marrow edemain the adjacent frontal bone is identified. There is an area of apparent prior left frontal craniectomy at thevertex (series 13 and 14, image 21; series 15, image 15) with a well-circumscribed mildly enhancing margin and a hypointense signal intensity of the center in all sequences. Minimal surgical scarring is seen the overlying scalp. No evidence of pachymeningeal or leptomeningeal enhancement is seen especially around the bony lesions. There is no evidence of cerebral abscess or empyema. The patient is edentulous. The sagittal images demonstrate nonvisualization of alveolar ridge of maxilla and inward displacement of the lower lip (series 16, image 13). No evidence of acute or chronic hemorrhage is identified. No evidence of acute cerebral infarction is seen. There is no evidence of restricted diffusion associated with the frontal bone lesions. There is minimal generalized cerebral atrophy. The ventricles are of normal size, shape, and morphology. No edema, mass effect or midline shift is seen. Thecorpus callosum appears normal. There is an empty sella. The posterior fossa, brainstem, and craniocervical junction appear normal. There is a left mastoid effusion. The right mastoid air cells are clear. The orbital contents are normal and symmetric. Normal flow voids are demonstrated in the carotid arteries and basilar artery. The calvariumand visualized cervical spine appear normal. IMPRESSION: 1. No acute intracranial process, masses, meningitis, cerebral abscessor empyema is identified. 2. The patient is status post left frontoparietal craniectomy at the vertex. Alveolar ridge of mandible is also not visible which could be atrophic or surgically resected. Please correlate with history. 3. 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 4. A CT of the head and CT maxillofacial without intravenous contrastare recommended for further evaluation of bony structures. I, Dr. JACKSON JONES have personally reviewed and interpreted this examination/study. This report was electronically signed by JACKSON JONES on 05/20/20192:02 PM . Toney Mccoy MD MR ORDERABLES * XR CHEST 1VW (05/17/2019 4:40 PM CDT) Only the most recent of2 resultswithin the time period is included. Anatomical Region Laterality Modality Chest Radiographic Dominga ging 05/17/2019 5:04 PM CDT Impressions 05/18/2019 6:49 AM CDT IMPRESSION: 1.Hypoinflated lungs. No acute pulmonary process is seen. Report drafted by Zoltan Calabrese M.D. (resident) note I, Dr. KRISTOFER LUCIANO have personally reviewed and interpreted this examination/study. This report was electronically signed by KRISTOFER LUCIANO on 05/18/2019 6:49 AM . Narrative 05/18/2019 6:49 AM CDT EXAMINATION: XR CHEST 1VW HISTORY: chest COMPARISON: chest radiograph on 04/17/2019 FINDINGS: Bilateral shoulder prostheses are noted. Posterior spinal fusion hardware is seen. Sutures overlie the left upper quadrant. The lungs are hypoinflated. No focal consolidation, pleural effusion, or pneumothorax is seen. The cardiomediastinal silhouette is normal. No acute fractures are seen. Procedure Note Kristofer Luciano DO - 05/18/2019 EXAMINATION: XR CHEST 1VW HISTORY: chest COMPARISON: chest radiograph on 04/17/2019 FINDINGS: Bilateral shoulder prostheses are noted. Posterior spinal fusionhardware is seen. Sutures overlie the left upper quadrant. The lungs are hypoinflated. No focal consolidation, pleural effusion, or pneumothorax is seen. The cardiomediastinal silhouette is normal. Noacute fractures are seen. IMPRESSION: 1.Hypoinflated lungs. No acute pulmonary process is seen. Report drafted by Zoltan Calabrese M.D. (resident) note I, Dr. KRISTOFER LUCIANO have personally reviewed and interpreted this examination/study. This report was electronically signed by KRISTOFER LUCINAO on 05/18/2019 6:49 AM . Rogers Bass MD DIAGNOSTIC IMAGING O RDERABLES * VITAMIN B1 (05/17/2019 4:20 PM CDT) [facility] Vitamin B1 Whole Blood 83.9 66.5 - 200.0 nmol/L 05/20/2019 6:07 PM CDT [facility] Blood BLOOD SPECIMEN / Unknown Lab Venipuncture / Unknown 05/17/2019 4:20 PM CDT 05/17/2019 4:26 PM CDT N[facility]ative [facility] - 05/20/2019 6:07 PM CDT Test(s) 519749-[id number]. B1, Whole Blood was developed and its performance characteristics determined by [facility]. It has not been cleared or approved by the Food and Drug Administration. Performed at: - [address] [id number] Web Content Executive: Bety Marie MD, Phone: [phone] Rogers Bass MD LAB - CHEMISTRY TABATHA BAUTISTA [facility]) [address] [place] [address] [place] * FOLATE (05/17/2019 4:20 PM CDT) [facility] Folate 11.9 7.0 - 31.4 ng/mL 05/17/2019 5:27 PM CDT [facility] Blood BLOOD SPECIMEN / Unknown Lab Venipuncture / Unknown 05/17/2019 4:20 PM CDT 05/17/2019 4:26 PM CDT Rogers Bass MD LAB - CHEMISTRY TABATHA BAUTISTA [address] [phone] * VITAMIN B12 (05/17/2019 4:20 PM CDT) Only the most recent of2 resultswithin the time period is included. [facility] Vitamin B12 437 213 - 816 pg/mL 05/17/2019 5:27 PM CDT [facility] Blood BLOOD SPECIMEN / Unknown Lab Venipuncture / Unknown 05/17/2019 4:20 PM CDT 05/17/2019 4:26 PM CDT Rogers Bass MD LAB - CHEMISTRY TABATHA BAUTISTA [facility] Organization Address City/State/ZIP Co de Phone Number [address] [phone] * XR ELBOW RIGHT 3VW OR MORE (05/13/2019 4:03 AM CDT) Anatomical Region Laterality Modality Upper Extremity Radiographic Dominga ging 05/13/2019 2:14 PM CDT Impressions 05/14/2019 6:54 AM CDT IMPRESSION: No acute fracture or dislocation identified. Dictated by Jared Stovall MD (radiology tech). Dr. KRISTOFER Ayala have personally reviewed and interpreted this examination/study. This report was electronically signed by KRISTOFER LUCIANO on 05/14/2019 6:54 AM . Narrative 05/14/2019 6:54 AM CDT EXAMINATION: XR ELBOW RIGHT 3VW OR MORE HISTORY: fell COMPARISON: No prior study is available for comparison. FINDINGS: The osseous structures are intact and well aligned without acute fracture or dislocation. The joint spaces are preserved. No joint effusion is seen. Bone density and texture are normal. No soft tissue swelling is present. Procedure Note Kristofer Luciano, DO - 05/14/2019 EXAMINATION: XR ELBOW RIGHT 3VW OR MORE HISTORY: fell COMPARISON: No prior study is available for comparison. FINDINGS: The osseous structures are intact and well aligned without acutefracture or dislocation. The joint spaces are preserved. No joint effusion isseen. Bone density and texture are normal. No soft tissue swelling is present. IMPRESSION: No acute fracture or dislocation identified. Dictated by Jared Stovall MD (radiology tech). Dr. KRISTOFER Ayala have personally reviewed and interpreted this examination/study. This report was electronically signed by KRISTOFER LUCIANO on 05/14/2019 6:54 AM . Henry Kelly MD DIAGNOSTIC IMAGING O RDERABLES * XR THORACIC SPINE 2VW (05/13/2019 4:02 AM CDT) Only the most recent of4 resultswithin the time period is included. Anatomical Region Laterality Modality Spine Radiographic Dominga ging 05/13/2019 2:15 PM CDT Impressions 05/13/2019 6:14 PM CDT IMPRESSION: 1.Postoperative findings as above. 2.Visualized portions of the hardware appear intact. Dictated by Jared Stovall MD (radiology tech). This report was approved by Jared Stovall on 05/13/2019 6:14 PM . IDr. ROSETTA have personally reviewed and interpreted this examination/study. This report was electronically signed by ROSETTA GAYLE on 05/13/2019 6:14 PM . Narrative 05/13/2019 6:14 PM CDT EXAMINATION: XR THORACIC SPINE 2VW, XR LUMBAR SPINE 2 OR 3VW HISTORY: Found down COMPARISON: Comparison is made with a study from05/07/2019 FINDINGS: Thoracic spine: Postoperative appearance of posterior fusion of T7 through sacrum including bracketed support at T3 is intact without evidence of failure. Multiple surgical clips are seen in the left upper quadrant. The lateral images are rotated partially obscuring osseous detail. Level facet joint degenerative changes are noted. Lumbar spine: Postoperative appearance of posterior fusion extending to the sacrum as noted above. The visualized hardware appears intact. Multilevel degenerative changes are noted. Procedure Note Rosetta Gayle MD - 05/13/2019 EXAMINATION: XR THORACIC SPINE 2VW, XR LUMBAR SPINE 2 OR 3VW HISTORY: Found down COMPARISON: Comparison is made with a study from05/07/2019 FINDINGS: Thoracic spine: Postoperative appearance of posterior fusion of T7 through sacrum including bracketed support at T3 is intact without evidence of failure. Multiple surgical clips are seen in the left upper quadrant. Thelateral images are rotated partially obscuring osseous detail. Level facet joint degenerative changes are noted. Lumbar spine: Postoperative appearance of posterior fusion extending to the sacrum as noted above. The visualized hardware appears intact. Multilevel degenerative changes are noted. IMPRESSION: 1.Postoperative findings as above. 2.Visualized portions of the hardware appear intact. Dictated by Jared Stovall MD (radiology tech). This report was approved by Jared Stovall on 05/13/2019 6:14 PM. I, Dr. ROSETTA GAYLE have personally reviewed and interpreted this examination/study. This report was electronically signed by ROSETTA GAYLE on 05/13/2019 6:14 PM . Henry Kelly MD DIAGNOSTIC IMAGING O RDERABLES * GGT (05/12/2019 2:59 AM CDT) Pathologist [facility] GGT 24 9 - 64 Units/L 05/12/2019 3:59 AM CDT [facility] Blood BLOOD SPECIMEN / Unknown Lab Venipuncture / Unknown 05/12/2019 2:59 AM CDT 05/12/2019 3:35 AM CDT Hung Cuevas MD LAB - CHEMISTRY TABATHA BAUTISTA [facility] [address] [place] [address], [facility] [phone] * C DIFFICILE [facility] + TOXIN A+B (05/04/2019 9:24 AM CDT) Pathologist [facility] Antigen Negative Negative, Invalid 05/04/2019 8:07 PM CDT [facility] MICROBIOLOGY C difficile Toxin A + B Negative Negative, Invalid 05/04/2019 8:07 PM CDT [facility] MICROBIOLOGY Interpretation C difficile Negative for toxigenic C. difficile Negative for toxigenic C. difficile 05/04/2019 8:07 PM CDT [facility] MICROBIOLOGY Stool STOOL SPECIMEN / Unknown Collection / Unknown 05/04/2019 9:24 AM CDT 05/04/2019 9:33 AM CDT Henry Kelly MD LAB - MICROBIOLOGY O [facility] MICROBIOLOGY [address] [place] [address], [facility] [phone] * TRANSFUSE RED BLOOD CELL LEUKOREDUCED UNIT(S) (04/28/2019 6:09 PM CDT) Hung Harvey MD NURSING - BLOOD PROD TRANSFUSION * ETT Placement (04/28/2019 1:40 PM CDT) Narrative Lina Diaz APRN-SENIOR INFORMATION SECURITY ARCHITECT - 04/28/2019 1:40 PM CDT Lina Diaz APRN-SENIOR INFORMATION SECURITY ARCHITECT 04/28/2019 1:42 PM Endotracheal Tube Placement: Patient Location: OR. Intubation Event Date/Time: 04/28/2019 12:33 PM Procedure: intubation (03362). Procedure Section: Sedation: under general anesthesia. Indications for Airway Management: anesthesia Procedure pretreatments used? No Induction: standard IV Patient Position: sniffing and supine Mask Ventilation: easy. Blade Type: Berna Blade Size: 4 Laryngoscopy View: grade 1 (full cords) Intubation Adjuncts: stylet Tube: endotracheal tube Placement: oral Tube type: cuff - inflated Tube Size (MM): 7 Depth of Insertion (CM): 22 Measured From: gums Cuff volume (mL): 8 Cuff Inflated With: air Number of Attempts: 1. Placement Verified By: direct visualization, bilateral breath sounds, chest auscultation and CO2 monitor CXR Findings: ETT in proper place. Tube secured with: adhesive tape. Difficult Airway? No. Procedure Start Time: 04/28/2019 12:33 PM. Staff Section Anesthesia Provider: Lina Diaz APRNRAH, Performed the procedure Lina Schilling MD GENERAL ANESTHESIA O RDERABLES * CT THORACIC SPINE WO CONTRAST (04/25/2019 2:39 PM CDT) Anatomical Region Laterality Modality Spine Computed Tomogra phy 04/26/2019 9:26 AM CDT Impressions 04/26/2019 7:02 PM CDT IMPRESSION: Postoperative changes of posterior instrument spinal fusion procedure from T11 to the sacroiliac joints. Mild recent compression deformity of the T11 vertebral body. The T11 pedicle screws extend through the fracture line. Small to moderate bilateral pleural effusions. Report dictated by Singh Stewart MD (radiology tech). I, Dr. CHRIS BRASHER have personally reviewed and interpreted this examination/study. This report was electronically signed by CHRIS BRASHER on 04/26/2019 7:02 PM . Narrative 04/26/2019 7:02 PM CDT EXAMINATION: 1. CT of the thoracic spine without contrast 2. CT of the lumbar spine without contrast HISTORY: preop planning TECHNIQUE: CT of the thoracic and lumbar spine were performed without contrast according to standard protocol. FINDINGS: Comparison is made with CT lumbar spine without contrast 03/18/2019, x-ray lumbar spine 04/23/2019 x-ray thoracic spine 04/23/2019 Thoracic spine: 12 rib-bearing vertebral bodies. Degenerative disc disease in the visualized lower cervical spine with associated osseous neural foraminal stenosis. There are small to moderate bilateral pleural effusions with associated atelectasis. Patchy ground glass opacities in the lungs likely represent pulmonary edema and less likely focal pneumonia. Post surgical changes involving the visualized stomach. Post surgical changes of posterior instrument spinal fusion procedure from T11 to the sacroiliac joints are redemonstrated. Streak artifact from instrumentation limits evaluation. Diffuse osteopenia limits osseous detail. Recent superior compression fracture of the T11 vertebral body is associated with approximately 20 percent height loss and no significant retropulsion. The proximal TIPS of the screws traverse through the fracture line. The proximal aspect of the right T11 screw apposed is the superior endplate of T11. There is minimal resulting kyphosis at T11. There is curvature to the left. Multilevel endplate remodeling is seen. Lumbar spine: 5 nonrib-bearing vertebral bodies. The urinary bladder is distended. The proximal tips of the screws at L5 and S1 extend beyond the anterior aspect of the vertebral bodies. Anterolisthesis at L5-S1 has resolved. Grade 1 anterolisthesis at L4-L5 is redemonstrated. Small posterior marginal osteophytes project into the left neural foramen at L3-L4. Retrolisthesis at L2-L3 and L1-L2 has improved. Small posterior marginal osteophytes ejecting to the right-sided neural foramina at L2-L3 and L1-L2. Posterior decompression are seen from L1 to S1. Multilevel vacuum disc has decreased with residual findings mainly at L2-L3. Procedure Note Chris Brasher MD - 04/26/2019 EXAMINATION: 1. CT of the thoracic spine without contrast 2. CT of the lumbar spine without contrast HISTORY: preop planning TECHNIQUE: CT of the thoracic and lumbar spine were performed without contrast according to standard protocol. FINDINGS: Comparison is made with CT lumbar spine without contrast 03/18/2019, x-ray lumbar spine 04/23/2019 x-ray thoracic spine 04/23/2019 Thoracic spine: 12 rib-bearing vertebral bodies. Degenerative discdisease in the visualized lower cervical spine with associated osseous neural foraminal stenosis. There are small to moderate bilateral pleural effusions with associated atelectasis. Patchy ground glass opacities in the lungs likely represent pulmonary edema and less likely focal pneumonia. Post surgical changes involving the visualized stomach. Post surgical changes of posterior instrument spinal fusion procedure fromT11 to the sacroiliac joints are redemonstrated. Streak artifact from instrumentation limits evaluation. Diffuse osteopenia limits osseous detail. Recent superior compression fracture of the T11 vertebral bodyis associated with approximately 20 percent height loss and no significant retropulsion. The proximal TIPS of the screws traverse through the fracture line. The proximal aspect of the right T11 screw apposed is the superior endplate of T11. There is minimal resulting kyphosis at T11. There is curvature to the left. Multilevel endplate remodeling is seen. Lumbar spine: 5 nonrib-bearing vertebral bodies. The urinary bladder is distended. The proximal tips of the screws at L5 and S1 extend beyondthe anterior aspect of the vertebral bodies. Anterolisthesis at L5-S1 has resolved. Grade 1 anterolisthesis at L4-L5 is redemonstrated. Small posterior marginal osteophytes project into the left neural foramen at L3-L4. Retrolisthesis at L2-L3 and L1-L2 has improved. Small posterior marginal osteophytes ejecting to the right-sided neural foramina atL2-L3 and L1-L2. Posterior decompression are seen from L1 to S1. Multilevel vacuum disc has decreased with residual findings mainly at L2-L3. IMPRESSION: Postoperative changes of posterior instrument spinal fusion procedure from T11 to the sacroiliac joints. Mild recent compression deformity of the T11 vertebral body. The T11 pedicle screws extendthrough the fracture line. Small to moderate bilateral pleural effusions. Report dictated by Singh Stewart MD (radiology tech). I, Dr. CHRIS BRASHER have personally reviewed and interpreted this examination/study. This report was electronically signed by CHRIS BRASHER on 04/26/2019 7:02 PM . Rogers Bass MD CT ORDERABLES * CULTURE BLOOD (04/19/2019 10:44 AM CDT) Culture No growth day 5 HAN 04/24/2019 2:00 PM CDT [facility] Blood PERIPHERAL BLOOD / Unknown Venipuncture / Unknown 04/19/2019 10:44 AM CDT 04/19/2019 10:52 AM CDT Derek Dumont DO LAB - MICROBIO LOGY ORDERABLES [facility] [address] [place] [address], [facility] [phone] * PTT [facility] (04/18/2019 11:08 AM CDT) Only the most recent of2 resultswithin the time period is included. APTT 29.0 23.0 - 38.4 Seconds 04/18/2019 11:28 AM CDT [facility] Comment: * Please Note: New therapeutic range for heparin therapy. * Suggested therapeutic range for full dose I.V. heparin therapy for venous thromboembolism is 65 to 103 seconds. Blood BLOOD SPECIMEN / Unknown Venipuncture / Unknown 04/18/2019 11:08 AM CDT 04/18/2019 11:14 AM CDT Nikos Mobley MD LAB - COAGULATION OR DERABLES [facility] [address] [place] [address], [facility] [phone] * (ABNORMAL) PT-INR [facility] (04/18/2019 11:08 AM CDT) Only the most recent of3 resultswithin the time period is included. PT 15.1(H) 12.1 - 14.8 Seconds 04/18/2019 11:27 AM CDT [facility] INR 1.3 See Comment 04/18/2019 11:27 AM CDT [facility] Comment: The suggested therapeutic range for standard coumadin (warfarin) therapy is an INR of 2.0-3.0. For high-risk patients (Mechanical Mitral Valve Prosthesis, etc.), the suggested prophylactic therapeutic range is an INR of 2.5-3.5. Blood BLOOD SPECIMEN / Unknown Venipuncture / Unknown 04/18/2019 11:08 AM CDT 04/18/2019 11:14 AM CDT Nikos Mobley MD LAB - COAGULATION OR DERABLES [address] [phone] * TRANSFUSE RED BLOOD CELL LEUKOREDUCED UNIT(S) (04/18/2019 12:50 AM CDT) José Antonio Hanna DO NURSING - BLOOD PROD TRANSFUSION * TRANSFUSE RED BLOOD CELL LEUKOREDUCED UNIT(S) (04/18/2019 12:50 AM CDT) José Antonio Hanna DO NURSING - BLOOD PROD TRANSFUSION * LACTIC ACID BLOOD (04/18/2019 12:09 AM CDT) [facility] Lactic Acid-Stat 1.0 0.5 - 2.2 mmol/L 04/18/2019 12:44 AM CDT [facility] Blood BLOOD SPECIMEN / Unknown Venipuncture / Unknown 04/18/2019 12:09 AM CDT 04/18/2019 12:24 AM CDT Nikos Mobley MD LAB - CHEMISTRY ORDE RABLES [address] [phone] * TRANSFUSE RED BLOOD CELL LEUKOREDUCED UNIT(S) (04/17/2019 6:21 PM CDT) José Antonio Hanna DO NURSING - BLOOD PROD TRANSFUSION * (ABNORMAL) CALCIUM IONIZED WHOLE BLOOD (04/17/2019 12:16 AM CDT) Ionized Calcium Whole Blood 1.20 mmol/L 04/17/2019 1:32 AM CDT [facility] Adjusted Ionized Calcium 1.16(L) 1.19 - 1.34 mmol/L 04/17/2019 1:32 AM CDT [facility] pH Whole Blood 7.32(L) 7.35 - 7.45 04/17/2019 1:32 AM CDT [facility] Whole Blood WHOLE BLOOD SPECIMEN / Unknown Lab Venipuncture / Unknown 04/17/2019 12:16 AM CDT 04/17/2019 1:31 AM CDT Milton Mccloud MD LAB - CHEMISTRY TABATHA BAUTISTA [address] [phone] * XR ABDOMEN KUB PORTABLE (04/16/2019 10:48 PM CDT) Anatomical Region Laterality Modality Radiographic Dominga ging 04/17/2019 8:49 AM CDT Impressions 04/17/2019 5:55 PM CDT IMPRESSION: No prior study is available for comparison at the time of this dictation. An enteric tube terminates in the proximal stomach. Dictated by Delfino Sheikh MD (radiology tech). Dr. ZACHERY Ayala have personally reviewed and interpreted this examination/study. This report was electronically signed by ZACHERY ARRIOLA on 04/17/2019 5:55 PM . Narrative 04/17/2019 5:55 PM CDT EXAMINATION: XR ABDOMEN KUB PORTABLE HISTORY: Enteric tube placement Procedure Note Zachery Arriola MD - 04/17/2019 EXAMINATION: XR ABDOMEN KUB PORTABLE HISTORY: Enteric tube placement IMPRESSION: No prior study is available for comparison at the time ofthis dictation. An enteric tube terminates in the proximal stomach. Dictated by Delfino Sheikh MD (radiology tech). Dr. ZACHERY Ayala have personally reviewed and interpreted this examination/study. This report was electronically signed by ZACHERY ARRIOLA on 04/17/2019 5:55 PM . Milton Mccloud MD DIAGNOSTIC IMAGING O RDERABLES * TRANSFUSE RED BLOOD CELL LEUKOREDUCED UNIT(S) (04/16/2019 3:37 PM CDT) Allan Walker MD NURSING - BLOOD PROD TRANSFUSION * TRANSFUSE RED BLOOD CELL LEUKOREDUCED UNIT(S) (04/16/2019 12:17 PM CDT) Allan Walker MD NURSING - BLOOD PROD TRANSFUSION * ARTERIAL LINE NOTE (04/16/2019 8:53 AM CDT) Narrative vIán Curtis, DO - 04/16/2019 8:53 AM CDT Iván Curtis DO 04/16/2019 9:41 AM Arterial Line Placement Procedure Note Patient Location: OR. Procedure: Arterial Line ([id number]). Procedure Section Indications: continuous blood pressure monitoring. Consent: informed consent was obtained for the procedure. Patient Sedated? Yes Skin Prep: Chloraprep. Location: left radial. Site Identification: palpation. Sterile Technique: cap, mask and sterile gloves. Gauge: 20. Catheter Type: Arrow. Seldinger Technique Used? No Number of Attempts: 2. Line Secured with: Tegaderm and tape. Procedure Tolerance: tolerated well, no immediate complications and performed while patient under general anesthesia. Events: none. Procedure Start Time: 04/16/2019 8:20 AM. Procedure End Time: 04/16/2019 8:31 AM. Procedure Total Time: 11 minutes. Staff Section Anesthesia Provider: Allan Walker MD, Performed the procedure Provider #1: Iván Curtis, DO. Allan Walker MD GENERAL ANESTHESIA O RDERABLES * CENTRAL LINE NOTE (04/16/2019 8:52 AM CDT) Narrative Iván Curtis DO - 04/16/2019 8:52 AM CDT Iván Curtis DO 04/16/2019 9:41 AM Central Line Placement Procedure Note/LDA Patient Location: OR. Procedure: central line > 5yr ([id number]). Procedure Section: Indications: IV access. Patient Sedated? Yes Patient Position: Trendelenburg Site: internal jugular Skin Prep: Chloraprep. Local Anesthetic Used? No Site Identification: ultrasound guided with sterile sleeve and gel. Seldinger Technique Used? Yes Wire Verification: verified by ultrasound. Intravenous Verification: verified by ultrasound. Lumens: triple lumen Size (Fr): 7. Length (cm): 16. Secured at (cm): 16. Port Insertion: guidewire removed intact, all ports aspirated/flushed, sutured in place and dressing applied. Number of Attempts: 1. Procedure Tolerance: performed while patient under general anesthesia, tolerated well and no immediate complications Maximal Sterile Barriers: Cap, mask, sterile gloves, a large sterile sheet, hand hygiene, and chlorahexidine for cutaneous antisepsis (6030F) Procedure Start Time: 04/16/2019 8:15 AM. Procedure End Time: 04/16/2019 8:30 AM. Procedure Total Time: 15 minutes. Staff Section Anesthesia Provider: Stacey Coleman DO Performed the procedure Provider #1: Allan Walker MD. Allan Walker MD GENERAL ANESTHESIA O RDERABLES * ENDOTRACHEAL TUBE NOTE (04/16/2019 8:51 AM CDT) Narrative Iván Curtis DO - 04/16/2019 8:51 AM CDT Iván Curtis DO 04/16/2019 9:39 AM Endotracheal Tube Placement: Patient Location: OR. Intubation Event Date/Time: 04/16/2019 7:58 AM Procedure: intubation ([id number]). Procedure Section: Sedation: under general anesthesia. Indications for Airway Management: anesthesia Induction: standard IV Patient Position: sniffing and supine Mask Ventilation: not attempted. Blade Type: Berna Blade Size: 3 Laryngoscopy View: grade 1 (full cords) Intubation Adjuncts: stylet Tube: endotracheal tube Placement: oral Tube type: cuff - inflated Tube Size (MM): 7 Depth of Insertion (CM): 22 Measured From: lips Cuff Inflated With: air Number of Attempts: 1. Placement Verified By: direct visualization, chest auscultation, bilateral breath sounds and CO2 monitor Tube secured with: adhesive tape. Difficult Airway? No. Procedure Start Time: 04/16/2019 7:58 AM. Procedure End Time: 04/16/2019 7:59 AM. Procedure Total Time: 1 minutes. Staff Section Anesthesia Provider: Stacey Coleman DO Performed the procedure Provider #1: Allan Walker MD. Allan Walker MD GENERAL ANESTHESIA O RDERABLES * (ABNORMAL) DIFFERENTIAL MANUAL (04/09/2019 10:28 AM CDT) WBC (corrected for NRBC) 10.5 10 3/uL 04/09/2019 11:52 AM [facility] Total Cell Count 100 04/09/20 11:52 AM [facility] Neutrophils Absolute Manual 7.98(H) 1.60 - 7.00 10 3/uL 04/09/2019 11:52 AM [facility] Comment:(BANDS+SEGS) x WBC = NEUT # (ANC) Lymphocyte Absolute Manual 1.79 0.80 - 2.90 10 3/uL 04/09/2019 11:52 AM [facility] Monocytes Absolute Manual 0.63 0.14 - 0.66 10 3/uL 04/09/2019 11:52 AM [facility] Basophil Absolute Manual 0.11(H) 0.00 - 0.06 10 3/uL 04/09/2019 11:52 AM [facility] Neutrophil % Manual 76(H) 30 - 60 % 04/09/2019 11:52 AM [facility] Lymphocyte % Manual 17(L) 20 - 45 % 04/09/2019 11:52 AM [facility] Monocytes % Manual 6 2 - 10 % 04/09/2019 11:52 AM [facility] Basophils % Manual 1 0 - 3 % 04/09/2019 11:52 AM [facility] Platelet Estimate Increased (A) Adequate 04/09/2019 11:52 AM [facility] Anisocytosis 1+(A) None 04/09/2019 11:52 AM [facility] Blood BLOOD SPECIMEN / Unknown Lab Venipuncture / Unknown 04/09/2019 10:28 AM CDT 04/09/2019 10:53 AM CDT Hung Harvey MD LAB - HEMATOLOGY ORD ERABLES [address] [phone] * LAB RESULTS ORDER (03/30/2019 12:42 PM CDT) Only the most recent of2 resultswithin the time period is included. Narrative 03/30/2019 12:42 PM CDT Ordered by an unspecified provider. Scanned Document LAB - THERAPEUTIC DR HWANG MONITORING ORDERABLES * NM MYOCARD PERF REST STRESS (02/13/2019 11:27 AM CDT) Only the most recent of2 resultswithin the time period is included. Anatomical Region Laterality Modality Chest Nuclear Medicine 02/13/2019 8:28 AM CDT Narrative Procedure Note 02/13/[address] [address] Nuclear Myocardial Perfusion Scan Report Pat.Name: ALE HARLEY Pat.ID: [id number] St.Date: 02/13/2019 Refer.MD: Hung Harvey Exam Time: 8:28:00 AM Study Type:Nuclear Myocardial Perfusion Scan Height: 160.02cm Weight: 92.27kg BSA: 1.95 m2 Age: 11 1955,63Y Sex: FEMALE Pat. Stat.:Outpatient Reason for Study: Preoperative examination Procedures: Lexiscan Perfusion Scan Visit ID: [id number] Nurse: Destiny Redd RN Risk Factors:Hypertension, Diabetes, Hypercholesterolemia Medications:See EPIC Supervised by:SHAY Hinton-HUMBERTO ++++++++++++++++++++++++++++++++++++ SUMMARY: ++++++++++++++++++++++++++++++++++++ FINDINGS: Myocardial perfusion images demonstrate mildly decreased activity in the anteroseptum and inferolateral wall of the left ventricle which is mostly fixed between stress and rest imaging. Both regions have normal contractility on gating images and most likely are secondary to breast attenuation artifact and diaphragmatic attenuation artifact respectively. The remaining garibay of the left ventricle demonstrate normal perfusion during both imaging sets. Gated images demonstrate normal LV systolic function with a estimated EF of 64% . SUMMARY: 1. Myocardial perfusion images do not demonstrate any evidence of resversible ischemia. 2. There is decreased activity in the anterior wall most likely secondary to breast attenuation artifact, and decreased activity in the inferolateral wall most likely secondary to diaphragmatic attenuation artifact. 3. Gated images demonstrate normal LV systolic function. ++++++++++++++++++++++++++++++++++++ STRESS: ++++++++++++++++++++++++++++++++++++ Baseline Vital Signs: Intervention Regadenoson Peak Dose 0.4 mg Rest HR 88 Atropine 0 Rest BP: 117/83 Duration 03:00 DC Int: 158 ms QRS Int: 82 ms QT Int: 372 deg Baseline Rhythm Normal sinus rhythm, poor r wave progression. Stress Test Results: Symptoms and Complications: Arrhythmias None Reason for Stopping Test: Protocol completed Stress Induced Symptoms: Minimal generalized symptoms with Lexiscan infusion. Hemodynamics Normal heart rate response to pharmacological stress., Normal blood pressure response to pharmacological stress. ECG Findings: No ischemic S-T changes during lexiscan infusion. Signed 02/13/2019 12:24 PM Gary Kaye MD Hung Harvey MD NM ORDERABLES * STRESS TEST LEXISCAN (NUCLEAR) (02/13/2019 9:56 AM CDT) Only the most recent of3 resultswithin the time period is included. Stress Test Summary For full formatted report, please see the report link in the order. Acquisition Time: 2019-02-13 09:56:03 Total Exercise Time: 00:01:00 Test Indications: Preoperative exam Medications: SEE EPIC Protocol: LEXISCAN Max HR: 108 BPM 68% of Pred: 157 BPM Max BP: 138/074 mmHG Max Work Load: 1.0 METS Reason for Termination: protocol Resting ECG: NSR Functional Capacity: NA HR Response to Exercise: NA BP Resoonse to Exercise: NA Chest Pain: none. Minimal symptoms with Yulissa. Arrhythmias: None. ST Changes: None. Overall Impression: SEE FULL NUCLEAR STRESS REPORT Diagnosis: No ST changes diagnostic of ischemia with Lexiscan infusion Confirmed by DO Lee Stephanie ([id number]) on 03/01/2019 2:50:05 PM Attending Physician: Cristal Landaverde ANP Referred By: HUNG HARVEY Overread By: Vilma Lee DO [facility] STRESS 02/13/2019 9:56 AM CDT 03/01/2019 2:50 PM CDT Hung Harvey MD CARDIAC SERVICES ORD ERABLES [facility] STRESS * BONE DENSITY AXIAL SKELETON(1OR MORE SITES)[id number] (02/11/2019 8:44 AM CDT) Anatomical Region Laterality [...] 5.5% Hip fracture: 0.1% Procedure Note Joselin Briscoe DO - 02/11/2019 BONE MINERAL DENSITY STUDY: [...] Briscoe MD on 02/11/2019 at 9:27 AM Hung Harvey MD DEXA ORDERABLES * ALT (01/31/2019 9:55 AM CDT) ALT 15 0 - 32 IU/L [facility] INSURANCE BILL Comment:FASTING Blood BLOOD SPECIMEN / Unknown 01/31/2019 9:55 AM CDT 01/31/2019 Narrative [facility] INSURANCE BILL - 02/01/2019 6:38 AM CDT A courtesy copy of this report has been sent to the patient. Resulting Agency Comment Lab Testing performed at: [facility] [address] [phone] José Miguel Morgan MD LAB - CHEMISTRY TABATHA BAUTISTA [facility] Organization Address City/State/ZIP Co de Phone Number [facility] INSURANCE BILL [address] [place] [address] * XR PELVIS W RIGHT HIP 2VW (11/17/2018 9:41 AM CDT) Only the most recent of2 resultswithin the time period is included. Anatomical Region Laterality Modality Radiographic Dominga ging 11/17/2018 9:52 AM CDT Impressions 11/17/2018 9:56 AM CDT Satisfactory postop appearance. Edited by Madelyn Goodson on 11/17/2018 9:54 AM Reading Radiologist: Syed Mchugh MD on 11/17/2018 at 9:56 AM Narrative 11/17/2018 9:56 AM CDT PELVIS AND RIGHT HIP HISTORY: Follow-up. 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 Procedure Note Syed Mchugh MD - 11/17/2018 PELVIS AND RIGHT HIP HISTORY: Follow-up. 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 IMPRESSION Satisfactory postop appearance. Edited by Madelyn Goodson on 11/17/2018 9:54 AM Reading Radiologist: Syed Mchugh MD on 11/17/2018 at 9:56 AM Grupo Smalls MD DIAGNOSTIC IMAGING O RDERABLES * CARDIAC RHYTHM STRIP ORDER (09/22/2018 4:34 PM EXTENSION PROFESSOR) Only the most recent of2 resultswithin the time period is included. Narrative 09/22/2018 4:34 PM EXTENSION PROFESSOR Ordered by an unspecified provider. Scanned Document CARDIAC SERVICES ORD ERABLES * (ABNORMAL) HGB HCT PANEL (09/18/2018 2:58 AM EXTENSION PROFESSOR) Only the most recent of2 resultswithin the time period is included. Hemoglobin 9.5(L) 12.0 - 15.6 gm/dL 09/18/2018 3:50 AM EXTENSION PROFESSOR [facility] Hematocrit 30.3(L) 35.9 - 45.5 % 09/18/2018 3:50 AM EXTENSION PROFESSOR [facility] Blood BLOOD SPECIMEN / Unknown Lab Venipuncture / Unknown 09/18/2018 2:58 AM EXTENSION PROFESSOR 09/18/2018 3:42 AM EXTENSION PROFESSOR Ric Melo MD LAB - HEMATOLOGY ORD ERABLES [facility] [address] [place] [address] * BLOOD TYPE VERIFICATION (09/16/2018 8:45 AM EXTENSION PROFESSOR) ABO A 09/16/2018 9:09 AM EXTENSION PROFESSOR [facility] Rh Type Positive 09/16/2018 9:09 AM EXTENSION PROFESSOR [facility] Blood Bank BLOOD SPECIMEN / Unknown Venipuncture / Unknown 09/16/2018 8:45 AM EXTENSION PROFESSOR 09/16/2018 8:47 AM EXTENSION PROFESSOR Greg Kerr DO LAB - BLOOD BANK ORD ERABLES Performing Organization Address City/[facility]/ZIP Co de Phone Number [facility] [address] [place], [place] [address] [phone] * URINE MICROSCOPIC ONLY REFLEX TO CULTURE (09/15/2018 11:07 AM EXTENSION PROFESSOR) Only the most recent of2 resultswithin the time period is included. Reflex Status Culture to follow 09/15/2018 11:57 AM [facility] RBC UA 0-2 None Seen, 0-2, 3-5 # /hpf 09/15/2018 11:57 AM [facility] WBC UA 0-5 None Seen, 0-5 # /hpf 09/15/2018 11:57 AM [facility] Bacteria UA None Seen None Seen 09/15/2018 11:57 AM [facility] Squamous Epithelial Cells 3-5 None Seen, 0-2, 3-5 /hpf 09/15/2018 11:57 AM [facility] Urine URINE SPECIMEN OBTAINED BY CLEAN CATCH PROCEDURE / Unknown Collection / Unknown 09/15/2018 11:07 AM EXTENSION PROFESSOR 09/15/2018 11:08 AM EXTENSION PROFESSOR Narrative [facility] - 09/15/2018 11:57 AM EXTENSION PROFESSOR Grupo Smalls MD LAB - URINALYSIS ORD ERABLES [facility] [address] [place] [id number] * (ABNORMAL) URINALYSIS REFLEX MICROSCOPIC REFLEX CULTURE (09/15/2018 11:07 AM EXTENSION PROFESSOR) Only the most recent of2 resultswithin the time period is included. Color UA Yellow Straw, Yellow 09/15/2018 11:52 AM [facility] Clarity UA Slt Cloudy(A) Clear 09/15/2018 11:52 AM [facility] Glucose UA Negative Negative 09/15/2018 11:52 AM [facility] Bilirubin UA Negative Negative 09/15/2018 11:52 AM [facility] Ketone UA Negative Negative 09/15/2018 11:52 AM [facility] Specific [place] UA 1.013 1.005 - 1.030 09/15/2018 11:52 AM [facility] Blood UA Negative Negative 09/15/2018 11:52 AM [facility] pH UA 6.0 5.0 - 8.0 pH 09/15/2018 11:52 AM [facility] Protein UA Negative Negative 09/15/2018 11:52 AM [facility] Urobilinogen UA Negative Negative mg/dL 09/15/2018 11:52 AM [facility] Nitrite UA Negative Negative 09/15/2018 11:52 AM [facility] Leukocyte UA 1+(A) Negative 09/15/2018 11:52 AM [facility] Urine Microscopy Urine microscopy to follow 09/15/2018 11:52 AM [facility] Reflex Status Culture to follow 09/15/2018 11:52 AM [facility] Urine URINE SPECIMEN OBTAINED BY CLEAN CATCH PROCEDURE / Unknown Collection / Unknown 09/15/2018 11:07 AM EXTENSION PROFESSOR 09/15/2018 11:08 AM EXTENSION PROFESSOR Narrative [facility] - 09/15/2018 11:52 AM EXTENSION PROFESSOR Ascorbic Acid can cause false negative urine strip tests for blood, glucose, nitrite, and bilirubin. Grupo Smalls MD LAB - URINALYSIS ORD ERABLES [facility] [address] [place] [address] * CULTURE MSSA/MRSA (09/08/2018 8:54 AM EXTENSION PROFESSOR) Culture Negative for Staphylococcus aureus (MRSA/MSSA) HAN 09/09/2018 3:52 PM EXTENSION PROFESSOR [facility] Microbiology SPECIMEN FROM NASAL FOSSAE / Unknown Collection / Unknown 09/08/2018 8:54 AM EXTENSION PROFESSOR 09/08/2018 9:35 AM EXTENSION PROFESSOR Grupo Smalls MD LAB - MICROBIOLOGY O RDERABLES [facility] [address] [place] [address], [facility] [phone] * (ABNORMAL) TRANSFERRIN (09/08/2018 8:54 AM [facility]) Transferrin 386(H) 250 - 380 mg/dL 09/08/2018 10:10 AM [facility] Blood BLOOD SPECIMEN / Unknown Venipuncture / Unknown 09/08/2018 8:54 AM EXTENSION PROFESSOR 09/08/2018 9:35 AM [facility] Grupo Smalls MD LAB - CHEMISTRY TABATHA BAUTISTA Performing Organization Address City/State/[facility] Co de Phone Number [facility] [address] [place] [address] * (ABNORMAL) DRUG SCREEN TOX URINE PANEL (09/08/2018 8:54 AM [facility]) Amphetamines Screen Urine Detected(A) Not Detected 09/08/2018 10:38 AM [facility] Barbiturates Screen Urine Not Detected Not Detected 09/08/2018 10:38 AM [facility] Benzodiazepines Screen Urine Not Detected Not Detected 09/08/2018 10:38 AM [facility] Cannabinoids Screen Urine Not Detected Not Detected 09/08/2018 10:38 AM [facility] Cocaine Screen Urine Not Detected Not Detected 09/08/2018 10:38 AM [facility] Methadone Screen Urine Not Detected Not Detected 09/08/2018 10:38 AM [facility] Opiate Screen Urine Not Detected Not Detected 09/08/2018 10:38 AM [facility] Phencyclidine Screen Urine Not Detected Not Detected 09/08/2018 10:38 AM [facility] Urine URINE / Unknown Collection / Unknown 09/08/2018 8:54 AM [facility] 09/08/2018 9:35 AM [facility] Narrative [facility] - 09/08/2018 10:38 AM [facility] This drug screen is designed for MEDICAL purposes only. It is not to be used for legal purposes, including but not limited to worker's comp, police investigations, occupational issues, child custody, etc. Any positive result is only presumptive and must be confirmed with a separate confirmatory test ordered by the physician. Drug Screening Test Cutoff Values: AMPHETAMINES 1000 ng/mL BARBITURATES 200 ng/mL BENZODIAZEPINES 200 ng/mL CANNABINOIDS(THC) 50 ng/mL COCAINE 300 ng/mL METHADONE 300 ng/mL OPIATES 300 ng/mL PHENCYCLIDINE(PCP)25 ng/mL Grupo Smalls MD LAB - URINE CHEMISTR Y ORDERABLES [facility] [address] [place] [address] * XR PELVIS W BILAT HIP 2VW (08/18/2018 8:56 AM EXTENSION PROFESSOR) Anatomical Region Laterality Modality Pelvis, Lower Extremity [facility] 08/18/2018 9:52 AM EXTENSION PROFESSOR Impressions 08/18/2018 10:51 AM EXTENSION PROFESSOR Degenerative changes right hip. Pelvic tilt. Edited by Madelyn Goodson on 08/18/2018 10:43 AM Reading Radiologist: Syed Mchugh MD on 08/18/2018 at 10:51 AM Narrative 08/18/2018 10:51 AM EXTENSION PROFESSOR BILATERAL HIPS HISTORY: Hip pain. Views of each hip are reviewed. On the right, there is severe degenerative change manifest by joint space loss, sclerosis and spur formation. There is flattening and irregularity of the femoral head. I cannot exclude an element of avascular necrosis. The left hip has a well maintained joint space. There is no fracture, lytic or blastic lesion. Pelvic tilt creates an abnormal positioning of the femoral head relative to the acetabulum. Degenerative changes are seen in the lumbar spine. Procedure Note Syed Mchugh MD - 08/18/2018 BILATERAL HIPS HISTORY: Hip pain. Views of each hip are reviewed. On the right, there is severe degenerative change manifest by joint space loss, sclerosis and spur formation. There is flattening and irregularity of the femoral head. I cannot exclude an element of avascular necrosis. The left hip has a well maintained joint space. There is no fracture, lytic or blastic lesion. Pelvic tilt creates an abnormal positioning of the femoral head relative to the acetabulum. Degenerative changes are seen in the lumbar spine. IMPRESSION Degenerative changes right hip. Pelvic tilt. Edited by Madelyn Goodson on 08/18/2018 10:43 AM Reading Radiologist: Syed Mchugh MD on 08/18/2018 at 10:51 AM Grupo Smalls MD DIAGNOSTIC IMAGING O RDERABLES * GROSS + MICRO EXAM (STL) (06/09/2018 11:17 AM EXTENSION PROFESSOR) Only the most recent of2 resultswithin the time period is included. Case Report Surgical Pathology Report Case: [id number] Authorizing Provider: Andrei Alegre MD Collected: 06/09/2018 11:17 AM Ordering Location: [facility] Received: 06/09/2018 02:18 PM Pathologist: Xena Ramírez MD Specimens: A) - Polyp Transverse, transverse colon polyp B) - Polyp Cecum, cecal polyp 06/10/2018 12:48 PM EXTENSION PROFESSOR [facility] Final Diagnosis Large intestine, transverse colon, polyp, endoscopic biopsy: - Tubular adenoma Large intestine, cecum, polyp, endoscopic biopsy: - Tubular adenoma KL/na 06/10/2018 12:[address] [facility] Gross Description The specimen received in two formalin-filled containers each labeled with the patient's name, Ale Harley. The first container is additionally labeled polyp transverse and consists of four fragments of gamino-pink tissue ranging from 0.1 to 0.3 cm in greatest dimension as well as some flecks of gamino-yellow fecal material. The tissue is marked with hematoxylin and entirely submitted in A1. The second container is additionally labeled cecal polyp and consists of two fragments of gamino-white tissue each measuring approximately 0.2 cm in greatest dimension. The tissue is marked with hematoxylin and submitted in B1. KL/scs 06/10/2018 12:[address] [facility] Microscopic Description Histologic sections of the transverse polyp show tubular adenoma. There is no evidence of high-grade dysplasia or malignancy. Histologic sections of the cecal polyp show tubular adenoma. There is no evidence of high-grade dysplasia or malignancy. KL/na 06/10/2018 12:[address] [facility] Disclaimer All histochemical and/or immunohistochemical results are interpreted with controls that demonstrate appropriate staining reactions before reporting results. Note on use of immunocytochemistry reagents: This test was developed and its performance characteristic determined by [facility], Department of Laboratory Medicine. It has not been cleared or approved by the U.S. Food and Drug Administration (FDA). The FDA has determined that such clearance or approval is not necessary. The test is used for clinical purpose. It should not be regarded as investigational or for research. This laboratory is certified to perform high complexity testing. 06/10/2018 12:48 PM EXTENSION PROFESSOR [facility] Embedded Images 06/10/2018 12:48 PM EXTENSION PROFESSOR [facility] Pathology/Cytology POLYP / Unknown 2017 11:17 AM EXTENSION PROFESSOR 06/09/2018 2:18 PM EXTENSION PROFESSOR Miscellaneous samples (specimen) POLYP OF CECUM / Unknown 06/09/2018 11:22 AM EXTENSION PROFESSOR 06/09/2018 2:18 PM EXTENSION PROFESSOR Andrei Alegre MD LAB - PATHOLOGY/CYTO LOGY ORDERABLES [facility] [address] [address] * ENDOSCOPY, COLON, SCREENING (06/09/2018 11:03 AM EXTENSION PROFESSOR) Report Endoscopy POC _ Patient Name: Ale Harley Procedure Date: 06/09/2018 11:03 AM Date of : 1955 Admit Type: Outpatient Age: 63 Room: ROOM 1 Gender: Female Note Status: Finalized Attending MD: Andrei Alegre MD _ Procedure: Colonoscopy Indications: High risk colon cancer surveillance: Personal history of colonic polyps, Last colonoscopy: 2011 Providers: Andrei Alegre MD, Pallavi Logan RN, Katherine Rowe RN, Malka Warren CRNA (Anesthesia Staff) Medicines: Propofol per Anesthesia Complications: No immediate complications. _ Procedure: After I obtained informed consent, the scope was passed under direct vision. Throughout the procedure, the patient's blood pressure, pulse, and oxygen saturations were monitored continuously. The [id number] SN [id number] was introduced through the anus and advanced [...] for surveillance. Procedure Code(s): --- Professional --- 26682, Colonoscopy, flexible; with removal of tumor(s), polyp(s), or other lesion(s) by snare technique [id number], 59, Colonoscopy, flexible; with removal of tumor(s), polyp(s), or other lesion(s) by hot biopsy forceps --- Technical --- 46668, Colonoscopy, flexible; with removal of tumor(s), polyp(s), or other lesion(s) by snare technique [id number], 59, Colonoscopy, flexible; with removal of tumor(s), [...] flexure) K64.9, Unspecified hemorrhoids CPT copyright 2015 [employer]. All rights reserved. The codes documented in this report are preliminary and upon fountain helper review may be revised to meet current compliance requirements. Andrei Alegre MD 06/09/2018 11:38:18 AM This report has been signed electronically. Number of Addenda: 0 Note Initiated On: 06/09/2018 11:03 AM Estimated Blood Loss: Estimated blood loss: none. [facility] 06/09/2018 11:0 3 AM EXTENSION PROFESSOR Andrei Alegre MD GI PROCEDURE ORDERAB LES [facility] * MAMMO BILAT SCREENING (2018 12:55 PM EXTENSION PROFESSOR) Only the most recent of2 resultswithin the time period is included. Anatomical Region Laterality Modality Breast Bilateral Mammography 2018 3:41 PM EXTENSION PROFESSOR Impressions 2018 3:44 PM EXTENSION PROFESSOR No mammographic evidence of malignancy in either breast. ASSESSMENT: BIRADS Category 1: Negative mammogram. RECOMMENDATION: Bilateral screening mammogram in one year. Thank you for allowing us to participate in the care of your patient. Reading Radiologist: Katherine Soliman MD on 2018 at 3:44 PM Narrative 2018 3:44 PM EXTENSION PROFESSOR EXAMINATION: Digital screening mammogram on 2018. Low-dose [...] José Miguel Morgan MD MAMMO ORDERABLES * HM DIABETES EYE EXAM (01/25/2018) Scanned Document HEALTH MAINTENANCE * REF LAB-PLEASE NOTE (01/01/2018 4:46 PM CDT) Only the most recent of2 resultswithin the time period is included. Please Note [facility] ACCOUNT BILL Comment: We have received your request for additional testing or test verification. You will be notified if we are unable to process your request. 01/01/2018 4:46 PM CDT 01/01/2018 Narrative Resulting Agency Comment [facility] [address] [phone] José Miguel Morgan MD LAB - CHEMISTRY TABATHA BAUTISTA Performing Organization Address [facility] Co de Phone Number [facility] ACCOUNT BILL [address] [place] [address] * T4 FREE (01/01/2018 4:46 PM CDT) Only the most recent of4 resultswithin the time period is included. T4 Free 1.04 0.65 - 1.34 ng/dL [facility] ACCOUNT BILL 01/01/2018 4:46 PM CDT 01/01/2018 Narrative Resulting Agency Comment [facility] [address] [facility] [phone] José Miguel Morgan MD LAB - CHEMISTRY TABATHA BAUTISTA [facility] ACCOUNT BILL [address] [place] [address] * XR HIP 2+ VW RIGHT (07/03/2017 10:40 AM EXTENSION PROFESSOR) Anatomical Region Laterality Modality Pelvis, Lower Extremity [facility] 07/03/2017 10:4 7 AM EXTENSION PROFESSOR Impressions 07/03/2017 10:49 AM EXTENSION PROFESSOR 1. Severe right hip osteoarthritis. 2. Severe lumbar spine degenerative disc disease and facet osteoarthritis. Narrative 07/03/2017 10:49 AM EXTENSION PROFESSOR Examination: 1. Lumbar spine 2 or 3 views 2. Right hip minimum 2 views History: Right hip and lower back pain Findings: 2 views of the right hip were performed without comparison. There is severe right hip osteoarthritis. There is no acute fracture of the right hip. AP and lateral views of the lumbar spine were performed. Upper abdominal postsurgical changes are noted. There is mild lumbar spine levocurvature. There is grade 1 degenerative anterolisthesis of L4 on L5 as well as L5 on S1. There is loss of the lumbar lordosis. There is no lumbar spine compression deformity. There is diffuse degenerative disc disease which is worst and severe L1-2 through L3-4. Diffuse facet osteoarthritis is noted. Aortic atherosclerosis is noted. Procedure Note Sandip Rogers MD - 07/03/2017 Examination: 1. Lumbar spine 2 or 3 views 2. Right hip minimum 2 views History: Right hip and lower back pain Findings: 2 views of the right hip were performed without comparison. There is severe right hip osteoarthritis. There is no acute fracture of the right hip. AP and lateral views of the lumbar spine were performed. Upper abdominal postsurgical changes are noted. There is mild lumbar spine levocurvature. There is grade 1 degenerative anterolisthesis of L4 on L5 as well as L5 on S1. There is loss of the lumbar lordosis. There is no lumbar spine compression deformity. There is diffuse degenerative disc disease which is worst and severe L1-2 through L3-4. Diffuse facet osteoarthritis is noted. Aortic atherosclerosis is noted. IMPRESSION 1. Severe right hip osteoarthritis. 2. Severe lumbar spine degenerative disc disease and facet osteoarthritis. José Miguel Morgan MD DIAGNOSTIC IMAGING O RDERABLES * HEPATITIS C ANTIBODY (01/09/2017 4:18 PM CDT) Hepatitis C Antibody Non Reactive Non Reactive [facility] ACCOUNT BILL Comment: Non Reactive - Antibodies to Hepatitis C virus (HCV) were no t detected, result does not exclude early acute HCV infection. FASTING Blood BLOOD SPECIMEN / Unknown 01/09/2017 4:18 PM CDT 01/09/2017 Narrative Resulting Agency Comment [facility] [address] [facility] [phone] José Miguel Morgan MD LAB - CHEMISTRY TABATHA BAUTISTA [facility] ACCOUNT BILL [address] [place] [address] * PFT CARDIOPULMONARY EXERCISE TEST-CPET (07/18/2016 9:43 AM EXTENSION PROFESSOR) Impressions [facility] - 07/18/2016 9:43 AM EXTENSION PROFESSOR HISTORY Ale Harley is a 61 y.o. year old female undergoing cardiopulmonary exercise testing for evaluation of dyspnea. The patient height is 61 in and weight 215 Lbs, with BMI of 40.6. The exercise test was performed on a treadmill, using a (2 minute interval / Jose / ramp) protocol. The patient tolerated a maximum 6 mph at 7 % grade, exercising for a total of 4 minutes while breathing room air . The patient s reason for stopping was dyspnea of 10/10 intensity. HEMODYNAMICS The resting HR was 107 bpm. The patient had normal EKG at rest. The peak HR was 146 bpm, or92 % of predicted at peak workload. The patient had no significant arrhythmias or ST segment changes during exercise, few PVCs noticed. The patient s blood pressure was 120/88 at rest and 180/90 at maximal exertion. The O2 pulse was 2.9 mL/beat at rest and 10.7 mL/beat at maximal exertion. Comments VENTILATION & GAS EXCHANGE The patient s breath rate was 14 per minute with a minute ventilation of 8.7 L/min at rest. The breath rate increased to 37 per minute with a minute ventilation of 62.5 L/min at peak exercise. The peak ventilation was 63 % of predicted maximal ventilation. Pulse oximetry showed oxygen saturation of 98% on room air at rest and 98% at peak exercise . The VO2 was 16.0 mL/min/kg at peak exercise, or 67 % of the predicted maximum, consistant with mild functional aerobic impairment. The VO2 was 1562 ml/min or 94% of predicted when not adjusted to weight. Anaerobic threshold occurred at 2 minutes of exercise at 80% of peak VO2, which was late. The R value was 1.35 at peak exercise, suggesting maximal effort. NINE-PANEL GRAPHS Panel 1, VE vs. WR: The slope looked upsloping curvilinear relationship which is normal. Panel 2, HR & VO2/HR vs. WR: HR vs. WR showed linear pattern. O2 pulse vs. WR looked upsloping linear relationship Panel 3, VO2 & VCO2 vs. WR: Both plots showed upsloping curvilinear pattern. VCO2 crosses from below to above the VO2 line at AT. Panel 4, VE vs. VCO2: showed an upsloping linear relationship Panel 5, HR & VCO2 vs. VO2: HR/VO2 showed an upsloping linear relationship. VCO2/VO2 showed linear relationship until AT, at which point the slope became steeper Panel 6, VE/CO2 & VE/VO2 vs. WR: Both plots are curvilinear Panel 7, Vt vs. VE: The slope shows a curvilinear relationship that plateaued below IC suggesting high ventilatory reserve with possible restriction. Panel 8, RER vs. WR: showed linear relationship Panel 9, PETO2 & PETCO2 vs. WR: Yordy of PETO2 and peak of PETCO2 occured at AT. IMPRESSION This patient has mild functional aerobic impairment The aerobic capacity in this patient is limited due to obesity as evidenced by the normal absolute values but decreased values when adjusted for weight. There was no evidence of clear cardiac or ventilatory limitation Vkias Craig MD 07/22/2016 I have reviewed this study and agree with the interpretation by Dr. Craig. Gaurav Frankel M.D. [employer] Administrative Assistant of Internal Medicine Division of Pulmonary, Critical Care and Sleep Medicine [facility] Narrative Procedure Note Provider, MD Aaliyah - 12/27/2017 IMPRESSION HISTORY Ale Harley is a 61 y.o. year old female undergoing cardiopulmonaryexercise testing for evaluation of dyspnea. The patient height is 61 inand weight 215 Lbs, with BMI of 40.6. The exercise test was performed christopher treadmill, using a (2 minute interval / Jose / ramp) protocol. Thepatient tolerated a maximum 6 mph at 7 % grade, exercising for a total of4 minutes while breathing room air . The patient s reason for stoppingwas dyspnea of 10/10 intensity. HEMODYNAMICS The resting HR was 107 bpm. The patient had normal EKG at rest. The peakHR was 146 bpm, or92 % of predicted at peak workload. The patient had nosignificant arrhythmias or ST segment changes during exercise, few PVCsnoticed. The patient s blood pressure was 120/88 at rest and 180/90 atmaximal exertion. The O2 pulse was 2.9 mL/beat at rest and 10.7 mL/beatat maximal exertion. Comments VENTILATION & GAS EXCHANGE The patient s breath rate was 14 per minute with a minute ventilation of8.7 L/min at rest. The breath rate increased to 37 per minute with aminute ventilation of 62.5 L/min at peak exercise. The peak ventilationwas 63 % of predicted maximal ventilation. Pulse oximetry showed oxygensaturation of 98% on room air at rest and 98% at peak exercise . The VO2 was 16.0 mL/min/kg at peak exercise, or 67 % of the predictedmaximum, consistant with mild functional aerobic impairment. The VO2 mrh5005 ml/min or 94% of predicted when not adjusted to weight. Anaerobicthreshold occurred at 2 minutes of exercise at 80% of peak VO2, which waslate. The R value was 1.35 at peak exercise, suggesting maximal effort. NINE-PANEL GRAPHS Panel 1, VE vs. WR: The slope looked upsloping curvilinear relationshipwhich is normal. Panel 2, HR & VO2/HR vs. WR: HR vs. WR showed linear pattern. O2 pulse vs. WR looked upsloping linear relationship Panel 3, VO2 & VCO2 vs. WR: Both plots showed upsloping curvilinearpattern. VCO2 crosses from below to above the VO2 line at AT. Panel 4, VE vs. VCO2: showed an upsloping linear relationship Panel 5, HR & VCO2 vs. VO2: HR/VO2 showed an upsloping linearrelationship. VCO2/VO2 showed linear relationship until AT, at which point the slopebecame steeper Panel 6, VE/CO2 & VE/VO2 vs. WR: Both plots are curvilinear Panel 7, Vt vs. VE: The slope shows a curvilinear relationship thatplateaued below IC suggesting high ventilatory reserve with possiblerestriction. Panel 8, RER vs. WR: showed linear relationship Panel 9, PETO2 & PETCO2 vs. WR: Yordy of PETO2 and peak of PETCO2 occuredat AT. IMPRESSION This patient has mild functional aerobic impairment The aerobic capacity in this patient is limited due to obesity asevidenced by the normal absolute values but decreased values when adjustedfor weight. There was no evidence of clear cardiac or ventilatory limitation Vikas Craig MD 07/22/2016 I have reviewed this study and agree with the interpretation by . Gaurav Frankel M.D. [employer] Administrative Assistant of Internal Medicine Division of Pulmonary, Critical Care and Sleep Medicine [facility] Madhu Wells MD PFT ORDERABLES [facility] * ECHOCARDIOGRAM 2D WITH DOPPLER (09/06/2015 1:41 PM EXTENSION PROFESSOR) Only the most recent of2 resultswithin the time period is included. 09/06/2015 1:41 PM EXTENSION PROFESSOR Narrative [facility] - 09/07/2015 10:40 AM EXTENSION PROFESSOR Transthoracic Echocardiogram 2D, M-mode, Doppler, and Color Doppler Patient: ALE HARLEY MR number: [id number] Height: 63 in Weight: 231.4 lb BSA: 2.06 m Study date: 06-Sep-2015 : 1955 Age: 60 years Gender: Female Race: Allergies: IODINATED CONTRAST AGENTS Referring Physician: Madhu Wells MD Driver Guide: Sarah Chester RDCS Reading Physician: Dexter Maradiaga MD Summary: - Clinical question: - Dyspnea. - Left ventricle: - Size was normal. - Systolic function was normal. Ejection fraction was estimated to be 65 %. - There were no regional wall motion abnormalities. - Wall thickness was normal. - Pulmonary arteries: - Systolic pressure was mildly increased. Estimated peak pressure was 40 mmHg. Indications: Dyspnea. Procedure: The procedure was performed in the echo lab. This was a routine study. The transthoracic approach was used. The study included complete 2D imaging, M-mode, complete spectral Doppler, and color Doppler. Systolic blood pressure was 125 mmHg. Diastolic blood pressure was 65 mmHg. Left ventricle: Size was normal. Systolic function was normal. Ejection fraction was estimated to be 65 %. There were no regional wall motion abnormalities. Wall thickness was normal. Aortic valve: The valve was trileaflet. Leaflets exhibited normal thickness and normal cuspal separation. Doppler: There was no stenosis. There was no regurgitation. Aorta: The root exhibited normal size. Mitral valve: Valve structure was normal. There was normal leaflet separation. Doppler: The transmitral velocity was within the normal range. There was no evidence for stenosis. There was no regurgitation. Left atrium: Size was normal. Right ventricle: The size was normal. Systolic function was normal. Wall thickness was normal. Pulmonic valve: Doppler: There was no regurgitation. Pulmonary artery: Doppler: Systolic pressure was mildly increased. Estimated peak pressure was 40 mmHg. Tricuspid valve: There was normal leaflet separation. Doppler: The transtricuspid velocity was within the normal range. There was no evidence for tricuspid stenosis. There was no regurgitation. Right atrium: Size was normal. Pericardium: The pericardium was normal in appearance. System measurement tables 2D Ao Diam: 3 cm LVOT Diam: 2 cm LA Diam: 3.3 cm IVSd: 0.9 cm LVIDd: 3.7 cm LVIDs: 2 cm LVPWd: 0.9 cm CW AV VTI: 23 cm AV Vmax: 1.2 m/s AV Vmean: 0.8 m/s AV maxP.5 mmHg AV meanP mmHg PV Vmax: 1.4 m/s PV maxP.9 mmHg TR Vmax: 3 m/s MM TAPSE: 1.7 cm PW HAL (VTI): 2.8 cm2 HAL Vmax: 2.7 cm2 LVOT VTI: 20.2 cm LVOT Vmax: 1 m/s LVOT Vmean: 0.6 m/s LVOT maxP mmHg LVOT meanP mmHg MV E/A Ratio: 0.6 LATERAL E': 0.1 m/s LATERAL E/E': 7.9 SEPTAL E': 0.1 m/s SEPTAL E/E': 9.6 Prepared and signed by Dexter Maradiaga MD Signed 07-Sep-2015 10:39:54 Procedure Note Dexter Maradiaga MD - 09/07/2015 Transthoracic Echocardiogram 2D, M-mode, Doppler, and Color Doppler Patient: ALE HARLEY MR number: [id number] Height: 63 in Weight: 231.4 lb BSA: 2.06 m Study date: 06-Sep-2015 : 1955 Age: 60 years Gender: Female Race: Allergies: IODINATED CONTRAST AGENTS Referring Physician: Madhu Wells MD Driver Guide: Sarah Chester RDCS Reading Physician: Dexter Maradiaga MD Summary: - Clinical question: - Dyspnea. - Left ventricle: - Size was normal. - Systolic function was normal. Ejection fraction was estimated to be 65 %. - There were no regional wall motion abnormalities. - Wall thickness was normal. - Pulmonary arteries: - Systolic pressure was mildly increased. Estimated peak pressure was 40 mmHg. Indications: Dyspnea. Procedure: The procedure was performed in the echo lab. This was a routine study. The transthoracic approach was used. The study included complete 2D imaging, M-mode, complete spectral Doppler, and color Doppler. Systolic blood pressure was 125 mmHg. Diastolic blood pressure was 65 mmHg. Left ventricle: Size was normal. Systolic function was normal. Ejection fraction was estimated to be 65 %. There were no regional wall motion abnormalities. Wall thickness was normal. Aortic valve: The valve was trileaflet. Leaflets exhibited normal thickness and normal cuspal separation. Doppler: There was no stenosis. There was no regurgitation. Aorta: The root exhibited normal size. Mitral valve: Valve structure was normal. There was normal leaflet separation. Doppler: The transmitral velocity was within the normal range. There was no evidence for stenosis. There was no regurgitation. Left atrium: Size was normal. Right ventricle: The size was normal. Systolic function was normal. Wall thickness was normal. Pulmonic valve: Doppler: There was no regurgitation. Pulmonary artery: Doppler: Systolic pressure was mildly increased. Estimated peak pressure was 40 mmHg. Tricuspid valve: There was normal leaflet separation. Doppler: The transtricuspid velocity was within the normal range. There was no evidence for tricuspid stenosis. There was no regurgitation. Right atrium: Size was normal. Pericardium: The pericardium was normal in appearance. System measurement tables 2D Ao Diam: 3 cm LVOT Diam: 2 cm LA Diam: 3.3 cm IVSd: 0.9 cm LVIDd: 3.7 cm LVIDs: 2 cm LVPWd: 0.9 cm CW AV VTI: 23 cm AV Vmax: 1.2 m/s AV Vmean: 0.8 m/s AV maxP.5 mmHg AV meanP mmHg PV Vmax: 1.4 m/s PV maxP.9 mmHg TR Vmax: 3 m/s MM TAPSE: 1.7 cm PW HAL (VTI): 2.8 cm2 HAL Vmax: 2.7 cm2 LVOT VTI: 20.2 cm LVOT Vmax: 1 m/s LVOT Vmean: 0.6 m/s LVOT maxP mmHg LVOT meanP mmHg MV E/A Ratio: 0.6 LATERAL E': 0.1 m/s LATERAL E/E': 7.9 SEPTAL E': 0.1 m/s SEPTAL E/E': 9.6 Prepared and signed by Dexter Maradiaga MD Signed 07-Sep-2015 10:39:54 Madhu Wells MD ECHO ORDERABLES [facility] [address] [place] [address] * COMPLETE PFT W/WO BRONCHODILATOR (08/04/2015 5:09 PM EXTENSION PROFESSOR) Narrative Madhu Wells MD - 08/04/2015 5:09 PM EXTENSION PROFESSOR Madhu Wells MD 08/04/2015 5:09 PM PULMONARY FUNCTION TEST 08/02/2015 METHODS: Spirometry is performed according to ATS standards. Lung volumes are performed by body plethysmography. Diffusing capacity is performed using single-breath method. Adequacy of Test and Effort: Test are reproducible and adequate for interpretation. LUNG VOLUMES: The lung volumes are in the normal range for age and height. TLC is 116% of predicted value. LUNG FLOWS/SPIROMETRY: There is a decrease of expiratory airflow at LOW lung volumes. FEV1 is 2.44 L (112% predicted) FEV1/FVC is 79 % RESPONSE TO BRONCHODILATOR: There is no response to the administration of aerosolized bronchodilator. MAXIMAL VOLUNTARY VENTILATION/PEAK EXPIRATORY FLOW: The maximal voluntary ventilation is within the normal range. FLOW VOLUME LOOP: The expiratory limb is normal. The inspiratory limb is normal. DIFFUSION CAPACITY: The diffusing capacity is in the normal range. DLCO is 78 % of predicted value. DL adg: DLCO is not adjusted for Hgb AIRWAY RESISTANCE: Specific airway resistance is normal. INTERPRETATION: The spirometry and lung flows are within the normal range. There is not a clear and significant bronchodilator response. The DLCO is normal. Madhu Wells MD 08/04/2015 José Miguel Morgan MD RESPIRATORY THERAPY ORDERABLES * XR HIP 2+ VW LEFT (07/06/2014 5:04 PM EXTENSION PROFESSOR) Anatomical Region Laterality Modality Pelvis, Lower Extremity Radiogra phic Imaging 07/06/2014 8:04 PM EXTENSION PROFESSOR Impressions 07/06/2014 8:05 PM EXTENSION PROFESSOR Very mild left hip osteoarthritis. Narrative 07/06/2014 8:05 PM EXTENSION PROFESSOR LEFT HIP, TWO VIEWS DATE OF EXAM: 07/06/2014. HISTORY: Pain. COMPARISON: None. FINDINGS: There is no fracture or dislocation. Alignment is normal. Joint space is maintained with minimal adjacent marginal osteophytes. Procedure Note Lilian Santillan MD - 07/06/2014 LEFT HIP, TWO VIEWS DATE OF EXAM: 07/06/2014. HISTORY: Pain. COMPARISON: None. FINDINGS: There is no fracture or dislocation. Alignment is normal. Joint space is maintained with minimal adjacent marginal osteophytes. IMPRESSION Very mild left hip osteoarthritis. José Miguel Morgan MD DIAGNOSTIC IMAGING O RDERABLES * ENDOSCOPY, COLON, SCREENING (12/10/2011 11:08 AM CDT) Narrative Transcriptions Andrei Alegre MD - 12/10/2011 11:05 AM CDT Five polyps removed, hot biopsy and snare. Complete resection but onepolyp lost upon retrieval. Small hemorrhoids. Otherwise, normal exam. Random colon biopsies taken. A/P: F/U path. Continue Flagyl (pt improved on it). Will follow progress. Repeat colon 3 yrs for screening. Andrei Alegre MD GI PROCEDURE ORDERAB LES [facility] ENDOSCOPY * GROSS + MICRO EXAM (12/10/2011 10:30 AM CDT) Only the most recent of2 resultswithin the time period is included. Result CASE NUMBER [id number] Comment: ORDERING PHYSICIAN ANDREI ALEGRE SPECIMEN TYPE Colon Transv Biopsy Date 12/10/2011 Physician Alea Alegre Gross Description The specimens are submitted fixed in formalin in two containers each labeled with the patient's name, Ale Harley. Specimen A transverse polyps consists of multiple soft pink-gamino tissue fragments ranging in size from 0.3 to 0.5 cm. The specimen is wrapped in tissue paper and submitted in toto as A. Specimen B random colon biopsy consists of multiple soft yellow-gamino tissue fragments ranging in size from 0.2 to 0.4 cm. The specimen is wrapped in tissue paper and submitted in toto as B. YC/na Microscopic Exam Specimen #1 Sections show fragments of colonic mucosa with features of tubular adenoma. High grade dysplasia or malignancy is not seen. Specimen #2 Sections show fragments of colonic mucosa with mostly unremarkable histology. The lamina propria shows minimally increased inflammatory cells including a few eosinophils. No atypia or malignancy is seen. MC/scs Diagnosis 1. Transverse colon, polyp, biopsy -- Tubular adenoma 2. Colon, random biopsy -- No significant pathologic diagnosis [facility] Piano Mechanic Apprentice scs Pathologist Sydney Lee MD CPT code 04296 x2 MISCELLANEOUS SAMPLES / Unknown 12/10/2011 10:30 AM CDT 12/10/2011 2:35 PM CDT Historical Provider LAB - PATHOLOGY/C YTOLOGY ORDERABLES * O+P PANEL (12/10/2011 10:30 AM CDT) Only the most recent of3 resultswithin the time period is included. Trichrome Stain NO ova and parasites seen. [facility] Additional Comment [facility] Comment: Additional Results not in our Test Definition Comment ONLY 1 O+P EXAM PER 24 HOURS - O+P Concentrate Formalin NO ova and parasites seen. [facility] Stool specimen (specimen) STOOL SPECIMEN / Unknown 12/10/2011 10:30 AM CDT 12/10/2011 2:20 PM CDT Narrative [facility] - 12/12/2011 5:31 PM CDT Performed By [facility] [address] [place] [address] Andrei Alegre MD LAB - MICROBIOLOGY O ELIZABETH Performing Organization Address [facility] Co de Phone Number [facility] [address] [place] [address] * CLOSTRIDIUM DIFFICILE TOXIN A+B (12/10/2011 10:30 AM CDT) Only the most recent of2 resultswithin the time period is included. C difficile Toxin EIA NEGATIVE Negative [facility] Stool specimen (specimen) STOOL SPECIMEN / Unknown 12/10/2011 10:30 AM CDT 12/10/2011 2:21 PM CDT Narrative [facility] - 12/11/2011 11:32 AM CDT Performed By [facility] [address] [place] [address] Andrei Alegre MD LAB - MICROBIOLOGY O ELIZABETH Performing Organization Address [facility] Co de Phone Number [facility] [address] [place] [address] * CULTURE STOOL PANEL (12/10/2011 10:30 AM CDT) Only the most recent of2 resultswithin the time period is included. Result [facility] Comment: Final Negative for Shiga toxin by immunoassay CULTURE No growth of Salmonella, Shigella, Campylobacter, Yersinia, E.coli 0157-H7 Stool specimen (specimen) STOOL SPECIMEN / Unknown 12/10/2011 10:30 AM CDT 12/10/2011 2:21 PM CDT Narrative [facility] - 12/14/2011 8:04 AM CDT Performed By [facility];[address];[place] [address] Andrei Alegre MD LAB - MICROBIOLOGY O ELIZABETH Performing Organization Address City/[facility] Co de Phone Number [facility] [address] [place] [address] * WBC SMEAR (11/28/2011 7:12 AM CDT) White Blood Cells (WBC), Stool Final report [facility] ACCOUNT BILL Comment:Reference Range: Non e Seen Result 1 [facility] ACCOUNT BILL Comment:No white blood cells seen. Stool specimen (specimen) STOOL SPECIMEN / Unknown 11/28/2011 7:12 AM CDT 11/28/2011 1:08 PM CDT Narrative Resulting Agency Comment [facility] [address] [phone] José Miguel Morgan MD LAB - MICROBIOLOGY O RDERABLES [facility] ACCOUNT BILL Care Teams Sales Marketing Manager Relationship Specialty Start Date End Date Ra Hutton MD [address] [facility] [address] [place] [phone] PCP - General Internal Medicine 12/09/23 José Miguel Morgan MD [address] [place] [address] PCP - Attributed-MSSP 03/22/24 [place] [address] [facility] [address] [place] [address] Psychiatry 12/08/13 [place] [address] [facility] [address] [place] [address] Gastroenterology 12/08/13 Sandeep Razo MD [address] [facility] [address] [address] Dermatology 12/08/13 Monique Jain MD [address] [facility] [address] [place] [phone] Podiatry 12/08/13 Tiff Bellamy Update Information Ophthalmology 08/14/18
[2024-09-29 18:45] VITALS: BP 110/60; PULSE 100; RESP 16; TEMP 36.6; O2SAT 99
[2024-09-29] MEDS: TETANUS,DIPHTHERIA,AC PERTUSSIS ADULT (0.5 ML) BOOSTRIX IM (19:06)
--- OUTSIDE RECORDS SUMMARY | 2024-09-29 19:43 | XMS_ITS | Clinical Summary ---
Author Organization [facility] [employer] Address [address] [place] [address] Care Team Providers Care Wafer Production Worker Name Role Phone Juan Carlos Ayala MD Unavailable Andrei Gonzalez MD Unavailable [phone] Sandeep Razo MD Unavailable [phone] Monique Jain MD Unavailable [phone] Tiff Bellamy Unavailable Unavailable Ra Hutton MD Primary Care Provider [phone] José Miguel Morgan MD Unavailable Source Comments [facility],non-owned Affiliates and Associated Physician Practices is amultiple site organization consisting of ambulatory clinics and hospital sitesin [place], [place], [place] and [place]. This disclosure is being madepursuant to the Care Everywhere program and may not contain all information available regarding this patient. Last updated 18.[facility] [employer] Allergies Active Allergy Reactions Criticality Noted Date [...] 1 10/03/2022 Active Blood Glucose Monitoring Suppl (Public Mobile Verio Flex System) w/Device KIT as directed 10/03/2022 Active Public Mobile VerWingz test strip TEST BLOOD SUGAR TWICE DAILY 11/23/2022 Active atorvastatin (Lipitor) 10 MG tablet TAKE 1 TABLET BY MOUTH EVERY DAY 100 tablet 1 08/07/2023 Active Cranberry POWD as directed Active [place]-3 Fatty Acids (fish oil) 500 MG capsule [...] Type Department Care Team Description 08/31/2024 Refill [facility] - Internal Medicine [address] [place] [phone] Ra Hutton MD Refill Request from Last [...] Recorded Patient Health Questionnaire-2 Score 0 06/16/2024 [facility] [place] [facility] Occupat ional Health - Occupational Stress [...] place to sleep or slept in a usp (including now)? No 10/03/2022 Sex and Gender Information Value Date Recorded Sex Assigned at Not on file Gender Identity Not on file Sexual Orientation Not on file Last Filed Vital Signs Vital Sign Reading Time Taken Comments Blood Pressure 120/60 06/16/2024 12:51 PM REVOLVING FIELD ASSEMBLER Pulse 86 12/09/2023 3:41 PM CDT Temperature 36.4 C (97.6 F) 12/09/2023 3:41 PM CDT Respiratory Rate 20 06/16/2024 12:5 1 PM REVOLVING FIELD ASSEMBLER Oxygen Saturation 98% 06/16/2024 12: 51 PM REVOLVING FIELD ASSEMBLER Inhaled Oxygen Concentration 35% 03/2019 11:00 AM CDT Weight 90.2 kg (198 lb 12.8 oz) 024 12:51 PM REVOLVING FIELD ASSEMBLER Height 152.4 cm (5') 06/16/2024 12:51 PM REVOLVING FIELD ASSEMBLER Body Mass Index 38.83 06/16/2024 12:51 PM REVOLVING FIELD ASSEMBLER Plan of Treatment Upcoming Encounters Date Type Department Care Team (Late st Contact Info) Description 12/29/2024 1:20 PM CDT Office Visit [facility] - Internal Medicine [address] [facility] [address] [place] [phone] Ra Hutton MD [address] [place] [phone] Health Maintenance Due Date Last Done [...] < 140/90 Blood Pressure 120/60(2023 12:51 PM REVOLVING FIELD ASSEMBLER) No Vinita Martinez HEMOGLOBIN A1C < 7.0 Result Component 6.0( 3:18 PM CDT) No Juan, [place] Medical Devices Implanted Type Area Product Manager Medical Device Device Identifier Shelf Expiration Date Model / Serial / Lot Trilogy Acet Shell 54mm Od Multi Implanted:Qty: 1 on 09/16/2018 by Grupo Smalls MD at [facility] Right: Hip Tim Inc 11/18/2025 / / [id number] Description:SHELL WITH HOLES Bone Screw 6.5x40 Self-Tap Implanted:Qty: 1 on 09/16/2018 by Grupo Smalls MD at [facility] Right: Hip [employer] Inc 04/20/2028 / / [id number] Description:BONE SCREW SELF- TAPPING Modular Cup Neutral Liner Longevity 50/52/54x36 Implanted:Qty: 1 on 09/16/2018 by Grupo Smalls MD at [facility] Right: Hip Tim Inc 03/21/2023 / / [id number] Description:HUBERT ACETABUL AR SYSTEM LINER STANDARD Fitmore Hip Stem B Size 3 Implanted:Qty: 1 on 09/16/2018 by Grupo Smalls MD at [facility] Right: Hip Tim Inc 07/21/2025 [id number] / / [id number] Description:FITMORE HIP STEM , UNCEMENTED Biolox Delta Fem Head 36mm +3.5mm Implanted:Qty: 1 on 09/16/2018 by Grupo Smalls MD at [facility] Right: Hip Tim Inc 12/20/2027 [id number] / / [id number] Description:CERAMIC FEMORAL HEAD Blas H1 Total Hip Implanted:Qty: 1 on 09/16/2018 by Grupo Smalls MD at [facility] Right: Hip Tim Biomet TOTAL HIP H 1 / / Screw [place] Polyaxial 06.5x40mm Implanted:Qty: 1 on 04/16/2019 by Gerald Tolentino MD at [facility] N/A: Spine Parachute Spine [id number] / / Screw 6.5mm 45mm Pa Spne Vrst Nonster Implanted:Qty: 8 on 04/16/2019 by Gerald Tolentino MD at [facility] N/A: Spine Gabi Spine [id number] / / Screw 6.5mm 50mm Pa Spne Vrst Nonster Implanted:Qty: 7 on 04/16/2019 by Gerald Tolentino MD at [facility] N/A: Spine Parachute Spine [id number] / / Jamarcus Spnl 500mm Ti Karlo Hex End Implanted:Qty: 1 on 04/16/2019 by Gerald Tolentino MD at [facility] N/A: Spine Medical [facility] [id number] / / Everst Cannulated Screw Implanted:Qty: 1 on 04/16/2019 by Gerald Tolentino MD at [facility] N/A: Spine [place] Medical [id number] / / 9.5 X 100 [place] Cannulated Screw Implanted:Qty: 1 on 04/16/2019 by Gerald Tolentino MD at [facility] N/A: Spine [place] Medical [id number] / / Graft Bone Vivigen Warren Cnc Dmnr 10cc - [id number] Implanted:Qty: 1 on 04/16/2019 by Gerald Tolentino MD at [facility] N/A: Spine Lifenet 12/03/2019 [id number] / [id number] / Graft Bone Canc 60ml Frzdr Chp 4-9.5mm - [id number] Implanted:Qty: 1 on 04/16/2019 by Gerald Tolentino MD at [facility] N/A: Spine Allosource 09/26/2023 [id number] / [id number] / Cable Spnl Ev Ti 2 Loop 2 Crmp Strl Implanted:Qty: 2 on 04/28/2019 by Gerald Tolentino MD at [facility] N/A: Spine Depuy Spine [id number] / / Graft Bone Canc 4-9.5mm 30cc Algrf Frzdr - [id number] Implanted:Qty: 1 on 04/28/2019 by Gerald Tolentino MD at [facility] N/A: Spine Allosource 09/07/2023 [id number] / [id number] / Graft Bone Canc 60ml Frzdr Chp 4-9.5mm - [id number] Implanted:Qty: 1 on 04/28/2019 by Gerald Tolentino MD at [facility] N/A: Spine Allosource 01/24/2023 [id number] / / [id number] Screw Set Spne Vrst Nonster Lf Implanted:Qty: 28 on 04/28/2019 by Gerald Tolentino MD at [facility] N/A: Spine Parachute Spine 290- / / Screw 5.5mm 35mm Pa Spne Vrst Nonster Implanted:Qty: 8 on 04/28/2019 by Gerald Tolentino MD at [facility] N/A: Spine Parachute Spine [id number] / / Jamarcus Spnl 500mm Ti Karlo Hex End Implanted:Qty: 2 on 04/28/2019 by Gerald Tolentino MD at [facility] N/A: Spine Medical Llc [id number] / / Large Tp Hook Implanted:Qty: 2 on 04/28/2019 by Gerald Tolentino MD at [facility] N/A: Spine [place] Medical [id number] / / Screw Set Spne Vrst Nonster Lf Implanted:Qty: 18 on 04/16/2019 by Gerald Tolentino MD at [facility] Explanted:Qty: 13 on 04/28/2019 by Gerald Tolentino MD at [facility] N/A: Spine Gabi Spine [id number] / / Graft Bone Infs Rhbmp-2 Bvn Clgn Lg 8ml Implanted:Qty: 1 on 01/01/2020 by Gerald Tolentino MD at [facility] N/A: Spine Lumbar Medtronic Sofamor Danek Inc 11/19/2020 [id number] / / [id number] Graft Bone Canc 60ml Frzdr Chp 4-9.5mm Implanted:Qty: 1 on 01/01/2020 by Gerald Tolentino MD at [facility] N/A: Spine Lumbar Allosource 08/14/2022 [id number] / / [id number] Graft Bone Canc 4-9.5mm 30cc Algrf Frzdr Implanted:Qty: 1 on 01/01/2020 by Gerald Tolentino MD at [facility] N/A: Spine Lumbar Allosource 10/13/2024 [id number] / / [id number] [place] Interbody System Implanted:Qty: 1 on 01/01/2020 by Gerald Tolentino MD at [facility] N/A: Spine Lumbar AURSOS Medical Llc 09/22/2023 [id number] / / [id number] Screw Set Spne Vrst Nonster Lf Implanted:Qty: 26 on 01/01/2020 by Gerald Tolentino MD at [facility] N/A: Spine Lumbar Gabi Spine [id number] / / Screw 7.5mm 40mm Pa Spne Vrst Nonster Implanted:Qty: 1 on 01/01/2020 by Gerald Tolentino MD at [facility] N/A: Spine Lumbar Gabi Spine [id number] / / Screw 7.5mm 45mm Pa Spne Vrst Nonster Implanted:Qty: 1 on 01/01/2020 by Gerald Tolentino MD at [facility] N/A: Spine Lumbar Gabi Spine [id number] / / Cnct Jamarcus 6mm 5.5mm Vrst Xw Spne Cls Implanted:Qty: 5 on 01/01/2020 by Gerald Tolentino MD at [facility] N/A: Spine Lumbar Parachute Spine [id number] / / Open/Side Angled Connector Implanted:Qty: 4 on 01/01/2020 by Gerald Tolentino MD at [facility] N/A: Spine Lumbar K2 Medical Llc [id number] / / Jamarcus Cocr 500mm Implanted:Qty: 2 on 01/01/2020 by Gerald Tolentino MD at [facility] N/A: Spine Lumbar [employer] Medical Llc [id number] / / Explanted Type Area Product Manager Medical Device Device Identifier Shelf Expiration Date Model / Serial / Lot Screw 7.5mm 50mm Pa Spne Vrst Nonster Explanted:Qty: 1 on 01/01/2020 at [facility] N/A: Spine Lumbar Gabi Spine [id number] / / Procedures Procedure Name Priority Date/Time Associated Diagnosis Comments HEMOGLOBIN A1C - POINT OF CARE (AMB) Routine 06/16/2024 1:25 PM REVOLVING FIELD ASSEMBLER Type 2 diabetes mellitus without complication, without [...] ENDOSCOPY, COLON, SCREENING Routine 06/09/2018 11:03 AM REVOLVING FIELD ASSEMBLER MAMMO BILAT SCREENING Routine 2018 12:55 PM REVOLVING FIELD ASSEMBLER Visit for screening mammogram HEPATITIS C ANTIBODY Routine 01/09/2017 4:18 PM CDT Need for hepatitis C screening test from Last 3 Months or Most Recently Relevant to Health Maintenance Results * HEMOGLOBIN A1C - POINT OF CARE (HgbA1C) (06/16/2024 1:25 PM REVOLVING FIELD ASSEMBLER) Hemoglobin A1c POCT 5.5 % [facility] Expiration Date 02/19/[address] [facility] Lot # [id number] [facility] QC Verified Yes Yes [facility] Blood BLOOD SPECIMEN / Unknown 06/16/2024 1:25 PM REVOLVING FIELD ASSEMBLER Ra Hutton MD LAB - POINT OF CARE ORDERABLES [facility] [address] [phone] * MICROALB/CREAT RATIO URINE RANDOM PANEL (02/12/2023 [...] Resulting Agency Comment [facility]: [facility] [address] [facility] [phone] José Miguel Morgan MD LAB - URINE CHEMISTR Y ORDERABLES [facility] INSURANCE BILL [address] [place] [address] * (ABNORMAL) COMPREHENSIVE METABOLIC PANEL (02/12/2023 3:18 [...] Resulting Agency Comment [facility] [address] [facility] [phone] José Miguel Morgan MD LAB - CHEMISTRY TABATHA BAUTISTA [facility] INSURANCE BILL [address] [place] [address] * EYE EXAM (05/19/2022) Anatomical Region Laterality Modality Other 05/19/2022 Narrative 05/19/2022 Ordered by an unspecified provider. Scanned Document SCANNING ONLY * BONE DENSITY AXIAL SKELETON(1OR MORE SITES)[id number] (02/11/2019 8:44 AM CDT) Anatomical Region Laterality [...] * ENDOSCOPY, COLON, SCREENING (06/09/2018 11:03 AM REVOLVING FIELD ASSEMBLER) Report Endoscopy POC _ Patient Name: Ale [...] and oxygen saturations were monitored continuously. The [id number] was introduced through the anus and advanced [...] for surveillance. Procedure Code(s): --- Professional --- 37259, Colonoscopy, flexible; with removal of tumor(s), polyp(s), or other lesion(s) by snare technique 89726, 59, Colonoscopy, flexible; with removal of tumor(s), polyp(s), or other lesion(s) by hot biopsy forceps --- Technical --- 87175, Colonoscopy, flexible; with removal of tumor(s), polyp(s), or other lesion(s) by snare technique 72064, 59, Colonoscopy, flexible; with removal of tumor(s), [...] flexure) K64.9, Unspecified hemorrhoids CPT copyright 2015 [employer]. All rights reserved. The codes documented in this report are preliminary and upon label coder review may be revised to meet current compliance requirements. Andrei Gonzalez MD 06/09/2018 11:38:18 AM This report has been signed electronically. Number of Addenda: 0 Note Initiated On: 06/09/2018 11:03 AM Estimated Blood Loss: Estimated blood loss: none. [facility] ENDOSCOPY 06/09/2018 11:0 3 AM REVOLVING FIELD ASSEMBLER Andrei Gonzalez MD GI PROCEDURE ORDERAB LES [facility] ENDOSCOPY * MAMMO BILAT SCREENING (2018 12:55 PM REVOLVING FIELD ASSEMBLER) Anatomical Region Laterality Modality Breast Bilateral Mammography 2018 3:41 PM REVOLVING FIELD ASSEMBLER Impressions 2018 3:44 PM REVOLVING FIELD ASSEMBLER No mammographic evidence of malignancy in either breast. ASSESSMENT: BIRADS Category 1: Negative mammogram. RECOMMENDATION: Bilateral screening mammogram in one year. Thank you for allowing us to participate in the care of your patient. Reading Radiologist: Katherine Soliman MD on 2018 at 3:44 PM Narrative 2018 3:44 PM REVOLVING FIELD ASSEMBLER EXAMINATION: Digital screening mammogram on 2018. Low-dose [...] CDT 01/09/2017 Narrative Resulting Agency Comment [facility] [address] [facility] [phone] José Miguel Morgan MD LAB - CHEMISTRY TABATHA BAUTISTA [facility] ACCOUNT BILL [address] [place] [address] from Last 3 Months or Most Recently Relevant to Health Maintenance Advance Directives Documents on File Type Date Recorded Patient Wallpaper Hanger Expl anation Adv Directive/Living Will/POA 05/28/2019 2:15 [...] 3:34 PM 09/19/2018 1:20 PM Care Teams Wafer Production Worker Relationship Specialty Start Date End Date Ra Hutton MD [address] [facility] [address] [place] [phone] PCP - General Internal Medicine 12/09/23 José Miguel Morgan MD [address] [facility] [address] [place] [address] PCP - Attributed-MSSP 03/22/24 [place] [address] [facility] [address] [place] [address] Psychiatry 12/08/13 [place] [address] [facility] [address] [place] [address] Gastroenterology 12/08/13 Sandeep Razo MD [address] [place] [address] Dermatology 12/08/13 Monique Jain MD [address] [address] Podiatry 12/08/13 Tiff Bellamy Update Information Ophthalmology 08/14/18
--- OUTSIDE RECORDS SUMMARY | 2024-09-29 19:43 | XMS_ITS ---
Author Organization [facility] Care Team Providers Care Material Mover Name Role Phone Frank Arevalo Unavailable Unavailable Allergies and adverse reactions Code CodeSystem Substance Reaction Severity StartDate Concern Status CONTRAST-IODINAT ED AGENTS FOR CT/OTHER Skin reaction - finding (code- 249298679, SNOMED CT) Moderate 05/27/2019 active Care Team Name Role Address Phone Organization Dates Frank Arevalo PCP [address] [place], [address], [place] (Office): : [facility] 05/27/2019 - 06/17/2019 Immunizations Immunization Status Vaccine [...] CodeSystem Concern Status 1 CONSTIPATION, UNSPECIFIED [address] active 2 ESOPHAGITIS, UNSPECIFIED [address] active 3 HYPERLIPIDEMIA, UNSPECIFIED [address] active 4 RESTLESSNESS AND AGITATION [address] active 5 SPINAL STENOSIS, LUMBAR REGION WITH NEUROGENIC CLAUDICATION [address] active 6 BIPOLAR DISORDER, UNSPECIFIED [address] active 7 DELIRIUM DUE TO KNOWN PHYSIOLOGICAL CONDITION [address] active 8 DEMENTIA IN OTHER DISEASES CLASSIFIED ELSEWHERE WITH BEHAVIORAL DISTURBANCE [address] active 9 DIARRHEA, UNSPECIFIED [address] active 10 DRUG INDUCED SUBACUTE DYSKINESIA [address] active 11 DYSPHAGIA, ORAL PHASE [address] active 12 ESSENTIAL (HEMORRHAGIC) THROMBOCYTHEMIA [address] active 13 ESSENTIAL (PRIMARY) HYPERTENSION [address] active 14 FUSION OF SPINE, CERVICOTHORACIC REGION [address] active 15 FUSION OF SPINE, LUMBAR REGION [address] active 16 GASTRO-ESOPHAGEAL REFLUX DISEASE WITHOUT ESOPHAGITIS [address] active 17 INSOMNIA, UNSPECIFIED [address] active 18 LOW BACK PAIN [address] active 19 MAJOR DEPRESSIVE DISORDER, SINGLE EPISODE, UNSPECIFIED [address] active 20 PURE HYPERCHOLESTEROLEMI A, UNSPECIFIED [address] active 21 SHORTNESS OF BREATH [address] active 22 TYPE 2 DIABETES MELLITUS WITHOUT COMPLICATIONS [address] active 23 UNSPECIFIED OSTEOARTHRITIS, UNSPECIFIED SITE [address] active Reason for Referral No Reasons for Referral Entered Social History Social History Observation Description Start Date End Date Code Code System Current Smoking Status Tobacco smoking consumption unknown 357059206 SNOMED CT Sex Assigned At Female 1955 26460-3 [facility] Vital Signs Code Code System Vitals Name Values and Units Timing Information 81705-3 [facility] Pain Level Value=5.0 06/16/2019 9279-1 [facility] Respiratory Rate Value=20.0 Units=/m in 06/16/2019 8462-4 [facility] Blood Pressure-Diastolic Value=72 Un its=mmHg 06/16/2019 8480-6 [facility] Blood Pressure-Systolic Eynjb=979 Un its=mmHg 06/16/2019 8867-4 [facility] Heart rate Value=80.0 Units=/min 8310-5 [facility] Body Temperature Value=98.6 Units= F 06/16/2019 89097-3 [facility] O2 % dC Oximetry Value=98.0 Units= % 06/10/2019 19104-2 [facility] Weight Vldyy=693.3 Units=Lbs 8302-2 [facility] Height Value=63.0 Units=Inches 05/28/2019
--- OUTSIDE RECORDS SUMMARY | 2024-09-29 19:43 | XMS_ITS | Referral Summary ---
Author Organization [facility] [employer] Address [address] [facility] [place] [address] Care Team Providers Care Labor Expediter Name Role Phone Juan Carlos Ayala MD Unavailable [phone] Andrei Gonzalez MD Unavailable [phone] Sandeep Razo MD Unavailable [phone] Monique Jain MD Unavailable [phone] Tiff Bellamy Unavailable Unavailable Ra Hutton MD Primary Care Provider José Miguel Morgan MD Unavailable Source Comments [facility],non-owned Affiliates and Associated Physician Practices is amultiple site organization consisting of ambulatory clinics and hospital sitesin [place], [place], [place] and [place]. This disclosure is being madepursuant to the Care Everywhere program and may not contain all information available regarding this patient. Last updated 18.[facility] Encounters Date Type Department Care Team Description 08/31/2024 Refill [facility] Medical [facility] - Internal Medicine [address] [place] [phone] Ra Hutton MD Refill Request from Last [...] 1 10/03/2022 Active Blood Glucose Monitoring Suppl ([employer] Verio Flex System) w/Device KIT as directed 10/03/2022 Active RedDrummerTouch Verio test strip TEST BLOOD SUGAR TWICE DAILY 11/23/2022 Active atorvastatin (Lipitor) 10 MG tablet TAKE 1 TABLET BY MOUTH EVERY DAY 100 tablet 1 08/07/2023 Active Cranberry POWD as directed Active [place] Tannery-3 Fatty Acids (fish oil) 500 MG capsule [...] Video Visit, Dr. Morgan 05/03/2021 OV, Dr. Mogran xr lumbar spine 04/09/2019 Neurogenic claudication 12/16/2019 [...] Recorded Patient Health Questionnaire-2 Score 0 06/16/2024 [facility] - Occupational Stress [...] place to sleep or slept in a fdc (including now)? No 10/03/2022 Sex and Gender Information Value Date Recorded Sex Assigned at Not on file Gender Identity Not on file Sexual Orientation Not on file Last Filed Vital Signs Vital Sign Reading Time Taken Comments Blood Pressure 120/60 06/16/2024 12:51 PM THREAD DRESSER Pulse 86 12/09/2023 3:41 PM CDT Temperature 36.4 C (97.6 F) 12/09/2023 3:41 PM CDT Respiratory Rate 20 06/16/2024 12:5 1 PM THREAD DRESSER Oxygen Saturation 98% 06/16/2024 12: 51 PM THREAD DRESSER Inhaled Oxygen Concentration 35% 03/2019 11:00 AM CDT Weight 90.2 kg (198 lb 12.8 oz) 024 12:51 PM THREAD DRESSER Height 152.4 cm (5') 06/16/2024 12:51 PM THREAD DRESSER Body Mass Index 38.83 06/16/2024 12:51 PM THREAD DRESSER Functional Status Functional Status Response Date of [...] Description 12/29/2024 1:20 PM CDT Office Visit [facility] - Internal Medicine [address] [facility] [address] [place] [phone] Ra Hutton MD [address] [place] [address] [place] [phone] Goals Goal Patient Goal Type Associated Problems Recent Progress Patient-Stated? Author Blood Pressure < 140/90 Blood Pressure 120/60(2023 12:51 PM THREAD DRESSER) No Vinita Martinez HEMOGLOBIN A1C < 7.0 Result Component 6.0( 3:18 PM CDT) No Juan, [place] Medical Devices Implanted Type Area Commissary Manager Device Identifier Shelf Expiration Date Model / Serial / Lot Trilogy Acet Shell 54mm Od Multi Implanted:Qty: 1 on 09/16/2018 by Grupo Smalls MD at [facility] Right: Hip Tim Inc 11/18/2025 / / [id number] Description:SHELL WITH HOLES Bone Screw 6.5x40 Self-Tap Implanted:Qty: 1 on 09/16/2018 by Grupo Smalls MD at [facility] Right: Hip Tim Inc 04/20/2028 / / [id number] Description:BONE SCREW SELF- TAPPING Modular Cup Neutral Liner Longevity 50/52/54x36 Implanted:Qty: 1 on 09/16/2018 by Grupo Smalls MD at [facility] Right: Hip Tim Inc 03/21/2023 / / [id number] Description:TRILOGPortia ACETABUL AR SYSTEM LINER STANDARD Fitmore Hip Stem B Size 3 Implanted:Qty: 1 on 09/16/2018 by Grupo Smalls MD at [facility] Right: Hip Tim Inc 07/21/2025 [id number] / / [id number] Description:FITMORE HIP STEM , UNCEMENTED Biolox Delta Fem Head 36mm +3.5mm Implanted:Qty: 1 on 09/16/2018 by Grupo Smalls MD at [facility] Right: Hip Tim Inc 12/20/2027 [id number] / / [id number] Description:CERAMIC FEMORAL HEAD Blas H1 Total Hip Implanted:Qty: 1 on 09/16/2018 by Grupo Smalls MD at [facility] Right: Hip Tim Biomet TOTAL HIP H 1 / / Screw [place] Polyaxial 06.5x40mm Implanted:Qty: 1 on 04/16/2019 by Gerald Tolentino MD at [facility] N/A: Spine [place] Spine [id number] / / Screw 6.5mm 45mm Pa Spne Vrst Nonster Implanted:Qty: 8 on 04/16/2019 by Gerald Tolentino MD at [facility] N/A: Spine [place] Spine [id number] / / Screw 6.5mm 50mm Pa Spne Vrst Nonster Implanted:Qty: 7 on 04/16/2019 by Gerald Tolentino MD at [facility] N/A: Spine [place] Spine [id number] / / Jamarcus Spnl 500mm Ti Karlo Hex End Implanted:Qty: 1 on 04/16/2019 by Gerald Tolentino MD at [facility] N/A: Spine [employer]c [id number] / / Everst Cannulated Screw Implanted:Qty: 1 on 04/16/2019 by Gerald Tolentino MD at [facility] N/A: Spine [employer] Medical [id number] / / 9.5 X 100 [place] Cannulated Screw Implanted:Qty: 1 on 04/16/2019 by Gerald Tolentino MD at [facility] N/A: Spine [place] Medical [id number] / / Graft Bone Vivigen Warren Cnc Dmnr 10cc - [id number] Implanted:Qty: 1 on 04/16/2019 by Gerald Tolentino MD at [facility] N/A: Spine Lifenet 12/03/2019 [id number] / [id number] / Graft Bone Canc 60ml Frzdr Chp 4-9.5mm - [id number] Implanted:Qty: 1 on 04/16/2019 by Gerald Tolentino MD at [facility] N/A: Spine Allosource 09/26/2023 [id number] / [id number] / Cable Spnl Ev Ti 2 Loop 2 Crmp Strl Implanted:Qty: 2 on 04/28/2019 by Gerald Tolentino MD at [facility] N/A: Spine Depuy Spine [id number] / / Graft Bone Canc 4-9.5mm 30cc Algrf Frzdr - [id number] Implanted:Qty: 1 on 04/28/2019 by Gerald Tolentino MD at [facility] N/A: Spine Allosource 09/07/2023 [id number] / [id number] / Graft Bone Canc 60ml Frzdr Chp 4-9.5mm - [id number] Implanted:Qty: 1 on 04/28/2019 by Gerald Tolentino MD at [facility] N/A: Spine Allosource 01/24/2023 [id number] / / [id number] Screw Set Spne Vrst Nonster Lf Implanted:Qty: 28 on 04/28/2019 by Gerald Tolentino MD at [facility] N/A: Spine Gabi Spine [id number] / / Screw 5.5mm 35mm Pa Spne Vrst Nonster Implanted:Qty: 8 on 04/28/2019 by Gerald Tolentino MD at [facility] N/A: Spine Gabi Spine [id number] / / Jamarcus Spnl 500mm Ti Karlo Hex End Implanted:Qty: 2 on 04/28/2019 by Gerald Tolentino MD at [facility] N/A: Spine [employer]c [id number] / / Large Tp Hook Implanted:Qty: 2 on 04/28/2019 by Gerald Tolentino MD at [facility] N/A: Spine [employer] Medical [id number] / / Screw Set Spne Vrst Nonster Lf Implanted:Qty: 18 on 04/16/2019 by Gerald Tolentino MD at [facility] Explanted:Qty: 13 on 04/28/2019 by Gerald Tolentino MD at [facility] N/A: Spine Gabi Spine [id number] / / Graft Bone Infs Rhbmp-2 Bvn Clgn Lg 8ml Implanted:Qty: 1 on 01/01/2020 by Gerald Tolentino MD at [facility] N/A: Spine Lumbar Medtronic Sofamor Danek Inc 11/19/2020 [id number] / / [id number] Graft Bone Canc 60ml Frzdr Chp 4-9.5mm Implanted:Qty: 1 on 01/01/2020 by Gerald Tolentino MD at [facility] N/A: Spine Lumbar Allosource 08/14/2022 [id number] / / [id number] Graft Bone Canc 4-9.5mm 30cc Algrf Frzdr Implanted:Qty: 1 on 01/01/2020 by Gerald Tolentino MD at [facility] N/A: Spine Lumbar Allosource 10/13/2024 [id number] / / [id number] Dexter Interbody System Implanted:Qty: 1 on 01/01/2020 by Gerald Tolentino MD at [facility] N/A: Spine Lumbar [facility] 09/22/2023 [id number] / / [id number] Screw Set Spne Vrst Nonster Lf Implanted:Qty: 26 on 01/01/2020 by Gerald Tolentino MD at [facility] N/A: Spine Lumbar Gabi Spine [id number] / / Screw 7.5mm 40mm Pa Spne Vrst Nonster Implanted:Qty: 1 on 01/01/2020 by Gerald Tolentino MD at [facility] N/A: Spine Lumbar [place] Spine [id number] / / Screw 7.5mm 45mm Pa Spne Vrst Nonster Implanted:Qty: 1 on 01/01/2020 by Gerald Tolentino MD at [facility] N/A: Spine Lumbar [place] Spine [id number] / / Cnct Jamarcus 6mm 5.5mm Vrst Xw Spne Cls Implanted:Qty: 5 on 01/01/2020 by Gerald Tolentino MD at [facility] N/A: Spine Lumbar [place] Spine [id number] / / Open/Side Angled Connector Implanted:Qty: 4 on 01/01/2020 by Gerald Tolentino MD at [facility] N/A: Spine Lumbar [employer] Medical Llc [id number] / / Jamarcus Cocr 500mm Implanted:Qty: 2 on 01/01/2020 by Gerald Tolentino MD at [facility] N/A: Spine Lumbar [employer]c [id number] / / Explanted Type Area Commissary Manager Device Identifier Shelf Expiration Date Model / Serial / Lot Screw 7.5mm 50mm Pa Spne Vrst Nonster Explanted:Qty: 1 on 01/01/2020 at [facility] N/A: Spine Lumbar [place] Spine [id number] / / Procedures Procedure Name Priority Date/Time Associated Diagnosis Comments HEMOGLOBIN A1C - POINT OF CARE (AMB) Routine 06/16/2024 1:25 PM THREAD DRESSER Type 2 diabetes mellitus without complication, without [...] ENDOSCOPY, COLON, SCREENING Routine 06/09/2018 11:03 AM THREAD DRESSER MAMMO BILAT SCREENING Routine 2018 12:55 PM THREAD DRESSER Visit for screening mammogram HEPATITIS C ANTIBODY Routine 01/09/2017 4:18 PM CDT Need for hepatitis C screening test from Last 3 Months or Most Recently Relevant to Health Maintenance Results * HEMOGLOBIN A1C - POINT OF CARE (HgbA1C) (06/16/2024 1:25 PM THREAD DRESSER) Hemoglobin A1c POCT 5.5 % [facility] Expiration Date 02/19/[address] [facility] Lot # [id number] [facility] QC Verified Yes Yes [facility] Blood BLOOD SPECIMEN / Unknown 06/16/2024 1:25 PM THREAD DRESSER Ra Hutton MD LAB - POINT OF CARE ORDERABLES [facility] [address] [place], [place] [address] [phone] * MICROALB/CREAT RATIO URINE RANDOM PANEL (02/12/2023 [...] Agency Comment Lab Testing performed at: [facility] [address] [facility] [phone] José Miguel Morgan MD LAB - URINE CHEMISTR Y ORDERABLES [facility] INSURANCE BILL [address] [place] [address] * (ABNORMAL) COMPREHENSIVE METABOLIC PANEL (02/12/2023 3:18 [...] Agency Comment Lab Testing performed at: [facility] [address] [facility] [phone] José Miguel Morgan MD LAB - CHEMISTRY TABATHA BAUTISTA [facility] Organization Address City/State/ZIP Co de Phone Number [facility] INSURANCE BILL [address] [place] [address] * EYE EXAM (05/19/2022) Anatomical Region Laterality Modality Other 05/19/2022 Narrative 05/19/2022 Ordered by an unspecified provider. Scanned Document SCANNING ONLY * BONE DENSITY AXIAL SKELETON(1OR MORE SITES)[id number] (02/11/2019 8:44 AM CDT) Anatomical Region Laterality [...] * ENDOSCOPY, COLON, SCREENING (06/09/2018 11:03 AM THREAD DRESSER) Report Endoscopy POC _ Patient Name: Ale [...] and oxygen saturations were monitored continuously. The [id number] SN [id number] was introduced through the anus and advanced [...] for surveillance. Procedure Code(s): --- Professional --- 88854, Colonoscopy, flexible; with removal of tumor(s), polyp(s), or other lesion(s) by snare technique 23295, 59, Colonoscopy, flexible; with removal of tumor(s), polyp(s), or other lesion(s) by hot biopsy forceps --- Technical --- 16110, Colonoscopy, flexible; with removal of tumor(s), polyp(s), or other lesion(s) by snare technique 47897, 59, Colonoscopy, flexible; with removal of tumor(s), [...] flexure) K64.9, Unspecified hemorrhoids CPT copyright 2015 [employer]. All rights reserved. The codes documented in this report are preliminary and upon carpenter bridge review may be revised to meet current compliance requirements. Andrei Gonzalez MD 06/09/2018 11:38:18 AM This report has been signed electronically. Number of Addenda: 0 Note Initiated On: 06/09/2018 11:03 AM Estimated Blood Loss: Estimated blood loss: none. [facility] ENDOSCOPY 06/09/2018 11:0 3 AM THREAD DRESSER Andrei Gonzalez MD GI PROCEDURE ORDERAB LES [facility] ENDOSCOPY * MAMMO BILAT SCREENING (2018 12:55 PM THREAD DRESSER) Anatomical Region Laterality Modality Breast Bilateral Mammography 2018 3:41 PM THREAD DRESSER Impressions 2018 3:44 PM THREAD DRESSER No mammographic evidence of malignancy in either breast. ASSESSMENT: BIRADS Category 1: Negative mammogram. RECOMMENDATION: Bilateral screening mammogram in one year. Thank you for allowing us to participate in the care of your patient. Reading Radiologist: Katherine Soliman MD on 2018 at 3:44 PM Narrative 2018 3:44 PM THREAD DRESSER EXAMINATION: Digital screening mammogram on 2018. 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 Adv Directive/Living Will/POA 05/28/2019 2:15 [...] 3:34 PM 09/19/2018 1:20 PM Care Teams Labor Expediter Relationship Specialty Start Date End Date Ra Hutton MD [address] [facility] [address] [place] [phone] PCP - General Internal Medicine 12/09/23 José Miguel Morgan MD [address] [facility] [address] [place] [address] PCP - Attributed-MSSP 03/22/24 [place] [address] [facility] [address] [place] [address] Psychiatry 12/08/13 [place] [address] [facility] [address] [place] [address] Gastroenterology 12/08/13 Sandeep Razo MD [address] [facility] [place] [address] Dermatology 12/08/13 Monique Jain MD [address] [facility] [address] [place] [phone] Podiatry 12/08/13 Tiff Bellamy Update Information Ophthalmology 08/14/18
--- OUTSIDE RECORDS SUMMARY | 2024-09-29 19:43 | XMS_ITS | Clinical Summary ---
Author Organization [facility] Address [address] [place] [address] Care Team Providers Care Hand Bobbin Cleaner Name Role Phone Unavailable Primary Care Provider [...]
--- OUTSIDE RECORDS SUMMARY | 2024-09-29 19:43 | XMS_ITS | Encounter Summary ---
Author Organization [facility] Address [address] [place] [address] Care Team Providers Care Nail Galvanizer Name Role Phone José Miguel Morgan MD Primary Care Provider Juan Carlos Ayala MD Unavailable [phone] Andrei Gonzalez MD Unavailable Sandeep Razo MD Unavailable [phone] Monique Jain MD Unavailable [phone] Tiff Bellamy Unavailable Unavailable José Miguel Morgan MD Unavailable Adela Rayo RN Unavailable [phone] Pcp, [facility] Primary Care Provider Unavailable Winsome Schneider Unavailable [phone] Ra Hutton MD Primary Care Provider Ra Hutton MD Unavailable Alpesh Gayle Unavailable José Miguel Morgan MD Unavailable Encounter Details Date Type Department Care Team (Late st Contact Info) Description 06/04/2011 [facility] Outpatient Visit [facility] Medical [facility] - Internal Medicine [address] [phone] Social History Tobacco Use Types Packs/Day Years [...] Description 12/29/2024 1:20 PM CDT Office Visit [facility] Medical [facility] - Internal Medicine [address] [facility] [address] [place] [phone] Ra Hutton MD [address] [place] [address] [place] [phone] documented as of this encounter Visit Diagnoses Not on filedocumented in this encounter Care Teams Nail Galvanizer Relationship Specialty Start Date End Date José Miguel Morgan MD [address] [place] [address] PCP - General 06/24/09 08/28/23 José Miguel Morgan MD [address] [place] [address] PCP - Attributed-MSSP 07/22/21 01/19/24 Pcp, [facility] PCP - General 08/29/23 12/08/23 Ra Hutton MD [address] [place] [address] [place] [phone] PCP - General Internal Medicine 12/09/23 Ra Hutton MD [address] [place] [address] [place] [phone] PCP - Attributed-MSSP 01/20/24 03/21/24 José Miguel Morgan MD [address] [facility] [address] [place] [address] PCP - Attributed-MSSP 03/22/24 [place] [address] [facility] [address] [place] [address] Psychiatry 12/08/13 [place] [address] [facility] [address] [place] [address] Gastroenterology 12/08/13 Sandeep Razo MD [address] [facility] [place] [address] Dermatology 12/08/13 Monique Jain MD [address] [phone] Podiatry 12/08/13 Tiff Bellamy Update Information Ophthalmology 08/14/18 Adela Rayo, CHELLE Tool BuilderPhysician Recruiter 10/02/22 03/01/23 Winsome Schneider Care Coordination Specialist Care Management 10/16/23 10/16/23 Alpesh Gayle Care Coordination Specialist Care Management 04/29/24 04/29/24 documented as of this encounter
--- OUTSIDE RECORDS SUMMARY | 2024-09-29 19:43 | XMS_ITS | Clinical Summary ---
Author Organization [facility] Address [address] [place] [address] Care Team Providers Care Content Strategist Name Role Phone None, Provider MD Primary [...] age to complete this topic Insurance MEDICARE [facility] Care Teams Content Strategist Relationship Specialty Start Date End Date None, Provider, PCP - General UNKNOWN PHYSICIAN SPECIALTY 11/23/23
--- OUTSIDE RECORDS SUMMARY | 2024-09-29 19:44 | XMS_ITS | Patient Health Summary ---
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 This disclosure is being madepursuant to the Care Everywhere program and may not contain all information available regarding this patient. Last updated 18.[facility] Allergies * Contrast-Iodinated Agents For Ct/Other(Rash) -High [...] 1 tablet by mouth once daily * PeopleMatterTOUCH DELICA PLUS 30G FINE LANCETS(Started 10/03/2022) Use 1 Units 2 times daily 1 refill by 10/03/2023 * Blood Glucose Monitoring Suppl (Canlife Verio Flex System) w/Device KIT (Started 10/03/2022) as directed * Rebel Monkeyuch Verio test strip(Started 11/23/2022) TEST BLOOD SUGAR TWICE DAILY * atorvastatin (Lipitor) 10 MG tablet(Started 08/07/2023) TAKE 1 TABLET BY MOUTH EVERY DAY 1 refill by 08/06/2024 * Cranberry POWD as directed * [place]-3 Fatty Acids (fish oil) 500 MG capsule [...] Recorded Patient Health Questionnaire-2 Score 0 06/16/2024 [facility] - Occupational Stress [...] place to sleep or slept in a skilled nursing (including now)? 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[employer] Pulse 86 12/09/2023 3:41 PM CDT Temperature 36.4 C (97.6 F) 12/09/2023 3:41 PM CDT Respiratory Rate 20 06/16/2024 12:5 1 PM [employer] Oxygen Saturation 98% 06/16/2024 12: 51 PM [employer] Inhaled Oxygen Concentration 35% 03/2019 11:00 AM CDT Weight 90.2 kg (198 lb 12.8 oz) 024 12:51 PM [employer] Height 152.4 cm (5') 06/16/2024 12:51 PM [employer] Body Mass Index 38.83 06/16/2024 12:51 PM [employer] Medical Devices Implanted Type Area Data Warehousing Manager Device Identifier Shelf Expiration Date Model / Serial / Lot Trilogy Acet Shell 54mm Od Multi Implanted:Qty: 1 on 09/16/2018 [facility] Right: Hip Tim Inc 11/18/2025 / / [id number] Description:SHELL WITH HOLES Bone Screw 6.5x40 Self-Tap Implanted:Qty: 1 on 09/16/2018 by Grupo Smalls MD at [facility] Right: Hip Tim Inc 04/20/2028 / / [id number] Description:BONE SCREW SELF- TAPPING Modular Cup Neutral Liner Longevity 50/52/54x36 Implanted:Qty: 1 on 09/16/2018 by Grupo Smalls MD at [facility] Right: Hip Tim Inc 03/21/2023 / / [id number] Description:TRILOGY ACETABUL AR SYSTEM LINER STANDARD Fitmore Hip Stem B Size 3 Implanted:Qty: 1 on 09/16/2018 by Grupo Smalls MD at [facility] Right: Hip Tim Inc 07/21/2025 [id number] / / [id number] Description:FITMORE HIP STEM , UNCEMENTED Biolox Delta Fem Head 36mm +3.5mm Implanted:Qty: 1 on 09/16/2018 by Grupo Smalls MD at [facility] Right: Hip Tim Inc 12/20/2027 [id number] / / [id number] Description:CERAMIC FEMORAL HEAD Blas H1 Total Hip Implanted:Qty: 1 on 09/16/2018 by Grupo Smalls MD at [facility] Right: Hip Tim Biomet TOTAL HIP H 1 / / Screw [place] Polyaxial 06.5x40mm Implanted:Qty: 1 on 04/16/2019 by Hung Harvey MD at [facility] N/A: Spine Gabi Spine [id number] / / Screw 6.5mm 45mm Pa Spne Vrst Nonster Implanted:Qty: 8 on 04/16/2019 by Hung Harvey MD at [facility] N/A: Spine [place] Spine [id number] / / Screw 6.5mm 50mm Pa Spne Vrst Nonster Implanted:Qty: 7 on 04/16/2019 by Hung Harvey MD at [facility] N/A: Spine Gabi Spine [id number] / / Jamarcus Spnl 500mm Ti Karlo Hex End Implanted:Qty: 1 on 04/16/2019 by Hung Harvey MD at [facility] N/A: Spine Medical Llc [id number] / / Everst Cannulated Screw Implanted:Qty: 1 on 04/16/2019 by Hung Harvey MD at [facility] N/A: Spine [place] Medical [id number] / / 9.5 X 100 [place] Cannulated Screw Implanted:Qty: 1 on 04/16/2019 by Hung Harvey MD at [facility] N/A: Spine [place] Medical [id number] / / Graft Bone Vivigen Warren Cnc Dmnr 10cc - [id number] Implanted:Qty: 1 on 04/16/2019 by Hung Harvey MD at [facility] N/A: Spine Lifenet 12/03/2019 [id number] / [id number] / Graft Bone Canc 60ml Frzdr Chp 4-9.5mm - [id number] Implanted:Qty: 1 on 04/16/2019 by Hung Harvey MD at [facility] N/A: Spine Allosource 09/26/2023 [id number] / [id number] / Cable Spnl Ev Ti 2 Loop 2 Crmp Strl Implanted:Qty: 2 on 04/28/2019 by Hung Harvey MD at [facility] N/A: Spine Depuy Spine [id number] / / Graft Bone Canc 4-9.5mm 30cc Algrf Frzdr - [id number] Implanted:Qty: 1 on 04/28/2019 by Hung Harvey MD at [facility] N/A: Spine Allosource 09/07/2023 [id number] / [id number] / Graft Bone Canc 60ml Frzdr Chp 4-9.5mm - [id number] Implanted:Qty: 1 on 04/28/2019 by Hung Harvey MD at [facility] N/A: Spine Allosource 01/24/2023 [id number] / / [id number] Screw Set Spne Vrst Nonster Lf Implanted:Qty: 28 on 04/28/2019 by Hugn Harvey MD at [facility] N/A: Spine [place] Spine [id number] / / Screw 5.5mm 35mm Pa Spne Vrst Nonster Implanted:Qty: 8 on 04/28/2019 by Hung Harvey MD at [facility] N/A: Spine Gabi Spine [id number] / / Jamarcus Spnl 500mm Ti Karlo Hex End Implanted:Qty: 2 on 04/28/2019 by Hung Harvey MD at [facility] N/A: Spine Andela Medical [facility] [id number] / / Large Tp Hook Implanted:Qty: 2 on 04/28/2019 by Hung Harvey MD at [facility] N/A: Spine [place] Medical [id number] / / Screw Set Spne Vrst Nonster Lf Implanted:Qty: 18 on 04/16/2019 by Hung Harvey MD at [facility] Explanted:Qty: 13 on 04/28/2019 by Hung Harvey MD at [facility] N/A: Spine [place] Spine 2901- / / Graft Bone Infs Rhbmp-2 Bvn Clgn Lg 8ml Implanted:Qty: 1 on 01/01/2020 by Hung Harvey MD at [facility] N/A: Spine Lumbar Medtronic Sofamor Danek Inc 11/19/2020 [id number] / / [id number] Graft Bone Canc 60ml Frzdr Chp 4-9.5mm Implanted:Qty: 1 on 01/01/2020 by Hung Harvey MD at [facility] N/A: Spine Lumbar Allosource 08/14/2022 [id number] / / [id number] Graft Bone Canc 4-9.5mm 30cc Algrf Frzdr Implanted:Qty: 1 on 01/01/2020 by Hung Harvey MD at [facility] N/A: Spine Lumbar Allosource 10/13/2024 [id number] / / [id number] [place] Interbody System Implanted:Qty: 1 on 01/01/2020 by Hung Harvey MD at [facility] N/A: Spine Lumbar Andela Medical Llc 09/22/2023 [id number] / / [id number] Screw Set Spne Vrst Nonster Lf Implanted:Qty: 26 on 01/01/2020 by Hung Harvey MD at [facility] N/A: Spine Lumbar [place] Spine [id number] / / Screw 7.5mm 40mm Pa Spne Vrst Nonster Implanted:Qty: 1 on 01/01/2020 by Hung Harvey MD at [facility] N/A: Spine Lumbar [place] Spine [id number] / / Screw 7.5mm 45mm Pa Spne Vrst Nonster Implanted:Qty: 1 on 01/01/2020 by Hung Harvey MD at [facility] N/A: Spine Lumbar Gabi Spine [id number] / / Cnct Jamarcus 6mm 5.5mm Vrst Xw Spne Cls Implanted:Qty: 5 on 01/01/2020 by Hung Harvey MD at [facility] N/A: Spine Lumbar [place] Spine [id number] / / Open/Side Angled Connector Implanted:Qty: 4 on 01/01/2020 by Hung Harvey MD at [facility] N/A: Spine Lumbar Andela Medical Llc [id number] / / Jamarcus Cocr 500mm Implanted:Qty: 2 on 01/01/2020 by Hung Harvey MD at [facility] N/A: Spine Lumbar K2 Medical Llc [id number] / / Explanted Type Area Data Warehousing Manager Device Identifier Shelf Expiration Date Model / Serial / Lot Screw 7.5mm 50mm Pa Spne Vrst Nonster Explanted:Qty: 1 on 01/01/2020 at [facility] N/A: Spine Lumbar Gabi Spine [id number] / / Procedures * HEMOGLOBIN A1C - POINT OF CARE (AMB)(Performed 06/16/2024) Performed for Type 2 diabetes mellitus without complication, without long-term current use of insulin ([facility]) * HEMOGLOBIN A1C - POINT OF CARE (AMB)(Performed 12/09/2023) Performed for Type 2 diabetes mellitus without complication, without long-term current use of insulin ([facility]) * TSH HI LOW REFLEX FREE T4(Performed 02/12/2023) Performed for Mixed hyperlipidemia * COMPREHENSIVE METABOLIC PANEL(Performed 02/12/2023) Performed for Essential hypertension, benign * CBC W AUTO DIFFERENTIAL(Performed 02/12/2023) Performed for Essential hypertension, benign * LIPID PROFILE(Performed 02/12/2023) Performed for Mixed hyperlipidemia * HEMOGLOBIN A1C(Performed 02/12/2023) Performed for Type 2 diabetes mellitus without complication, without long-term current use of insulin ([facility]) * MICROALB/CREAT RATIO URINE RANDOM PANEL(Performed 02/12/2023) Performed for Type 2 diabetes mellitus without complication, without long-term current use of insulin ([facility]) * EYE EXAM(Performed 05/19/2022) * HEMOGLOBIN A1C - POINT OF CARE (AMB)(Performed 12/25/2021) Performed for Type 2 diabetes mellitus without complication, without long-term current use of insulin ([facility]) * XR SPINE ENTIRE 2 OR 3VW(Performed [...] complication, without long-term current use of insulin ([facility]) * HEMOGLOBIN A1C(Performed 05/03/2021) Performed for Type 2 diabetes mellitus without complication, without long-term current use of insulin ([facility]) * MICROALB/CREAT RATIO URINE RANDOM PANEL(Performed 05/03/2021) Performed for Type 2 diabetes mellitus without complication, without long-term current use of insulin ([facility]) * XR SPINE ENTIRE 2 OR 3VW(Performed [...] complication, without long-term current use of insulin ([facility]) * HEMOGLOBIN A1C(Performed 06/22/2020) Performed for Type 2 diabetes mellitus without complication, without long-term current use of insulin ([facility]) * MICROALB/CREAT RATIO URINE RANDOM PANEL(Performed 06/22/2020) Performed for Type 2 diabetes mellitus without complication, without long-term current use of insulin ([facility]) * CT ABDOMEN PELVIS WO CONTRAST(Performed 04/12/2020) [...] examination * IMAGING/RADIOLOGY/XRAY RESULTS ORDER(Performed 09/16/2019) * MD URINE FLOW MEASUREMENT(Performed 09/09/2019) Performed for Lower urinary tract symptoms (LUTS), Difficulty voiding * MD INSERT TEMP INDWELL BLADD CATH(Performed 09/09/2019) Performed for Lower urinary tract symptoms (LUTS), Difficulty voiding * MD INTRAABDOMINAL PRESSURE TEST(Performed 09/09/2019) Performed for Lower urinary tract symptoms (LUTS), Difficulty voiding * MD ANAL/URINARY MUSCLE STUDY(Performed 09/09/2019) Performed for Lower urinary tract symptoms (LUTS), Difficulty voiding * MD COMPLEX CYSTOMETROGRAM(Performed 09/09/2019) Performed for Lower urinary [...] complication, without long-term current use of insulin ([facility]) * MICROALB/CREAT RATIO URINE RANDOM PANEL(Performed 08/27/2016) Performed for Type 2 diabetes mellitus without complication, without long-term current use of insulin ([facility]) * PFT CARDIOPULMONARY EXERCISE TEST-CPET(Performed 07/18/2016) * [...] POINT OF CARE (HgbA1C) (06/16/2024 1:25 PM DIRECT[employer] OF RESTAUR[employer]) Only the most recent of3 resultswithin the time period is included. 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 TSH 2.470 0.450 - 4.500 uIU/mL [facility] INSURANCE BILL Blood BLOOD SPECIMEN / Unknown 02/12/2023 3:18 PM CDT 02/12/2023 Narrative Resulting Agency Comment Lab Testing performed at: [facility] [phone] José Miguel Morgan MD LAB - CHEMISTRY TABATHA BAUTISTA Performing Organization Address City/[facility]/ZIP Co de Phone Number [facility] INSURANCE BILL [address] [place] [address] * MICROALB/CREAT RATIO URINE RANDOM PANEL (02/12/2023 [...] Resulting Agency Comment Lab Testing performed at: [facility] [address] [phone] José Miguel Morgan MD LAB - URINE CHEMISTR Y ORDERABLES Performing Organization Address [facility] Co de Phone Number [facility] INSURANCE BILL [address] [place] [address] * (ABNORMAL) HEMOGLOBIN A1C (02/12/2023 3:18 PM CDT) Only the most recent of11 resultswithin the time period is included. Hemoglobin A1c 6.0(H) 4.8 - 5.6 % [facility] INSURANCE BILL Comment: . Prediabetes: 5.7 - 6.4 Diabetes: >6.4 Glycemic control for adults with diabetes: <7.0 Blood BLOOD SPECIMEN / Unknown 02/12/2023 3:18 PM CDT 02/12/2023 Narrative Resulting Agency Comment Lab Testing performed at: [facility] [address] [phone] José Miguel Morgan MD LAB - CHEMISTRY TABATHA BAUTISTA Performing Organization Address City/[facility]/ZIP Co de Phone Number [facility] INSURANCE BILL [address] [place] [address] * (ABNORMAL) CBC WITH DIFFERENTIAL (02/12/2023 3:18 [...] Resulting Agency Comment [facility]: [facility] [address] [phone] José Miguel Morgan MD LAB - HEMATOLOGY ORD ERABLES [facility] INSURANCE BILL [address] [place] [address] * (ABNORMAL) COMPREHENSIVE METABOLIC PANEL (02/12/2023 3:18 [...] Resulting Agency Comment Lab [facility] performed at: [facility] [address] [phone] José Miguel Morgan MD LAB - CHEMISTRY TABATHA BAUTISTA Performing Organization Address City/[facility]/ZIP Co de Phone Number [facility] INSURANCE BILL [address] [place] [address] * (ABNORMAL) LIPID PROFILE (02/12/2023 3:18 PM [...] Resulting Agency Comment Lab Testing performed at: [facility] [address] [phone] José Miguel Morgan MD LAB - CHEMISTRY TABATHA BAUTISTA Performing Organization Address City/[facility] Co de Phone Number [facility] INSURANCE BILL [address] [place] [address] * EYE EXAM (05/19/2022) Anatomical Region Laterality [...] unchanged. Report dictated by Yunier Amado DO (president/gm production & live experiences) I, Dr. ROGELIO ESTRADA MD have personally [...] unchanged. Report dictated by Yunier Amado DO (president/gm production & live experiences) IDr. ROGELIO MD have personally reviewed and interpreted this examination/study. This report was electronically signed by ROGELIO ESTRADA MD on11/24/2021 9:31 AM . Toney Brennan MD DIAGNOSTIC IMAGING O RDERABLES * XR LUMBAR SPINE 2 OR 3VW (07/14/2020 2:54 PM [employer]) Only the most recent of9 resultswithin the time period is included. Anatomical Region Laterality Modality Spine Radiographic Dominga ging 07/14/2020 3:08 PM [employer] Impressions 07/14/2020 8:46 PM [employer] FINDINGS/IMPRESSION: The posterior lumbosacral fusion posterior listhesis [...] sacroiliac joints. Dictated by Donald Louie MD (president/gm production & live experiences). I, Dr. JESSICA JARRETT have personally reviewed and interpreted this examination/study. This report was electronically signed by JESSICA JARRETT on 07/14/2020 8:46 PM . Narrative 07/14/2020 8:46 PM [employer] EXAMINATION: XR LUMBAR SPINE 2 OR 3VW [...] sacroiliac joints. Dictated by Donald Louie MD (president/gm production & live experiences). I, Dr. JESSICA JARRETT have personally reviewed and interpreted this examination/study. This report was electronically signed by JESSICA JARRETT on 07/14/2020 8:46 PM . Rosalie Kramer MD DIAGNOSTIC IMAGING O RDERABLES * SLIDE SCAN HEMATOLOGY (06/22/2020 12:29 PM [employer]) Slide Review [facility] ACCOUNT BILL Comment: PLT EST BLOOD (SSM) Normal REFERENCE RANGE: Normal, Adequate platelets CLUMPED PLATELETS (SSM) 1+ None A SLIDE SCAN PERFORMED 06/22/2020 12:2 9 PM [employer] 06/22/2020 Narrative Resulting Agency Comment Lab Testing performed at: [address] [phone] José Miguel Morgan MD LAB - HEMATOLOGY ORD ERABLES Performing Organization Address City/[facility]/ZIP Co de Phone Number [facility] ACCOUNT BILL [address] [place] [address] * VITAMIN D 25-HYDROXY (06/22/2020 12:27 PM [employer]) Only the most recent of7 resultswithin the time period is included. Vitamin D, 25 Hydroxy 43.0 30 - 100 ng/mL [facility] ACCOUNT BILL Comment: Vitamin D Status: Deficiency <20 ng/mL Insufficiency 20-30 ng/mL Sufficiency 30-100 ng/mL Toxicity >100 ng/mL Blood BLOOD SPECIMEN / Unknown 06/22/2020 12:27 PM [employer] 06/22/2020 Narrative Resulting Agency Comment Lab Testing performed at: [address] [phone] José Miguel Morgan MD LAB - CHEMISTRY ORDE RABJUSTIN Performing Organization Address City/[facility]/ZIP Co de Phone Number [facility] ACCOUNT BILL [address] [place] [address] * CT ABDOMEN AND PELVIS NON IV [...] on 03/24/2020 at 10:22 AM Cami Owen ETL INFORMATICA DEVELOPER-GAS 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 US ORDERABLES * CARDIAC EKG ORDER (03/19/2020 [...] - 10.5 10 3/uL 01/07/2020 12:15 PM [facility] RBC 2.99(L) 3.90 - 5.00 10 6/uL 01/07/2020 12:15 PM [facility] Hemoglobin 7.9(L) 12.0 - 15.5 g/dL 01/07/2020 12:15 PM [facility] Hematocrit 25.6(L) 35.0 - 45.0 % 01/07/2020 12:15 PM [facility] MCV 85.6 81.0 - 97.0 fL 01/07/2020 12:15 PM [facility] MCH 26.4(L) 28.0 - 34.0 pg 01/07/2020 12:15 PM [facility] MCHC 30.9(L) 32.0 - 36.0 g/dL 01/07/2020 12:15 PM [facility] Platelet Count 579(H) 150 - 400 10 3/uL 01/07/2020 12:15 PM [facility] RDW-SD 48.9 36.0 - 50.0 fL 01/07/2020 12:15 PM [facility] RDW-CV 15.7(H) 11.2 - 14.8 % 01/07/2020 12:15 PM [facility] MPV 8.2(L) 9.3 - 12.8 fL 01/07/2020 12:15 PM [facility] nRBC Absolute 0.00 0 10 3/uL 01/07/2020 12:15 PM [facility] nRBC Auto 0.0 0 /100 WBC 01/07/2020 12:15 PM [facility] Comment:Confirmed by repeat analysis. Blood BLOOD SPECIMEN / Unknown Lab Venipuncture / Unknown 01/07/2020 11:17 AM CDT 01/07/2020 12:02 PM CDT Tristan Martínez MD LAB - HEMATOLOGY ORD ERABLES [address] [address], [facility] [phone] * BASIC METABOLIC PANEL (CALCIUM TOTAL) (01/07/2020 11:17 AM CDT) Only the most recent of45 resultswithin the time period is included. BUN 11 7 - 26 mg/dL 01/07/2020 12:25 PM [facility] Creatinine 0.8 0.6 - 1.2 mg/dL 01/07/2020 12:25 PM [facility] Sodium 137 136 - 145 mmol/L 01/07/2020 12:25 PM [facility] Potassium 3.9 3.5 - 4.5 mmol/L 01/07/2020 12:25 PM [facility] Chloride 101 98 - 107 mmol/L 01/07/2020 12:25 PM [facility] CO2 27 22 - 29 mmol/L 01/07/2020 12:25 PM [facility] Glucose 113 70 - 115 mg/dL 01/07/2020 12:25 PM [facility] Calcium 8.8 8.4 - 10.2 mg/dL 01/07/2020 12:25 PM [facility] Anion Gap 13 8 - 18 01/07/2020 12:25 PM [facility] BUN/Creatinine Ratio 14 7 - 23 01/07/2020 12:25 PM [facility] Osmolality Calculated 284 270 - 300 mOsm/kg 01/07/2020 12:25 PM [facility] eGFR >60 >60 mL/min/1.7 3 m2 01/07/2020 12:25 PM [facility] Blood BLOOD SPECIMEN / Unknown Lab Venipuncture / Unknown 01/07/2020 11:17 AM CDT 01/07/2020 12:02 PM CDT Tristan Martínez MD LAB - CHEMISTRY TABATHA Richards Organization Address City/State/ZIP Co de Phone Number [address] [address], [facility] [phone] * XR CHEST 1VW PORTABLE (01/01/2020 5:40 [...] The cardiomediastinal silhouette is stable. Dictated by Jsoefa Tubbs MD (resident). I, Dr. KRISTOFER LUCIANO [...] resultswithin the time period is included. Narrative [facility] RADIOLOGY - 01/01/2020 4:50 PM CDT Fluoroscopy was used for this exam in the OR. Please see the Operative report. Hung Harvey MD FLUOROSCOPY ORDERABL ES [facility] * TRANSFUSE RED BLOOD CELL LEUKOREDUCED UNIT(S) (01/01/2020 3:14 PM CDT) Hung Harvey MD NURSING - BLOOD PROD TRANSFUSION * (ABNORMAL) BLOOD GASES ART COMPLETE [facility] OR (01/01/2020 1:36 PM CDT) Only the most recent of14 resultswithin the time period is included. pH Arterial 7.36 7.35 - 7.45 01/01/2020 1:45 PM CDT [facility] pCO2 Arterial 33(L) 35 - 45 mmHg 01/01/2020 1:45 PM CDT [facility] pO2 Arterial 178(H) 71 - 95 mmHg 01/01/2020 1:45 PM CDT [facility] HCO3 Arterial 18.1(L) 22.0 - 26.0 mmol/L 01/01/2020 1:45 PM CDT [facility] TCO2 Arterial 19.1(L) 25.0 - 29.0 mmol/L 01/01/2020 1:45 PM CDT [facility] Base Excess Arterial -6.6(L) -2.0 - 2.0 mmol/L 01/01/2020 1:45 PM CDT [facility] Hemoglobin Arterial 8.9(L) 12.0 - 15.5 g/dL 01/01/2020 1:45 PM [facility] Oxyhemoglobin Arterial 96.8 95.0 - 100.0 % 01/01/2020 1:45 PM [facility] Carboxyhemoglobin 0.3 0.0 - 3.0 % 01/01/2020 1:45 PM [facility] Methemoglobin 0.3 0.0 - 2.0 % 01/01/2020 1:45 PM [facility] FI O2 Arterial 46.0 % 01/01/2020 1:45 PM [facility] Ionized Calcium Whole Blood 1.15 mmol/L 01/01/2020 1:45 PM [facility] Adjusted Ionized Calcium 1.13(L) 1.19 - 1.34 mmol/L 01/01/2020 1:45 PM [facility] Sodium Whole Blood 130(L) 135 - 145 mmol/L 01/01/2020 1:45 PM [facility] Potassium Whole Blood 4.4 3.5 - 5.5 mmol/L 01/01/2020 1:45 PM [facility] Chloride Whole Blood 97(L) 101 - 111 mmol/L 01/01/2020 1:45 PM [facility] Glucose Whole Blood 164(H) 70 - 110 mg/dL 01/01/2020 1:45 PM [facility] Lactic Acid Whole Blood 1.4 0.5 - 3.4 mmol/L 01/01/2020 1:45 PM [facility] Blood ARTERIAL BLOOD SPECIMEN / Unknown Venipuncture / Unknown 01/01/2020 1:36 PM CDT 01/01/2020 1:40 PM CDT Ric Bansal MD LAB - BLOOD GASES OR DERABLES [address] [address] [phone] * CULTURE FLUID+GRAM STAIN (01/01/2020 11:36 AM CDT) Culture No growth HAN 01/16/2020 9:47 AM CDT [facility] MICROBI[facility] Gram Stain No organisms seen 020 9:47 AM CDT [facility]CRO[facility] Gram Stain Rare Polymorphonuclear cells 01/16/2020 9:47 AM CDT [facility]CRO[facility] Gram Stain Heavy Red blood cells 01/16/2020 9:47 AM CDT [facility] Fluid BODY FLUID SPECIMEN / Unknown Collection / Unknown 01/01/2020 11:36 AM CDT 01/01/2020 6:25 PM CDT Hung Harvey MD LAB - MICROBIOLOGY O ELIZABETH Performing Organization Address City/[facility] Co de Phone Number [facility] MICROBIOLOG[facility] [address] [place] [address], [facility] [phone] * CULTURE ANAEROBE (01/01/2020 11:35 AM CDT) Culture No anaerobic organisms isolated HAN 01/07/2020 12:12 PM CDT [facility] MICROBIOLOG[facility] Fluid BODY FLUID SPECIMEN / Unknown Collection / Unknown 01/01/2020 11:35 AM CDT 01/01/2020 6:25 PM CDT Hung Harvey MD LAB - MICROBIOLOGY O ELIZABETH Performing Organization Address [facility] Co de Phone Number [facility]CRO[facility] [address] [place] [address], [facility] [phone] * CENTRAL LINE PERFORMABLE (01/01/2020 10:11 AM CDT) Narrative Ric Bansal MD - 01/01/2020 10:11 AM CDT Ric Bansal MD 01/01/2020 10:13 AM Central Line Placement Procedure Note/LDA Patient Location: OR. Procedure: central line > 5yr (52555). Procedure Section: Indications: IV access. Patient Sedated? [...] Note Patient Location: OR. Procedure: Arterial Line (49044). Procedure Section Indications: continuous blood pressure monitoring. Consent: informed consent was obtained for the procedure. Patient Sedated? Nursing documentation on [facility] Skin Prep: Chloraprep. Location: left radial. Site [...] Event Date/Time: 01/01/2020 8:10 AM Procedure: intubation (63667). Procedure Section: Sedation: IV sedation. Indications for [...] AM CDT) ABO 01/01/2020 10:00 AM CDT [facility] Rh Type 01/01/2020 10:00 AM CDT [facility] Typem 01/01/2020 10:00 AM CDT [facility] Interpretation 01/01/2020 10:00 AM CDT [facility] Blood BLOOD SPECIMEN / Unknown Lab Venipuncture / Unknown 01/01/2020 8:40 AM CDT 01/01/2020 8:40 AM CDT Narrative [facility] - 01/01/2020 10:00 AM CDT Re-type confirmed per [facility] Blood Bank policies & procedures. Results documented in department. Hung Harvey MD LAB - BLOOD BANK ORD ERABLES [facility] [address] [place] [phone], [facility] * TYPE + SCREEN PANEL (01/01/2020 7:55 AM CDT) Only the most recent of5 resultswithin the time period is included. Antibody Screen NEG 0 8:39 AM CDT [facility] ABO Rh A POS 01/01/2020 8:39 AM CDT [facility] Comment:This is a corrected result. Previous result was A POS, y on 01/01/2020 at 0839 CDT Blood Bank BLOOD SPECIMEN / Unknown Venipuncture / Unknown 01/01/2020 7:55 AM CDT 01/01/2020 7:57 AM CDT Raymundo Baron MD LAB - BLOOD BANK OR DERABLES Performing Organization Address City/[facility]/ZIP Co de Phone Number [facility] [address] [place] [phone], [place] * PREPARE (CROSSMATCH) RBC UNIT(S), 2 Units (12/31/2019 7:57 AM CDT) Only the most recent of8 resultswithin the time period is included. Unit Description N/A [facility] Blood Bank BLOOD SPECIMEN / Unknown 12/31/2019 7:57 AM CDT 01/01/2020 7:57 AM CDT Hung Harvey MD LAB - BLOOD BANK ORD ERABLES Performing Organization Address [facility]/ZIP Co de Phone Number [facility] [address] [place] [phone], [place] * CT LUMBAR SPINE WO CONTRAST [...] loosening. Report dictated by Mark Rdz MD (president/gm production & live experiences). I, Dr. MARIELLE GÓMEZ have personally reviewed [...] loosening. Report dictated by Mark Rdz MD (president/gm production & live experiences). I, Dr. MARIELLE GÓMEZ have personally reviewed and interpreted this examination/study. This report was electronically signed by MARIELLE GÓMEZ on 12/22/2019 11:19AM . Lul Feliz MD CT ORDERABLES * SARS-COV-2 (COVID-19) IN HOUSE (12/22/2019 8:34 AM CDT) COVID-19 PCR Not detected Not detected, Invalid 12/22/2019 8:53 PM CDT [facility] Microbiology SPECIMEN FROM NASOPHARYNGEAL STRUCTURE / Unknown Collection / Unknown 12/22/2019 8:34 AM CDT 12/22/2019 8:37 AM CDT Narrative [facility] - 12/22/2019 8:53 PM CDT This Real Time RT-PCR assay was developed and its performance characteristics determined by [facility]. This test has been authorized [...] Feliz MD LAB - MICROBIOLO GY ORDERABLES [facility] [address] [place] [address], [place] [phone] * URINALYSIS REFLEX TO MICROSCOPIC NO CULTURE (12/22/2019 4:29 AM CDT) Only the most recent of4 resultswithin the time period is included. Color UA Yellow Straw, Yellow, Colorless 12/22/2019 4:43 AM [facility] Clarity UA Clear Clear, t Cloudy 12/22/2019 4:43 AM [facility] Specific [place] UA 1.013 1.005 - 1.030 12/22/2019 4:43 AM [facility] pH UA 5.0 5.0 - 8.0 pH 12/22/2019 4:43 AM [facility] Protein UA Negative Negative mg/dL 12/22/2019 4:43 AM [facility] Glucose UA Negative Negative mg/dL 12/22/2019 4:43 AM [facility] Ketone UA Negative Negative mg/dL 12/22/2019 4:43 AM [facility] Bilirubin UA Negative Negative mg/dL 12/22/2019 4:43 AM [facility] Blood UA Negative Negative 12/22/2019 4:43 AM [facility] Nitrite UA Negative Negative 12/22/2019 4:43 AM [facility] Leukocyte Esterase Negative Negative 12/22/2019 4:43 AM [facility] Urobilinogen UA Negative Negative mg/dL 12/22/2019 4:43 AM [facility] RBC UA 0-2 None Seen, 0-2, 3-5 /HPF 12/22/2019 4:43 AM [facility] WBC UA 0-5 None Seen, 0-5 /HPF 12/22/2019 4:43 AM [facility] Squamous Epithelial Cells UA None Seen None Seen, 0-2 /HPF 12/22/2019 4:43 AM [facility] Mucus UA 1+ None, 1+ /LPF 12/22/2019 4:43 AM CDT [facility] Hyaline Casts UA 0-2 None Seen, 0-2 /LPF 12/22/2019 4:43 AM CDT [facility] Urine URINE SPECIMEN OBTAINED BY CLEAN CATCH PROCEDURE / Unknown Collection / Unknown 12/22/2019 4:29 AM CDT 12/22/2019 4:31 AM CDT Narrative [facility] - 12/22/2019 4:43 AM CDT Ric Reid MD LAB - URINALYS IS ORDERABLES [address] [phone], [facility] [phone] * XR THORACIC SPINE 3VW (12/21/2019 11:59 PM CDT) Anatomical Region Laterality Modality Spine Radiographic Dominga ging 12/22/2019 7:15 AM CDT Impressions 12/22/2019 10:08 AM CDT IMPRESSION: Posterior segment spinal fusion from T3 to the iliac bones. Vertical rods are fragmented at level of L5/S1, unchanged. No acute fracture identified. Dictated by Bárbara Medrano MD (president/gm production & live experiences). IDr. Lion M.D. have personally reviewed and [...] fracture identified. Dictated by Bárbara Medrano MD (president/gm production & live experiences). Dr. Lion Ayala M.D. have personally reviewed [...] cervical spine. Dictated by Maile Bustamante DO (president/gm production & live experiences). Dr. Lion Ayala M.D. have personally reviewed [...] cervical spine. Dictated by Maile Bustamante DO (president/gm production & live experiences). I, Dr. Lion QIU M.D. have personally reviewed and interpretedthis examination/study. This report was electronically signed by Lion QIU M.D. on 12/22/2019 9:57 AM . Binh Valdes MD DIAGNOSTIC IMAGING O RDERABLES * IMAGING RADIOLOGY XRAY RESULTS ORDER (09/16/2019) Only the most recent of4 resultswithin the time period is included. Anatomical Region Laterality Modality Other Provider Unknown IMAGING * MD COMPLEX CYSTOMETROGRAM, MD ANAL/URINARY MUSCLE STUDY, MD INTRAABDOMINAL PRESSURE TEST, MD INSERTTEMP INDWELL BLADD CATH, MD URINE FLOW MEASUREMENT (09/09/2019 10:08 AM [employer]) Narrative Tiffany Iglesias DO - 09/09/2019 10:08 AM [employer] Tiffany Iglesias DO 09/09/2019 10:14 AM URODYNAMIC [...] ORDERABLES * CULTURE URINE (08/19/2019 2:43 PM [employer]) Only the most recent of6 resultswithin the time period is included. Culture Urine <10,000 CFU/mL normal urogenital latonya HAN 08/21/2019 9:00 AM [employer] [facility] Urine URINE SPECIMEN OBTAINED BY CLEAN CATCH PROCEDURE / Unknown Collection / Unknown 08/19/2019 2:43 PM [employer] 08/19/2019 5:20 PM [employer] Tiffany Iglesias DO LAB - MICROBIOLOGY ORDERABLES [facility] [address] [place] [address], [facility] [phone] * C-REACTIVE PROTEIN (07/12/2019 12:20 AM [employer]) C-Reactive Protein <0.5 <=0.5 mg/dL 07/12/2019 12:56 AM [facility] Blood BLOOD SPECIMEN / Unknown Venipuncture / Unknown 07/12/2019 12:20 AM [employer] 07/12/2019 12:27 AM [employer] John Morocho MD LAB - [place] [address], [facility] [phone] * (ABNORMAL) ERYTHROCYTE SEDIMENTATION RATE (07/12/2019 12:20 AM [employer]) Erythrocyte Sedimentation Rate Westergren 39(H) 0 - 30 MM/HR 07/12/2019 12:35 AM [facility] Blood BLOOD SPECIMEN / Unknown Venipuncture / Unknown 07/12/2019 12:20 AM [employer] 07/12/2019 12:27 AM [employer] John Morocho MD LAB - HEMATOLOGY ORDERABLES Performing Organization Address City/[facility]/[place] [address], [facility] [phone] * CARDIAC PROCEDURE ORDER (05/29/2019 8:56 AM [employer]) Narrative 05/29/2019 8:56 AM [employer] Ordered by an unspecified provider. Scanned Document CARDIAC SERVICES ORD ERABLES * GLUCOSE - POINT OF CARE (05/27/2019 11:20 AM [employer]) Only the most recent of118 resultswithin the time period is included. Glucose WB/POC 104 70 - 115 mg/dL 05/27/2019 9:05 PM [facility] Specimen Type Arterial/C apillary 05/27/2019 9:05 PM [facility] Comment:DIRECTOR MEDICAL AFFAIRS: Wilber mobley Blood BLOOD SPECIMEN / Unknown 05/27/2019 11:20 AM [employer] 05/27/2019 9:05 PM [employer] Mohinder Gottlieb DO LAB - POINT OF CARE ORDERABLES Performing Organization Address [facility]/[place] [address], [facility] [phone] * TSH (05/27/2019 2:56 AM [employer]) Only the most recent of9 resultswithin the time period is included. TSH 3.979 0.350 - 4.940 uIU/mL 05/27/2019 4:15 AM [employer] [facility] Blood BLOOD SPECIMEN / Unknown Lab Venipuncture / Unknown 05/27/2019 2:56 AM [employer] 05/27/2019 3:31 AM [employer] Mohinder Gottlieb DO LAB - CHEMISTRY TABATHA BAUTISTA Performing Organization Address [facility] Co de Phone Number [address] [phone] * PHOSPHORUS BLOOD (05/24/2019 3:01 AM [employer]) Only the most recent of19 resultswithin the time period is included. Phosphorus 2.6 2.3 - 4.7 mg/dL 05/24/2019 3:23 AM [employer] [facility] Blood BLOOD SPECIMEN / Unknown Venipuncture / Unknown 05/24/2019 3:01 AM [employer] 05/24/2019 3:05 AM [employer] Vilma Mcclain MD LAB - CHEMISTRY ORDSeamus BAUTISTA Performing Organization Address [facility] [place] [address], [facility] [phone] * MAGNESIUM BLOOD (05/24/2019 3:01 AM [employer]) Only the most recent of19 resultswithin the time period is included. Magnesium 1.7 1.6 - 2.6 mg/dL 05/24/2019 3:23 AM [employer] [facility] Blood BLOOD SPECIMEN / Unknown Venipuncture / Unknown 05/24/2019 3:01 AM [employer] 05/24/2019 3:05 AM [employer] Vilma Mcclain MD LAB - CHEMISTRY ORDE LILY Performing Organization Address [facility]/ZIP Co de Phone Number [address] [phone] * SODIUM URINE RANDOM (05/23/2019 11:50 PM CDT) Sodium Urine 156 Not Established mmol/L 05/24/2019 12:15 AM CDT [facility] Urine URINE SPECIMEN OBTAINED BY CLEAN CATCH PROCEDURE / Unknown Collection / Unknown 05/23/2019 11:50 PM CDT 05/23/2019 11:53 PM CDT Vilma Mcclain MD LAB - URINE CHEMISTR Y ORDERABLES Performing Organization Address [facility]/ZIP Co de Phone Number [address] [phone] * CREATININE URINE RANDOM (05/23/2019 11:50 PM CDT) Creatinine Urine 38 Not Established mg/dL 05/24/2019 12:17 AM CDT [facility] Urine URINE SPECIMEN OBTAINED BY CLEAN CATCH PROCEDURE / Unknown Collection / Unknown 05/23/2019 11:50 PM CDT 05/23/2019 11:53 PM CDT Vilma Mcclain MD LAB - URINE CHEMISTR Y ORDERABLES Performing Organization Address [facility] Co de Phone Number [address] [phone] * CT HEAD WO CONTRAST (05/23/2019 3:44 PM CDT) Anatomical Region Laterality Modality Head Computed Tomogra phy 05/23/2019 3:50 PM CDT Impressions 05/24/2019 9:35 AM [employer] IMPRESSION: No acute intracranial abnormality. Remote left frontoparietal cranioplasty. Atypical appearance of the cranioplasty implant as described above for which correlation with surgical history is recommended. 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 Dictated by Maury aCbrera MD (president/gm production & live experiences) I, Dr. MARIELLE GÓMEZ have personally reviewed and interpreted this examination/study. This report was electronically signed by MARIELLE GÓEMZ on 05/24/2019 9:35 AM . Narrative 05/24/2019 9:35 AM [employer] EXAMINATION: Computed tomography (CT) of the head [...] orbital roof. Dictated by Maury Cabrera MD (president/gm production & live experiences) IDr. MARIELLE have personally reviewed and interpreted [...] (Bezet) 484 ms [facility] MUSE Calculated P [place] 58 degrees [facility] MUSE Calculated R [place] -13 degrees [facility] MUSE Calculated T [place] 5 degrees [facility] MUSE Interpretation EKG NORMAL SINUS RHYTHM LOW VOLTAGE QRS BORDERLINE ECG WHEN COMPARED WITH ECG OF 03-MAY-2019 09:23, NO SIGNIFICANT CHANGE WAS FOUND Confirmed by Henry Gannon ([id number]), market editor Serafin Dumont ([id number]) on 07/22/2019 12:59:21 PM [facility] MUSE 05/23/2019 2:55 PM CDT 07/22/2019 12:59 PM [employer] Carlene Strauss DO ECG ORDERABLES [facility] MUSE * (ABNORMAL) BLOOD GASES ARTERIAL (05/23/2019 12:43 PM CDT) Only the most recent of2 resultswithin the time period is included. pH Arterial 7.42 7.35 - 7.45 05/23/2019 12:50 PM [facility] pCO2 Arterial 35 35 - 45 mmHg 05/23/2019 12:50 PM [facility] pO2 Arterial 96(H) 71 - 95 mmHg 05/23/2019 12:50 PM [facility] HCO3 Arterial 22.1 22.0 - 26.0 mmol/L 05/23/2019 12:50 PM [facility] TCO2 Arterial 23.2(L) 25.0 - 29.0 mmol/L 05/23/2019 12:50 PM [facility] Base Excess Arterial -2.0 -2.0 - 2.0 mmol/L 05/23/2019 12:50 PM [facility] Hemoglobin Arterial 8.8(L) 12.0 - 15.5 g/dL 05/23/2019 12:50 PM [facility] Oxyhemoglobin Arterial 96.0 95.0 - 100.0 % 05/23/2019 12:50 PM [facility] Carboxyhemoglobin 0.2 0.0 - 3.0 % 05/23/2019 12:50 PM [facility] Methemoglobin 0.3 0.0 - 2.0 % 05/23/2019 12:50 PM [facility] FI O2 Arterial 21.0 % 05/23/2019 12:50 PM [facility] Blood, arterial ARTERIAL BLOOD SPECIMEN / Unknown Arterial Puncture / Unknown 05/23/2019 12:43 PM CDT 05/23/2019 12:48 PM CDT Nomi Lockwood MD LAB - BLOOD GASES OR DERABLES [address] [phone] * (ABNORMAL) URINALYSIS W/MICROSCOPIC NO CULTURE (05/21/2019 8:29 PM CDT) Only the most recent of3 resultswithin the time period is included. Color UA Yellow Straw, Yellow, Colorless 05/21/2019 8:54 PM T [facility] Clarity UA Cloudy(A) Clear, Slt Cloudy 05/21/2019 8:54 PM [facility] Specific [place] UA 1.011 1.005 - 1.030 05/21/2019 8:54 PM [facility] pH UA 6.0 5.0 - 8.0 pH 05/21/2019 8:54 PM [facility] Protein UA Negative Negative mg/dL 05/21/2019 8:54 PM [facility] Glucose UA Negative Negative mg/dL 05/21/2019 8:54 PM [facility] Ketone UA Negative Negative mg/dL 05/21/2019 8:54 PM [facility] Bilirubin UA Negative Negative mg/dL 05/21/2019 8:54 PM [facility] Blood UA Negative Negative 05/21/2019 8:54 PM [facility] Nitrite UA Negative Negative 05/21/2019 8:54 PM [facility] Leukocyte Esterase 3+(A) Negative 05/21/2019 8:54 PM [facility] Urobilinogen UA Negative Negative mg/dL 05/21/2019 8:54 PM [facility] RBC UA 3-5 None Seen, 0-2, 3-5 /HPF 05/21/2019 8:54 PM [facility] WBC UA >100(A) None Seen, 0-5 /HPF 05/21/2019 8:54 PM [facility] Bacteria UA 3+(A) None, Trace /HPF 05/21/2019 8:54 PM [facility] Squamous Epithelial Cells UA 0-2 None Seen, 0-2 /HPF 05/21/2019 8:54 PM [facility] Mucus UA 1+ None, 1+ /LPF 05/21/2019 8:54 PM [facility] Hyaline Casts UA 0-2 None Seen, 0-2 /LPF 05/21/2019 8:54 PM [facility] Urine URINE SPECIMEN OBTAINED BY CLEAN CATCH PROCEDURE / Unknown Collection / Unknown 05/21/2019 8:29 PM CDT 05/21/2019 8:31 PM CDT [facility] - 05/21/2019 8:54 PM CDT Hung Cuevas MD LAB - URINALYSIS ORD ERABLES [place] [id number] [place] [address], [facility] [phone] * EEG (05/20/2019 1:53 PM CDT) Narrative [...] KRISTOFER LUCIANO on 05/18/2019 6:49 AM . Rogers Bass MD DIAGNOSTIC IMAGING O RDERABLES * VITAMIN B1 (05/17/2019 4:20 PM CDT) [facility] Vitamin B1 Whole Blood 83.9 66.5 - 200.0 nmol/L 05/20/2019 6:07 PM [facility] Blood BLOOD SPECIMEN / Unknown Lab Venipuncture / Unknown 05/17/2019 4:20 PM CDT 05/17/2019 4:26 PM CDT [facility]ative [facility] - 05/20/2019 6:07 PM CDT Test(s) 146994-Igr. B1, Whole Blood was developed and its performance characteristics determined by [facility]. It has not been cleared or approved by the Food and Drug Administration. Performed at: - [address] [id number] [employer]opter Crew Chief: Bety Marie MD, Phone: [phone] Rogers Bass MD LAB - CHEMISTRY TABATHA BAUTISTA [facility]) [address] [place] [address] * FOLATE (05/17/2019 4:20 PM CDT) [facility] Folate 11.9 7.0 - 31.4 ng/mL 05/17/2019 5:27 PM CDT [facility] Blood BLOOD SPECIMEN / Unknown Lab Venipuncture / Unknown 05/17/2019 4:20 PM CDT 05/17/2019 4:26 PM CDT Rogers Bass MD LAB - CHEMISTRY TABATHA BAUTISTA [address] [phone] * VITAMIN B12 (05/17/2019 4:20 PM CDT) Only the most recent of2 resultswithin the time period is included. [facility] Vitamin B12 437 213 - 816 pg/mL 05/17/2019 5:27 PM CDT [facility] Blood BLOOD SPECIMEN / Unknown Lab Venipuncture / Unknown 05/17/2019 4:20 PM CDT 05/17/2019 4:26 PM CDT Rogers Bass MD LAB - CHEMISTRY TABATHA BAUTISTA [facility] Organization Address City/State/ZIP Co de Phone Number [address] [phone] * XR ELBOW RIGHT 3VW OR MORE (05/13/2019 4:03 AM CDT) Anatomical Region Laterality Modality Upper Extremity Radiographic Dominga ging 05/13/2019 2:14 PM CDT Impressions 05/14/2019 6:54 AM CDT IMPRESSION: No acute fracture or dislocation identified. Dictated by Jared Stovall MD (president/gm production & live experiences). Dr. KRISTOFER Ayala have personally reviewed and [...] dislocation identified. Dictated by Jared Stovall MD (president/gm production & live experiences). Dr. KRISTOFER Ayala have personally reviewed and [...] appear intact. Dictated by Jared Stovall MD (president/gm production & live experiences). This report was approved by Jared Stovall [...] appear intact. Dictated by Jared Stovall MD (president/gm production & live experiences). This report was approved by Jared Stovall on 05/13/2019 6:14 PM. I, Dr. ROSETTA GAYLE have personally reviewed and interpreted this examination/study. This report was electronically signed by ROSETTA GAYLE on 05/13/2019 6:14 PM . Henry Kelly MD DIAGNOSTIC IMAGING O RDERABLES * GGT (05/12/2019 2:59 AM CDT) Pathologist [facility] GGT 24 9 - 64 Units/L 05/12/2019 3:59 AM CDT [facility] Blood BLOOD SPECIMEN / Unknown Lab Venipuncture / Unknown 05/12/2019 2:59 AM CDT 05/12/2019 3:35 AM CDT Hung Cuevas MD LAB - CHEMISTRY TABATHA BAUTISTA [facility] [address] [place] [address], [facility] [phone] * C DIFFICILE [facility] + TOXIN A+B (05/04/2019 9:24 AM CDT) Pathologist [facility] Antigen Negative Negative, Invalid 05/04/2019 8:07 PM CDT [facility] C difficile Toxin A + B Negative Negative, Invalid 05/04/2019 8:07 PM CDT [facility] Interpretation C difficile Negative for toxigenic C. difficile Negative for toxigenic C. difficile 05/04/2019 8:07 PM CDT [facility] Stool STOOL SPECIMEN / Unknown Collection / Unknown 05/04/2019 9:24 AM CDT 05/04/2019 9:33 AM CDT Henry Kelly MD LAB - MICROBIOLOGY O ELIZ[facility] [address] [place] [address], [facility] [phone] * TRANSFUSE RED BLOOD CELL LEUKOREDUCED UNIT(S) (04/28/2019 6:09 PM CDT) Hung Harvey MD NURSING - BLOOD PROD TRANSFUSION * ETT Placement (04/28/2019 1:40 PM CDT) Narrative Lina Diaz APRN-SYSTEM ADMINISTRATION ADVISOR - 04/28/2019 1:40 PM CDT Lina Diaz APRN-SYSTEM ADMINISTRATION ADVISOR 04/28/2019 1:42 PM Endotracheal Tube Placement: Patient Location: OR. Intubation Event Date/Time: 04/28/2019 12:33 PM Procedure: intubation (12619). Procedure Section: Sedation: under general anesthesia. Indications [...] effusions. Report dictated by Singh Stewart MD (president/gm production & live experiences). I, Dr. CHRIS BRASHER have personally reviewed [...] effusions. Report dictated by Singh Stewart MD (president/gm production & live experiences). I, Dr. CHRIS BRASHER have personally reviewed [...] Dumont DO LAB - MICROBIO LOGY ORDERABLES [facility] [address] [place] [address], [facility] [phone] * PTT [facility] (04/18/2019 11:08 AM CDT) Only the most recent of2 resultswithin the time period is included. APTT 29.0 23.0 - 38.4 Seconds 04/18/2019 11:28 AM CDT [facility] Comment: * Please Note: New therapeutic range for heparin therapy. * Suggested therapeutic range for full dose I.V. heparin therapy for venous thromboembolism is 65 to 103 seconds. Blood BLOOD SPECIMEN / Unknown Venipuncture / Unknown 04/18/2019 11:08 AM CDT 04/18/2019 11:14 AM CDT Nikos Mobley MD LAB - COAGULATION OR DERABLES [facility] [address] [place] [address], [facility] [phone] * (ABNORMAL) PT-INR [facility] (04/18/2019 11:08 AM CDT) Only the most recent of3 resultswithin the time period is included. PT 15.1(H) 12.1 - 14.8 Seconds 04/18/2019 11:27 AM CDT [facility] INR 1.3 See Comment 04/18/2019 11:27 AM CDT [facility] Comment: The suggested therapeutic range for standard coumadin (warfarin) therapy is an INR of 2.0-3.0. For high-risk patients (Mechanical Mitral Valve Prosthesis, etc.), the suggested prophylactic therapeutic range is an INR of 2.5-3.5. Blood BLOOD SPECIMEN / Unknown Venipuncture / Unknown 04/18/2019 11:08 AM CDT 04/18/2019 11:14 AM CDT Nikos Mobley MD LAB - COAGULATION OR DERABLES [address] [phone] * TRANSFUSE RED BLOOD CELL LEUKOREDUCED UNIT(S) (04/18/2019 12:50 AM CDT) José Antonio Hanna DO NURSING - BLOOD PROD TRANSFUSION * TRANSFUSE RED BLOOD CELL LEUKOREDUCED UNIT(S) (04/18/2019 12:50 AM CDT) José Antonio Hanna DO NURSING - BLOOD PROD TRANSFUSION * LACTIC ACID BLOOD (04/18/2019 12:09 AM CDT) [facility] Lactic Acid-Stat 1.0 0.5 - 2.2 mmol/L 04/18/2019 12:44 AM CDT [facility] Blood BLOOD SPECIMEN / Unknown Venipuncture / Unknown 04/18/2019 12:09 AM CDT 04/18/2019 12:24 AM CDT Nikos Mobley MD LAB - CHEMISTRY ORDE RABLES [address] [phone] * TRANSFUSE RED BLOOD CELL LEUKOREDUCED UNIT(S) (04/17/2019 6:21 PM CDT) José Antonio Hanna DO NURSING - BLOOD PROD TRANSFUSION * (ABNORMAL) CALCIUM IONIZED WHOLE BLOOD (04/17/2019 12:16 AM CDT) Ionized Calcium Whole Blood 1.20 mmol/L 04/17/2019 1:32 AM CDT [facility] Adjusted Ionized Calcium 1.16(L) 1.19 - 1.34 mmol/L 04/17/2019 1:32 AM CDT [facility] pH Whole Blood 7.32(L) 7.35 - 7.45 04/17/2019 1:32 AM CDT [facility] Whole Blood WHOLE BLOOD SPECIMEN / Unknown Lab Venipuncture / Unknown 04/17/2019 12:16 AM CDT 04/17/2019 1:31 AM CDT Milton Mccloud MD LAB - CHEMISTRY TABATHA BAUTISTA [address] [phone] * XR ABDOMEN KUB PORTABLE (04/16/2019 10:48 PM CDT) Anatomical Region Laterality Modality Radiographic Dominga ging 04/17/2019 8:49 AM CDT Impressions 04/17/2019 5:55 PM CDT IMPRESSION: No prior study is available for comparison at the time of this dictation. An enteric tube terminates in the proximal stomach. Dictated by Delfino Sheikh MD (president/[employer] live [employer]). Dr. ZACHERY Ayala have personally reviewed and [...] proximal stomach. Dictated by Delfino Sheikh MD (president/[employer] live experiences). Dr. ZACHERY Ayala have personally reviewed and [...] LINE NOTE (04/16/2019 8:53 AM CDT) Narrative Iván Curtis, DO - 04/16/2019 8:53 AM CDT Iván Curtis DO 04/16/2019 9:41 AM Arterial Line Placement Procedure Note Patient Location: OR. Procedure: Arterial Line (92054). Procedure Section Indications: continuous blood pressure monitoring. [...] Location: OR. Procedure: central line > 5yr (85672). Procedure Section: Indications: IV access. Patient Sedated? [...] Event Date/Time: 04/16/2019 7:58 AM Procedure: intubation (83800). Procedure Section: Sedation: under general anesthesia. Indications [...] NRBC) 10.5 10 3/uL 04/09/2019 11:52 AM [facility] Total Cell Count 100 04/09/20 11:52 AM [facility] Neutrophils Absolute Manual 7.98(H) 1.60 - 7.00 10 3/uL 04/09/2019 11:52 AM [facility] Comment:(BANDS+SEGS) x WBC = NEUT # (ANC) Lymphocyte Absolute Manual 1.79 0.80 - 2.90 10 3/uL 04/09/2019 11:52 AM [facility] Monocytes Absolute Manual 0.63 0.14 - 0.66 10 3/uL 04/09/2019 11:52 AM [facility] Basophil Absolute Manual 0.11(H) 0.00 - 0.06 10 3/uL 04/09/2019 11:52 AM [facility] Neutrophil % Manual 76(H) 30 - 60 % 04/09/2019 11:52 AM [facility] Lymphocyte % Manual 17(L) 20 - 45 % 04/09/2019 11:52 AM [facility] Monocytes % Manual 6 2 - 10 % 04/09/2019 11:52 AM [facility] Basophils % Manual 1 0 - 3 % 04/09/2019 11:52 AM [facility] Platelet Estimate Increased (A) Adequate 04/09/2019 11:52 AM [facility] Anisocytosis 1+(A) None 04/09/2019 11:52 AM [facility] Blood BLOOD SPECIMEN / Unknown Lab Venipuncture / Unknown 04/09/2019 10:28 AM CDT 04/09/2019 10:53 AM CDT Hung Harvey MD LAB - HEMATOLOGY ORD ERABLES [address] [phone] * LAB RESULTS ORDER (03/30/2019 12:42 PM [...] 8:28 AM CDT Narrative Procedure Note 02/13/[address] [address] Nuclear Myocardial Perfusion Scan Report Pat.Name: ALE HARLEY Pat.ID: [id number] St.Date: 02/13/2019 Refer.MD: Hung Harvey Exam Time: 8:28:00 AM Study Type:Nuclear Myocardial Perfusion Scan Height: 160.02cm Weight: 92.27kg BSA: 1.95 m2 Age: 11 1955,63Y Sex: FEMALE Pat. Stat.:Outpatient Reason for Study: Preoperative examination Procedures: Lexiscan Perfusion Scan Visit ID: [id number] Nurse: Destiny Redd RN Risk Factors:Hypertension, Diabetes, [...] Atropine 0 Rest BP: 117/83 Duration 03:00 MD Int: 158 ms QRS Int: 82 ms [...] Lexiscan infusion Confirmed by DO Lee Stephanie ([id number]) on 03/01/2019 2:50:05 PM Attending Physician: Cristal Landaverde ANP Referred By: HUNG HARVEY Overread By: Vilma Lee DO [facility] STR[facility] 02/13/2019 9:56 AM CDT 03/01/2019 2:50 PM CDT Hung Harvey MD CARDIAC SERVICES ORD ERABLES [facility] * BONE DENSITY AXIAL SKELETON(1OR MORE SITES)[id number] (02/11/2019 8:44 AM CDT) Anatomical Region Laterality [...] CDT) ALT 15 0 - 32 IU/L [facility] INSURANCE BILL Comment:FASTING Blood BLOOD SPECIMEN / Unknown 01/31/2019 9:55 AM CDT 01/31/2019 Narrative [facility] INSURANCE BILL - 02/01/2019 6:38 AM CDT A courtesy copy of this report has been sent to the patient. Resulting Agency Comment [facility] [address] [phone] José Miguel Morgan MD LAB - CHEMISTRY TABATHA BAUTISTA [facility] Organization Address City/State/ZIP Co de Phone Number [facility] INSURANCE BILL [address] [place] [address] * XR PELVIS W RIGHT HIP 2VW [...] CARDIAC RHYTHM STRIP ORDER (09/22/2018 4:34 PM [employer]) Only the most recent of2 resultswithin the time period is included. Narrative 09/22/2018 4:34 PM [employer] Ordered by an unspecified provider. Scanned Document CARDIAC SERVICES ORD ERABLES * (ABNORMAL) HGB HCT PANEL (09/18/2018 2:58 AM [employer]) Only the most recent of2 resultswithin the time period is included. Hemoglobin 9.5(L) 12.0 - 15.6 gm/dL 09/18/2018 3:50 AM [employer] [facility] Hematocrit 30.3(L) 35.9 - 45.5 % 09/18/2018 3:50 AM [employer] [facility] Blood BLOOD SPECIMEN / Unknown Lab Venipuncture / Unknown 09/18/2018 2:58 AM [employer] 09/18/2018 3:42 AM [employer] Ric Melo MD LAB - HEMATOLOGY ORD ERABLES [facility] [address] [place] [address] * BLOOD TYPE VERIFICATION (09/16/2018 8:45 AM [employer]) ABO A 09/16/2018 9:09 AM [employer] [facility] Rh Type Positive 09/16/2018 9:09 AM [employer] [facility] Blood Bank BLOOD SPECIMEN / Unknown Venipuncture / Unknown 09/16/2018 8:45 AM [employer] 09/16/2018 8:47 AM [employer] Greg Kerr DO LAB - BLOOD BANK ORD ERABLES Performing Organization Address City/[facility]/ZIP Co de Phone Number [facility] [address] [place], [place] [address] [phone] * URINE MICROSCOPIC ONLY REFLEX TO CULTURE (09/15/2018 11:07 AM [employer]) Only the most recent of2 resultswithin the time period is included. Reflex Status Culture to follow 09/15/2018 11:57 AM [facility] RBC UA 0-2 None Seen, 0-2, 3-5 # /hpf 09/15/2018 11:57 AM [facility] WBC UA 0-5 None Seen, 0-5 # /hpf 09/15/2018 11:57 AM [facility] Bacteria UA None Seen None Seen 09/15/2018 11:57 AM [facility] Squamous Epithelial Cells 3-5 None Seen, 0-2, 3-5 /hpf 09/15/2018 11:57 AM [facility] Urine URINE SPECIMEN OBTAINED BY CLEAN CATCH PROCEDURE / Unknown Collection / Unknown 09/15/2018 11:07 AM [employer] 09/15/2018 11:08 AM [employer] Narrative [facility] - 09/15/2018 11:57 AM [employer] Grupo Smalls MD LAB - URINALYSIS ORD ERABLES [facility] [address] [place] [address] * (ABNORMAL) URINALYSIS REFLEX MICROSCOPIC REFLEX CULTURE (09/15/2018 11:07 AM [employer]) Only the most recent of2 resultswithin the time period is included. Color UA Yellow Straw, Yellow 09/15/2018 11:52 AM [facility] Clarity UA Slt Cloudy(A) Clear 09/15/2018 11:52 AM [facility] Glucose UA Negative Negative 09/15/2018 11:52 AM [facility] Bilirubin UA Negative Negative 09/15/2018 11:52 AM [facility] Ketone UA Negative Negative 09/15/2018 11:52 AM [facility] Specific [place] UA 1.013 1.005 - 1.030 09/15/2018 11:52 AM [facility] Blood UA Negative Negative 09/15/2018 11:52 AM [facility] pH UA 6.0 5.0 - 8.0 pH 09/15/2018 11:52 AM [facility] Protein UA Negative Negative 09/15/2018 11:52 AM [facility] Urobilinogen UA Negative Negative mg/dL 09/15/2018 11:52 AM [facility] Nitrite UA Negative Negative 09/15/2018 11:52 AM [facility] Leukocyte UA 1+(A) Negative 09/15/2018 11:52 AM [facility] Urine Microscopy Urine microscopy to follow 09/15/2018 11:52 AM [facility] Reflex Status Culture to follow 09/15/2018 11:52 AM [facility] Urine URINE SPECIMEN OBTAINED BY CLEAN CATCH PROCEDURE / Unknown Collection / Unknown 09/15/2018 11:07 AM [employer] 09/15/2018 11:08 AM [employer] Narrative [facility] - 09/15/2018 11:52 AM [facility] [employer] Ascorbic Acid can cause false negative urine strip tests for blood, glucose, nitrite, and bilirubin. Grupo Smalls MD LAB - URINALYSIS ORD ERABLES [facility] [address] [place] [address] * CULTURE MSSA/MRSA (09/08/2018 8:54 AM [employer]) Culture Negative for Staphylococcus aureus (MRSA/MSSA) HAN 09/09/2018 3:52 PM [employer] [facility] MICROBIOLOGY Microbiology SPECIMEN FROM NASAL FOSSAE / Unknown Collection / Unknown 09/08/2018 8:54 AM [employer] 09/08/2018 9:35 AM [employer] Grupo Smalls MD LAB - MICROBIOLOGY O RDERABLES [facility] [address] [place] [address], [facility] [phone] * (ABNORMAL) TRANSFERRIN (09/08/2018 8:54 AM [facility]) Transferrin 386(H) 250 - 380 mg/dL 09/08/2018 10:10 AM [facility] Blood BLOOD SPECIMEN / Unknown Venipuncture / Unknown 09/08/2018 8:54 AM [employer] 09/08/2018 9:35 AM [facility] Grupo Smalls MD LAB - CHEMISTRY TABATHA BAUTISTA Performing Organization Address City/State/[facility] Co de Phone Number [facility] [address] [place] [address] * (ABNORMAL) DRUG SCREEN TOX URINE PANEL (09/08/2018 8:54 AM [facility]) Amphetamines Screen Urine Detected(A) Not Detected 09/08/2018 10:38 AM [facility] Barbiturates Screen Urine Not Detected Not Detected 09/08/2018 10:38 AM [facility] Benzodiazepines Screen Urine Not Detected Not Detected 09/08/2018 10:38 AM [facility] Cannabinoids Screen Urine Not Detected Not Detected 09/08/2018 10:38 AM [facility] Cocaine Screen Urine Not Detected Not Detected 09/08/2018 10:38 AM [facility] Methadone Screen Urine Not Detected Not Detected 09/08/2018 10:38 AM [facility] Opiate Screen Urine Not Detected Not Detected 09/08/2018 10:38 AM [facility] Phencyclidine Screen Urine Not Detected Not Detected 09/08/2018 10:38 AM [facility] Urine URINE / Unknown Collection / Unknown 09/08/2018 8:54 AM [facility] 09/08/2018 9:35 AM [facility] Narrative [facility] - 09/08/2018 10:38 AM [facility] This drug screen is designed for MEDICAL [...] MD LAB - URINE CHEMISTR Y ORDERABLES [facility] [address] [place] [address] * XR PELVIS W BILAT HIP 2VW (08/18/2018 8:56 AM [employer]) Anatomical Region Laterality Modality Pelvis, Lower Extremity [facility] 08/18/2018 9:52 AM [employer] Impressions 08/18/2018 10:51 AM [employer] [employer] Degenerative changes right hip. Pelvic tilt. Edited by Madelyn Goodson on 08/18/2018 10:43 AM Reading Radiologist: Syed Mchugh MD on 08/18/2018 at 10:51 AM Narrative 08/18/2018 10:51 AM [facility] [employer] BILATERAL HIPS HISTORY: Hip pain. Views of [...] + MICRO EXAM (STL) (06/09/2018 11:17 AM [employer]) Only the most recent of2 resultswithin the time period is included. Case Report Surgical Pathology Report Case: [id number] Authorizing Provider: Andrei Alegre MD Collected: 06/09/2018 11:17 AM [facility]ing [facility]: [facility] Received: 06/09/2018 02:18 PM Pathologist: Xena Ramírez MD Specimens: A) - Polyp Transverse, transverse colon polyp B) - Polyp Cecum, cecal polyp 06/10/2018 12:48 PM [facility] [employer] [facility] Final Diagnosis Large intestine, transverse colon, polyp, endoscopic biopsy: - Tubular adenoma Large intestine, cecum, polyp, endoscopic biopsy: - Tubular adenoma KL/na 06/10/2018 12:48 PM [facility] Gross Description The specimen [...] submitted in B1. KL/scs 06/10/2018 12:48 PM [facility] Microscopic Description Histologic sections of the transverse polyp show tubular adenoma. There is no evidence of high-grade dysplasia or malignancy. Histologic sections of the cecal polyp show tubular adenoma. There is no evidence of high-grade dysplasia or malignancy. KL/na 06/10/2018 12:48 PM [facility] Disclaimer All histochemical and/or immunohistochemical results are interpreted with controls that demonstrate appropriate staining reactions before reporting results. Note on use of immunocytochemistry reagents: This test was developed and its performance characteristic determined by [facility], Department of Laboratory Medicine. It has not been cleared or approved by the U.S. Food and Drug Administration (FDA). The FDA has determined that such clearance or approval is not necessary. The test is used for clinical purpose. It should not be regarded as investigational or for research. This laboratory is certified to perform high complexity testing. 06/10/2018 12:48 PM [facility] [employer] [facility] Embedded Images 06/10/2018 12:48 PM [employer] [facility] Pathology/Cytology POLYP / Unknown 2017 11:17 AM [employer] 06/09/2018 2:18 PM [employer] [employer] Miscellaneous samples (specimen) POLYP OF CECUM / Unknown 06/09/2018 11:22 AM [employer] 06/09/2018 2:18 PM [employer] Andrei Alegre MD LAB - PATHOLOGY/CYTO LOGY ORDERABLES [facility] [address] [address] * ENDOSCOPY, COLON, SCREENING (06/09/2018 11:03 AM [employer]) Report Endoscopy POC _ Patient Name: Ale [...] and oxygen saturations were monitored continuously. The [id number] SN [id number] was introduced through the anus and advanced [...] for surveillance. Procedure Code(s): --- Professional --- 64370, Colonoscopy, flexible; with removal of tumor(s), polyp(s), or other lesion(s) by snare technique 92344, 59, Colonoscopy, flexible; with removal of tumor(s), polyp(s), or other lesion(s) by hot biopsy forceps --- Technical --- 47304, Colonoscopy, flexible; with removal of tumor(s), polyp(s), or other lesion(s) by snare technique [id number], 59, Colonoscopy, flexible; with removal of tumor(s), [...] flexure) K64.9, Unspecified hemorrhoids CPT copyright 2015 [employer]. All rights reserved. 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 Andrei Alegre MD 06/09/2018 11:38:18 AM This report has been signed electronically. Number of Addenda: 0 Note Initiated On: 06/09/2018 11:03 AM Estimated Blood Loss: Estimated blood loss: none. [facility] 06/09/2018 11:0 3 AM [employer] Andrei Alegre MD GI PROCEDURE ORDERAB LES [facility] * MAMMO BILAT SCREENING (2018 12:55 PM [employer]) Only the most recent of2 resultswithin the time period is included. Anatomical Region Laterality Modality Breast Bilateral Mammography 2018 3:41 PM [employer] Impressions 2018 3:44 PM [employer] No mammographic evidence of malignancy in either breast. ASSESSMENT: BIRADS Category 1: Negative mammogram. RECOMMENDATION: Bilateral screening mammogram in one year. Thank you for allowing us to participate in the care of your patient. Reading Radiologist: Katherine Soliman MD on 2018 at 3:44 PM Narrative 2018 3:44 PM [employer] EXAMINATION: Digital screening mammogram on 2018. Low-dose [...] CDT 01/01/2018 Narrative Resulting Agency Comment [facility] [address] [phone] José Miguel Morgan MD LAB - CHEMISTRY TABATHA BAUTISTA Performing Organization Address [facility] Co de Phone Number [facility] ACCOUNT BILL [address] [place] [address] * T4 FREE (01/01/2018 4:46 PM CDT) Only the most recent of4 resultswithin the time period is included. T4 Free 1.04 0.65 - 1.34 ng/dL [facility] ACCOUNT BILL 01/01/2018 4:46 PM CDT 01/01/2018 Narrative Resulting Agency Comment [facility] [address] [phone] José Miguel Morgan MD LAB - CHEMISTRY TABATHA BAUTISTA [facility] ACCOUNT BILL [address] [place] [address] * XR HIP 2+ VW RIGHT (07/03/2017 10:40 AM [employer]) Anatomical Region Laterality Modality Pelvis, Lower Extremity [facility] 07/03/2017 10:4 7 AM [employer] Impressions 07/03/2017 10:49 AM [employer] 1. Severe right hip osteoarthritis. 2. Severe lumbar spine degenerative disc disease and facet osteoarthritis. Narrative 07/03/2017 10:49 AM [employer] Examination: 1. Lumbar spine 2 or 3 [...] PM CDT 01/09/2017 Narrative Resulting Agency Comment [facility] [address] [phone] José Miguel Morgan MD LAB - CHEMISTRY TABATHA BAUTISTA [facility] ACCOUNT BILL [address] [place] [address] * PFT CARDIOPULMONARY EXERCISE TEST-CPET (07/18/2016 9:43 AM [employer]) Impressions [facility] - 07/18/2016 9:43 AM [employer] HISTORY Ale Harley is a 61 y.o. [...] interpretation by Dr. Craig. Gaurav Frankel M.D. [employer] Technical Director of Internal Medicine Division of Pulmonary, Critical Care and Sleep Medicine [facility] Narrative Procedure Note Provider, MD Aaliyah - [...] with mild functional aerobic impairment. The VO2 [id number] ml/min or 94% of predicted when not [...] the interpretation by . Gaurav Frankel M.D. [employer] Technical Director of Internal Medicine Division of Pulmonary, Critical Care and Sleep Medicine [facility] Madhu Wells MD PFT ORDERABLES [facility] * ECHOCARDIOGRAM 2D WITH DOPPLER (09/06/2015 1:41 PM [employer]) Only the most recent of2 resultswithin the time period is included. 09/06/2015 1:41 PM [employer] Narrative [facility] - 09/07/2015 10:40 AM [employer] Transthoracic Echocardiogram 2D, M-mode, Doppler, and Color Doppler Patient: ALE HARLEY MR number: [id number] Height: 63 in Weight: 231.4 lb BSA: 2.06 m Study date: 06-Sep-2015 : 1955 Age: 60 years Gender: Female Race: Allergies: IODINATED CONTRAST AGENTS Referring Physician: Madhu Wells MD Promotion Officer: Sarah Chester RDCS Reading Physician: Dexter Maradiaga [...] Color Doppler Patient: ALE HARLEY MR number: [id number] Height: 63 in Weight: 231.4 lb BSA: 2.06 m Study date: 06-Sep-2015 : 1955 Age: 60 years Gender: Female Race: Allergies: IODINATED CONTRAST AGENTS Referring Physician: Madhu Wells MD Promotion Officer: Sarah Chester RDCS Reading Physician: Dexter Maradiaga [...] 07-Sep-2015 10:39:54 Madhu Wells MD ECHO ORDERABLES [facility] [address] [place] [address] * COMPLETE PFT W/WO BRONCHODILATOR (08/04/2015 5:09 PM [employer]) Narrative Madhu Wells MD - 08/04/2015 5:09 PM [employer] Maduh Wells MD 08/04/2015 5:09 PM PULMONARY FUNCTION [...] HIP 2+ VW LEFT (07/06/2014 5:04 PM [employer]) Anatomical Region Laterality Modality Pelvis, Lower Extremity Radiogra phic Imaging 07/06/2014 8:04 PM [employer] Impressions 07/06/2014 8:05 PM [employer] Very mild left hip osteoarthritis. Narrative 07/06/2014 8:05 PM [employer] LEFT HIP, TWO VIEWS DATE OF EXAM: [...] Andrei Alegre MD GI PROCEDURE ORDERAB LES [facility] * GROSS + MICRO EXAM (12/10/2011 [...] random biopsy -- No significant pathologic diagnosis [facility] [employer] Pathologist Sydney Lee MD CPT code 90832 x2 MISCELLANEOUS SAMPLES / Unknown 12/10/2011 10:30 AM CDT 12/10/2011 2:35 PM CDT Historical Provider LAB - PATHOLOGY/C YTOLOGY ORDERABLES * O+P PANEL (12/10/2011 10:30 AM CDT) Only the most recent of3 resultswithin the time period is included. Trichrome Stain NO ova and parasites seen. [facility] Additional Comment [facility] Comment: Additional Results not in our Test Definition Comment ONLY 1 O+P EXAM PER 24 HOURS - O+P Concentrate Formalin NO ova and parasites seen. [facility] Stool specimen (specimen) STOOL SPECIMEN / Unknown 12/10/2011 10:30 AM CDT 12/10/2011 2:20 PM CDT Narrative [facility] - 12/12/2011 5:31 PM CDT Performed By [facility] [address] [place] [address] Andrei Alegre MD LAB - MICROBIOLOGY O ELIZABETH Performing Organization Address [facility] Co de Phone Number [facility] [address] [place] [address] * CLOSTRIDIUM DIFFICILE TOXIN A+B (12/10/2011 10:30 AM CDT) Only the most recent of2 resultswithin the time period is included. C difficile Toxin EIA NEGATIVE Negative [facility] Stool specimen (specimen) STOOL SPECIMEN / Unknown 12/10/2011 10:30 AM CDT 12/10/2011 2:21 PM CDT Narrative [facility] - 12/11/2011 11:32 AM CDT Performed By [facility] [address] [place] [address] Andrei Alegre MD LAB - MICROBIOLOGY O ELIZABETH Performing Organization Address [facility] Co de Phone Number [facility] [address] [place] [address] * CULTURE STOOL PANEL (12/10/2011 10:30 AM CDT) Only the most recent of2 resultswithin the time period is included. Result [facility] Comment: Final Negative for Shiga toxin by immunoassay CULTURE No growth of Salmonella, Shigella, Campylobacter, Yersinia, E.coli 0157-H7 Stool specimen (specimen) STOOL SPECIMEN / Unknown 12/10/2011 10:30 AM CDT 12/10/2011 2:21 PM CDT Narrative [facility] - 12/14/2011 8:04 AM CDT Performed By [facility];[address];[place] [address] Andrei Alegre MD LAB - MICROBIOLOGY O ELIZABETH Performing Organization Address City/[facility] Co de Phone Number [facility] [address] [place] [id number] * WBC SMEAR (11/28/2011 7:12 AM CDT) White Blood Cells (WBC), Stool Final report [facility] ACCOUNT BILL Comment:Reference Range: Non e Seen Result 1 [facility] ACCOUNT BILL Comment:No white blood cells seen. 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 Automatic Relationship Specialty Start Date End Date Ra Hutton MD [address] [facility] [address] [place] [phone] PCP - General Internal Medicine 12/09/23 José Miguel Morgan MD [address] [place] [address] PCP - Attributed-MSSP 03/22/24 [place] [address] [facility] [address] [place] [address] Psychiatry 12/08/13 [place] [address] [facility] [address] [place] [address] Gastroenterology 12/08/13 Sandeep Razo MD [address] [facility] [place] [address] Dermatology 12/08/13 Monique Jain MD [address] [facility] [address] [place] [phone] Podiatry 12/08/13 Tiff Bellamy Update Information Ophthalmology 08/14/18
[2024-09-29 20:01] VITALS: BP 116/82; PULSE 90; RESP 17; O2SAT 98
== END 2024-09-29 20:02 | disposition home or self-care (01) ==
PROVIDERS: Emergency Provider Physician Assistant
DX: S01.81XA Laceration without foreign body of other part of head, initial encounter (principal); M19.90 Unspecified osteoarthritis, unspecified site; F31.9 Bipolar disorder, unspecified; E11.9 Type 2 diabetes mellitus without complications; K21.9 Gastro-esophageal reflux disease without esophagitis; I10 Essential (primary) hypertension; E03.9 Hypothyroidism, unspecified; W01.0XXA Fall on same level from slipping, tripping and stumbling without subsequent striking against object, initial encounter; Z23 Encounter for immunization
CPT/HCPCS: 12011; 70450; 70486; 72125; 90471; 90715; 99284; J2004

== ENCOUNTER 2024-10-06 13:00 | Emergency (ER) | payer MEDICARE, BC, SELFPAY ==
[2024-10-06 13:09] VITALS: BP 154/68; PULSE 86; RESP 16; TEMP 36.9; O2SAT 98
--- NOTE | 2024-10-06 13:13 | ED.WOUNDLAC ---
HPI - Wound/Laceration General Chief Complaint: Wound/Laceration Stated Complaint: stitches removed Time Seen by Provider: 10/06/24 13:01 Source: patient Mode of arrival: ambulatory Limitations: no limitations History of Present Illness HPI narrative: Natalie is a 69-year-old female patient presenting to the clinic today for a suture removal. She reports she has 5 sutures in her right forehead. Fell approximately 1 week ago and went to the ER and had laceration repair. Was given 3 days worth of antibiotics and she completed those. Denies any concerns today in the office. Related Data Home Medications ?Medication ?Instructions ?Recorded ?Confirmed ?Last Taken ?Type atorvastatin 10 mg tablet 10 mg PO DAILY 10/02/19 07/20/22 01/07/20 09:00 History dextroamphetamine-amphetamine 30 30 mg PO BID 10/02/19 07/20/22 Unknown History mg tablet gabapentin 300 mg capsule 300 mg PO BID 10/02/19 07/20/22 Unknown History olmesartan 40 1 tablet PO DAILY 10/02/19 07/20/22 01/07/20 09:00 History mg-hydrochlorothiazide 25 mg tablet omeprazole 20 mg capsule,delayed 20 mg PO BID 10/02/19 07/20/22 Unknown History release potassium chloride 10 mEq 10 meq PO DAILY 10/02/19 07/20/22 01/07/20 09:00 History tablet,extended release(part/cryst) lamotrigine 200 mg tablet 200 mg PO BID 01/07/20 07/20/22 Unknown History topiramate 100 mg tablet 100 mg PO BID 06/21/21 07/20/22 Unknown History multivitamin with minerals-folic tablet PO 01/30/24 01/30/24 Unknown History acid 0.4 mg tablet Allergies Allergy/AdvReac Type Severity Reaction Status Date / Time Iodinated Contrast Media Allergy Unknown Hives Verified 10/06/24 13:13 Contrast Media Allergy Mild Itching Uncoded 10/06/24 13:13 Review of Systems Review of Systems: Pertinent positives per HPI. Patient denies any fever, chills, rash, headache, visual changes, dizziness, cough, runny nose, sore throat, shortness of breath, chest pain, palpitations, nausea, vomiting, diarrhea, constipation, abdominal pain, or any urinary issues. [facility] Past Medical History Medical History Hypertension Chronic low back pain Diabetes mellitus Tardive dyskinesia Bipolar disorder Lumbar canal stenosis Spondylolisthesis, lumbar region Hypothyroidism Diabetes Tardive syndrome Bipolar disorder Depression Arthritis GERD (gastroesophageal reflux disease) HTN (hypertension) Surgical History Surgical History Status post craniectomy Status post lumbar surgery History of spinal surgery Hx of tonsillectomy Hx of gastric bypass Hx of shoulder replacement bilateral shoulders Hx of cholecystectomy Family History Family History Mother Acute myocardial infarction Diabetes mellitus Hypertension Father Acute myocardial infarction Diabetes mellitus Hypertension Social History Social History Smoking status: Never smoker Second hand tobacco smoke exposure: No Alcohol intake: current Drinks per week: 1 Substance use: never Gender identity (if verbalized by the patient): Female Spiritual care concerns: No Comments At the time of my signature, I reviewed and agree with the nursing past medical, surgical, social, and family history. There is no relevant family history pertinent to the patient complaint. Exam Narrative: General: Well-developed, well nourished, in no apparent distress Head: Normocephalic, atraumatic. Cardio: Regular rate and rhythm, s1 and s2 normal, no murmur appreciated. Resp: Clear to auscultation bilaterally, no rhonchi, rales, wheezing or rubs. Integumentary: [place], warm, and dry, approximate 2 cm healing scabbed over laceration with [address] Sutures removed. Patient tolerated well. No dehiscence, redness, or localized swelling Course Course Emergency Course: Portions of this record may have been created with voice recognition software. Level of Care: Express Care Visit Vital Signs Vital signs: Vital Signs Temperature 36.9 C 10/06/24 13:09 Pulse Rate 86 10/06/24 13:09 Respiratory Rate 16 10/06/24 13:09 Blood Pressure 154/68 H 10/06/24 13:09 Pulse Oximetry 98 10/06/24 13:09 Oxygen Delivery Room Air 10/06/24 13:09 Temperature 36.9 C 10/06/24 13:09 Pulse Rate 86 10/06/24 13:09 Respiratory Rate 16 10/06/24 13:09 Blood Pressure 154/68 H 10/06/24 13:09 Pulse Oximetry 98 10/06/24 13:09 Oxygen Delivery Room Air 10/06/24 13:09 Vital signs reviewed MDM - Wound/Laceration MDM Narrative Medical decision making narrative: At the time of visit patient is resting comfortably on the exam table. Patient appears to be nontoxic. Plan: Patient here for suture removal. Five interrupted Sutures removed and patient tolerated well. Wound is well healing. No sign of infection. Supportive measures were discussed with the patient and they voiced understanding discharge instructions and agrees to treatment plan. Return precautions reviewed Differential Diagnosis Differential diagnosis: Likely laceration, abscess, abrasion, avulsion of skin and other (Suture removal) Discharge Plan Discharge Clinical Impression: Encounter for removal of sutures Patient Disposition: Home, Self-Care Condition: Stable Instructions: Antibiotic Form, Stitches Removal (ED) Additional Instructions: Sutures were removed in the clinic today Keep wound clean and dry Watch for signs and symptoms of infection- redness, streaking, swelling, purulent discharge, or increase in pain. Follow up with your PCP as needed. Patient Language: Kinyarwanda Prescriptions: No Action multivit with min-folic acid [Adult One Daily Multivitamin] 0.4 mg Tablet PO clindamycin HCl 300 mg capsule 300 mg PO BID Qty: 30 0RF Rx Instructions: take all doses as ordered wound culture sent levofloxacin 500 mg tablet 500 mg PO DAILY 7 Days Qty: 7 0RF atorvastatin 10 mg tablet 10 mg PO DAILY dextroamphetamine-amphetamine 30 mg tablet 30 mg PO BID gabapentin 300 mg capsule 300 mg PO BID omeprazole 20 mg capsule,delayed release(DR/EC) 20 mg PO BID olmesartan-hydrochlorothiazide 40-25 mg tablet 1 tablet PO DAILY potassium chloride 10 mEq tablet,ER particles/crystals 10 meq PO DAILY topiramate 100 mg tablet 100 mg PO BID cephalexin 500 mg capsule 500 mg PO Q8H 3 Days Qty: 9 0RF lamotrigine 200 mg Tablet 200 mg PO BID Follow-up/Referrals: PHYSICIAN,SUPERVISOR GLUING [Primary Care Provider] - Time of Disposition: 13:12 Quality NIHSS Nursing Documentation ED NIHSS nursing documentation: reviewed/agree
--- OUTSIDE RECORDS SUMMARY | 2024-10-06 14:21 | XMS_ITS ---
Author Organization [facility] Address [address] [place] [address] [address] [address] Care Team Providers Care Core Fitter Name Role Phone José Miguel Morgan MD Primary Care Provider Yvette Ayers Unavailable [phone] Encounters Encounter Location Date Provider Diagnosis [address] [place], [place] [id number] 09/23/2024 Yvette Altamirano Plan Of Treatment Next Appt Details Provider Name:Yvette Orr i, 12/23/2024 02:45:00 PM, [address] [place] [address], [address], [place], [place], [id number], Progress Notes * Ale HYATTDOB: [birth year] (69 yo F)Acc No.[id number]:09/23/2024 Progress Notes Patient: Rich KUMARAle Provider: Rich Altamirano MD :1955 A ge:69 Y S ex:Female Date:09/23/2024 Address:[address] [place] [address] Pcp:José Miguel Morgan MD Subjective: * Chief Complaints: * * Medical History: Objective: * Vitals: Assessment: Plan: * Treatment: * Images: * Electronic signature of Gulshan Altamirano MD on 10/06/2024 at 02:20 PM CDT Sign off status: Pending * Provider: Rich Altamirano MD Date: 0 09/23/2024 Generated for Milka price/Iliana/Imani on: 0 10/06/2024 02:20 PM CDT
--- OUTSIDE RECORDS SUMMARY | 2024-10-06 14:21 | XMS_ITS | Patient Health Record ---
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 Occasional EtOH No MJ or illicits 11/10 taking pure vitamin supplement lives with disabled daughter 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 Occasional EtOH No MJ or illicits 11/10 taking pure vitamin supplement lives with disabled daughter 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 Occasional EtOH No MJ or illicits Problems Problem Type SNOMED Code ICD Code Onset Dates Problem Status W/U Status Risk Notes Problem Acute renal failure syndrome (51579046) Acute kidney failure, unspecified (N17.9) Active confirmed Problem Anemia in chronic kidney disease (366946415) Anemia in chronic kidney disease (D63.1) Active confirmed Problem Chronic kidney disease due to hypertension (638824689378120 ) Hypertensive chronic kidney disease with stage 1 through stage 4 chronic kidney disease, or unspecified chronic kidney disease (I12.9) Active confirmed Problem Chronic kidney disease stage 3A (disorder) (481831984) Chronic kidney disease, stage 3a (N18.31) Active confirmed Encounters Encounter Location Date Provider Diagnosis [address] [place], [place] [id number] 06/03/2024 Yvette Altamirano Plan Of Treatment Pending Test Test Name Order Date PROTEIN, TOTAL W/CREAT, RANDOM URINE Basic Metabolic Panel (8) 10/25/2021 Future Test Test Name Order Date CBC, Platelet; No Differential 4 Urinalysis, Complete 07/20/2024 Microalb/Creat Ratio, Randm Ur 4 Renal Panel (10) 07/20/2024 Next Appt Details Provider Name:Yvette Orr i, 12/23/2024 02:45:00 PM, [address] [facility], [address] [facility], [place], [place], [id number], Insurance Providers Payer Name Payer Address Payer Phone Subscriber Number Group Number Insured Name Patient Relationship to Insured Coverage Start Date Coverage End Date MEDICARE PART B [address] [address] [place], [place] [id number] Ale Harley Self - patient is the insured [facility] [address] [place] [address] [id number] Cherri Ale Self - patient is the insured Medical (General) History Medical History History ICD Code DM2 HTN Bipolar disorder Surgical History Surgery Date(Month/Year) Tonsillectomy Shoulder replacement 2005 Lasik surgery Craniotomy Cholecystectomy Colonoscopy 11/2011 Hip Arthroplasty 2019 Lumbar spine fusion 2019
--- OUTSIDE RECORDS SUMMARY | 2024-10-06 14:21 | XMS_ITS ---
Author Organization [facility] Address [address] [place] [address] [place] [address] Care Team Providers Care Business Management Intern Name Role Phone José Miguel Morgan MD Primary Care Provider Yvette Ayers Unavailable [phone] REASON FOR VISIT Nsight not covered Encounters Encounter Location Date Provider Diagnosis [address] [place] [id number] 06/03/2024 Yvette Altamirano Plan Of Treatment Next Appt Details Provider Name:Yvette Orr i, 12/23/2024 02:45:00 PM, [address] [facility], [address] [facility], [place], [place], [phone], Progress Notes * Ale HYATTDOB: [birth year] (69 yo F)Acc No.[id number]:06/03/2024 Patient: Rich KUMARAle :1955 A ge:69 Y S ex:Female Address:[address] [place] [address], [address] * true * Date: Generated for Milka price/Iliana/eTchilosmitting on: 0 10/06/2024 02:21 PM CDT
--- OUTSIDE RECORDS SUMMARY | 2024-10-06 14:21 | XMS_ITS ---
Author Organization [facility] Address [address] [place], [place] [phone] Care Team Providers Care Dolly Pusher Name Role Phone JOEDAMIONCARMEN MARIAN Unavailable [phone] AUSTEN TILLMAN Unavailable Unavailable Allergies Allergen (clinical drug ingredient) Drug/Non Drug Allergy documented on EMR Reaction Allergy Type Onset Date Status Iodine Unknown Drug Allergy 03/24/2021 active REASON FOR VISIT *General care Vital Signs Weight 200 lbs 04/09/2024 Weight-kg 90.72 kg 04/09/2024 Height 63.00 in 04/09/2024 Height-cm 160.02 cm 04/09/2024 BMI 35.42 kg/m2 04/09/2024 Encounters Encounter Location Date Provider Diagnosis [facility] [place] [address] [place], [place] [phone] 04/09/2024 MARIAN MCCOY Onychomycosis B35.1 ; Pain in right toe(s) M79.674 ; Pain in left toe(s) M79.675 ; Atherosclerosis of [place] arteries of extremities with intermittent claudication, bilateral legs I70.213 and Acquired keratoderma L85.1 Assessments Encounter Date Diagnosis (ICD Code) Assessment Notes Treatment Notes Treatment Clinical Notes Section Notes 04/09/2024 Onychomycosis (ICD-10 - B35.1) 04/09/2024 Pain in right toe(s) (ICD-10 - M79.674) 04/09/2024 Pain in left toe(s) (ICD-10 - M79.675) 04/09/2024 Atherosclerosis of [place] arteries of extremities with intermittent claudication, bilateral [...] tissue removed Next Appt Details Provider Name:MARIAN CHAUDHARI, 03:20:00 PM, [address] [facility] [address], [place], [place], [phone], Progress Notes * PUMA HYATTDOB: [birth year] (68 yo F)Acc No.[id number]:04/09/2024 Patient: Rich KUMARPUMA Provider: Seamus Mccoy DPM :1955 A ge:68 Y S ex:Female Date:04/09/2024 Address:[address] [place], [place] [id number] Subjective: * Chief Complaints: * * General [...] - M79.675 4 . A therosclerosis of [place] arteries of extremities with intermittent claudication, bilateral legs - I70.213 5 . A cquired keratoderma - L85.1 Plan: * Treatment: * Procedure Codes: 1 1721 DEBRIDE NAIL, 6 OR MORE, Modifiers: Q8 * Billing Information: * Visit Code: * Procedure Codes: 75362 DEBRIDE NAIL, 6 OR MORE. Modifiers: Q8 * Sign off status: Completed true * Provider: Seamus Mccoy DPM Date: 0 04/09/2024 Generated for Milka price/Iliana/Imani on: 0 10/06/2024 02:21 PM CDT History and Physical Notes * [...]
--- OUTSIDE RECORDS SUMMARY | 2024-10-06 14:21 | XMS_ITS ---
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 Occasional EtOH No MJ or illicits 11/10 taking pure vitamin supplement Encounters Encounter Location Date Provider Diagnosis [address] [place], [place] [id number] 07/29/2024 Yvette Altamirano Plan Of Treatment Next Appt Details Provider Name:Yvette Orr i, 12/23/2024 02:45:00 PM, [address] [place] [address], [address], [place], [place], [phone], Progress Notes * Ale HYATTDOB: [birth year] (69 yo F)Acc No.[id number]:07/29/2024 Progress Notes Patient: Rich Ale KUMAR Provider: Rich Altamirano MD :1955 A ge:69 Y S ex:Female Date:07/29/2024 Address:[address] [place], [place] [phone] Pcp:José Miguel Morgan MD Subjective: * Chief [...] 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 * Allergies: I odinated Diagnostic Agents. Objective: * Vitals: Assessment: Plan: * Treatment: * Images: * Electronic signature of Gulshan Altamirano MD on 10/06/2024 at 02:21 PM CDT Sign off status: Pending * Provider: Rich Altamirano MD Date: 0 07/29/2024 Generated for Milka price/Iliana/Imani on: 0 10/06/2024 02:21 PM CDT
--- OUTSIDE RECORDS SUMMARY | 2024-10-06 14:21 | XMS_ITS ---
Author Organization [facility] Address [address] [place], [place] [address] Care Team Providers Care Senior Service Technician Name Role Phone JOEMARIAN ARREDONDO Unavailable [phone] AUSTEN FONG Unavailable Unavailable Allergies Allergen (clinical drug ingredient) Drug/Non Drug Allergy documented on EMR Reaction Allergy Type Onset Date Status Iodine Unknown Drug Allergy 03/24/2021 active REASON FOR VISIT *General care Vital Signs Weight 200 lbs 06/25/2024 Weight-kg 90.72 kg 06/25/2024 Height 63.00 in 06/25/2024 Height-cm 160.02 cm 06/25/2024 BMI 35.42 kg/m2 06/25/2024 Encounters Encounter Location Date Provider Diagnosis [facility] [place] [address] [place], [place] [id number] 06/25/2024 MARIAN MCCOY Onychomycosis B35.1 ; Pain in right toe(s) M79.674 ; Pain in left toe(s) M79.675 ; Atherosclerosis of [place] arteries of extremities with intermittent claudication, bilateral legs I70.213 and Acquired keratoderma L85.1 Assessments Encounter Date Diagnosis (ICD Code) Assessment Notes Treatment Notes Treatment Clinical Notes Section Notes 06/25/2024 Onychomycosis (ICD-10 - B35.1) 06/25/2024 Pain in right toe(s) (ICD-10 - M79.674) 06/25/2024 Pain in left toe(s) (ICD-10 - M79.675) 06/25/2024 Atherosclerosis of [place] arteries of extremities with intermittent claudication, bilateral [...] Details Provider Name:MARIAN CHAUDHARI, 03:20:00 PM, [address] [facility], [facility] [address], [place], [place], [phone], Progress Notes * PUMA HYATTDOB: [birth year] (69 yo F)Acc No.[id number]:06/25/2024 Patient: Rich KUMARPUMA Provider: Seamus Mccoy DPM :1955 A ge:69 Y S ex:Female Date:06/25/2024 Address:[address] [place], [place] [id number] Subjective: * Chief Complaints: * * General [...] - M79.675 4 . A therosclerosis of [place] arteries of extremities with intermittent claudication, bilateral legs - I70.213 5 . A cquired keratoderma - L85.1 Plan: * Treatment: * Procedure Codes: 1 1721 DEBRIDE NAIL, 6 OR MORE, Modifiers: Q8 * Billing Information: * Visit Code: * Procedure Codes: 26665 DEBRIDE NAIL, 6 OR MORE. Modifiers: Q8 * UNT [employer] Sign off status: Completed true * Provider: Seamus Mccoy DPM Date: 08/26/2023 Generated for Milka price/Iliana/Imani on: 0 10/06/2024 [...]
--- OUTSIDE RECORDS SUMMARY | 2024-10-06 14:21 | XMS_ITS | Clinical Summary ---
Author Organization [facility] Address [address] [place] [address] Care Team Providers Care Clay Worker Name Role Phone None, Provider MD Primary [...] MEDICARE [facility] Care Teams Clay Worker Relationship Specialty Start Date End Date None, Provider, PCP - General UNKNOWN PHYSICIAN SPECIALTY 11/23/23
--- OUTSIDE RECORDS SUMMARY | 2024-10-06 14:21 | XMS_ITS | Clinical Summary ---
Author Organization [facility] Address [address] [place] [address] Care Team Providers Care Diesel Engine Engineer Name Role Phone Unavailable Primary Care Provider [...]
--- OUTSIDE RECORDS SUMMARY | 2024-10-06 14:21 | XMS_ITS | Encounter Summary ---
Author Organization [facility] Address [address] [facility] [place] [address] Care Team Providers Care Telephone Clerks Supervisor Name Role Phone José Miguel Morgan MD Primary Care Provider [phone] Juan Carlos Ayala MD Unavailable [phone] Andrei Gonzalez MD Unavailable Sandeep Razo MD Unavailable [phone] Monique Jain MD Unavailable [phone] Tiff Bellamy Unavailable Unavailable José Miguel Morgan MD Unavailable Adela Rayo RN Unavailable [phone] Pcp, [facility] Primary Care Provider Unavailable Winsome Schneider Unavailable [phone] Ra Hutton MD Primary Care Provider Ra Hutton MD Unavailable [phone] Alpesh Gayle Unavailable José Miguel Morgan MD Unavailable Encounter Details Date Type Department Care Team (Late st Contact Info) Description 06/04/[address] [facility] Outpatient Visit [facility] - Internal Medicine [address] [phone] Social History Tobacco Use Types Packs/Day Years [...] Description 12/29/2024 1:20 PM CDT Office Visit [facility] - Internal Medicine [address] [facility] [address] [place] [phone] Ra Hutton MD [address] [place] [address] [place] [phone] documented as of this encounter Visit Diagnoses Not on filedocumented in this encounter Care Teams Telephone Clerks Supervisor Relationship Specialty Start Date End Date José Miguel Morgan MD [address] [place] [address] PCP - General 06/24/09 08/28/23 José Miguel Morgan MD [address] [place] [address] PCP - Attributed-MSSP 07/22/21 01/19/24 Pcp, [facility] PCP - General 08/29/23 12/08/23 Ra Hutton MD [address] [place] [address] [place] [phone] PCP - General Internal Medicine 12/09/23 Ra Hutton MD [address] [place] [address] [place] [phone] PCP - Attributed-MSSP 01/20/24 03/21/24 José Miguel Morgan MD [address] [facility] [address] [place] [address] PCP - Attributed-MSSP 03/22/24 [place] [address] [facility] [address] [place] [address] Psychiatry 12/08/[address] [place] [address] [facility] [address] [place] [address] Gastroenterology 12/08/13 Sandeep Razo MD [address] [facility] [place] [address] Dermatology 12/08/13 Monique Jain MD [address] [phone] Podiatry 12/08/13 Tiff Bellamy Update Information Ophthalmology 08/14/18 Adela Rayo, CHELLE Sales NegotiatorGum Dipper 10/02/22 03/01/23 Winsome Schneider Care Coordination Specialist Care Management 10/16/23 10/16/23 Alpesh Gayle Care Coordination Specialist Care Management 04/29/24 04/29/24 documented as of this encounter
--- OUTSIDE RECORDS SUMMARY | 2024-10-06 14:22 | XMS_ITS | Clinical Summary ---
Author Organization [facility] Address [address] [facility] [address] [place] [address] Care Team Providers Care Investigator Narcotics Name Role Phone Juan Carlos Ayala MD Unavailable [phone] Andrei Gonzalez MD Unavailable [phone] Sandeep Razo MD Unavailable Monique Jain MD Unavailable [phone] Tiff Bellamy Unavailable Unavailable Ra Hutton MD Primary Care Provider [phone] José Miguel Morgan MD Unavailable Source Comments [facility],non-owned Affiliates and Associated Physician Practices is amultiple site organization consisting of ambulatory clinics and hospital sitesin [place], [place], [place] and [place]. This disclosure is being madepursuant to the Care Everywhere program and may not contain all information available regarding this patient. 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) Use 1 Units 2 times daily 100 Each 1 10/03/2022 Active Blood Glucose Monitoring Suppl (Altavian Verio Flex System) w/Device KIT as directed 10/03/2022 Active Altavian Verio test strip TEST BLOOD SUGAR TWICE DAILY 11/23/2022 Active atorvastatin (Lipitor) 10 MG tablet TAKE 1 TABLET BY MOUTH EVERY DAY 100 tablet 1 08/07/2023 Active Cranberry POWD as directed Active [place]-3 Fatty Acids (fish oil) 500 MG capsule 500 (five hundred) mg Active vitamin E (Tocopheryl) 100 UNIT capsule as directed Orally Active olmesartan-hydroCHL OROthiazide (Benicar HCT) 40-12.5 MG tabletIndications:E ssential hypertension, benign Take 1 (one) tablet by mouth once daily 90 tablet 1 06/16/2024 Active omeprazole (PriLOSEC) 20 MG capsule Take 1 (one) capsule by mouth 2 times daily 200 capsule 1 09/02/2024 Active gabapentin (Neurontin) 300 MG capsule Take 1 (one) capsule by mouth 2 times daily 200 capsule 1 09/02/2024 Active potassium chloride ER 10 MEQ tabletIndications:L ow blood potassium Take 1 (one) tablet by mouth once daily 100 tablet 1 09/02/2024 Active Active Problems Problem Noted Date Diagnosed Date [...] Type Department Care Team Description 08/31/2024 Refill [facility] - Internal Medicine [address] [place] [phone] Ra Hutton MD Refill Request from Last [...] Recorded Patient Health Questionnaire-2 Score 0 06/16/2024 [facility] - Occupational [...] to sleep or slept in a senior care (including now)? No 10/03/2022 Sex and Gender Information Value Date Recorded Sex Assigned at Not on file Gender Identity Not on file Sexual Orientation Not on file Last Filed Vital Signs Vital Sign Reading Time Taken Comments Blood Pressure 120/60 06/16/2024 12:51 PM BUSINESS DEVELOPER Pulse 86 12/09/2023 3:41 PM CDT Temperature 36.4 C (97.6 F) 12/09/2023 3:41 PM CDT Respiratory Rate 20 06/16/2024 12:5 1 PM BUSINESS DEVELOPER Oxygen Saturation 98% 06/16/2024 12: 51 PM BUSINESS DEVELOPER Inhaled Oxygen Concentration 35% 03/2019 11:00 AM CDT Weight 90.2 kg (198 lb 12.8 oz) 024 12:51 PM BUSINESS DEVELOPER Height 152.4 cm (5') 06/16/2024 12:51 PM BUSINESS DEVELOPER Body Mass Index 38.83 06/16/2024 12:51 PM BUSINESS DEVELOPER Plan of Treatment Upcoming Encounters Date Type Department Care Team (Late st Contact Info) Description 12/29/2024 1:20 PM CDT Office Visit [facility] - Internal Medicine [address] [place] [address] [place] [phone] Ra Hutton MD [address] [place] [phone] Health Maintenance Due Date Last Done [...] 05/03/2021, Additional history exists COVID-19 VACCINE ( season) 2024 10/25/2020 DIABETES RETINOPATHY SCREENING 05/19/2024 [...] complete this topic MENINGOCOCCAL (Group B) VACCINE SHARED DECISION-MAKING Aged Out No longer eligible based on patient's age to complete this topic MENINGOCOCCAL GROUPS A/C/Y/W VACCINE Aged Out No longer eligible based on patient's age to complete this topic Goals Goal Patient Goal Type Associated Problems Recent Progress Patient-Stated? Author Blood Pressure < 140/90 Blood Pressure 120/60(2023 12:51 PM BUSINESS DEVELOPER) No Vinita Martienz HEMOGLOBIN A1C < 7.0 Result Component 6.0( 3:18 PM CDT) No Juan, [place] Medical Devices Implanted Type Area Cabin Agent Device Identifier Shelf Expiration Date Model / Serial / Lot Trilogy Acet Shell 54mm Od Multi Implanted:Qty: 1 on 09/16/2018 by Grupo Smalls MD at [facility] Right: Hip Tim Inc 11/18/2025 / / [id number] Description:SHELL WITH HOLES Bone Screw 6.5x40 Self-Tap Implanted:Qty: 1 on 09/16/2018 by Grupo Smalls MD at [facility] Right: Hip Tim Inc 04/20/2028 / / [id number] Description:BONE SCREW SELF- TAPPING Modular Cup Neutral Liner Longevity 50/52/54x36 Implanted:Qty: 1 on 09/16/2018 by Grupo Smalls MD at [facility] Right: Hip Tim Inc 03/21/2023 / / [id number] Description:TRILOGY ACETABUL AR SYSTEM LINER STANDARD Fitmore Hip Stem B Size 3 Implanted:Qty: 1 on 09/16/2018 by Grupo Smalls MD at [facility] Right: Hip Tim Inc 07/21/2025 01.46452. / / [id number] Description:FITMORE HIP STEM , UNCEMENTED Biolox Delta Fem Head 36mm +3.5mm Implanted:Qty: 1 on 09/16/2018 by Grupo Smalls MD at [facility] Right: Hip Tim Inc 12/20/2027 [id number] / / [id number] Description:CERAMIC FEMORAL HEAD Blas H1 Total Hip Implanted:Qty: 1 on 09/16/2018 by Grupo Smalls MD at [facility] Right: Hip Tim Biomet TOTAL HIP H 1 / / Screw [place] Polyaxial 06.5x40mm Implanted:Qty: 1 on 04/16/2019 by Gerald Tolentino MD at [facility] N/A: Spine Gabi Spine [id number] / / Screw 6.5mm 45mm Pa Spne Vrst Nonster Implanted:Qty: 8 on 04/16/2019 by Gerald Tolentino MD at [facility] N/A: Spine [place] Spine [id number] / / Screw 6.5mm 50mm Pa Spne Vrst Nonster Implanted:Qty: 7 on 04/16/2019 by Gerald Tolentino MD at [facility] N/A: Spine [place] Spine [id number] / / Jamarcus Spnl 500mm Ti Karlo Hex End Implanted:Qty: 1 on 04/16/2019 by Gerald Tolentino MD at [facility] N/A: Spine Ipanema Technologies Medical Llc [id number] / / Everst Cannulated Screw Implanted:Qty: 1 on 04/16/2019 by Gerald Tolentino MD at [facility] N/A: Spine [employer] Medical [id number] / / 9.5 X 100 [place] Cannulated Screw Implanted:Qty: 1 on 04/16/2019 by Gerald Tolentino MD at [facility] N/A: Spine [employer] Medical [id number] / / Graft Bone Vivigen Warren Cnc Dmnr 10cc - [id number] Implanted:Qty: 1 on 04/16/2019 by Gerald Tolentino MD at [facility] N/A: Spine Lifenet 12/03/2019 [id number] / [id number] / Graft Bone Canc 60ml Frzdr Chp 4-9.5mm - [id number] Implanted:Qty: 1 on 04/16/2019 by Gerald Tolentino MD at [facility] N/A: Spine Allosource 09/26/2023 [id number] / [id number] / Cable Spnl Ev Ti 2 Loop 2 Crmp Strl Implanted:Qty: 2 on 04/28/2019 by Gerald Tolentino MD at [facility] N/A: Spine Depuy Spine [id number] / / Graft Bone Canc 4-9.5mm 30cc Algrf Frzdr - [id number] Implanted:Qty: 1 on 04/28/2019 by Gerald Tolentino MD at [facility] N/A: Spine Allosource 09/07/2023 [id number] / [id number] / Graft Bone Canc 60ml Frzdr Chp 4-9.5mm - [id number] Implanted:Qty: 1 on 04/28/2019 by Gerald Tolentino MD at [facility] N/A: Spine Allosource 01/24/2023 [id number] / / [id number] Screw Set Spne Vrst Nonster Lf Implanted:Qty: 28 on 04/28/2019 by Gerald Tolentino MD at [facility] N/A: Spine Gabi Spine [id number] / / Screw 5.5mm 35mm Pa Spne Vrst Nonster Implanted:Qty: 8 on 04/28/2019 by Gerald Tolentino MD at [facility] N/A: Spine [place] Spine [id number] / / Jamarcus Spnl 500mm Ti Karlo Hex End Implanted:Qty: 2 on 04/28/2019 by Gerald Tolentino MD at [facility] N/A: Spine Ipanema [employer] Medical Llc [id number] / / Large Tp Hook Implanted:Qty: 2 on 04/28/2019 by Gerald Tolentino MD at [facility] N/A: Spine [employer] Medical [id number] / / Screw Set Spne Vrst Nonster Lf Implanted:Qty: 18 on 04/16/2019 by Gerald Tolentino MD at [facility] Explanted:Qty: 13 on 04/28/2019 by Gerald Tolentino MD at [facility] N/A: Spine Gabi Spine [id number] / / Graft Bone Infs Rhbmp-2 Bvn Clgn Lg 8ml Implanted:Qty: 1 on 01/01/2020 by Gerald Tolentino MD at [facility] N/A: Spine Lumbar Medtronic Sofamor Danek Inc 11/19/2020 [id number] / / [id number] Graft Bone Canc 60ml Frzdr Chp 4-9.5mm Implanted:Qty: 1 on 01/01/2020 by Gerald Tolentino MD at [facility] N/A: Spine Lumbar Allosource 08/14/2022 [id number] / / [id number] Graft Bone Canc 4-9.5mm 30cc Algrf Frzdr Implanted:Qty: 1 on 01/01/2020 by Gerald Tolentino MD at [facility] N/A: Spine Lumbar Allosource 10/13/2024 [id number] / / [id number] Calion Interbody System Implanted:Qty: 1 on 01/01/2020 by Gerald Tolentino MD at [facility] N/A: Spine Lumbar K2 Medical Llc 09/22/2023 [id number] / / [id number] Screw Set Spne Vrst Nonster Lf Implanted:Qty: 26 on 01/01/2020 by Gerald Tolentino MD at [facility] N/A: Spine Lumbar [place] Spine [id number] / / Screw 7.5mm 40mm Pa Spne Vrst Nonster Implanted:Qty: 1 on 01/01/2020 by Gerald Tolentino MD at [facility] N/A: Spine Lumbar [place] Spine [id number] / / Screw 7.5mm 45mm Pa Spne Vrst Nonster Implanted:Qty: 1 on 01/01/2020 by Gerald Tolentino MD at [facility] N/A: Spine Lumbar Gabi Spine 2911-85089 / / Cnct Jamarcus 6mm 5.5mm Vrst Xw Spne Cls Implanted:Qty: 5 on 01/01/2020 by Gerald Tolentino MD at [facility] N/A: Spine Lumbar Gabi Spine [id number] / / Open/Side Angled Connector Implanted:Qty: 4 on 01/01/2020 by Gerald Tolentino MD at [facility] N/A: Spine Lumbar K[employer] Medical Llc [id number] / / Jamarcus Cocr 500mm Implanted:Qty: 2 on 01/01/2020 by Gerald Tolentino MD at [facility] N/A: Spine Lumbar FanBread [id number] / / Explanted Type Area Cabin Agent Device Identifier Shelf Expiration Date Model / Serial / Lot Screw 7.5mm 50mm Pa Spne Vrst Nonster Explanted:Qty: 1 on 01/01/2020 at [facility] N/A: Spine Lumbar [place] Spine [id number] / / Procedures Procedure Name Priority Date/Time Associated Diagnosis Comments HEMOGLOBIN A1C - POINT OF CARE (AMB) Routine 06/16/2024 1:25 PM BUSINESS DEVELOPER Type 2 diabetes mellitus without complication, without [...] ENDOSCOPY, COLON, SCREENING Routine 06/09/2018 11:03 AM BUSINESS DEVELOPER MAMMO BILAT SCREENING Routine 2018 12:55 PM BUSINESS DEVELOPER Visit for screening mammogram HEPATITIS C ANTIBODY Routine 01/09/2017 4:18 PM CDT Need for hepatitis C screening test from Last 3 Months or Most Recently Relevant to Health Maintenance Results * HEMOGLOBIN A1C - POINT OF CARE (HgbA1C) (06/16/2024 1:25 PM BUSINESS DEVELOPER) Hemoglobin A1c POCT 5.5 % [facility] Expiration Date 02/19/[address] [facility] Lot # [id number] [facility] QC Verified Yes Yes [facility] Blood BLOOD SPECIMEN / Unknown 06/16/2024 1:25 PM BUSINESS DEVELOPER Ra Hutton MD LAB - POINT OF CARE ORDERABLES [facility] [address], [address] [phone] * MICROALB/CREAT RATIO URINE RANDOM PANEL (02/12/2023 [...] Agency Comment Lab Testing performed at: [facility] [address] [facility] [phone] José Miguel Morgan MD LAB - URINE CHEMISTR Y ORDERABLES [facility] INSURANCE BILL [address] [place] [address] * (ABNORMAL) COMPREHENSIVE METABOLIC PANEL (02/12/2023 3:18 [...] Resulting Agency Comment [facility]: [facility] [address] [facility] [phone] José Miguel Morgan MD LAB - CHEMISTRY TABATHA BAUTISTA [facility] INSURANCE BILL [address] [place] [address] * EYE EXAM (05/19/2022) Anatomical Region Laterality Modality Other 05/19/2022 Narrative 05/19/2022 Ordered by an unspecified provider. Scanned Document SCANNING ONLY * BONE DENSITY AXIAL SKELETON(1OR MORE SITES)[id number] (02/11/2019 8:44 AM CDT) Anatomical Region Laterality [...] * ENDOSCOPY, COLON, SCREENING (06/09/2018 11:03 AM BUSINESS DEVELOPER) Report Endoscopy POC _ Patient Name: Ale Hyatt Procedure Date: 06/09/2018 11:03 AM Date of : 1955 Admit Type: Outpatient Age: 63 Room: ROOM 1 Gender: Female Note Status: Finalized Attending MD: Andrei Gonzalez MD _ Procedure: Colonoscopy Indications: High risk colon cancer surveillance: Personal history of colonic polyps, Last colonoscopy: 2011 Providers: Andrei Gonzalez MD, Pallavi Logan RN, Katherine Rowe RN, Malka Warren CRNA (Anesthesia Staff) Medicines: Propofol per Anesthesia Complications: No immediate complications. _ Procedure: After I obtained informed consent, the scope was passed under direct vision. Throughout the procedure, the patient's blood pressure, pulse, and oxygen saturations were monitored continuously. The [id number] SN [id number] was introduced through the anus and advanced [...] for surveillance. Procedure Code(s): --- Professional --- 60827, Colonoscopy, flexible; with removal of tumor(s), polyp(s), or other lesion(s) by snare technique 39608, 59, Colonoscopy, flexible; with removal of tumor(s), polyp(s), or other lesion(s) by hot biopsy forceps --- Technical --- 87755, Colonoscopy, flexible; with removal of tumor(s), polyp(s), or other lesion(s) by snare technique 26990, 59, Colonoscopy, flexible; with removal of tumor(s), [...] flexure) K64.9, Unspecified hemorrhoids CPT copyright 2015 [employer]. All rights reserved. The codes documented in this report are preliminary and upon infection prevention practitioner review may be revised to meet current compliance requirements. Andrei Gonzalez MD 06/09/2018 11:38:18 AM This report has been signed electronically. Number of Addenda: 0 Note Initiated On: 06/09/2018 11:03 AM Estimated Blood Loss: Estimated blood loss: none. [facility] ENDOSCOPY 06/09/2018 11:0 3 AM BUSINESS DEVELOPER Andrei Gonzalez MD GI PROCEDURE ORDERAB LES [facility] ENDOSCOPY * MAMMO BILAT SCREENING (2018 12:55 PM BUSINESS DEVELOPER) Anatomical Region Laterality Modality Breast Bilateral Mammography 2018 3:41 PM BUSINESS DEVELOPER Impressions 2018 3:44 PM BUSINESS DEVELOPER No mammographic evidence of malignancy in either breast. ASSESSMENT: BIRADS Category 1: Negative mammogram. RECOMMENDATION: Bilateral screening mammogram in one year. Thank you for allowing us to participate in the care of your patient. Reading Radiologist: Katherine Soliman MD on 2018 at 3:44 PM Narrative 2018 3:44 PM BUSINESS DEVELOPER EXAMINATION: Digital screening mammogram on 2018. Low-dose [...] PM CDT 01/09/2017 Narrative Resulting Agency Comment [facility] [address] [place] [phone] José Miguel Morgan MD LAB - CHEMISTRY TABATHA BAUTISTA [facility] ACCOUNT BILL [address] [place] [address] from Last 3 Months or Most Recently Relevant to Health Maintenance Advance Directives Documents on File Type Date Recorded Patient Medical Imaging Tech Expl anation Adv Directive/Living Will/POA 05/28/2019 2:15 [...] 3:34 PM 09/19/2018 1:20 PM Care Teams Investigator Narcotics Relationship Specialty Start Date End Date Ra Hutton MD [address] [facility] [address] [place] [address] PCP - General Internal Medicine 12/09/23 José Miguel Morgan MD [address] [facility] [address] [place] [address] PCP - Attributed-MSSP 03/22/24 [place] [address] [facility] [address] [place] [address] Psychiatry 12/08/13 Andre[place] [address] [place] [address] [address] [place] [address] Gastroenterology 12/08/13 Sandeep Razo MD [address] [facility] [address] Dermatology 12/08/13 Monique Jain MD [address] [facility] [address] [place] [address] Podiatry 12/08/13 Tiff Bellamy Update Information Ophthalmology 08/14/18
--- OUTSIDE RECORDS SUMMARY | 2024-10-06 14:22 | XMS_ITS | Patient Health Record ---
Author Organization [facility] Address [address] [facility] [address] [place], [place] [address] Care Team Providers Care Route Sales Trainee Name Role Phone MARIAN HODGE Unavailable [phone] AUSTEN FONG Unavailable Unavailable Allergies Allergen (clinical [...] [facility] [address] [place] [id number] 10/01/2024 MARIAN HODGE Onychomycosis B35.1 ; Pain in right toe(s) M79.674 ; Pain in left toe(s) M79.675 ; Atherosclerosis of [place] arteries of extremities with intermittent claudication, bilateral legs I70.213 and Acquired keratoderma L85.1 [facility] [address] [place] [id number] 11/29/2023 MARIAN HODGE Onychomycosis B35.1 ; Pain in right toe(s) M79.674 ; Pain in left toe(s) M79.675 ; Atherosclerosis of [place] arteries of extremities with intermittent claudication, bilateral legs I70.213 and Acquired keratoderma L85.1 [facility] [place] [address] [place] [id number] 02/06/2024 MARIAN HODGE Onychomycosis B35.1 ; Pain in right toe(s) M79.674 ; Pain in left toe(s) M79.675 ; Atherosclerosis of [place] arteries of extremities with intermittent claudication, bilateral legs I70.213 and Acquired keratoderma L85.1 [facility] [place] [address] [place] [address] [id number] 04/09/2024 MARIAN HODGE Onychomycosis B35.1 ; Pain in right toe(s) M79.674 ; Pain in left toe(s) M79.675 ; Atherosclerosis of [place] arteries of extremities with intermittent claudication, bilateral legs I70.213 and Acquired keratoderma L85.1 [facility] [place] [address] [place] [address] [id number] 06/25/2024 MARIAN HODGE Onychomycosis B35.1 ; Pain in right toe(s) M79.674 ; Pain in left toe(s) M79.675 ; Atherosclerosis of [place] arteries of extremities with intermittent claudication, bilateral legs I70.213 and Acquired keratoderma L85.1 Assessments Encounter Date Diagnosis (ICD Code) Assessment Notes Treatment Notes Treatment Clinical Notes Section Notes 11/29/2023 Onychomycosis (ICD-10 - B35.1) 02/06/2024 Onychomycosis (ICD-10 - B35.1) 04/09/2024 Onychomycosis (ICD-10 - B35.1) 06/25/2024 Onychomycosis (ICD-10 - B35.1) 10/01/2024 Onychomycosis (ICD-10 - B35.1) 10/01/2024 Pain in right toe(s) (ICD-10 - M79.674) 06/25/2024 Pain in right toe(s) (ICD-10 - [...] Pain in left toe(s) (ICD-10 - M79.675) 10/01/2024 Pain in left toe(s) (ICD-10 - M79.675) 06/25/2024 Atherosclerosis of [place] arteries of extremities with intermittent claudication, bilateral legs (ICD-10 - I70.213) 10/01/2024 Atherosclerosis of [place] arteries of extremities with intermittent claudication, bilateral legs (ICD-10 - I70.213) 02/06/2024 Atherosclerosis of [place] arteries of extremities with intermittent claudication, bilateral legs (ICD-10 - I70.213) 04/09/2024 Atherosclerosis of [place] arteries of extremities with intermittent claudication, bilateral legs (ICD-10 - I70.213) 11/29/2023 Atherosclerosis of [place] arteries of extremities with intermittent claudication, bilateral legs (ICD-10 - I70.213) 02/06/2024 Acquired keratoderma (ICD-10 - L85.1) 11/29/2023 Acquired keratoderma (ICD-10 - L85.1) 04/09/2024 Acquired keratoderma (ICD-10 - L85.1) 06/25/2024 Acquired keratoderma (ICD-10 - L85.1) 10/01/2024 Acquired keratoderma (ICD-10 - L85.1) 10/01/2024 Other Nails 1-5 Bilateral were debrided extensively with nail nippers and emery board, reducing length and girth to pink healthy tissue with any subungual debris and necrotic tissue removed 11/29/2023 Other Nails 1-5 Bilateral were debrided [...] Of Treatment Next Appt Details Provider Name:MARIAN FARA, 03:20:00 PM, [address] [facility], [place], [place], [id number], Insurance Providers Payer Name Payer Address Payer Phone Subscriber Number Group Number Insured Name Patient Relationship to Insured Coverage Start Date Coverage End Date Medicare Part B [place] [address] [place] [address] [id number] PUMA HYATT Self - patient is the insured [facility] ([facility]) ATTN CLAIMS [address] [place] [address] [id number] PUMA HYATT Self - patient is the insured [facility] B [address] [address] [place], [place] [id number] PUMA HYATT Self - patient is the insured
--- OUTSIDE RECORDS SUMMARY | 2024-10-06 14:22 | XMS_ITS ---
[facility] Organization [facility] Address [address] [place], [place] [id number] Care Team Providers Care Data Architect Manager Name Role Phone MARIAN MCCOY Unavailable [phone] AUSTEN FONG Unavailable Unavailable Allergies Allergen (clinical drug ingredient) Drug/Non Drug Allergy documented on EMR Reaction Allergy Type Onset Date Status Iodine Unknown Drug Allergy 03/24/2021 active REASON FOR VISIT *General care Encounters Encounter Location Date Provider Diagnosis [facility] [place] [address] [place], [place] [id number] 10/01/2024 MARIAN MCCOY Onychomycosis B35.1 ; Pain in right toe(s) M79.674 ; Pain in left toe(s) M79.675 ; Atherosclerosis of [place] arteries of extremities with intermittent claudication, bilateral legs I70.213 and Acquired keratoderma L85.1 Assessments Encounter Date Diagnosis (ICD Code) Assessment Notes Treatment Notes Treatment Clinical Notes Section Notes 10/01/2024 Onychomycosis (ICD-10 - B35.1) 10/01/2024 Pain in right toe(s) (ICD-10 - M79.674) 10/01/2024 Pain in left toe(s) (ICD-10 - M79.675) 10/01/2024 Atherosclerosis of [place] arteries of extremities with intermittent claudication, bilateral legs (ICD-10 - I70.213) 10/01/2024 Acquired keratoderma (ICD-10 - L85.1) 10/01/2024 [...] Details Provider Name:MARIAN CHAUDHARI, 03:20:00 PM, [address] [facility], [facility] [address], [place], [place], [phone], Progress Notes * SHAREE HYATTOlivier ForrestDOB: [birth year] (69 yo F)Acc No.[id number]:10/01/2024 Patient: PUMA BEEBE Provider: Seamus Mccoy DPM :1955 A ge:69 Y S ex:Female Date:10/01/2024 Address:[address] [place], [place] [id number] Subjective: * Chief Complaints: * 1 . *General care. * HPI: H PI: General care P atient presents to the office for diabetic foot care. Patient states that their nails are thickened, elongated and painful. Patient states that it is aggravated by shoe gear. Onset is gradual., Patient denies taking blood thinners., Date last seen by Dr. Fong was April 2024., Initials IG. * ROS: G eneral / Constitutional: Patient denies c hange in appetite, fatigue, chills, fever.? C ardiovascular: Chest pain d enies. N eurologic: Loss of use of extremity d enies. * Medical History: * Family History: F ather: PRN - [...] Smoking Status : Never used tobacco. * Allergies: I odine: Allergy - Onset Date 03/24/2021. Objective: * Vitals: * Examination: P hysical Examination: Gen: T [...] - M79.675 4 . A therosclerosis of [place] arteries of extremities with intermittent claudication, bilateral legs - I70.213 5 . A cquired keratoderma - L85.1 Plan: * Treatment: * Billing Information: * Visit Code: * Procedure Codes: * Electronic signature of MARIAN MCCOY DPM on 10/06/2024 at 02:21 PM CDT Sign off status: Pending * Provider: Seamus Mccoy DPM Date: 0 10/01/2024 Generated for Milka price/Iliana/Imani on: 0 10/06/2024 02:21 PM CDT History and Physical Notes * HPI (History of Present Illness) Category Sub-Category Detail Notes Category Not es HPI General care Patient presents to the office for diabetic foot care. Patient states that their nails are thickened, elongated and painful. Patient states that it is aggravated by shoe gear. Onset is gradual., Patient denies taking blood thinners., Date last seen by Dr. Fong was April 2024., Initials IG Examination Category Sub-Category Detail Notes Category Not [...]
== END 2024-10-06 13:21 | disposition home or self-care (01) ==
PROVIDERS: Emergency Provider Nurse Practitioner Family
DX: S01.81XD Laceration without foreign body of other part of head, subsequent encounter (principal); W19.XXXD Unspecified fall, subsequent encounter; I10 Essential (primary) hypertension; E11.9 Type 2 diabetes mellitus without complications; E03.9 Hypothyroidism, unspecified; M19.90 Unspecified osteoarthritis, unspecified site; K21.9 Gastro-esophageal reflux disease without esophagitis; G24.01 Drug induced subacute dyskinesia; Z98.84 Bariatric surgery status; F31.9 Bipolar disorder, unspecified; M43.16 Spondylolisthesis, lumbar region; Z96.611 Presence of right artificial shoulder joint; Z96.612 Presence of left artificial shoulder joint
CPT/HCPCS: 99211; G0463